=== PATIENT | female | born 1945 | race Caucasian/White ===

== ENCOUNTER → 2017-07-07 | Outpatient (CLI) | payer OTHER ==
[~2017-07-07] MED LIST: ALBU1AER9 INH; ASPEC81 PO; ATOR-24 PO; CALCTAB5 PO; CARB50TA3 PO; CHOL2000 PO; DEXL60CA4 PO; IBUP600T44 PO; IPRA0.037 NAE; MULT-506 PO; OMEG10007 PO; PROBCAP PO; PXL/40 PO
[2017-07-07 12:38] LABS: BASO % 0.4 %; BASO ABS # 0.04 K/uL (0-0.2); EOS % 3.6 %; EOS ABS # 0.35 K/uL (0-0.5); HEMATOCRIT 44.3 % (37-47); HEMOGLOBIN 14.4 g/dL (12.0-16.0); IG# 0.01 K/uL (0.00-0.02); LYMPH % 26.8 %; LYMPH ABS # 2.62 K/uL (1.2-3.4); MEAN CELL VOLUME 91.7 fL (80-100); MEAN CORPUSCULAR HEMOGLOBIN 29.8 pg (25-34); MEAN CORPUSCULAR HGB CONC 32.5 g/dl (32-36); MEAN PLATELET VOLUME 9.9 fL (7.4-10.4); MONO % 9.3 %; MONO ABS # 0.91 K/uL (0.11-0.59); NEUT % 59.8 %; NEUT ABS # 5.83 K/uL (1.4-6.5); PLATELET COUNT 273 K/uL (130-400); RED CELL DISTRIBUTION WIDTH CV 13.1 % (11.5-14.5); RED CELL DISTRIBUTION WIDTH SD 43.6 fL (36.4-46.3); WHITE BLOOD COUNT 9.76 K/uL (4.8-10.8)
[2017-07-07 13:21] LABS: ALBUMIN 3.6 gm/dl (3.4-5.0); ALKALINE PHOSPHATASE 100 U/L (45-117); ALT/SGPT 10 U/L (12-78); AST/SGOT 22 U/L (15-37); BLOOD UREA NITROGEN 17 mg/dl (7-18); CALCIUM 9.4 mg/dl (8.5-10.1); CARBON DIOXIDE 32 mmol/L (21-32); CHOLESTEROL 170 mg/dl (0-200); CREATININE 0.88 mg/dl (0.60-1.20); GLUCOSE 114 mg/dl (70-99); LDL CHOLESTEROL CALCULATED 71 mg/dl; POTASSIUM 4.6 mmol/L (3.5-5.1); SODIUM 140 mmol/L (136-145); TOTAL PROTEIN 8.2 gm/dl (6.4-8.2)
== END | disposition home or self-care (01) ==
LOC: C.LAB1850 11:18
PROVIDERS: ATTEND Internal Medicine Cardiovascular Disease
DX: I44.2 Atrioventricular block, complete (principal); E78.00 Pure hypercholesterolemia, unspecified; R60.0 Localized edema; K59.00 Constipation, unspecified; I25.10 Atherosclerotic heart disease of native coronary artery without angina pectoris

== ENCOUNTER 2020-04-08 14:47 | Inpatient (IN) ==
[2020-04-08] MEDS ORDERED: ONDANSETRON INJ 2 MG/ML 2 ML VIAL IV STA (15:05)
[2020-04-08] MEDS ORDERED: MoRPHine SULFATE 4 MG/ML 1 ML CARP\\VIAL IV STA (15:05)
--- NOTE | 2020-04-08 15:18 | Emergency Department Note ---
Impression & Plan Chest pain, Elevated troponin I level ED Provider Note NAME: LOKESH ROYAL AGE: 75 SEX: F : 1945 ARRIVES VIA: Ambulance INFORMANT: Patient, prehospital personnel ED PROVIDER(S): Abdiel Randhawa DO CHIEF COMPLAINT: Chest pain HPI: The patient is a 75-year-old female who presented to the emergency department for an evaluation of chest pain. The patient has a history of Parkinson's. She was treated with aspirin prior to arrival. She states that she started having chest pain over the last 24 hours. She describes it as a tightness and a pressure over her left anterior chest wall. She states this is worsened with exertion. She is not been seen by her primary care physician for the symptoms. She denies having any nausea or vomiting. She denies having any lower extremity swelling or pain more than usual. The patient states that she has been compliant with her outpatient medication regimen. She does have a pacemaker and a history of coronary artery disease. She states the pain is mild to moderate at this time. ROS: See above HPI for pertinent positives & negatives. A total of 10 systems reviewed and were otherwise negative. PAST MEDICAL HISTORY: See Below PAST SURGICAL HISTORY: See Below FAMILY HISTORY: See Below SOCIAL HISTORY: See Below HOME MEDICATIONS: See Below ALLERGIES: See Below VITALS: See Below PHYSICAL EXAMINATION: GENERAL: The patient is awake and alert. She is somewhat anxious appearing but overall comfortable. EYES: The conjunctivae are clear. The pupils are round and reactive. EARS, NOSE, MOUTH AND THROAT: The nose is without any evidence of any deformity. NECK: The neck is nontender and supple. RESPIRATORY: Normal respiratory effort is noted there is no evidence of wheezing rhonchi or rales CARDIOVASCULAR: Regular rate and rhythm noted there no murmurs rubs or gallops normal S1 normal S2. GASTROINTESTINAL: The abdomen is soft. Abdomen is nontender. MUSCULOSKELETAL/EXTREMITIES: There is no evidence of gross deformity full range of motion is noted in the hips and shoulders. SKIN: Skin is warm and dry. There was trace pedal edema bilaterally. NEUROLOGIC: Patient is awake alert and oriented to person place and situation. Strength was symmetric. MEDICAL DECISION MAKING: The patient is a 75-year-old female who presented to the emergency department for an evaluation of chest pain. The patient describes chest pressure which has been ongoing for the last 24 hours. The patient has a history of coronary artery disease although reviewing her previous cardiology notes the last catheterization I could find was reference from 2007 and did have diffuse luminal irregularities from 30 to 50%. The patient was treated with aspirin prior to arrival. She was given pain medication in the emergency department. She was reevaluated multiple times. The patient does have a pacemaker so interp retation for ischemia is difficult but there is no overt signs of ischemia on her EKG. I discussed the patient's laboratory and radiographic studies with her. She was found to have a mild elevation in her troponin which could be consistent with ischemia. For this reason I will discuss her case with the on- call [facility]. Triage Nursing notes reviewed. Prior medical records reviewed Vital Signs: reviewed and remarkable for elevated blood pressure. Differential diagnosis: Cardiac ischemia, aortic dissection, pulmonary embolism, pneumothorax, pneumonia, pericarditis, myocarditis, esophageal rupture, GERD, cholecystitis, pancreatitis, musculoskeletal, as well as other pathologies. ER treatment provided: See below Diagnostics interpreted by me: ECG: EKG was obtained in the emergency department. My interpretation is ventricular paced rhythm at 76 bpm. Atrial sensing was also noted. No [place] beats were noted. This was compared to a tracing from January 252019. No significant changes were noted. Cardiac Monitoring: An order was placed for continuous cardiac monitoring. The monitor shows a rate of 90 bpm with paced rhythm. Laboratory studies: As stated above and show below. Imaging studies: See below Consultation(s): I discussed this case with Dr. Matthews who is on-call for the [facility] group. Past Med/Surg History Medical History (Updated 04/08/20 @ 17:52 by Eduardo Dash MD) Anxiety Asthma rarely issue CAD (coronary artery disease) Depression GERD (gastroesophageal reflux disease) Hyperlipidemia Hypertension Morbid obesity with BMI of 60.0-69.9, adult Non-Hodgkin lymphoma Osteoarthritis Parkinson disease Sleep apnea mild, no device Surgical History H/O left cataract extraction 10/28/17- given 2mg IV versed without issues History of appendectomy History of bilateral tubal ligation History of carpal tunnel release BILATERAL History of cholecystectomy History of hysterectomy History of tonsillectomy History of total knee replacement BILATERAL Hx of cardiac pacemaker for BBB; 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 Follows up with Dr. 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 Required: No Beliefs That Will Affect Care: None Current Living Situation: Spouse Feels Safe at Home: Yes Assistive Devices: Cane, Glasses and Walker Allergies Allergies Allergy/AdvReac Type Severity Reaction Status Date / Time codeine AdvReac Intermediate ITCHY ALL Verified 04/08/20 16:34 OVER Home Meds Home Medications Medication Instructions Recorded Confirmed melatonin 10 mg PO HS PRN 10/07/17 04/08/20 albuterol sulfate [Ventolin HFA] 2 - 4 puff INHALATION QID PRN 11/10/17 04/08/20 aspirin [Aspirin Low Dose] 81 mg PO QPM 11/10/17 04/08/20 ipratropium bromide 42 mcg (0.06 2 sprays INTRANASAL TID #1 ml 11/05/18 04/08/20 %) nasal spray esomeprazole magnesium 20 mg 20 mg PO BID cap 03/01/19 04/08/20 capsule,delayed release duloxetine 30 mg capsule,delayed 30 mg PO DAILY 04/19/19 04/08/20 release acetaminophen [Tylenol Extra 500 - 1,000 mg PO DIRECTED PRN 03/18/20 04/08/20 Strength] MDD 3 GRAMS/24 HOURS cholecalciferol (vitamin D3) 125 mcg PO QPM 03/18/20 04/08/20 [Vitamin D3] meloxicam [Mobic] 15 mg PO DAILY 03/18/20 04/08/20 vit C,X-Vn-sisbg-lutein-zeaxan 1 tab PO BID 03/18/20 04/08/20 [PreserVision AREDS-2] Previous Rx's Medication Instructions Recorded atorvastatin 40 mg tablet 40 mg PO QPM #90 tab 12/14/18 spironolactone 25 1 tab PO QAM #90 tab 10/27/19 mg-hydrochlorothiazide 25 mg tablet carbidopa ER 50 mg-levodopa 200 mg 1 tab PO QID #360 tab 01/03/20 tablet,extended release amantadine HCl 100 mg capsule 100 mg PO BID 90 Days #180 cap 01/27/20 clonazepam 1 mg tablet 1 mg PO HS 90 Days #90 tab 02/09/20 rasagiline 1 mg tablet 1 mg PO DAILY 90 Days #90 tab 04/03/20 Results & Data (ED) Vital Signs Vital Signs - 24 hr 04/08/20 14:55 04/08/20 15:05 04/08/20 15:06 Temperature 36.4 C L Temperature Source Oral Pulse Rate 79 75 75 Pulse Rate from SpO2 Sensor 80 77 Respiratory Rate 22 20 21 Respiratory Effort / Characteristics Non-Labored Spontaneous Respiratory Depth Normal Respiratory Pattern Regular Blood Pressure 138/83 136/83 139/81 Blood Pressure Mean 101 100 100 Blood Pressure Position Lying Pulse Oximetry 95 98 97 Oxygen Delivery Method Room Air Sepsis Recent Fever Within 48 Hours No Sepsis New/Unexplained Change in Mental Status N/A Sepsis Action Taken by Nursing No Action Required 04/08/20 16:00 04/08/20 16:30 04/08/20 17:01 Temperature Temperature Source Pulse Rate 75 73 71 Pulse Rate from SpO2 Sensor 72 72 69 Respiratory Rate 12 13 Respiratory Effort / Characteristics Respiratory Depth Respiratory Pattern Blood Pressure 144/82 H 144/78 H 141/84 H Blood Pressure Mean 102 100 103 Blood Pressure Position Pulse Oximetry 91 91 96 Oxygen Delivery Method Sepsis Recent Fever Within 48 Hours Sepsis New/Unexplained Change in Mental Status Sepsis Action Taken by Retirement Medications Current Medication List: was personally reviewed by me Laboratory Data Attestation: I reviewed the patient's lab results. Result diagrams: 04/08/20 15:24 04/08/20 15:24 Lab Results 04/08/20 04/08/20 04/08/20 Range/Units 15:24 15:24 15:24 WBC 8.27 (4.8-10.8) K/uL RBC 4.73 (4.2-5.4) M/uL Hgb 14.4 (12.0-16.0) g/dL Hct 44.1 (37-47) % MCV 93.2 (80-100) fL MCH 30.4 (25-34) pg MCHC 32.7 (32-36) g/dL RDW Std Deviation 44.8 (36.4-46.3) fL RDW Coeff of Misti 13.1 (11.5-14.5) % Plt Count 235 (130-400) K/uL MPV 10.9 H (7.4-10.4) fL Immature Gran % (Auto) 0.2 % Neut % (Auto) 72.7 % Lymph % (Auto) 17.7 % [place] % (Auto) 7.5 % Eos % (Auto) 1.7 % Baso % (Auto) 0.2 % Neut # (Auto) 6.01 (1.4-6.5) K/uL Lymph # (Auto) 1.46 (1.2-3.4) K/uL [place] # (Auto) 0.62 H (0.11-0.59) K/uL Eos # (Auto) 0.14 (0-0.5) K/uL Baso # (Auto) 0.02 (0-0.2) K/uL Immature Gran # (Auto) 0.02 (0.00-0.02) K/uL PT 10.6 (9.0-12.0) Seconds INR 1.0 (0.9-1.1) APTT 22.3 (21.0-31.0) Seconds PTT Ratio 0.8 Sodium 141 (136-145) mmol/L Potassium 4.4 (3.5-5.1) mmol/L Chloride 108 H (98-107) mmol/L Carbon Dioxide 27 (21-32) mmol/L Anion Gap 6.0 (3-11) BUN 23 H (7-18) mg/dl Creatinine 1.09 (0.6-1.2) mg/dl Est Cr Clr Drug Dosing 54.3 ml/min Est GFR ( Amer) 56.7 Est GFR (Non-Af Amer) 48.9 BUN/Creatinine Ratio 20.7 H (10-20) Glucose 140 H (70-99) mg/dl Calcium 10.2 H (8.5-10.1) mg/dl Total Bilirubin 1.0 (0.2-1) mg/dl AST 10 L (15-37) U/L ALT 14 (12-78) U/L Alkaline Phosphatase 118 H (45-117) U/L Troponin I 0.114 H* (0-0.045) ng/ml Total Protein 8.0 (6.4-8.2) gm/dl Albumin 4.1 (3.4-5.0) gm/dl Globulin 3.9 (2.5-4.0) gm/dl Albumin/Globulin Ratio 1.1 (0.9-2) Lipase 207 (73-393) U/L COVID-19 Eval Order 04/08/20 Range/Units 17:25 WBC (4.8-10.8) K/uL RBC (4.2-5.4) M/uL Hgb (12.0-16.0) g/dL Hct (37-47) % MCV (80-100) fL MCH (25-34) pg MCHC (32-36) g/dL RDW Std Deviation (36.4-46.3) fL RDW Coeff of Misti (11.5-14.5) % Plt Count (130-400) K/uL MPV (7.4-10.4) fL Immature Gran % (Auto) % Neut % (Auto) % Lymph % (Auto) % [place] % (Auto) % Eos % (Auto) % Baso % (Auto) % Neut # (Auto) (1.4-6.5) K/uL Lymph # (Auto) (1.2-3.4) K/uL [place] # (Auto) (0.11-0.59) K/uL Eos # (Auto) (0-0.5) K/uL Baso # (Auto) (0-0.2) K/uL Immature Gran # (Auto) (0.00-0.02) K/uL PT (9.0-12.0) Seconds INR (0.9-1.1) APTT (21.0-31.0) Seconds PTT Ratio Sodium (136-145) mmol/L Potassium (3.5-5.1) mmol/L Chloride (98-107) mmol/L Carbon Dioxide (21-32) mmol/L Anion Gap (3-11) BUN (7-18) mg/dl Creatinine (0.6-1.2) mg/dl Est Cr Clr Drug Dosing ml/min Est GFR ( Amer) Est GFR (Non-Af Amer) BUN/Creatinine Ratio (10-20) Glucose (70-99) mg/dl Calcium (8.5-10.1) mg/dl Total Bilirubin (0.2-1) mg/dl AST (15-37) U/L ALT (12-78) U/L Alkaline Phosphatase (45-117) U/L Troponin I (0-0.045) ng/ml Total Protein (6.4-8.2) gm/dl Albumin (3.4-5.0) gm/dl Globulin (2.5-4.0) gm/dl Albumin/Globulin Ratio (0.9-2) Lipase (73-393) U/L COVID-19 Eval Order Covid19 [facility] Administered Medications Discontinued Medications Morphine Sulfate (Morphine Sulfate 4 Mg/Ml 1 Ml Carp\Vial) 4 mg IV NOW STA Stop: 04/08/20 15:06 Last Admin: 04/08/20 15:38 Dose: 4 mg Documented by: [id number] Ondansetron HCl (Ondansetron Inj 2 Mg/Ml 2 Ml Vial) 4 mg IV NOW STA Stop: 04/08/20 15:06 Last Admin: 04/08/20 15:37 Dose: 4 mg Documented by: [id number] Imaging Data Radiologist's Impression: Patient: LOKESH ROYAL Admit Date: 04/08/20 MR#: [id number] Address1: [address] [place] [address] Acct ID:[id number] Address2: Date: 1945 [place] Zip: [place] [address] Age: 75 Location: ED Sex: F Room/Bed: Att Phy: Diagnosis: CHEST PAIN Paige Phy: Abdiel Montero MD Service Date: 04/08/20 [facility] Phy: Interpreting Phy: Irving Antonio MD Admit Phy: Ordering Phy: Abdiel Randhawa DO cc: ~ XR chest 1V portable CLINICAL HISTORY: Chest Pain COMPARISON STUDY: Chest radiograph May 21, 2007. PET/CT December 26, 2014. FINDINGS: Dual lead left subclavian pacemaker is in place. Cardiomediastinal silhouette is stable. There is no pneumothorax or pleural effusion. Mild interstitial thickening is present. Apparent left basilar opacity is probably artifactual. IMPRESSION: 1. Mild cardiomegaly with pulmonary vascular congestion. 2. Apparent left basilar opacity which is probably artifactual. ACT 112: Negative or not required by law. Electronically signed by: Irving Antonio M.D. 04/08/2020 3:39 PM Dictated: 04/08/201536 Transcribed: 04/08/201536 Discharge Plan Visit Data Chief Complaint: Chest Pain ED Provider: Abdiel Randhawa Discharge Problem: Chest pain, Elevated troponin I level Patient Disposition: Being Evaluated by Hospitalist Condition: Good Forms Stand Alone Forms: My [facility] [place] Prescriptions Prescriptions: No Action atorvastatin 40 mg tablet 40 mg PO QPM Qty: 90 RF: 4 spironolacton-hydrochlorothiaz 25-25 mg tablet 1 tab PO QAM Qty: 90 RF: 3 carbidopa-levodopa 50-200 mg tablet extended release 1 tab PO QID Qty: 360 RF: 1 amantadine HCl 100 mg capsule 100 mg PO BID 90 Days Qty: 180 RF: 1 clonazepam 1 mg tablet 1 mg PO HS 90 Days Qty: 90 RF: 1 rasagiline 1 mg tablet 1 mg PO DAILY 90 Days Qty: 90 RF: 1 ipratropium bromide 42 mcg (0.06 %) spray,non-aerosol 2 sprays intranasal TID Qty: 1 RF: 0 duloxetine [Cymbalta] 30 mg capsule,delayed release(DR/EC) 30 mg PO DAILY RF: 0 esomeprazole magnesium [Nexium] 20 mg capsule,delayed release(DR/EC) 20 mg PO BID RF: 0 melatonin 10 mg Tablet 10 mg PO HS PRN (Reason: Sleep) RF: 0 aspirin [Aspirin Low Dose] 81 mg Tablet,Delayed Release (Dr/Ec) 81 mg PO QPM RF: 0 albuterol sulfate [Ventolin HFA] 90 mcg/actuation Hfa Aerosol Inhaler 2 - 4 puff INHALATION QID PRN (Reason: Shortness Of Breath Or Wheezing) RF: 0 meloxicam [Mobic] 15 mg Tablet 15 mg PO DAILY RF: 0 acetaminophen [Tylenol Extra Strength] 500 mg Tablet 500 - 1,000 mg PO DIRECTED MDD 3 GRAMS/24 HOURS PRN (Reason: Pain) RF: 0 cholecalciferol (vitamin D3) [Vitamin D3] 125 mcg (5,000 unit) Tablet 125 mcg PO QPM RF: 0 PreserVision AREDS-2 [id number]-[id number]-mg Capsule 1 tab PO BID RF: 0 Referrals Referrals: Abdiel Montero MD [Primary Care Provider] - Discharge Problem: Chest pain Qualifiers: Chest pain type: unspecified Qualified Code(s): R07.9 - Chest pain, unspecified
--- NOTE | 2020-04-08 15:40 | XRay Report ---
XR chest 1V portable CLINICAL HISTORY: Chest Pain COMPARISON STUDY: Chest radiograph May 21, 2007. PET/CT December 26, 2014. FINDINGS: Dual lead left subclavian pacemaker is in place. Cardiomediastinal silhouette is stable. Th ere is no pneumothorax or pleural effusion. Mild interstitial thickening is present. Apparent left ba silar opacity is probably artifactual. IMPRESSION: 1. Mild cardiomegaly with pulmonary vascular congestion. 2. Apparent left basilar opacity which is probably artifactual. ACT 112: Negative or not required by law. Electronically signed by: Irving Antonio M.D. 04/08/2020 3:39 PM
[2020-04-08 15:41] LABS: Basophils # (auto) 0.02 K/uL (0-0.2); Basophils % (auto) 0.2 %; Eosinophils # (auto) 0.14 K/uL (0-0.5); Eosinophils % (auto) 1.7 %; Hematocrit (blood only) 44.1 % (37-47); Hemoglobin 14.4 g/dL (12.0-16.0); Immature Granulocytes # (auto) 0.02 K/uL (0.00-0.02); Immature Granulocytes % (auto) 0.2 %; Lymphocytes # (auto) 1.46 K/uL (1.2-3.4); Lymphocytes % (auto) 17.7 %; Mean Corpuscular Hemoglobin 30.4 pg (25-34); Mean Corpuscular Hgb Conc 32.7 g/dL (32-36); Mean Corpuscular Volume 93.2 fL (80-100); Mean Platelet Volume 10.9 fL (7.4-10.4); Monocytes # (auto) 0.62 K/uL (0.11-0.59); Monocytes % (auto) 7.5 %; Neutrophils # (auto) 6.01 K/uL (1.4-6.5); Neutrophils % (auto) 72.7 %; Platelet Count 235 K/uL (130-400); RDW Coefficient of Variation 13.1 % (11.5-14.5); RDW Standard Deviation 44.8 fL (36.4-46.3); Red Blood Count 4.73 M/uL (4.2-5.4); White Blood Count 8.27 K/uL (4.8-10.8)
[2020-04-08 15:53] LABS: Partial Thromboplastin Ratio 0.8; Partial Thromboplastin Time 22.3 Seconds (21.0-31.0); Prothrombin Time 10.6 Seconds (9.0-12.0)
[2020-04-08 15:59] LABS: Albumin Level 4.1 gm/dl (3.4-5.0); BUN Creatinine Ratio 20.7 (10-20); Calcium 10.2 mg/dl (8.5-10.1); Creatinine Clr Calc Pharmacy 54.3 ml/min; Est GFR (African American) 56.7; Est GFR (Non-African American) 48.9; Potassium 4.4 mmol/L (3.5-5.1)
[2020-04-08 16:14] LABS: Albumin Globulin Ratio 1.1 (0.9-2); Globulin 3.9 gm/dl (2.5-4.0); Troponin I 0.114 ng/ml (0-0.045)
[2020-04-08] MEDS ORDERED: NITROGLYCERIN SL 0.4 MG/TAB TAB SL PRN (17:52)
[2020-04-08] MEDS ORDERED: ONDANSETRON INJ 2 MG/ML 2 ML VIAL IV PRN (17:52)
[2020-04-08] MEDS ORDERED: MoRPHine SULFATE 2 MG/ML CARP IV PRN (17:52)
--- NOTE | 2020-04-08 17:52 | History & Physical Report ---
Date of Service April 08, 2020 Assessment & Plan (1) Chest pain: 75-year-old female with a past medical history of morbid obesity, REM sleep behavior disorder, Parkinson's disease, status post pacemaker placement 9 years ago for bundle branch block, hypertension, hyperlipidemia, coronary artery disease who presented the emergency department for evaluation of chest pain. #Chest pain likely secondary to NSTEMI Patient presenting with a clinical history and symptoms concerning for ACS. Routine ACS work-up has been initiated. Troponins mildly positive, EKG without ischemic changes, other laboratory markers were within normal limits. At present no indication for heparin, will continue to trend troponins. Plan to temporarily place the patient on a heparin drip pending repeat troponins, if troponins downtrending please DC heparin -Trend troponins every 6 hours -DC heparin if troponins trending down -As needed morphine for pain -As needed O2 to keep saturations greater than 90 -EKG with chest pain then as needed nitro -Monitor on telemetry -Follow-up echo -Cardiology consult, will need outpatient follow-up -We will defer adding an SB or ARB to her regimen as she will likely need a cardiac catheterization. Will consider adding afterwards -IV metoprolol in 5 mg every 5 minutes as tolerated for a total of 15 mg then 30 minutes after last IV dose 25 mg p.o. metoprolol twice daily -Hold Mobic #Elevated troponin See above #Coronary artery disease Longstanding history of, previously had a cardiac cath with pacemaker placement secondary to bundle branch block approximately 9 years ago follows with Dr. Alcantara as an outpatient -Continue atorvastatin 40 mg p.o. every afternoon -Continue daily baby aspirin #History of bundle eugenia block with pacemaker placement Follows with Dr. Alcantara as an outpatient, pacemaker placed approximately 9 years ago, has had no issues with her pacemaker. EKG demonstrating paced rhythm. #Parkinson's disease Known history of, continue outpatient medications -Amantadine 100 mg twice daily -Carbidopa ER 50 mglevodopa 200 mg ER -Rasagiline 1 mg p.o. daily #Hypertension Longstanding history of continue home medications. -Spironolactone 25mghydrochlorothiazide 25 mg daily #Anxiety Continue outpatient medicines -Clonazepam 1 mg p.o. at bedtime -Duloxetine 30 mg p.o. daily FENa: Heart healthy Code Status: Full code DVT PPX: Heparin transition to Lovenox when able PT/OT: To be determined Dispo: Telemetry Eduardo Dash MD PGY 2, FCM This chart was completed utilizing [employer] voice recognition software. Grammatical errors, random word insertions, pronoun errors, and in complete sentences are an occasional consequence of the system. Any questions or concerns about the content, text, or information contained within the body of this dictation should be addressed directly to the physician for clarification. (2) Elevated troponin I level: (3) REM sleep behavior disorder: (4) Parkinson disease: (5) Pacemaker: (6) Complete heart block: (7) Hypertension: (8) Hyperlipidemia: (9) CAD (coronary artery disease): (10) Encounter for pre-operative examination: (11) Anxiety: (12) NSTEMI (non-ST elevated myocardial infarction): History of Present Illness 75-year-old female with a past medical history of morbid obesity, REM sleep behavior disorder, Parkinson's disease, status post pacemaker placement 9 years ago for bundle branch block, hypertension, hyperlipidemia, coronary artery disease who presented the emergency department for evaluation of chest pain. She has a history of prior cardiac catheterization with pacemaker placement, most recent notes available from 2007 demonstrating diffuse luminal irregularities from 30 to 50%. She states she has been having chest pain over the last 24 hours, describing it as tightness and pressure over the left anterior chest wall. She states her symptoms increased with exertion is improved with rest. At present she reports the pain is mild to moderate. She has not been evaluated by her primary care physician for these symptoms, she denies other constitutional symptoms including nausea/vomiting significantly increased shortness of breath, neurological deficits or sensory deficits or other concerning signs and symptoms. Prior to arrival she received aspirin in the field. Upon arrival to the emergency department routine labs were obtained notable for normal INR, CBC within normal limits, Chem-7 within normal limits, very mildly elevated troponin to 0.114 the remainder of labs were within normal limits. A chest x-ray was obtained demonstrating mild cardiomegaly with pulmonary vascular congestion and an apparent left basilar opacity which is probably artifactual. EKG was obtained, interpretation was limited secondary to pacer. However there were no overt ischemic changes observed when compared to tracing from 01/26/2020 no significant changes were noted. Given the patient's troponin elevation, history of coronary artery disease, and concerning symptoms the patient will be admitted to telemetry for further evaluation and management. Primary Care Provider: Abdiel Montero MD Allergies Allergy/AdvReac Type Severity Reaction Status Date / Time codeine AdvReac Intermediate ITCHY ALL Verified 04/08/20 16:34 OVER Home Medications Medication Instructions Recorded Confirmed Type melatonin 10 mg PO HS PRN 10/07/17 04/08/20 History albuterol sulfate [Ventolin HFA] 2 - 4 puff INHALATION QID PRN 11/10/17 04/08/20 History aspirin [Aspirin Low Dose] 81 mg PO QPM 11/10/17 04/08/20 History ipratropium bromide 42 mcg (0.06 2 sprays INTRANASAL TID #1 ml 11/05/18 04/08/20 History %) nasal spray atorvastatin 40 mg tablet 40 mg PO QPM #90 tab 12/14/18 04/08/20 Rx esomeprazole magnesium 20 mg 20 mg PO BID cap 03/01/19 04/08/20 History capsule,delayed release duloxetine 30 mg capsule,delayed 30 mg PO DAILY 04/19/19 04/08/20 History release spironolactone 25 1 tab PO QAM #90 tab 10/27/19 04/08/20 Rx mg-hydrochlorothiazide 25 mg tablet carbidopa ER 50 mg-levodopa 200 mg 1 tab PO QID #360 tab 01/03/20 04/08/20 Rx tablet,extended release amantadine HCl 100 mg capsule 100 mg PO BID 90 Days #180 cap 01/27/20 04/08/20 Rx clonazepam 1 mg tablet 1 mg PO HS 90 Days #90 tab 02/09/20 04/08/20 Rx acetaminophen [Tylenol Extra 500 - 1,000 mg PO DIRECTED PRN 03/18/20 04/08/20 History Strength] MDD 3 GRAMS/24 HOURS cholecalciferol (vitamin D3) 125 mcg PO QPM 03/18/20 04/08/20 History [Vitamin D3] meloxicam [Mobic] 15 mg PO DAILY 03/18/20 04/08/20 History vit C,C-Dj-xgizi-lutein-zeaxan 1 tab PO BID 03/18/20 04/08/20 History [PreserVision AREDS-2] rasagiline 1 mg tablet 1 mg PO DAILY 90 Days #90 tab 04/03/20 04/08/20 Rx Past Med/Surg History Medical History (Updated 04/08/20 @ 17:52 by Eduardo Dash MD) Anxiety Asthma rarely issue CAD (coronary artery disease) Depression GERD (gastroesophageal reflux disease) Hyperlipidemia Hypertension Morbid obesity with BMI of 60.0-69.9, adult Non-Hodgkin lymphoma Osteoarthritis Parkinson disease Sleep apnea mild, no device Surgical History H/O left cataract extraction 10/28/17- given 2mg IV versed without issues History of appendectomy History of bilateral tubal ligation History of carpal tunnel release BILATERAL History of cholecystectomy History of hysterectomy History of tonsillectomy History of total knee replacement BILATERAL Hx of cardiac pacemaker for BBB; 9+ years. Follows up with Dr. Askew Pacemaker BBB, 9+ YEARS AGO, F/U DR LAO Social History Smoking Status: Never smoker Second Hand Exposure: No; Hx Alcohol Use: No Hx Substance Use: No Preferred Language: Frisian Communication Ability: Effective [employer]ager[employer] Required: No Beliefs That Will Affect Care: None Current Living Situation: Spouse Feels Safe at Home: Yes Assistive Devices: Cane, Glasses and Walker Review of Systems Review of Systems: All systems reviewed & are unremarkable except as noted in HPI & below Physical Exam Physical Exam: General: Morbidly obese female lying in bed in no acute distress HEENT: Normocephalic atraumatic Neck: Normal visual inspection Cardiac: Regular rate and rhythm I did not appreciate significant murmurs rubs or gallops, normal S1, normal S2, negative pedal edema, negative calf tenderness Respiratory: Clear to auscultation bilaterally with symmetrical chest expansion I did not appreciate significant wheezes, rales, rhonchi GI: Soft, nontender, nondistended, bowel sounds present Neuro: Alert and oriented x4 Psych: Calm and cooperative with the interview Results & Data Results & Data ([facility]) Vital Signs (Past 12 Hours) Vital Signs Temp Pulse Resp BP Pulse Ox 04/08/20 16:00 75 12 144/82 H 91 04/08/20 15:06 75 21 139/81 97 04/08/20 15:05 36.4 C L 75 20 136/83 98 04/08/20 14:55 79 22 138/83 95 Laboratory Results 04/08/20 04/08/20 04/08/20 Range/Units 15:24 15:24 15:24 WBC 8.27 (4.8-10.8) K/uL RBC 4.73 (4.2-5.4) M/uL Hgb 14.4 (12.0-16.0) g/dL Hct 44.1 (37-47) % MCV 93.2 (80-100) fL MCH 30.4 (25-34) pg MCHC 32.7 (32-36) g/dL RDW Std Deviation 44.8 (36.4-46.3) fL RDW Coeff of Misti 13.1 (11.5-14.5) % Plt Count 235 (130-400) K/uL MPV 10.9 H (7.4-10.4) fL Immature Gran % (Auto) 0.2 % Neut % (Auto) 72.7 % Lymph % (Auto) 17.7 % Tate % (Auto) 7.5 % Eos % (Auto) 1.7 % Baso % (Auto) 0.2 % Neut # (Auto) 6.01 (1.4-6.5) K/uL Lymph # (Auto) 1.46 (1.2-3.4) K/uL Tate # (Auto) 0.62 H (0.11-0.59) K/uL Eos # (Auto) 0.14 (0-0.5) K/uL Baso # (Auto) 0.02 (0-0.2) K/uL Immature Gran # (Auto) 0.02 (0.00-0.02) K/uL PT 10.6 (9.0-12.0) Seconds INR 1.0 (0.9-1.1) APTT 22.3 (21.0-31.0) Seconds PTT Ratio 0.8 Sodium 141 (136-145) mmol/L Potassium 4.4 (3.5-5.1) mmol/L Chloride 108 H (98-107) mmol/L Carbon Dioxide 27 (21-32) mmol/L Anion Gap 6.0 (3-11) BUN 23 H (7-18) mg/dl Creatinine 1.09 (0.6-1.2) mg/dl Est Cr Clr Drug Dosing 54.3 ml/min Est GFR ( Amer) 56.7 Est GFR (Non-Af Amer) 48.9 BUN/Creatinine Ratio 20.7 H (10-20) Glucose 140 H (70-99) mg/dl Calcium 10.2 H (8.5-10.1) mg/dl Total Bilirubin 1.0 (0.2-1) mg/dl AST 10 L (15-37) U/L ALT 14 (12-78) U/L Alkaline Phosphatase 118 H (45-117) U/L Troponin I 0.114 H* (0-0.045) ng/ml Total Protein 8.0 (6.4-8.2) gm/dl Albumin 4.1 (3.4-5.0) gm/dl Globulin 3.9 (2.5-4.0) gm/dl Albumin/Globulin Ratio 1.1 (0.9-2) Lipase 207 (73-393) U/L Code Status & VTE Plan Code Status full code on heparin VTE Prophylaxis Plan VTE Prophylaxis will be ordered: Yes Supervising Physician Co-Signing Physician Notes I personally examined the patient and verified all hernandez points of history and exam, discussed case, and agree with decision making with Dr Dash. chest pain resolved. troponin noted. risks noted. mostly just wanted to pee and get some sleep vitals noted nad heent nc at mmm breathing unlabored cardio reg no r/m/g lungs clear no focal neuro deficits nstemi - med management, cardio consult. symptom free for now otherwise as above Resident Activity Tracking Resident Involvement: Resident Care Provided Care Provided: Adult Hospital Medicine (1) Chest pain Chest pain type: unspecified Qualified Code(s): R07.9 - Chest pain, unspecified
[2020-04-08] MEDS ORDERED: ALBUTEROL HFA 8 GM INHALER INH PRN (18:33)
[2020-04-08] MEDS ORDERED: ACETAMINOPHEN HOME PACK 500 MG TABLET PO PRN (18:33)
--- NOTE | 2020-04-08 18:53 | Billing Data ---
Date of Service April 08, 2020 Coding Level of Care Code 37532 Initial Inpt Care Lvl 3
[2020-04-08] MEDS ORDERED: HEPARIN SODIUM/DEXTROSE 25,000 UNITS/500 ML BAG IV SCH (19:00)
[2020-04-08] MEDS ORDERED: Heparin IV Adult Wt-Based Standard WITH Bolus Protocol IV SCH (19:03)
[2020-04-08] MEDS ORDERED: METOPROLOL TARTRATE 25 MG TAB PO SCH (19:30)
[2020-04-08] MEDS ORDERED: INFLUENZA ADMINISTRATION CHARGE ONE (19:44)
[2020-04-08] MEDS ORDERED: INFLUENZA VACCINE HIGH DOSE 65+ 0.7 ML SYR IM ONE (19:44)
[2020-04-08] MEDS ORDERED: Heparin IV Adult Wt-Based Standard WITH Bolus Protocol STA (19:50)
[2020-04-08 20:30] LABS: Troponin I 0.676 ng/ml (0-0.045)
[2020-04-08] MEDS ORDERED: HEPARIN IV BOLUS 6,000 UNITS in SYRINGE 0 ML IV ONE (20:45)
[2020-04-08] MEDS: HEPARIN SODIUM/DEXTROSE 25,000 UNITS/500 ML BAG IV SCH (21:21)
[2020-04-08] MEDS: IPRATROPIUM BROMIDE NASAL SPRAY 0.06% 15ML NAE SCH (21:22)
[2020-04-08] MEDS: ASPIRIN 81 MG ECTAB PO SCH (21:23)
[2020-04-08] MEDS: DULoxetine HCL 30 MG CAP PO SCH (21:23)
[2020-04-08] MEDS: CEROVITE ADV FORMULA TAB PO SCH (21:25)
[2020-04-08] MEDS: ATORVASTATIN 40 MG TAB PO SCH (21:25)
[2020-04-08] MEDS: POLYETHYLENE (MIRALAX) 17 GM PACK PO SCH (21:25)
[2020-04-08] MEDS: AMANTADINE HCL 100 MG CAPSULE PO SCH (21:26)
[2020-04-08] MEDS: PANTOprazole 40 MG TAB PO SCH (21:26)
[2020-04-08] MEDS: CARBIDOPA/LEVODOPA 50/200MG EXT REL TAB PO SCH (21:26)
[2020-04-08] MEDS: CHOLECALCIFEROL 1,000 UNITS 25 MCG TAB PO SCH (21:27)
[2020-04-08] MEDS: METOPROLOL TARTRATE 1 MG/ML VIAL IV SCH ×5 (21:28→21:39)
[2020-04-08] MEDS: LACTATED RINGER'S 1,000 ML IV SCH (21:31)
[2020-04-08] MEDS: clonazePAM 1 MG TAB PO SCH (21:31)
[2020-04-09] MEDS: METOPROLOL TARTRATE 1 MG/ML VIAL IV SCH (00:40)
[2020-04-09] MEDS: LACTATED RINGER'S 1,000 ML IV SCH (03:13)
[2020-04-09 04:02] LABS: Basophils # (auto) 0.04 K/uL (0-0.2); Basophils % (auto) 0.5 %; Eosinophils # (auto) 0.16 K/uL (0-0.5); Hematocrit (blood only) 39.3 % (37-47); Hemoglobin 12.5 g/dL (12.0-16.0); Immature Granulocytes # (auto) 0.01 K/uL (0.00-0.02); Immature Granulocytes % (auto) 0.1 %; Lymphocytes # (auto) 2.62 K/uL (1.2-3.4); Lymphocytes % (auto) 32.1 %; Mean Corpuscular Hemoglobin 30.5 pg (25-34); Mean Corpuscular Hgb Conc 31.8 g/dL (32-36); Mean Corpuscular Volume 95.9 fL (80-100); Mean Platelet Volume 11.2 fL (7.4-10.4); Monocytes % (auto) 9.8 %; Neutrophils # (auto) 4.52 K/uL (1.4-6.5); Neutrophils % (auto) 55.5 %; Platelet Count 230 K/uL (130-400); RDW Coefficient of Variation 13.5 % (11.5-14.5); RDW Standard Deviation 46.9 fL (36.4-46.3); White Blood Count 8.15 K/uL (4.8-10.8)
[2020-04-09 04:23] LABS: Albumin Level 3.3 gm/dl (3.4-5.0); BUN Creatinine Ratio 21.2 (10-20); Calcium 9.5 mg/dl (8.5-10.1); Creatinine Clr Calc Pharmacy 52.9 ml/min; Est GFR (African American) 55.5; Est GFR (Non-African American) 47.9; Potassium 4.2 mmol/L (3.5-5.1)
[2020-04-09 04:27] LABS: Albumin Globulin Ratio 1.1 (0.9-2); Bilirubin,Total 1.1 mg/dl (0.2-1); Total Protein 6.3 gm/dl (6.4-8.2)
[2020-04-09 04:29] LABS: Partial Thromboplastin Ratio 3.6
[2020-04-09 04:36] LABS: Partial Thromboplastin Time 95.7 Seconds (21.0-31.0)
[2020-04-09] MEDS: IPRATROPIUM BROMIDE NASAL SPRAY 0.06% 15ML NAE SCH ×3 (07:50→21:15)
[2020-04-09] MEDS: SPIRONOLACTONE/HCTZ 25-25 PO SCH (07:51)
[2020-04-09] MEDS: AMANTADINE HCL 100 MG CAPSULE PO SCH ×2 (07:51→22:23)
[2020-04-09] MEDS: PANTOprazole 40 MG TAB PO SCH ×2 (07:51→22:22)
[2020-04-09] MEDS: CEROVITE ADV FORMULA TAB PO SCH ×2 (07:51→22:21)
[2020-04-09] MEDS: DULoxetine HCL 30 MG CAP PO SCH (07:51)
[2020-04-09] MEDS: CARBIDOPA/LEVODOPA 50/200MG EXT REL TAB PO SCH ×4 (07:52→22:23)
[2020-04-09] MEDS: POLYETHYLENE (MIRALAX) 17 GM PACK PO SCH ×2 (07:53→22:23)
--- NOTE | 2020-04-09 08:02 | Hospitalist Progress Note ---
Date of Service April 09, 2020 Assessment & Plan (1) Chest pain: 75-year-old female with a past medical history of morbid obesity, REM sleep behavior disorder, Parkinson's disease, status post pacemaker placement 9 years ago for bundle branch block, hypertension, hyperlipidemia, coronary artery disease who presented the emergency department for evaluation of chest pain. #Chest pain likely secondary to NSTEMI Patient presenting with a clinical history and symptoms concerning for ACS. Routine ACS work-up has been initiated. Troponins mildly positive, EKG without ischemic changes, other laboratory markers were within normal limits. Clinical history and physical exam findings concerning for NSTEMI patient placed on heparin drip overnight. Troponins trended up and peaked at 0.842 now downtrending most recent 0.387. Cardiology is consulted and recommending cardiac catheterization on Friday. Patient will be made n.p.o. overnight in preparation for procedure. -Troponins peaked no need to trend further -0.114 -> 0.676 -> 0.842 -> 0.387 -As needed morphine for pain -As needed O2 to keep saturations greater than 90 -on room air -EKG with chest pain then as needed nitro -Monitor on telemetry -Follow-up echo -Cardiology consulted following recommendations -For cardiac catheterization tomorrow -N.p.o. after midnight -Continue heparin drip in the interim -We will defer adding an SB or ARB to her regimen as she will likely need a cardiac catheterization. Will consider adding afterwards -metoprolol 25 mg p.o. twice daily -Hold Mobic #Elevated troponin See above #Coronary artery disease Longstanding history of, previously had a cardiac cath with pacemaker placement secondary to bundle branch block approximately 9 years ago follows [address] Dr. Alcantara as an outpatient -Continue atorvastatin 40 mg p.o. every afternoon -Continue daily baby aspirin -For catheterization tomorrow #History of bundle eugenia block with pacemaker placement Follows with Dr. Alcantara as an outpatient, pacemaker placed approximately 9 years ago, has had no issues with her pacemaker. EKG demonstrating paced rhythm. #Parkinson's disease Known history of, continue outpatient medications -Amantadine 100 mg twice daily -Carbidopa ER 50 mglevodopa 200 mg ER -Rasagiline 1 mg p.o. daily #Hypertension Longstanding history of continue home medications. -Spironolactone 25mghydrochlorothiazide 25 mg daily #Anxiety Continue outpatient medicines -Clonazepam 1 mg p.o. at bedtime -Duloxetine 30 mg p.o. daily FENa: Heart healthy Code Status: Full code DVT PPX: Heparin PT/OT: To be determined Dispo: Telemetry Eduardo Dash MD PGY 2, FCM This chart was completed utilizing [employer] voice recognition software. Grammatical errors, random word insertions, pronoun errors, and in complete sentences are an occasional consequence of the system. Any questions or concerns about the content, text, or information contained within the body of this dictation should be addressed directly to the physician for clarification. Admission and Anticipated Discharge Date Admission Date: April 08, 2020 Supervising Physician Co-Signing Physician Notes I personally examined the patient and verified all hernandez points of history and exam, discussed case, and agree with decision making with Dr Dash. Feeling okay. No further chest pain. Understands plan. No questions. vitals noted nad heent nc at mmm breathing unlabored no accessory muscles good effort, skin shows no rashes no pallor or icterus, no focal neuro deficits nstemi - med management, anticipate cath tomorrow, currently symptom-free. otherwise as above Subjective Patient lying in bed this morning in no acute distress. Reporting no acute events overnight but did not sleep particularly well. Updated patient on various labs, and recommendations from cardiology, patient verbalized understanding. Patient's main hesitancy is regarding a stress test stating that she has had friends who have from it in the past and that she does not want. I explained fortunately for the patient cardiology is elected to proceed with a cardiac catheterization which would not necessitate a stress test. Patient is tolerating her diet, voiding, stooling, sleeping. All questions were answered, acute concerns related to upcoming cardiac catheterization. Physical Exam Physical Exam: General: Morbidly obese female lying in bed in no acute distress HEENT: Normocephalic atraumatic Neck: Normal visual inspection Cardiac: Regular rate and rhythm I did not appreciate significant murmurs rubs or gallops, normal S1, normal S2, negative pedal edema, negative calf tenderness Respiratory: Clear to auscultation bilaterally with symmetrical chest expansion I did not appreciate significant wheezes, rales, rhonchi GI: Soft, nontender, nondistended, bowel sounds present Neuro: Alert and oriented x4 Psych: Calm and cooperative with the interview Results & Data Results & Data ([facility]) Vital Signs (Past 12 Hours) Vital Signs Temp Pulse Resp BP Pulse Ox 04/09/20 03:04 36.9 C 61 18 91/52 L 90 04/08/20 22:43 36.6 C 64 19 112/58 L 93 Laboratory Results 04/09/20 04/09/20 04/09/20 Range/Units 06:44 03:05 03:05 WBC (4.8-10.8) K/uL RBC (4.2-5.4) M/uL Hgb (12.0-16.0) g/dL Hct (37-47) % MCV (80-100) fL MCH (25-34) pg MCHC (32-36) g/dL RDW Std Deviation (36.4-46.3) fL RDW Coeff of Misti (11.5-14.5) % Plt Count (130-400) K/uL MPV (7.4-10.4) fL Immature Gran % (Auto) % Neut % (Auto) % Lymph % (Auto) % [place] % (Auto) % Eos % (Auto) % Baso % (Auto) % Neut # (Auto) (1.4-6.5) K/uL Lymph # (Auto) (1.2-3.4) K/uL [place] # (Auto) (0.11-0.59) K/uL Eos # (Auto) (0-0.5) K/uL Baso # (Auto) (0-0.2) K/uL Immature Gran # (Auto) (0.00-0.02) K/uL PT (9.0-12.0) Seconds INR (0.9-1.1) APTT 95.7 H* (21.0-31.0) Seconds PTT Ratio 3.6 Sodium 144 (136-145) mmol/L Potassium 4.2 (3.5-5.1) mmol/L Chloride 111 H (98-107) mmol/L Carbon Dioxide 29 (21-32) mmol/L Anion Gap 4.0 (3-11) BUN 24 H (7-18) mg/dl Creatinine 1.11 (0.6-1.2) mg/dl Est Cr Clr Drug Dosing 52.9 ml/min Est GFR ( Amer) 55.5 Est GFR (Non-Af Amer) 47.9 BUN/Creatinine Ratio 21.2 H (10-20) Glucose 109 H (70-99) mg/dl Estimat Average Glucose Hemoglobin A1c Calcium 9.5 (8.5-10.1) mg/dl Total Bilirubin 1.1 H (0.2-1) mg/dl AST 41 H (15-37) U/L ALT 12 (12-78) U/L Alkaline Phosphatase 114 (45-117) U/L Troponin I 0.387 H* (0-0.045) ng/ml Total Protein 6.3 L D (6.4-8.2) gm/dl Albumin 3.3 L (3.4-5.0) gm/dl Globulin 3.0 (2.5-4.0) gm/dl Albumin/Globulin Ratio 1.1 (0.9-2) Triglycerides (0-150) mg/dl Cholesterol (0-200) mg/dl LDL Cholesterol, Calc mg/dl VLDL Cholesterol, Calc mg/dl HDL Cholesterol mg/dl Cholesterol/HDL Ratio Lipase (73-393) U/L COVID-19 Eval Order SARS-CoV-2, RNA, NAAT (NEGATIVE) 04/09/20 04/09/20 04/08/20 Range/Units 03:05 00:33 19:33 WBC 8.15 (4.8-10.8) K/uL RBC 4.10 L (4.2-5.4) M/uL Hgb 12.5 (12.0-16.0) g/dL Hct 39.3 (37-47) % MCV 95.9 (80-100) fL MCH 30.5 (25-34) pg MCHC 31.8 L (32-36) g/dL RDW Std Deviation 46.9 H (36.4-46.3) fL RDW Coeff of Misti 13.5 (11.5-14.5) % Plt Count 230 (130-400) K/uL MPV 11.2 H (7.4-10.4) fL Immature Gran % (Auto) 0.1 % Neut % (Auto) 55.5 % Lymph % (Auto) 32.1 % [place] % (Auto) 9.8 % Eos % (Auto) 2.0 % Baso % (Auto) 0.5 % Neut # (Auto) 4.52 (1.4-6.5) K/uL Lymph # (Auto) 2.62 (1.2-3.4) K/uL [place] # (Auto) 0.80 H (0.11-0.59) K/uL Eos # (Auto) 0.16 (0-0.5) K/uL Baso # (Auto) 0.04 (0-0.2) K/uL Immature Gran # (Auto) 0.01 (0.00-0.02) K/uL PT (9.0-12.0) Seconds INR (0.9-1.1) APTT (21.0-31.0) Seconds PTT Ratio Sodium (136-145) mmol/L Potassium (3.5-5.1) mmol/L Chloride (98-107) mmol/L Carbon Dioxide (21-32) mmol/L Anion Gap (3-11) BUN (7-18) mg/dl Creatinine (0.6-1.2) mg/dl Est Cr Clr Drug Dosing ml/min Est GFR ( Amer) Est GFR (Non-Af Amer) BUN/Creatinine Ratio (10-20) Glucose (70-99) mg/dl Estimat Average Glucose Hemoglobin A1c Calcium (8.5-10.1) mg/dl Total Bilirubin (0.2-1) mg/dl AST (15-37) U/L ALT (12-78) U/L Alkaline Phosphatase (45-117) U/L Troponin I 0.842 H* 0.676 H* (0-0.045) ng/ml Total Protein (6.4-8.2) gm/dl Albumin (3.4-5.0) gm/dl Globulin (2.5-4.0) gm/dl Albumin/Globulin Ratio (0.9-2) Triglycerides 94 (0-150) mg/dl Cholesterol 145 (0-200) mg/dl LDL Cholesterol, Calc 65 mg/dl VLDL Cholesterol, Calc 19 mg/dl HDL Cholesterol 61 mg/dl Cholesterol/HDL Ratio 2 Lipase (73-393) U/L COVID-19 Eval Order SARS-CoV-2, RNA, NAAT (NEGATIVE) 04/08/20 04/08/20 04/08/20 Range/Units 19:33 17:25 17:25 WBC (4.8-10.8) K/uL RBC (4.2-5.4) M/uL Hgb (12.0-16.0) g/dL Hct (37-47) % MCV (80-100) fL MCH (25-34) pg MCHC (32-36) g/dL RDW Std Deviation (36.4-46.3) fL RDW Coeff of Misti (11.5-14.5) % Plt Count (130-400) K/uL MPV (7.4-10.4) fL Immature Gran % (Auto) % Neut % (Auto) % Lymph % (Auto) % [place] % (Auto) % Eos % (Auto) % Baso % (Auto) % Neut # (Auto) (1.4-6.5) K/uL Lymph # (Auto) (1.2-3.4) K/uL [place] # (Auto) (0.11-0.59) K/uL Eos # (Auto) (0-0.5) K/uL Baso # (Auto) (0-0.2) K/uL Immature Gran # (Auto) (0.00-0.02) K/uL PT (9.0-12.0) Seconds INR (0.9-1.1) APTT (21.0-31.0) Seconds PTT Ratio Sodium (136-145) mmol/L Potassium (3.5-5.1) mmol/L Chloride (98-107) mmol/L Carbon Dioxide (21-32) mmol/L Anion Gap (3-11) BUN (7-18) mg/dl Creatinine (0.6-1.2) mg/dl Est Cr Clr Drug Dosing ml/min Est GFR ( Amer) Est GFR (Non-Af Amer) BUN/Creatinine Ratio (10-20) Glucose (70-99) mg/dl Estimat Average Glucose Pending Hemoglobin A1c Pending Calcium (8.5-10.1) mg/dl Total Bilirubin (0.2-1) mg/dl AST (15-37) U/L ALT (12-78) U/L Alkaline Phosphatase (45-117) U/L Troponin I (0-0.045) ng/ml Total Protein (6.4-8.2) gm/dl Albumin (3.4-5.0) gm/dl Globulin (2.5-4.0) gm/dl Albumin/Globulin Ratio (0.9-2) Triglycerides (0-150) mg/dl Cholesterol (0-200) mg/dl LDL Cholesterol, Calc mg/dl VLDL Cholesterol, Calc mg/dl HDL Cholesterol mg/dl Cholesterol/HDL Ratio Lipase (73-393) U/L COVID-19 Eval [facility] SARS-[facility]-2, RNA, NAAT NEGATIVE (NEGATIVE) 04/08/20 04/08/20 04/08/20 Range/Units 15:24 15:24 15:24 WBC 8.27 (4.8-10.8) K/uL RBC 4.73 (4.2-5.4) M/uL Hgb 14.4 (12.0-16.0) g/dL Hct 44.1 (37-47) % MCV 93.2 (80-100) fL MCH 30.4 (25-34) pg MCHC 32.7 (32-36) g/dL RDW Std Deviation 44.8 (36.4-46.3) fL RDW Coeff of Misti 13.1 (11.5-14.5) % Plt Count 235 (130-400) K/uL MPV 10.9 H (7.4-10.4) fL Immature Gran % (Auto) 0.2 % Neut % (Auto) 72.7 % Lymph % (Auto) 17.7 % [place] % (Auto) 7.5 % Eos % (Auto) 1.7 % Baso % (Auto) 0.2 % Neut # (Auto) 6.01 (1.4-6.5) K/uL Lymph # (Auto) 1.46 (1.2-3.4) K/uL [place] # (Auto) 0.62 H (0.11-0.59) K/uL Eos # (Auto) 0.14 (0-0.5) K/uL Baso # (Auto) 0.02 (0-0.2) K/uL Immature Gran # (Auto) 0.02 (0.00-0.02) K/uL PT 10.6 (9.0-12.0) Seconds INR 1.0 (0.9-1.1) APTT 22.3 (21.0-31.0) Seconds PTT Ratio 0.8 Sodium 141 (136-145) mmol/L Potassium 4.4 (3.5-5.1) mmol/L Chloride 108 H (98-107) mmol/L Carbon Dioxide 27 (21-32) mmol/L Anion Gap 6.0 (3-11) BUN 23 H (7-18) mg/dl Creatinine 1.09 (0.6-1.2) mg/dl Est Cr Clr Drug Dosing 54.3 ml/min Est GFR ( Amer) 56.7 Est GFR (Non-Af Amer) 48.9 BUN/Creatinine Ratio 20.7 H (10-20) Glucose 140 H (70-99) mg/dl Estimat Average Glucose Hemoglobin A1c Calcium 10.2 H (8.5-10.1) mg/dl Total Bilirubin 1.0 (0.2-1) mg/dl AST 10 L (15-37) U/L ALT 14 (12-78) U/L Alkaline Phosphatase 118 H (45-117) U/L Troponin I 0.114 H* (0-0.045) ng/ml Total Protein 8.0 (6.4-8.2) gm/dl Albumin 4.1 (3.4-5.0) gm/dl Globulin 3.9 (2.5-4.0) gm/dl Albumin/Globulin Ratio 1.1 (0.9-2) Triglycerides (0-150) mg/dl Cholesterol (0-200) mg/dl LDL Cholesterol, Calc mg/dl VLDL Cholesterol, Calc mg/dl HDL Cholesterol mg/dl Cholesterol/HDL Ratio Lipase 207 (73-393) U/L COVID-19 Eval Order SARS-CoV-2, RNA, NAAT (NEGATIVE) Medications Administered Current Inpatient Medications Acetaminophen (Acetaminophen 325 Mg Tab) 650 mg PO Q4H PRN PRN Reason: Pain or Fever Stop: 05/08/20 17:51 Albuterol (Albuterol Hfa 8 Gm Inhaler) 2 - 4 puffs INH QID PRN; Protocol PRN Reason: Shortness Of Breath Or Wheezing Stop: 05/08/20 18:32 Amantadine HCl (Amantadine Hcl 100 Mg Capsule) 100 mg PO BID KITA Stop: 05/08/20 20:59 Last Admin: 04/09/20 07:51 Dose: 100 mg Documented by: Aspirin (Aspirin 81 Mg Ectab) 81 mg PO QPM KITA Stop: 05/08/20 20:59 Last Admin: 04/08/20 21:23 Dose: 81 mg Documented by: Atorvastatin Calcium (Atorvastatin 40 Mg Tab) 40 mg PO QPM KITA Stop: 05/08/20 20:59 Last Admin: 04/08/20 21:25 Dose: 40 mg Documented by: Carbidopa/Levodopa (Carbidopa/Levodopa 50/200mg Ext Rel Tab) 1 tab PO QID KITA Stop: 05/08/20 20:59 Last Admin: 04/09/20 07:52 Dose: 1 tab Documented by: Clonazepam (Clonazepam 1 Mg Tab) 1 mg PO HS [facility] Stop: 05/08/20 20:59 Last Admin: 04/08/20 21:31 Dose: 1 mg Documented by: Duloxetine HCl (Duloxetine Hcl 30 Mg Cap) 30 mg PO DAILY [facility] Stop: 05/08/20 18:44 Last Admin: 04/09/20 07:51 Dose: 30 mg Documented by: HCTZ/Spironolactone (Spironolactone/Hctz 25-25) 1 tab PO QAM [facility] Stop: 05/09/20 08:59 Last Admin: 04/09/20 07:51 Dose: 1 tab Documented by: Lactated Ringer's (Lr) 1,000 mls @ 125 mls/hr IV .Q8H [facility] Stop: 04/09/20 10:44 Last Admin: 04/09/20 03:13 Dose: 125 mls/hr Documented by: Heparin Sodium/Dextrose (Heparin Sodium/Dextrose) 25,000 units in 500 mls @ 25 mls/hr IV .Q20H [facility]; Protocol Stop: 05/08/20 19:49 Last Titration: 04/09/20 05:40 Dose: 1,250 units/hr, 25 mls/hr Documented by: Ipratropium [place] (Ipratropium [place] Nasal [place] 0.06% 15ml) 2 sprays LOULOU TID [facility] Stop: 05/08/20 20:59 Last Admin: 04/09/20 07:50 Dose: 2 sprays Documented by: Melatonin (Melatonin 3 Mg Tab) 9 mg PO HS PRN PRN Reason: Sleep Stop: 05/08/20 20:00 Miscellaneous (Rasagiline: Order Awaiting Action) 1 ea N/A QS [facility] Stop: 05/09/20 00:00 Last Admin: 04/09/20 07:49 Dose: Not Given Documented by: Morphine Sulfate (Morphine Sulfate 2 Mg/Ml [place]) 2 mg IV Q2H PRN PRN Reason: Chest Pain Stop: 04/22/20 17:51 Multivitamins/Minerals (Cerovite Adv Formula Tab) 1 tab PO BID KITA Stop: 05/08/20 20:59 Last Admin: 04/09/20 07:51 Dose: 1 tab Documented by: Nitroglycerin (Nitroglycerin Sl 0.4 Mg/Tab Tab) 0.4 mg SL UD PRN PRN Reason: Chest Pain Stop: 05/08/20 17:51 Ondansetron HCl (Ondansetron Inj 2 Mg/Ml 2 Ml Vial) 4 mg IV Q6H PRN PRN Reason: Nausea Stop: 05/08/20 17:51 Pantoprazole Sodium (Pantoprazole 40 Mg Tab) 40 mg PO BID [facility]; Protocol Stop: 05/08/20 20:59 Last Admin: 04/09/20 07:51 Dose: 40 mg Documented by: Polyethylene Glycol (Polyethylene (Miralax) 17 Gm Pack) 17 gm PO BID [facility] Stop: 05/08/20 20:59 Last Admin: 04/09/20 07:53 Dose: Not Given Documented by: Vitamin D (Cholecalciferol 1,000 Units 25 Mcg Tab) 5,000 units PO QPM [facility] Stop: 05/08/20 20:59 Last Admin: 04/08/20 21:27 Dose: 5,000 units Documented by: Resident Activity Tracking Resident Involvement: Resident Care Provided Care Provided: Adult Hospital Medicine (1) Chest pain Chest pain type: unspecified Qualified Code(s): R07.9 - Chest pain, unspecified
--- NOTE | 2020-04-09 08:44 | Cardiology Consultation ---
Date of Consultation April 09, 2020 Assessment & Plan (1) NSTEMI (non-ST elevated myocardial infarction): She had symptoms and objective evidence of ischemia based on elevated biomarkers. This likely represents an acute coronary syndrome. She is known to have nonobstructive disease from a catheterization performed in 2007. She presented at that time with complete heart block and angiography revealed nonobstructive disease in the LAD and circumflex arteries. She is currently feeling well without recurrent symptoms of ischemia. She has been placed on heparin infusion. I did discuss options for evaluation and treatment. I recommended cardiac catheterization and possible percutaneous intervention. We did discuss the alternatives which would simply be medical therapy. She was appraised of the risks and benefits of cardiac catheterization and we will plan on proceeding tomorrow. (2) Complete heart block: Longstanding. Normally functioning dual-chamber permanent pacemaker. (3) Pacemaker: Medtronic (4) Hyperlipidemia: On high-dose atorvastatin. Attempts to intensify her antilipid regimen in the past resulted in significant muscle discomfort. History of Present Illness Reason for Consultation: Chest pain Requesting Physician: Isabella Attending Physician: Abraham Mason, History of Present Illness The patient is a 75-year-old woman with a remote history of nonobstructive coronary disease in complete heart block who experienced an episode of chest discomfort yesterday afternoon. The patient states that she was attempting to get out of bed when she developed severe right hip discomfort. Shortly thereafter she developed some substernal chest discomfort associated with nausea and vomiting. This discomfort then involved portion of the left arm. Her symptoms are fairly moderate in intensity. Her was not home at the time arrived and contacted EMS who transported her to the hospital. The patient reports some improvement in her symptoms in route after administration of aspirin. She cannot recall exactly when her symptoms resolved in the emergency room. Her symptoms have not recurred. She cannot recall similar symptoms in the past. Her symptoms likely lasted 30 minutes to an hour. She now appear to have associated dyspnea. Her activity is limited at home by her Parkinson's disease and gait instability. She has had several falls recently despite using assistive devices. She is scheduled to participate in physical therapy starting tomorrow. Currently feeling well. She tolerated her breakfast. No recurrent nausea or chest discomfort. Allergies Allergy/AdvReac Type Severity Reaction Status Date / Time codeine AdvReac Intermediate ITCHY ALL Verified 04/08/20 16:34 OVER Home Medications Medication Instructions Recorded Confirmed Type melatonin 10 mg PO HS PRN 10/07/17 04/08/20 History albuterol sulfate [Ventolin HFA] 2 - 4 puff INHALATION QID PRN 11/10/17 04/08/20 History aspirin [Aspirin Low Dose] 81 mg PO QPM 11/10/17 04/08/20 History ipratropium bromide 42 mcg (0.06 2 sprays INTRANASAL TID #1 ml 11/05/18 04/08/20 History %) nasal spray atorvastatin 40 mg tablet 40 mg PO QPM #90 tab 12/14/18 04/08/20 Rx esomeprazole magnesium 20 mg 20 mg PO BID cap 03/01/19 04/08/20 History capsule,delayed release duloxetine 30 mg capsule,delayed 30 mg PO DAILY 04/19/19 04/08/20 History release spironolactone 25 1 tab PO QAM #90 tab 10/27/19 04/08/20 Rx mg-hydrochlorothiazide 25 mg tablet carbidopa ER 50 mg-levodopa 200 mg 1 tab PO QID #360 tab 01/03/20 04/08/20 Rx tablet,extended release amantadine HCl 100 mg capsule 100 mg PO BID 90 Days #180 cap 01/27/20 04/08/20 Rx clonazepam 1 mg tablet 1 mg PO HS 90 Days #90 tab 02/09/20 04/08/20 Rx acetaminophen [Tylenol Extra 500 - 1,000 mg PO DIRECTED PRN 03/18/20 04/08/20 History Strength] MDD 3 GRAMS/24 HOURS cholecalciferol (vitamin D3) 125 mcg PO QPM 03/18/20 04/08/20 History [Vitamin D3] meloxicam [Mobic] 15 mg PO DAILY 03/18/20 04/08/20 History vit C,U-Dv-duolh-lutein-zeaxan 1 tab PO BID 03/18/20 04/08/20 History [PreserVision AREDS-2] rasagiline 1 mg tablet 1 mg PO DAILY 90 Days #90 tab 04/03/20 04/08/20 Rx Patient History Medical History Anxiety Asthma rarely issue CAD (coronary artery disease) Depression GERD (gastroesophageal reflux disease) Hyperlipidemia Hypertension Morbid obesity with BMI of 60.0-69.9, adult Non-Hodgkin lymphoma Osteoarthritis Parkinson disease Sleep apnea mild, no device Surgical History H/O left cataract extraction 10/28/17- given 2mg IV versed without issues History of appendectomy History of bilateral tubal ligation History of carpal tunnel release BILATERAL History of cholecystectomy History of hysterectomy History of tonsillectomy History of total knee replacement BILATERAL Hx of cardiac pacemaker for BBB; 9+ years. Follows up with Dr. Askew Pacemaker BBB, 9+ YEARS AGO, F/U DR LAO Social History Smoking Status: Never smoker Second Hand Exposure: No; Hx Alcohol Use: No Hx Substance Use: No Preferred Language: German Communication Ability: Effective Admissions Clerk Required: No Beliefs That Will Affect Care: None Current Living Situation: Spouse Current Living Situation Comment: lives with Feels Safe at Home: Yes Assistive Devices: Cane, Glasses and Walker Review of Systems Review of Systems: All systems reviewed & are unremarkable except as noted in HPI & below No recent constitutional symptoms such as fevers or chills. Difficulty with ambulation and injury to left toe recently. No sense of palpit ations. No dizziness or lightheadedness. No history of syncope. She does report some swelling in her legs if she does not ambulate frequently. Physical Exam Physical Exam: She is alert and oriented x3. Mood affect appear normal. She answered all questions appropriately. Obese HEENT: Sclerae are anicteric. Pupils are equal and reactive to light and accommodation. Extraocular movements were intact. Neuro: Cranial nerves intact Neck: Redundant neck tissue. Lungs: Lungs are clear to auscultation bilaterally. There are no rales wheezes or rhonchi. She has normal respiratory effort without use of accessory muscles. There is normal pulmonary excursion. Cardiac: The rhythm was regular. S1 and S2 were normal. There are no murmurs on examination. The PMI was not markedly displaced on palpation. Abdomen: The abdomen was soft and nontender. Chest: Well-healed device implant site left upper pectoral area. Extremities: Patient has bilateral radial pulses that are equal in intensity. There is no evidence cyanosis or clubbing. Mild lower extremity edema bilaterally. Skin: There are no rashes noted on examination today. Results & Data ([facility]) Vital Signs (Past 12 Hours) Vital Signs Temp Pulse Resp BP Pulse Ox 04/09/20 08:26 36.4 C L 62 20 115/67 94 04/09/20 03:04 36.9 C 61 18 91/52 L 90 04/08/20 22:43 36.6 C 64 19 112/58 L 93 Laboratory Results Abnormal Lab Results 04/08/20 04/08/20 04/08/20 15:24 15:24 15:24 WBC 8.27 RBC 4.73 Hgb 14.4 Hct 44.1 MCV 93.2 MCH 30.4 MCHC 32.7 RDW Std Deviation 44.8 RDW Coeff of Misti 13.1 Plt Count 235 MPV 10.9 H Immature Gran % (Auto) 0.2 Neut % (Auto) 72.7 Lymph % (Auto) 17.7 [place] % (Auto) 7.5 Eos % (Auto) 1.7 Baso % (Auto) 0.2 Neut # (Auto) 6.01 Lymph # (Auto) 1.46 [place] # (Auto) 0.62 H Eos # (Auto) 0.14 Baso # (Auto) 0.02 Immature Gran # (Auto) 0.02 PT 10.6 INR 1.0 APTT 22.3 PTT Ratio 0.8 Sodium 141 Potassium 4.4 Chloride 108 H Carbon Dioxide 27 Anion Gap 6.0 BUN 23 H Creatinine 1.09 Est Cr Clr Drug Dosing 54.3 Est GFR ( Amer) 56.7 Est GFR (Non-Af Amer) 48.9 BUN/Creatinine Ratio 20.7 H Glucose 140 H Calcium 10.2 H Total Bilirubin 1.0 AST 10 L ALT 14 Alkaline Phosphatase 118 H Troponin I 0.114 H* Total Protein 8.0 Albumin 4.1 Globulin 3.9 Albumin/Globulin Ratio 1.1 Triglycerides Cholesterol LDL Cholesterol, Calc VLDL Cholesterol, Calc HDL Cholesterol Cholesterol/HDL Ratio Lipase 207 COVID-19 Eval Order SARS-CoV-2, RNA, NAAT 04/08/20 04/08/20 04/08/20 17:25 17:25 19:33 WBC RBC Hgb Hct MCV MCH MCHC RDW Std Deviation RDW Coeff of Misti Plt Count MPV Immature Gran % (Auto) Neut % (Auto) Lymph % (Auto) [place] % (Auto) Eos % (Auto) Baso % (Auto) Neut # (Auto) Lymph # (Auto) [place] # (Auto) Eos # (Auto) Baso # (Auto) Immature Gran # (Auto) PT INR APTT PTT Ratio Sodium Potassium Chloride Carbon Dioxide Anion Gap BUN Creatinine Est Cr Clr Drug Dosing Est GFR ( Amer) Est GFR (Non-Af Amer) BUN/Creatinine Ratio Glucose Calcium Total Bilirubin AST ALT Alkaline Phosphatase Troponin I 0.676 H* Total Protein Albumin Globulin Albumin/Globulin Ratio Triglycerides 94 Cholesterol 145 LDL Cholesterol, Calc 65 VLDL Cholesterol, Calc 19 HDL Cholesterol 61 Cholesterol/HDL Ratio 2 Lipase COVID-19 Eval [facility] SARS-CoV-2, RNA, NAAT NEGATIVE 04/09/20 04/09/20 04/09/20 00:33 03:05 03:05 WBC 8.15 RBC 4.10 L Hgb 12.5 Hct 39.3 MCV 95.9 MCH 30.5 MCHC 31.8 L RDW Std Deviation 46.9 H RDW Coeff of Misti 13.5 Plt Count 230 MPV 11.2 H Immature Gran % (Auto) 0.1 Neut % (Auto) 55.5 Lymph % (Auto) 32.1 [place] % (Auto) 9.8 Eos % (Auto) 2.0 Baso % (Auto) 0.5 Neut # (Auto) 4.52 Lymph # (Auto) 2.62 [place] # (Auto) 0.80 H Eos # (Auto) 0.16 Baso # (Auto) 0.04 Immature Gran # (Auto) 0.01 PT INR APTT PTT Ratio Sodium 144 Potassium 4.2 Chloride 111 H Carbon Dioxide 29 Anion Gap 4.0 BUN 24 H Creatinine 1.11 Est Cr Clr Drug Dosing 52.9 Est GFR ( Amer) 55.5 Est GFR (Non-Af Amer) 47.9 BUN/Creatinine Ratio 21.2 H Glucose 109 H Calcium 9.5 Total Bilirubin 1.1 H AST 41 H ALT 12 Alkaline Phosphatase 114 Troponin I 0.842 H* Total Protein 6.3 L D Albumin 3.3 L Globulin 3.0 Albumin/Globulin Ratio 1.1 Triglycerides Cholesterol LDL Cholesterol, Calc VLDL Cholesterol, Calc HDL Cholesterol Cholesterol/HDL Ratio Lipase COVID-19 Eval Order SARS-CoV-2, RNA, NAAT 04/09/20 04/09/20 03:05 06:44 WBC RBC Hgb Hct MCV MCH MCHC RDW Std Deviation RDW Coeff of Misti Plt Count MPV Immature Gran % (Auto) Neut % (Auto) Lymph % (Auto) [place] % (Auto) Eos % (Auto) Baso % (Auto) Neut # (Auto) Lymph # (Auto) [place] # (Auto) Eos # (Auto) Baso # (Auto) Immature Gran # (Auto) PT INR APTT 95.7 H* PTT Ratio 3.6 Sodium Potassium Chloride Carbon Dioxide Anion Gap BUN Creatinine Est Cr Clr Drug Dosing Est GFR ( Amer) Est GFR (Non-Af Amer) BUN/Creatinine Ratio Glucose Calcium Total Bilirubin AST ALT Alkaline Phosphatase Troponin I 0.387 H* Total Protein Albumin Globulin Albumin/Globulin Ratio Triglycerides Cholesterol LDL Cholesterol, Calc VLDL Cholesterol, Calc HDL Cholesterol Cholesterol/HDL Ratio Lipase COVID-19 Eval Order SARS-CoV-2, RNA, NAAT Diagnostic Findings Cardiac catheterization 05/19/2007: 50% mid LAD, 30% distal LAD, 30% ostial circumflex, no disease in the right coronary artery. Echocardiogram performed today revealed mildly reduced LV systolic function with apical akinesis. At the time admission revealed mild cardiomegaly with pulmonary vascular congestion. PG Care Time/CCT Total # of Minutes Spent Total Time Spent with Patient: Total time spent is greater than 50% in coordination of care (as documented) at patient's floor/unit and/or counseling patient: Coding Level of Care Code 27249 Initial Inpt Care Lvl 3 Diagnoses NSTEMI (non-ST elevated myocardial infarction) I21.4 Complete heart block I44.2 Pacemaker Z95.0 Hyperlipidemia E78.5
[2020-04-09 11:31] LABS: Partial Thromboplastin Ratio 2.4
[2020-04-09 11:33] LABS: Partial Thromboplastin Time 62.4 Seconds (21.0-31.0)
--- NOTE | 2020-04-09 13:11 | Electrocardiogram Report ---
Test Reason : Blood Pressure : / mmHG Vent. Rate : 076 BPM Atrial Rate : 076 BPM P-R Int : 162 ms QRS Dur : 162 ms QT Int : 436 ms P-R-T Axes : 091 -82 088 degrees QTc Int : 490 ms Atrial-sensed ventricular-paced rhythm Abnormal ECG When compared with ECG of 26-JAN-2020 10:46, Vent. rate has increased BY 7 BPM Confirmed by Phong Ram ([id number]) on 04/09/2020 1:10:35 PM Referred By: Confirmed By:Frantz Ram
--- NOTE | 2020-04-09 13:31 | Electrocardiogram Report ---
Test Reason : Blood Pressure : / mmHG Vent. Rate : 060 BPM Atrial Rate : 060 BPM P-R Int : 188 ms QRS Dur : 158 ms QT Int : 466 ms P-R-T Axes : 000 -87 095 degrees QTc Int : 466 ms AV dual-paced rhythm Abnormal ECG When compared with ECG of 08-APR-2020 15:02, (unconfirmed) Vent. rate has decreased BY 16 BPM Confirmed by Phong Ram ([id number]) on 04/09/2020 1:30:50 PM Referred By: REFERRED SELF Confirmed By:Frantz Ram
--- NOTE | 2020-04-09 15:50 | XCELERA ---
[id number]
--- NOTE | 2020-04-09 16:08 | Billing Data ---
Date of Service April 09, 2020 Coding Level of Care Code 08222 Subseq Hosp Care Lvl 3
[2020-04-09] MEDS: HEPARIN SODIUM/DEXTROSE 25,000 UNITS/500 ML BAG IV SCH (19:23)
[2020-04-09] MEDS: CHOLECALCIFEROL 1,000 UNITS 25 MCG TAB PO SCH (21:16)
[2020-04-09] MEDS: ASPIRIN 81 MG ECTAB PO SCH (22:16)
[2020-04-09] MEDS: MELATONIN 3 MG TAB PO PRN (22:18)
[2020-04-09] MEDS: clonazePAM 1 MG TAB PO SCH (22:19)
[2020-04-09] MEDS: ATORVASTATIN 40 MG TAB PO SCH (22:20)
[2020-04-09] MEDS: ACETAMINOPHEN 325 MG TAB PO PRN (22:20)
[2020-04-10] MEDS: SODIUM CHLORIDE 0.9% 500 ML IV SCH ×3 (01:12→13:56)
[2020-04-10 05:55] LABS: Estimated Average Glucose 140 mg/dl; Hemoglobin A1C 6.5 % (4.5-5.6)
[2020-04-10 07:10] LABS: Basophils # (auto) 0.02 K/uL (0-0.2); Basophils % (auto) 0.3 %; Eosinophils # (auto) 0.31 K/uL (0-0.5); Eosinophils % (auto) 4.2 %; Hemoglobin 12.3 g/dL (12.0-16.0); Immature Granulocytes # (auto) 0.02 K/uL (0.00-0.02); Immature Granulocytes % (auto) 0.3 %; Lymphocytes # (auto) 2.08 K/uL (1.2-3.4); Lymphocytes % (auto) 28.1 %; Mean Corpuscular Hemoglobin 29.9 pg (25-34); Mean Corpuscular Hgb Conc 31.5 g/dL (32-36); Mean Corpuscular Volume 94.9 fL (80-100); Mean Platelet Volume 11.2 fL (7.4-10.4); Monocytes # (auto) 0.79 K/uL (0.11-0.59); Monocytes % (auto) 10.7 %; Neutrophils # (auto) 4.17 K/uL (1.4-6.5); Neutrophils % (auto) 56.4 %; Platelet Count 212 K/uL (130-400); RDW Coefficient of Variation 13.3 % (11.5-14.5); Red Blood Count 4.11 M/uL (4.2-5.4); White Blood Count 7.39 K/uL (4.8-10.8)
[2020-04-10 07:24] LABS: Partial Thromboplastin Ratio 2.4
[2020-04-10 07:36] LABS: BUN Creatinine Ratio 16.4 (10-20); Calcium 9.8 mg/dl (8.5-10.1); Creatinine Clr Calc Pharmacy 49.5 ml/min; Est GFR (African American) 50.5; Est GFR (Non-African American) 43.6; Potassium 4.6 mmol/L (3.5-5.1)
--- NOTE | 2020-04-10 08:26 | Electrocardiogram Report ---
Test Reason : Blood Pressure : / mmHG Vent. Rate : 064 BPM Atrial Rate : 064 BPM P-R Int : 170 ms QRS Dur : 160 ms QT Int : 506 ms P-R-T Axes : 080 -80 127 degrees QTc Int : 522 ms Atrial-sensed ventricular-paced rhythm Abnormal ECG When compared with ECG of 09-APR-2020 07:00, Vent. rate has increased BY 4 BPM Confirmed by Phogn Ram ([id number]) on 04/10/2020 8:26:27 AM Referred By: REFERRED SELF Confirmed By:Frantz Ram
[2020-04-10] MEDS: POLYETHYLENE (MIRALAX) 17 GM PACK PO SCH ×2 (08:58→19:41)
[2020-04-10] MEDS: PANTOprazole 40 MG TAB PO SCH ×2 (09:08→19:41)
[2020-04-10] MEDS: AMANTADINE HCL 100 MG CAPSULE PO SCH ×2 (09:08→19:41)
[2020-04-10] MEDS: CARBIDOPA/LEVODOPA 50/200MG EXT REL TAB PO SCH ×4 (09:08→19:39)
[2020-04-10] MEDS: CEROVITE ADV FORMULA TAB PO SCH ×2 (09:08→19:40)
[2020-04-10] MEDS: DULoxetine HCL 30 MG CAP PO SCH (09:09)
[2020-04-10] MEDS: IPRATROPIUM BROMIDE NASAL SPRAY 0.06% 15ML NAE SCH ×3 (09:09→19:39)
[2020-04-10] MEDS: SPIRONOLACTONE/HCTZ 25-25 PO SCH (09:09)
[2020-04-10] MEDS: ACETAMINOPHEN 325 MG TAB PO PRN ×2 (09:09→16:13)
--- NOTE | 2020-04-10 09:33 | Cardiology Progress Note ---
Date of Service April 10, 2020 Assessment & Plan (1) NSTEMI (non-ST elevated myocardial infarction): No recurrent symptoms of chest discomfort. Biomarkers trending downward. Echocardiogram notably abnormal with apical wall motion abnormalities. There is a possibility this represents a stress cardiomyopathy. Will plan for coronary angiography today. (2) Complete heart block: Longstanding. Normally functioning dual-chamber permanent pacemaker. (3) Pacemaker: Medtronic (4) Hyperlipidemia: On high-dose atorvastatin. Attempts to intensify her antilipid regimen in the past resulted in significant muscle discomfort. (5) Mitral regurgitation: Mild. Admission and Anticipated Discharge Date Admission Date: April 08, 2020 Subjective This morning patient claims of being tired. She has had difficulty sleeping in the hospital. She has not had recurrent chest, back or arm pain. No breathing difficulty. Review of Systems Review of Systems: Per HPI Physical Exam Physical Exam: She is alert and oriented x3. Mood affect appear normal. She answered all questions appropriately. Obese HEENT: Sclerae are anicteric. Pupils are equal and reactive to light and accommodation. Extraocular movements were intact. Neuro: Cranial nerves intact Neck: Redundant neck tissue. Lungs: Normal respiratory effort Cardiac: The rhythm was regular. Abdomen: Obese Extremities: Patient has bilateral radial pulses that are equal in intensity. There is no evidence cyanosis or clubbing. Mild lower extremity edema bilaterally. Skin: There are no rashes noted on examination today. Results & Data ([facility]) Vital Signs (Past 12 Hours) Vital Signs Temp Pulse Resp BP BP Pulse Ox 04/10/20 08:17 36.4 C L 63 20 128/76 97 04/10/20 03:03 37.0 C 60 16 135/79 95 04/09/20 23:12 37.1 C 67 18 129/77 96 Laboratory Results Abnormal Lab Results 04/08/20 04/09/20 04/10/20 19:33 10:56 06:28 WBC RBC Hgb Hct MCV MCH MCHC RDW Std Deviation RDW Coeff of Misti Plt Count MPV Immature Gran % (Auto) Neut % (Auto) Lymph % (Auto) [place] % (Auto) Eos % (Auto) Baso % (Auto) Neut # (Auto) Lymph # (Auto) [place] # (Auto) Eos # (Auto) Baso # (Auto) Immature Gran # (Auto) APTT 62.4 H* 62.0 H* PTT Ratio 2.4 2.4 Sodium Potassium Chloride Carbon Dioxide Anion Gap BUN Creatinine Est Cr Clr Drug Dosing Est GFR ( Amer) Est GFR (Non-Af Amer) BUN/Creatinine Ratio Glucose Estimat Average Glucose 140 Hemoglobin A1c 6.5 H Calcium 04/10/20 04/10/20 06:28 06:28 WBC 7.39 RBC 4.11 L Hgb 12.3 Hct 39.0 MCV 94.9 MCH 29.9 MCHC 31.5 L RDW Std Deviation 46.0 RDW Coeff of Misti 13.3 Plt Count 212 MPV 11.2 H Immature Gran % (Auto) 0.3 Neut % (Auto) 56.4 Lymph % (Auto) 28.1 [place] % (Auto) 10.7 Eos % (Auto) 4.2 Baso % (Auto) 0.3 Neut # (Auto) 4.17 Lymph # (Auto) 2.08 [place] # (Auto) 0.79 H Eos # (Auto) 0.31 Baso # (Auto) 0.02 Immature Gran # (Auto) 0.02 APTT PTT Ratio Sodium 142 Potassium 4.6 Chloride 106 Carbon Dioxide 31 Anion Gap 5.0 BUN 20 H Creatinine 1.20 Est Cr Clr Drug Dosing 49.5 Est GFR ( Amer) 50.5 Est GFR (Non-Af Amer) 43.6 BUN/Creatinine Ratio 16.4 Glucose 116 H Estimat Average Glucose Hemoglobin A1c Calcium 9.8 Diagnostic Findings Echocardiogram performed yesterday revealed mildly reduced LV systolic function, mild LVH, mild mitral regurgitation and apical akinesis. PG Care Time/CCT Total # of Minutes Spent Total Time Spent with Patient: Total time spent is greater than 50% in coordination of care (as documented) at patient's floor/unit and/or counseling patient: Coding Level of Care Code 92008 Subseq Obs Care Lvl 2 Diagnoses NSTEMI (non-ST elevated myocardial infarction) I21.4 Complete heart block I44.2 Pacemaker Z95.0 Hyperlipidemia E78.5 Mitral regurgitation I34.0
[2020-04-10 10:00] LABS: Appearance Urine Clear (Clear); Bilirubin Urine Negative (Negative); Blood Urine Negative (Negative); Color Urine Yellow; Glucose Urine UA Negative (Negative); Ketones Urine Negative (Negative); Leukocyte Esterase Urine Negative (Negative); Nitrite Urine Negative (Negative); Protein Urine Negative (Negative); Specific Gravity Urine 1.015 (1.000-1.030); Urobilinogen Urine Positive (Negative); pH Urine 7.5 (4.5-7.5)
[2020-04-10 10:19] LABS: Bacteria Urine Automated Negative (Negative); Cast Urine Automated 0 /lpf (0-5); RBC Urine Automated 0-4 /hpf (0-4)
--- NOTE | 2020-04-10 10:38 | Pre Anesthesia Assessment ---
Date of Service April 10, 2020 Pre Sedation Assessment Vital Signs Temp Pulse Pulse Resp BP BP Pulse Ox 04/10/20 08:17 36.4 C L 63 20 128/76 97 04/10/20 03:03 37.0 C 60 16 135/79 95 04/09/20 23:12 37.1 C 67 18 129/77 96 04/09/20 19:28 36.9 C 81 17 114/70 94 04/09/20 16:00 72 04/09/20 15:12 36.6 C 63 20 99/62 L 92 04/09/20 12:07 36.6 C 69 20 94/46 L 94 Cardiovascular + regular rate Respiratory + respiratory effort normal Pre-Sedation Airway Assessment Smoking Status: Never smoker Hx Sleep Apnea: No Hx Difficult Intubation: No Short, Thick Neck: No Thyromental Distance: > or= 3.5 Finger Breadths Oral Cavity: + WNL Mallampati Class: III ASA: ASA3 Procedure Planning Contraindications for Sedation: none Current Medications Reviewed: Yes Notes The planned sedation has been discussed with the patient. Informed Consent was obtained. I have identified the patient, determined the appropriateness of sedation and have assessed the patient immediately prior to the procedure. All medicine(s) and interventions are by my order.
[2020-04-10] MEDS ORDERED: niCARdipine HCL INJ 2.5 MG/ML 10 ML AMP ONE ×2 (12:09→12:26)
[2020-04-10] MEDS ORDERED: fentaNYL citrate 100 MCG/2 ML VIAL ONE (12:09)
[2020-04-10] MEDS ORDERED: HEPARIN (PORCINE) 1000 UNIT/ML 10 ML (CATH LAB USE ONLY) ONE ×2 (12:09→14:15)
[2020-04-10] MEDS ORDERED: MIDAZOLAM HCL 1 MG/ML 2ML VIAL ONE (12:09)
[2020-04-10] MEDS ORDERED: NITROGLYCERIN/D5W 100MCG/ML 20ML SYR ONE (12:09)
--- NOTE | 2020-04-10 12:49 | Cardiac Catheterization ---
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 Cardiac Status Clinical evaluation leading to the procedure CAD Presenation: Non STEMI Diagnostic Physicians Name: Phong Ram MD Closure Device Recommendations: Medical Therapy and/or Counseling Cardiac Cath Procedure Full Procedure Date April 10, 2020 Pre-Procedure Diagnosis Pre-Procedure Diagnosis: Non STEMI AUC Score AUC Score: 8 Post-Procedure Diagnosis Post-Procedure Diagnosis: Mild CAD Procedure(s) Performed Procedure(s) Performed: Coronary Angiography and Left Heart Cath Ancillary Specialist Phong Ram MD Health And Physical Education Professor(s) none Estimated Blood Loss Estimated Blood Loss: 7cc Medication(s) Medication(s): Fentanyl, Heparin, Lidocaine 1%, Nicardipine, Nitroglycerin and Versed Summary of Findings Procedure performed: Left heart catheterization, selective coronary angiography Staff administrative court justice: Phong Ram MD Indication: The patient is a 75-year-old woman who presented the hospital with symptoms of chest discomfort and elevated cardiac biomarkers. Based on her symptoms and objective findings she was felt to be a good candidate for coronary angiography. Procedure detail: The patient was informed of the risks benefits and alternatives to the intended procedure. She understood which proceed. She was taken to the cardiac catheterization suite in a fasting state. Conscious sedation was administered per protocol the patient was monitored electrocardiographically throughout today's procedure. The right radial area prepped and draped in usual sterile fashion. This area is anesthetized using subcutaneous menstruation lidocaine solution. Right radial artery was subsequently accessed using modified Anayeli miles technique and sheath was placed over guidewire at this site. The sheath was used facilitate passage of the cardiac catheters for selective coronary angiography and left heart catheterization. Images were obtained in multiple orthogonal views prior to removal of the catheter and sheath. Hemostasis was achieved at the access site using manual pressure. The patient tolerated procedure well. There were no immediate complications. Equipment used: Five English tiger 4 Coronary angiography Left main: Left main was relatively short it produced a normal size left anterior descending and left circumflex with a very diminutive ramus intermedius. Proximally 90% proximal stenosis in the ramus intermedius. Left anterior descending: Left anterior descending was normal in size and caliber. There is approximately 40-50% long segment of stenosis in its proximal portion prior to the takeoff of a small 1st diagonal branch. There were 2 additional large diagonal branches. No other discrete disease in this vessel Left circumflex: Left circumflex was a nondominant vessel. Produce to OM branches. No discrete stenosis in this distribution Right coronary: Right coronary was a dominant vessel. Proximally 20% stenosis in its proximal portion. No other discrete lesions. Impression: Right dominant coronary system Nonobstructive coronary disease No evidence of acute coronary syndrome No aortic stenosis Hemodynamics Rest Ao:: 109/59 mm Hg Final Ao: 132/65 mm of mercury LV: 119/4 mmHg left ventricular end-diastolic pressure of 10 mm Hg Recommendations Recommendations: Medical Therapy and/or Counseling Radiation Exposure (mGy) Four hundred twenty-eight Contrast (mls) Fifty I attest to the content of the Intraoperative Record and any orders documented therein. Any exceptions are noted below. [facility] Card Cath Procedure Codes Cardiac Catheterization Procedure 1: Cardiovascular Cath Procedures: 54377 Coronaries and LHC (+/-LV) Moderate Sedation Procedure 1: Sedation/Anesthesia: 81676 Mod Sedation by the same physician;Init15 Min Child Age 5 & Up PG Care Time/CCT Total # of Minutes Spent Total Time Spent with Patient: Total time spent is greater than 50% in coordination of care (as documented) at patient's floor/unit and/or counseling patient:
--- NOTE | 2020-04-10 12:50 | Post Anesthesia Assessment ---
Date of Service April 10, 2020 Post Sedation Assessment Vital Signs Temp Pulse Pulse Resp BP BP Pulse Ox 04/10/20 08:17 36.4 C L 63 20 128/76 97 04/10/20 03:03 37.0 C 60 16 135/79 95 04/09/20 23:12 37.1 C 67 18 129/77 96 04/09/20 19:28 36.9 C 81 17 114/70 94 04/09/20 16:00 72 04/09/20 15:12 36.6 C 63 20 99/62 L 92 Recovery Score Activity: Moves 4 extremities Respiration: Deep Breath/Cough Circulation: +/-20% PreAnes Value Consciousness: Fully Awake Oxygen Saturation: > 92% On Room Air Discharge Sedation Level of Care: Fast Track Phase II Post Sedation Plan On clinical assessment, the patient appears to have tolerated the sedation without complications. Patient is recovering as anticipated. Patient will continue to be monitored by nursing and may be discharged when sedation discharge criteria are met per below protocol. Upon Completions of procedure up to 15 minutes continue every 5 minute vital signs and the P.A.R. score; then discharge to a Phase I or Fast Track to Phase II per the following guidelines: * Discharge Patient to appropriate Phase II area if PAR is 8 or greater or return to pre- procedure baseline. The post - procedure orders will be as directed. * If PAR score is less than 8 or not return to pre-procedure baseline then patient will follow Phase I monitoring till PAR is reached for Phase II. The Phase I may be done in procedure room or may call to secure a Phase I area. * If naloxone or flumazenil are used for reversal, hold in Phase I for continued monitoring from when last reversal dose was given for a minimum of 60 minutes or longer pending the nurse and/or physician discretion of patient condition before discharge to Phase II. Please call the Sedation Physician to re-evaluate and complete post-note for discharge to Phase II area. Do NOT discharge from procedure sedation or Phase 1 until post- sedation evaluation note is complete by procedure /sedation MD Sedation Discharge Instructions to be given to the patient at discharge to home.
[2020-04-10] MEDS: HEPARIN SODIUM/DEXTROSE 25,000 UNITS/500 ML BAG IV SCH (14:25)
--- NOTE | 2020-04-10 17:43 | Hospitalist Progress Note ---
Date of Service April 10, 2020 Assessment & Plan (1) Chest pain: 75-year-old female with a past medical history of coronary artery disease who presented the emergency department for evaluation of chest pain. Chest pain - trops peaked at 0.84, now downtrending - EKG without ST segment changes - echo showed no wall motion abnormalities. EF of 45-50% - patient placed on heparin drip for 48 hours - Heart Cath today showing 20% stenosis of R coronary. 90% proximal stenosis of left main. 40-50% long segment of stenosis of LAD. No stents were deployed. Medical management recommended. - Continue Atorvastatin 40mg, daily, ASA 81mg daily, metoprolol 25 mg p.o. twice daily. will consider adding SB/ARB. Elevated troponin - peaked at 0.84, now downtrending Coronary artery disease - Continue atorvastatin 40 mg daily - Continue daily baby aspirin Type II diabetes Mellitus - new diagnosis - HbA1c 6.5. Goal for her age would be < 7.5 - recommend diabetes education session - patient is already on a high intensity statin + daily baby ASA. Recommend discontinuing HCTZ-Spironolactone and replacing with SB/ARB - carb consistent diet History of complete heart block with pacemaker placement - Follows with Dr. Giang as an outpatient - pacemaker placed approximately 9 years ago, has had no issues since placement Parkinson's disease - continue home regimen: - Amantadine 100 mg twice daily - Carbidopa ER 50 mglevodopa 200 mg ER - Rasagiline 1 mg p.o. daily Hypertension - home regimen consists of Spironolactone 25mghydrochlorothiazide 25 mg daily. - Consider replacing with SB/ARB given new diabetes mellitus diagnosis Anxiety - Continue outpatient medicines - Clonazepam 1 mg p.o. at bedtime - Duloxetine 30 mg p.o. daily Diet: Heart Healthy, Carb consistent DVT ppx: will start Lovenox tomorrow Dispo: PCU Code: Full Admission and Anticipated Discharge Date Admission Date: April 08, 2020 Supervising Physician Co-Signing Physician Notes Patient seen and examined with PGY-2 Dr. Lewis. Agree with history, exam findings, assessment and plan of care as outlined. In brief, Ms. Holland is a 75-year-old female with a past medical history of morbid obesity, REM sleep behavior disorder, Parkinson's disease, status post pacemaker placement 9 years ago for bundle branch block, hypertension, hyperlipidemia, coronary artery disease admitted with NSTEMI. Her chest pain has resolved. She had a previous cath many years ago that did not require intervention. VS and nursing notes reviewed. Comfortable appearing. Heart with regular rate and rhythm. No murmur. Lungs are clear to auscultation. Breathing comfortably on room air. 1. NSTEMI. Heparin gtt. Troponins peaked. Continue metoprolol 25mg BID. Cardiac cath today showed 40-50% long segment of stenosis in the LAD, right coronary with 20% stenosis in the proximal portion. Did not require stenting. Consider adding SB inhibitor and beta natasha to home regiment tomorrow. May need to decrease home HCTZ so we do not make her hypotensive. 2. Hx of CAD and complete heart block. Has a pacer. Continue home atorvastatin 4 0mg. 3. Parkinsons disease. Continue home amantadine 100mg BID, carbidopa ER 50mg- levodopa ER 200mg, and rasagiline 1mg daily. 4. HTN. Continue home spironolactone 25mg, hydrochlorothiazide 25mg. 5. Anxiety. Continue home duloxetine 30mg daily and klonopin 1mg qHS. Dispo: possible discharge home tomorrow. Subjective No acute events overnight. Chest pain has resolved. Patient is frustrated with "one thing after another," with her health Review of Systems Review of Systems: All systems reviewed & are unremarkable except as noted in HPI & below Physical Exam Constitutional: WD/WN, vitals as above cooperative; no acute distress Eyes: + anicteric sclerae ENMT: external ear and nose normal, oropharynx normal Neck: normal visual inspection and trachea midline Respiratory: normal respiratory effort, lungs clear to auscultation Cardiovascular: RRR, no murmur, no edema Heart Sounds: normal S1 and normal S2 Gastrointestinal (Abdomen): normal bowel sounds, soft, nontender, no hepatosplenomegaly Skin: no rashes, warm and dry Psychiatric: A+Ox3, euthymic affect Results & Data Results & Data ([facility]) Vital Signs (Past 12 Hours) Vital Signs Temp Pulse Pulse Resp BP BP Pulse Ox 04/10/20 17:05 65 16 118/64 96 04/10/20 16:05 36.6 C 63 16 127/81 97 04/10/20 15:03 36.4 C L 63 16 107/68 96 04/10/20 14:30 65 16 132/85 94 04/10/20 14:15 36.6 C 63 18 117/49 L 94 04/10/20 14:05 65 04/10/20 14:01 36.6 C 64 16 142/55 H 93 04/10/20 13:30 36.6 C 65 16 116/73 93 04/10/20 13:27 37.7 C H 63 18 128/70 97 04/10/20 13:10 61 16 116/80 94 04/10/20 12:55 64 18 117/70 95 04/10/20 08:17 36.4 C L 63 20 128/76 97 Resident Activity Tracking Resident Involvement: Resident Care Provided Care Provided: Adult Hospital Medicine (1) Chest pain Chest pain type: unspecified Qualified Code(s): R07.9 - Chest pain, unspecified
[2020-04-10] MEDS: clonazePAM 1 MG TAB PO SCH (19:39)
[2020-04-10] MEDS: ASPIRIN 81 MG ECTAB PO SCH (19:40)
[2020-04-10] MEDS: MELATONIN 3 MG TAB PO PRN (19:40)
[2020-04-10] MEDS: CHOLECALCIFEROL 1,000 UNITS 25 MCG TAB PO SCH (19:40)
[2020-04-10] MEDS: ATORVASTATIN 40 MG TAB PO SCH (19:41)
[2020-04-11] MEDS: SODIUM CHLORIDE 0.9% 500 ML IV SCH ×2 (01:49→01:51)
[2020-04-11 08:08] LABS: BUN Creatinine Ratio 15.8 (10-20); Creatinine Clr Calc Pharmacy 53.5 ml/min; Est GFR (African American) 55.5; Est GFR (Non-African American) 47.9; Potassium 4.1 mmol/L (3.5-5.1)
[2020-04-11] MEDS: POLYETHYLENE (MIRALAX) 17 GM PACK PO SCH (08:10)
[2020-04-11] MEDS: AMANTADINE HCL 100 MG CAPSULE PO SCH (08:10)
[2020-04-11] MEDS: CEROVITE ADV FORMULA TAB PO SCH (08:10)
[2020-04-11] MEDS: PANTOprazole 40 MG TAB PO SCH (08:10)
[2020-04-11] MEDS: IPRATROPIUM BROMIDE NASAL SPRAY 0.06% 15ML NAE SCH (08:10)
[2020-04-11] MEDS: CARBIDOPA/LEVODOPA 50/200MG EXT REL TAB PO SCH (08:11)
[2020-04-11] MEDS: SPIRONOLACTONE/HCTZ 25-25 PO SCH (08:11)
[2020-04-11] MEDS: DULoxetine HCL 30 MG CAP PO SCH (08:11)
[2020-04-11] MEDS ORDERED: RASAGILINE MESYLATE PO SCH (09:00)
[2020-04-11] MEDS ORDERED: METOPROLOL SUCC 25MG EXT REL TAB PO SCH (09:00)
--- NOTE | 2020-04-11 11:14 | Cardiology Progress Note ---
Date of Service April 11, 2020 Assessment & Plan (1) NSTEMI (non-ST elevated myocardial infarction): No recurrent symptoms. Catheterization revealed nonobstructive coronary disease. Elevated biomarkers likely related to a stress related event, possibly pain associated with her right hip. I added metoprolol succinate to her medical regimen. I think she can be discharged on lisinopril 5 mg daily as well. She will need a follow-up chemistry profile within a few days to check her renal function and electrolytes. I think she is otherwise safe for discharge and can follow up with her primary cell support operator Dr. Farfan in 2-4 weeks. She should follow standard precautions for regarding the right radial access site. No vigorous use of the right wrist for 7 days. (2) Complete heart block: Longstanding. Normally functioning dual-chamber permanent pacemaker. (3) Pacemaker: [employer]onic (4) Hyperlipidemia: On high-dose atorvastatin. She seems to be tolerating therapy well. (5) Mitral regurgitation: Mild. Admission and Anticipated Discharge Date Admission Date: April 08, 2020 Subjective This morning patient claims to be feeling well. She has not had any recurrent chest discomfort or back pain. She appears to be tolerating her diet well. No discomfort at the right radial access site. Review of Systems Review of Systems: Per HPI Physical Exam Physical Exam: She is alert and oriented x3. Mood affect appear normal. She answered all questions appropriately. Obese HEENT: Sclerae are anicteric. Pupils are equal and reactive to light and accommodation. Extraocular movements were intact. Neuro: Cranial nerves intact Neck: Redundant neck tissue. Lungs: Normal respiratory effort Cardiac: The rhythm was regular. Abdomen: Obese Extremities: Palpable right radial pulse at the site of her access yesterday. Good perfusion of the right hand. No hematoma. Skin: There are no rashes noted on examination today. Results & Data ([facility]) Vital Signs (Past 12 Hours) Vital Signs Temp Pulse Pulse Resp BP BP Pulse Ox 04/11/20 10:12 36.6 C 65 72 19 116/74 137/77 96 04/11/20 07:10 36.6 C 72 19 116/74 96 04/11/20 04:59 36.7 C 88 19 137/77 96 PG Care Time/CCT Total # of Minutes Spent Total Time Spent with Patient: Total time spent is greater than 50% in coordination of care (as documented) at patient's floor/unit and/or counseling patient: Coding Level of Care Code 65375 Subseq Hosp Care Lvl 2 Diagnoses NSTEMI (non-ST elevated myocardial infarction) I21.4 Complete heart block I44.2 Pacemaker Z95.0 Hyperlipidemia E78.5 Mitral regurgitation I34.0
--- NOTE | 2020-04-11 11:44 | Discharge Summary ---
Date of Service April 11, 2020 Admission HPI Per Admitting Provider 75-year-old female with a past medical history of morbid obesity, REM sleep behavior disorder, Parkinson's disease, status post pacemaker placement 9 years ago for bundle branch block, hypertension, hyperlipidemia, coronary artery disease who presented the emergency department for evaluation of chest pain. She has a history of prior cardiac catheterization with pacemaker placement, most recent notes available from 2007 demonstrating diffuse luminal irregularities from 30 to 50%. She states she has been having chest pain over the last 24 hours, describing it as tightness and pressure over the left anterior chest wall. She states her symptoms increased with exertion is improved with rest. At present she reports the pain is mild to moderate. She has not been evaluated by her primary care physician for these symptoms, she denies other constitutional symptoms including nausea/vomiting significantly increased shortness of breath, neurological deficits or sensory deficits or other concerning signs and symptoms. Prior to arrival she received aspirin in the field. Upon arrival to the emergency department routine labs were obtained notable for normal INR, CBC within normal limits, Chem-7 within normal limits, very mildly elevated troponin to 0.114 the remainder of labs were within normal limits. A chest x-ray was obtained demonstrating mild cardiomegaly with pulmonary vascular congestion and an apparent left basilar opacity which is probably artifactual. EKG was obtained, interpretation was limited secondary to pacer. However there were no overt ischemic changes observed when compared to tracing from 01/26/2020 no significant changes were noted. Given the patient's troponin elevation, history of coronary artery disease, and concerning symptoms the patient will be admitted to telemetry for further evaluation and management. Admission Exam Per Admitting Provider General: Morbidly obese female lying in bed in no acute distress HEENT: Normocephalic atraumatic Neck: Normal visual inspection Cardiac: Regular rate and rhythm I did not appreciate significant murmurs rubs or gallops, normal S1, normal S2, negative pedal edema, negative calf tenderness Respiratory: Clear to auscultation bilaterally with symmetrical chest expansion I did not appreciate significant wheezes, rales, rhonchi GI: Soft, nontender, nondistended, bowel sounds present Neuro: Alert and oriented x4 Psych: Calm and cooperative with the interview Principal Diagnosis NSTEMI Discharge Exam Constitutional WD/WN, vitals as above cooperative; no acute distress Eyes + anicteric sclerae ENMT external ear and nose normal, oropharynx normal Neck normal visual inspection and trachea midline Respiratory normal respiratory effort, lungs clear to auscultation Cardiovascular RRR, no murmur, no edema Heart Sounds: normal S1 and normal S2 Gastrointestinal (Abdomen) normal bowel sounds, soft, nontender, no hepatosplenomegaly Skin no rashes, warm and dry Psychiatric A+Ox3, euthymic affect Discharge Data Allergies Allergy/AdvReac Type Severity Reaction Status Date / Time codeine AdvReac Intermediate ITCHY ALL Verified 04/08/20 16:34 OVER Consultations 04/08/20 17:17 ED Decision to Admit Stat 04/08/20 17:52 Consult Cardiology Routine 04/08/20 17:56 Consult Case Management - Discharge Planning Routine Procedures Performed Operation Date: 04/10/20 13:00 Actual Procedures p Cath, Left with Cors and Vent - Angelo Ram MD s Cineradiography w/Routine Exam - Angelo Ram MD Ordered Studies 04/10/20 12:22 CL Cath Imgs for PACS use only Routine Hospital Course (1) Chest pain: 75-year-old female with a past medical history of coronary artery disease who presented the emergency department for evaluation of chest pain. NSTEMI - trops peaked at 0.84, downtrended by discharge - EKG without ST segment changes - echo showed no wall motion abnormalities. EF of 45-50% - patient placed on heparin drip for 48 hours - Heart Cath 04/10/20 showing 20% stenosis of R coronary. 90% proximal stenosis of left main. 40-50% long segment of stenosis of LAD. No stents were deployed. Medical management recommended. - Continue Atorvastatin 40mg, daily, ASA 81mg daily, metoprolol succinate 25 mg p.o. qam. Start Lisinopril 5mg, daily. Outpatient items to do: An order was placed for patient to have BMP in 3 days after starting lisinopril. Please review. Elevated troponin - peaked at 0.84, now downtrending - secondary to NSTEMI as above Coronary artery disease - Continue atorvastatin 40 mg daily - Continue daily baby aspirin Type II diabetes Mellitus - new diagnosis - HbA1c 6.5 on admission. Goal for her age would be < 7.5 - patient is already on a high intensity statin + daily baby ASA. - Lisinopril 5mg added for renoprotection - carb consistent diet Outpatient items to do: Consider CM referral for new onset diabetes education session. Consider discontinuing HCTZ-Spironolactone and control BP solely with lisinopril History of complete heart block with pacemaker placement - Follows with Dr. Giang as an outpatient - pacemaker placed approximately 9 years ago, has had no issues since placement Parkinson's disease - continue home regimen: - Amantadine 100 mg twice daily - Carbidopa ER 50 mglevodopa 200 mg ER - Rasagiline 1 mg p.o. daily Hypertension - home regimen consists of Spironolactone 25mghydrochlorothiazide 25 mg daily. - Consider replacing with SB/ARB given new diabetes mellitus diagnosis Anxiety - Continue outpatient medicines - Clonazepam 1 mg p.o. at bedtime - Duloxetine 30 mg p.o. daily Total Time Total Time Spent Total Time Spent (In Minutes): see attending attestation Discharge Plan Discharge Items Patient Disposition: Home - Self-Care Reason For Visit: NSTEMI Discharge Diagnosis: NSTEMI Condition on Discharge: Good Activity: Resume your previous activity Non-emergency contact: Primary Care Provider Call non-emergency contact if: your symptoms worsen Follow-up/Referrals: Abdiel Montero MD [Primary Care Provider] - 04/13/20 9:50 am (Please follow up with Dr. Montero on 04/13/20 at 9:50 am. Please arrive to the office at 9:35 am for your appointment. If you are unable to keep this appointment, please call the office to reschedule at [phone].) Diet: Carb Consistent or DM2 and Heart Healthy Ambulatory Orders: Basic Metabolic Panel (Routine) Timeframe: 3 Days Location: Determined by Patient Ordered By: Candace Berry Attending Provider Instructions: You were hospitalized at [facility] for evaluation of chest pain. Cardiology was consulted and recommend you have a catheterization procedure to assess for any blockages in the arteries nourishing the heart (which are known as coronary arteries). This was performed on 04/10/20 and while there was some narrowing of the coronaries arteries, none were totally obstructed. Thus, the licensed professional counselor did not see any reason to place any stents. However, we recommend you optimized your risk factors for future heart attacks and/or strokes. Your cholesterol is under good control - so please continue to take your atorvastatin on a daily basis. Blood pressure control is also very important - cardiology recommend you start a medication known as Metoprolol Succinate 25mg, each morning. They also recommend you start the blood pressure medication "lisinopril." Please take Lisinopril 5mg, daily. Since we are having you start two new blood pressure medications - you will likely no longer need your HCTZ-Spironolactone combination pill to control your blood pressure. Given that you are starting a new medication - we would like you to have your blood work rechecked in 3 days time to make sure your electrolytes are stable. An order was placed for this - you may have it drawn at any location that is convenient to you ([facility] or at your family doctors office). Also, while you were in the hospital, we checked your blood sugar and found that you have new-onset diabetes mellitus. Diabetes places you at higher risk for having future heart attacks and strokes. An appointment was made for you to see Dr. Montero, your family doctor, within the next week. Please follow up with your licensed professional counselor Dr. Farfan within 2-3 weeks. Pending Studies at Discharge: No Stand-Alone Forms: My [employer], Smoking Cessation Medications and DC Order Prescriptions: New metoprolol succinate 25 mg Tablet Extended Release 24 Hr 25 mg PO QAM 30 Days Qty: 30 RF: 0 lisinopril 5 mg tablet 5 mg PO DAILY Qty: 30 RF: 0 Continued atorvastatin 40 mg tablet 40 mg PO QPM Qty: 90 RF: 4 spironolacton-hydrochlorothiaz 25-25 mg tablet 1 tab PO QAM Qty: 90 RF: 3 carbidopa-levodopa 50-200 mg tablet extended release 1 tab PO QID Qty: 360 RF: 1 amantadine HCl 100 mg capsule 100 mg PO BID 90 Days Qty: 180 RF: 1 clonazepam 1 mg tablet 1 mg PO HS 90 Days Qty: 90 RF: 1 rasagiline 1 mg tablet 1 mg PO DAILY 90 Days Qty: 90 RF: 1 ipratropium bromide 42 mcg (0.06 %) spray,non-aerosol 2 sprays intranasal TID Qty: 1 RF: 0 duloxetine [Cymbalta] 30 mg capsule,delayed release(DR/EC) 30 mg PO DAILY RF: 0 esomeprazole magnesium [Nexium] 20 mg capsule,delayed release(DR/EC) 20 mg PO BID RF: 0 melatonin 10 mg Tablet 10 mg PO HS PRN (Reason: Sleep) RF: 0 aspirin [Aspirin Low Dose] 81 mg Tablet,Delayed Release (Dr/Ec) 81 mg PO QPM RF: 0 albuterol sulfate [Ventolin HFA] 90 mcg/actuation Hfa Aerosol Inhaler 2 - 4 puff INHALATION QID PRN (Reason: Shortness Of Breath Or Wheezing) RF: 0 meloxicam [Mobic] 15 mg Tablet 15 mg PO DAILY RF: 0 acetaminophen [Tylenol Extra Strength] 500 mg Tablet 500 - 1,000 mg PO DIRECTED MDD 3 GRAMS/24 HOURS PRN (Reason: Pain) RF: 0 cholecalciferol (vitamin D3) [Vitamin D3] 125 mcg (5,000 unit) Tablet 125 mcg PO QPM RF: 0 PreserVision AREDS-2 [id number] Capsule 1 tab PO BID RF: 0 Discharge Orders: Discharge Order (Routine); Ordered 04/11/20 Ordered By: Aftab Marroquin/Other Patient Handouts: 5 Steps for Eating Healthier, A1C Admission Data Admit Date/Time: 04/08/20 17:52 Attending Provider: Cassidy Ace Admit Provider: Eduardo Dash I. Primary Care Provider: Abdiel Montero Other Providers: Abraham Mason Kip M. ; Jamaal Bellamy ; Abdiel Hatch ; Elie Velazquez ; Ravindra Askew ; Alexander Farfan Jr ; Paco Sher ; Stefania Joseph ; Marnie Erickson ; Angelo Caballero ; Angelo Ram ; Kwasi Meadows ; Bob Muñoz ; Myrna Brown ; Tammi King ; Brad Martin ; Hardy Fong Other Interventions: Discharge Summary Assessment (RN) Last Done: 04/11/20 10:12 Supervising Physician Co-Signing Physician Notes Patient seen and examined with PGY-2 Dr. Lewis. Agree with history, exam findings, assessment and plan of care as outlined. In brief, Ms. Skyler is a 75-year-old female with a past medical history of morbid obesity, REM sleep behavior disorder, Parkinson's disease, status post pacemaker placement 9 years ago for bundle branch block, hypertension, hyperlipidemia, coronary artery disease admitted with NSTEMI. Her chest pain has resolved. VS and nursing notes reviewed. Comfortable appearing. Heart with regular rate and rhythm. No murmur. Lungs are clear to auscultation. Breathing comfortably on room air. 1. NSTEMI. Heparin gtt. Troponins peaked. Continue metoprolol 25mg BID. Cardiac cath today showed 40-50% long segment of stenosis in the LAD, right coronary with 20% stenosis in the proximal portion. Did not require stenting. Consider adding SB inhibitor and beta natasha to home regimen. 2. Hx of CAD and complete heart block. Has a pacer. Continue home atorvastatin 40mg. 3. Parkinsons disease. Continue home amantadine 100mg BID, carbidopa ER 50mg- levodopa ER 200mg, and rasagiline 1mg daily. 4. HTN. Continue home spironolactone 25mg, hydrochlorothiazide 25mg. 5. Anxiety. Continue home duloxetine 30mg daily and klonopin 1mg qHS. Dispo: Discharge home today. I personally spent 25 minutes discharge planning for this patient. Resident Activity Tracking Resident Involvement: Resident Care Provided Care Provided: Adult Hospital Medicine
== END 2020-04-11 11:53 | disposition home or self-care (01) | DRG 281 ==
LOC: ED 14:47 → 2S 17:52 → SUATTDRO 17:52 → 2S 18:59

== ENCOUNTER 2020-05-05 15:06 | Inpatient (IN) ==
[2020-05-05] MEDS ORDERED: ONDANSETRON INJ 2 MG/ML 2 ML VIAL IV STA (16:28)
[2020-05-05] MEDS ORDERED: MoRPHine SULFATE 4 MG/ML 1 ML CARP\\VIAL IV STA ×2 (16:29→18:25)
--- NOTE | 2020-05-05 16:36 | Emergency Department Note ---
History of Present Illness General Chief complaint: Back Injury/Pain Time Seen by Provider: 05/05/20 16:14 Source: patient Mode of arrival: ambulatory Limitations: no limitations History of Present Illness Maximum Pain Intensity: 8 This Patient comes in with low back pain. She was seen over the night and had a CAT scan of her pelvis and lumbar x-rays which did not show any definite fractures. EMS has been called out to her house 3 times in the last day. She did fall but has not fallen since she left here she just been unable to get around. She has no new numbness or weakness no change in bowel or bladder f unction. No fever or chills. She does wear have a pacemaker but is had no chest pain or shortness of breath or cough. No dysuria or hematuria. No history of similar Home Medications Medication Instructions Recorded Confirmed Type melatonin 10 mg PO HS PRN 10/07/17 05/05/20 History albuterol sulfate [Ventolin HFA] 2 - 4 puff INHALATION QID PRN 11/10/17 05/05/20 History aspirin [Aspirin Low Dose] 81 mg PO QPM 11/10/17 05/05/20 History ipratropium bromide 42 mcg (0.06 2 sprays INTRANASAL TID #1 ml 11/05/18 05/05/20 History %) nasal spray atorvastatin 40 mg tablet 40 mg PO QPM #90 tab 12/14/18 05/05/20 Rx esomeprazole magnesium 20 mg 20 mg PO BID cap 03/01/19 05/05/20 History capsule,delayed release duloxetine 30 mg capsule,delayed 30 mg PO DAILY 04/19/19 05/05/20 History release amantadine HCl 100 mg capsule 100 mg PO BID 90 Days #180 cap 01/27/20 05/05/20 Rx clonazepam 1 mg tablet 1 mg PO HS 90 Days #90 tab 02/09/20 05/05/20 Rx PreserVision AREDS-2 1 tab PO BID 03/18/20 05/05/20 History acetaminophen [Tylenol Extra 500 - 1,000 mg PO DIRECTED PRN 03/18/20 05/05/20 History Strength] MDD 3 GRAMS/24 HOURS cholecalciferol (vitamin D3) 125 mcg PO QPM 03/18/20 05/05/20 History [Vitamin D3] meloxicam [Mobic] 15 mg PO DAILY 03/18/20 05/05/20 History rasagiline 1 mg tablet 1 mg PO DAILY 90 Days #90 tab 04/03/20 05/05/20 Rx lisinopril 5 mg PO DAILY #30 tab 04/11/20 05/05/20 Rx metoprolol succinate 25 mg PO QAM 30 Days #30 tab 04/11/20 05/05/20 Rx carbidopa ER 50 mg-levodopa 200 mg 1 tab PO QID 90 Days #360 tab 04/21/20 05/05/20 Rx tablet,extended release Allergies Allergy/AdvReac Type Severity Reaction Status Date / Time codeine AdvReac Intermediate ITCHY ALL Verified 05/05/20 16:51 OVER Past Med/Surg History Medical History (Updated 05/05/20 @ 23:53 by Joe Wyman MD) Anxiety Asthma rarely issue CAD (coronary artery disease) Depression Diabetes GERD (gastroesophageal reflux disease) Hyperlipidemia Hypertension Morbid obesity with BMI of 60.0-69.9, adult Non-Hodgkin lymphoma Osteoarthritis Parkinson disease Raynaud phenomenon Sleep apnea mild, no device Surgical History H/O left cataract extraction 10/28/17- given 2mg IV versed without issues History of appendectomy History of bilateral tubal ligation History of carpal tunnel release BILATERAL History of cholecystectomy History of hysterectomy History of tonsillectomy History of total knee replacement BILATERAL Hx of cardiac pacemaker for BBB; 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 Follows up with Dr. Askew Pacemaker BBB, 9+ YEARS AGO, F/U DR LAO Social History Smoking Status: Never smoker Second Hand Exposure: No; Hx Alcohol Use: No Hx Substance Use: No Preferred Language: Slovenian Communication Ability: Effective Fisher Seal Required: No Beliefs That Will Affect Care: None Current Living Situation: Spouse Current Living Situation Comment: lives with Feels Safe at Home: Yes Assistive Devices: Walker Review of Systems A total of 10 systems reviewed and were otherwise negative Physical Exam Vital Signs Vital Signs - 24 hr 05/05/20 15:18 05/05/20 17:27 05/05/20 18:38 Temperature 36.5 C Temperature Source Oral Pulse Rate 67 Pulse Rate [Apical] 72 Pulse Rate from SpO2 Sensor Respiratory Rate 18 18 Blood Pressure 170/63 H Blood Pressure [Right Arm] 197/71 H Blood Pressure Mean 98 Blood Pressure Mean [Right Arm] 113 Pulse Oximetry 97 97 96 Oxygen Delivery Method Room Air Room Air Room Air Sepsis Recent Fever Within 48 Hours No Sepsis New/Unexplained Change in Mental Status N/A Sepsis Action Taken by Nursing No Action Required 05/05/20 19:32 Temperature Temperature Source Pulse Rate 72 Pulse Rate [Apical] Pulse Rate from SpO2 Sensor 73 Respiratory Rate 18 Blood Pressure 165/74 H Blood Pressure [Right Arm] Blood Pressure Mean 104 Blood Pressure Mean [Right Arm] Pulse Oximetry 96 Oxygen Delivery Method Room Air Sepsis Recent Fever Within 48 Hours Sepsis New/Unexplained Change in Mental Status Sepsis Action Taken by Nursing General: Well developed well nourished older female who complains of back pain in no acute distress, breathing comfortably on room air. Normal speech HEENT: Normal cephalic atraumatic. Pupils are equal round and reactive to light. Extraocular movements are intact. Oropharynx is pink with moist mucous membranes. No swelling of the mouth lips or tongue. Neck: Supple with a midline trachea. No meningeal signs or stiffness, no JVD or bruits. No Stridor. Chest: Clear to auscultation bilaterally. No wheezes or rhonchi. No increased work of breathing. Heart: Regular rate and rhythm without murmurs or gallops. Abdomen: Soft nontender, nondistended without rebound guarding or rigidity. Extremities: No cyanosis clubbing or edema. No calf tenderness or assymetry Spine/Back. Moerately tender to palpation in the lumbar spine towards the left hip. No CVA tenderness Skin: Good turgor without rashes. Neurologic exam: Cranial nerves two through 12 are intact. Motor and sensation are intact and symmetrical throughout. Course Administered Medications Acetaminophen (Acetaminophen 500 Mg Tab) 1,000 mg PO TID [facility] Stop: 06/04/20 21:06 Last Admin: 05/05/20 22:55 Dose: 1,000 mg Documented by: [id number] Amantadine HCl (Amantadine Hcl 100 Mg Capsule) 100 mg PO BID [facility] Stop: 06/04/20 21:06 Last Admin: 05/05/20 22:54 Dose: 100 mg Documented by: [id number] Aspirin (Aspirin 81 Mg Ectab) 81 mg PO QPM [facility] Stop: 06/04/20 21:06 Last Admin: 03/19/21 22:53 Dose: 81 mg Documented by: [id number] Atorvastatin Calcium (Atorvastatin 40 Mg Tab) 40 mg PO QPM [facility] Stop: 06/04/20 21:06 Last Admin: 05/05/20 22:54 Dose: 40 mg Documented by: [id number] Carbidopa/Levodopa (Carbidopa/Levodopa 50/200mg Ext Rel Tab) 1 tab PO QID [facility] Stop: 06/04/20 21:06 Last Admin: 05/05/20 22:54 Dose: 1 tab Documented by: [id number] Clonazepam (Clonazepam 1 Mg Tab) 1 mg PO HS [facility] Stop: 06/04/20 21:06 Last Admin: 05/05/20 22:56 Dose: 1 mg Documented by: [id number] Cyclobenzaprine HCl (Cyclobenzaprine Hcl 5 Mg Tab) 5 mg PO TID [facility] Stop: 06/04/20 21:06 Last Admin: 05/05/20 22:54 Dose: 5 mg Documented by: [id number] Duloxetine HCl (Duloxetine Hcl 30 Mg Cap) 30 mg PO DAILY [facility] Stop: 06/04/20 21:06 Last Admin: 05/05/20 22:53 Dose: 30 mg Documented by: [id number] Ipratropium Bent (Ipratropium Bent Nasal [place] 0.06% 15ml) 2 sprays NA TID [facility] Stop: 06/04/20 21:06 Last Admin: 05/05/20 22:59 Dose: 2 sprays Documented by: [id number] Lisinopril (Lisinopril 5 Mg Tab) 5 mg PO DAILY [facility] Stop: 06/04/20 21:06 Last Admin: 05/05/20 22:56 Dose: 5 mg Documented by: [id number] Morphine Sulfate (Morphine Sulfate 2 Mg/Ml Carp) 2 mg IV Q2H PRN PRN Reason: Pain Stop: 05/19/20 21:06 Last Admin: 05/05/20 21:32 Dose: 2 mg Documented by: [id number] Pantoprazole Sodium (Pantoprazole 40 Mg Tab) 40 mg PO BID [facility] Stop: 06/04/20 21:29 Last Admin: 05/05/20 22:56 Dose: 40 mg Documented by: [id number] Discontinued Medications Ketorolac Tromethamine (Ketorolac Tromethamine 15 Mg/Ml Vial) 15 mg IV NOW ONE Stop: 05/05/20 19:50 Last Admin: 05/05/20 20:19 Dose: 15 mg Documented by: [id number] Morphine Sulfate (Morphine Sulfate 4 Mg/Ml 1 Ml Carp\Vial) 4 mg IV NOW STA Stop: 05/05/20 16:30 Last Admin: 05/05/20 17:10 Dose: 4 mg Documented by: [id number] Morphine Sulfate (Morphine Sulfate 4 Mg/Ml 1 Ml Carp\Vial) 4 mg IV NOW STA Stop: 05/05/20 18:26 Last Admin: 05/05/20 18:38 Dose: 4 mg Documented by: [id number] Morphine Sulfate (Morphine Sulfate 2 Mg/Ml Carp) 2 mg IV NOW STA Stop: 05/05/20 19:50 Last Admin: 05/05/20 20:19 Dose: 2 mg Documented by: [id number] Ondansetron HCl (Ondansetron Inj 2 Mg/Ml 2 Ml Vial) 4 mg IV NOW STA Stop: 05/05/20 16:29 Last Admin: 05/05/20 17:10 Dose: 4 mg Documented by: [id number] Medical Decision Making Differential Diagnosis Fracture, sciatica, infection, sepsis, UTI, electrolyte or metabolic abnormality Medical Records Attestation: I reviewed the patient's medical records. Home Medications Current Medication List: was personally reviewed by me Laboratory Data Attestation: I reviewed the patient's lab results. Lab Results 05/05/20 05/05/20 05/05/20 Range/Units 17:24 17:24 18:15 Urine Color Yellow Urine Appearance Clear (Clear) Urine pH 5.0 (4.5-7.5) Ur Specific [place] 1.015 (1.000-1.030) Urine Protein Negative (Negative) Urine Glucose (UA) Negative (Negative) Urine Ketones Negative (Negative) Urine Blood Negative (Negative) Urine Nitrite Negative (Negative) Urine Bilirubin Negative (Negative) Urine Urobilinogen Negative (Negative) Ur Leukocyte Esterase Negative (Negative) COVID-19 Eval Order Covid19 IDNow [facility] SARS-CoV-2, RNA, NAAT NEGATIVE (NEGATIVE) Imaging Data Attestation: I personally reviewed and interpreted this imaging study as follows: Radiologist's Impression: CT SCAN OF THE ABDOMEN AND PELVIS WITHOUT CONTRAST CLINICAL HISTORY: back/pelvis pain COMPARISON STUDY: No previous studies for comparison. TECHNIQUE: CT scan of the abdomen and pelvis was performed from the lung bases to the proximal femurs. Images are reviewed in the axial, sagittal, and coronal planes. IV contrast was not administered for this examination. A dose lowering technique was utilized adhering to the principles of ALARA. CT DOSE: FINDINGS: Lower chest: There are mild basilar atelectatic changes. There is a small hiatal hernia. Liver: The unenhanced liver is normal in size, contour, and attenuation. There is no intrahepatic biliary ductal dilatation. Gallbladder: Surgically absent Spleen: Normal in size and attenuation. Pancreas: Unremarkable. Adrenal glands: There is mild left adrenal gland thickening/nodularity Kidneys: No renal, ureteral, or bladder calculi are visualized. Bowel: There are no transition zones indicate bowel obstruction. There is colonic diverticulosis. There is no evidence of acute diverticulitis. By history the appendix is surgically absent. 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 Peritoneum: There is no intraperitoneal free air or abdominal ascites. There is a fat-containing supraumbilical ventral hernia. There is a second super umbilical hernia which contains a portion of transverse colon. This is nonobstructing. Vasculature: The abdominal aorta is normal in course and caliber. Adenopathy: None. Pelvic viscera: The uterus is surgically absent. Skeletal structures: No acute fractures or destructive lesions are visualized. Degenerative changes are present within the spine. IMPRESSION: 1. No evidence of bowel structure. No evidence of free air 2. Colonic diverticulosis. No evidence of acute diverticulitis 3. 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 Small ventral hernias CT lumbar spine wo con CT DOSE: 1365.10 mGy.cm CLINICAL HISTORY: Back and hip pain TECHNIQUE: Helical images were acquired in transverse plane. Reformatted sagittal and coronal images were reviewed. A dose lowering technique was utilized adhering to the principles of ALARA. CONTRAST: No contrast was administered COMPARISON STUDY: None. FINDINGS: L1-2 level: There is a circumferential disc bulge and moderate spinal stenosis. There is mild bilateral foraminal narrowing L2-3 level: There is a circumferential disc bulge and mild to moderate spinal stenosis. There is moderate bilateral foraminal narrowing L3-4 level: There is a circumferential disc bulge and moderate to severe spinal stenosis. There is moderate bilateral foraminal narrowing L4-5 level: There is a circumferential disc bulge and mild spinal stenosis. There is moderate right-sided foraminal narrowing and mild left-sided foraminal narrowing L5-S1 level: There is a mild circumferential disc bulge. There is facet joint arthropathy. There is no significant spinal stenosis. There is mild bilateral foraminal narrowing. No acute fractures or traumatic subluxations are visualized. Degenerative changes are present within the SI joints. IMPRESSION: 1. No acute fractures or traumatic subluxations 2. Advanced multilevel spondylytic changes with multilevel spinal stenosis and multilevel foraminal narrowing MDM Narrative This patient comes in as described above she has low back pain. Is worse with movement. She had imaging. She has no neurologic deficits nothing she has cauda equina syndrome. IV access was established and she was given morphine 4 mg IV and Zofran 4 mg IV. I do a CAT scan the lumbar spine as well as pelvis. She did have blood work drawn within the last 24 hours and was unremarkable. CAT scan of the lumbar spine does not show any fractures nor does the pelvis or abdomen show any acute abnormality. she does have a lot of degenerative changes. She did have a lot of pain after moving for the CAT scan was given additional IV morphine. EMS has been out to her house 3 times in last 24 hours she has been here twice she has a lot of pain in her back going down her left hip. This may be sciatica. There is nothing to suggest infection she has no neurologic deficits. I do think she needs to be admitted for pain management and further evaluation. I have consulted Dr. Dash to see her in the ER for these measures. Continous cardiac monitoring: Order was placed in EMR for continuous cardiac monitoring the patient was found to be in normal sinus rhythm a pulse of 70. Impression & Plan Back pain, Hip pain, left, Intractable back pain, Ambulatory dysfunction, Lab test negative for COVID-19 virus Discharge Plan Visit Data Chief Complaint: Back Injury/Pain ED Provider: Joe Wyman Discharge Problem: Back pain, Hip pain, left, Intractable back pain, Ambulatory dysfunction, Lab test negative for COVID-19 virus Patient Disposition: Admitted As Inpatient Discharge Instructions Interventions: ED Discharge Assessment Last Done: 05/05/20 20:26 Discharge Problem: Back pain Qualifiers: Back pain location: low back pain Chronicity: acute Back pain laterality: left Sciatica presence: with sciatica Sciatica laterality: sciatica of left side Qualified Code(s): M54.42 - Lumbago with sciatica, left side
--- NOTE | 2020-05-05 18:06 | CT Scan Report ---
CT SCAN OF THE ABDOMEN AND PELVIS WITHOUT CONTRAST CLINICAL HISTORY: back/pelvis pain COMPARISON STUDY: No previous studies for comparison. TECHNIQUE: CT scan of the abdomen and pelvis was performed from the lung bases to the proximal femurs . Images are reviewed in the axial, sagittal, and coronal planes. IV contrast was not administered fo r this examination. A dose lowering technique was utilized adhering to the principles of ALARA. CT DOSE: FINDINGS: Lower chest: There are mild basilar atelectatic changes. There is a small hiatal hernia. Liver: The unenhanced liver is normal in size, contour, and attenuation. There is no intrahepatic nico iary ductal dilatation. Gallbladder: Surgically absent Spleen: Normal in size and attenuation. Pancreas: Unremarkable. Adrenal glands: There is mild left adrenal gland thickening/nodularity Kidneys: No renal, ureteral, or bladder calculi are visualized. Bowel: There are no transition zones indicate bowel obstruction. There is colonic diverticulosis. The re is no evidence of acute diverticulitis. By history the appendix is surgically absent. There is a 1 4 mm duodenal lipoma. Peritoneum: There is no intraperitoneal free air or abdominal ascites. There is a fat-containing supr aumbilical ventral hernia. There is a second super umbilical hernia which contains a portion of trans verse colon. This is nonobstructing. Vasculature: The abdominal aorta is normal in course and caliber. Adenopathy: None. Pelvic viscera: The uterus is surgically absent. Skeletal structures: No acute fractures or destructive lesions are visualized. Degenerative changes a re present within the spine. IMPRESSION: 1. No evidence of bowel structure. No evidence of free air 2. Colonic diverticulosis. No evidence of acute diverticulitis 3. 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 Small ventral hernias ACT 112: Negative or not required by law. Electronically signed by: Michael Forte M.D. 05/05/2020 6:05 PM
--- NOTE | 2020-05-05 18:10 | CT Scan Report ---
CT lumbar spine wo con CT DOSE: 1365.10 mGy.cm CLINICAL HISTORY: Back and hip pain TECHNIQUE: Helical images were acquired in transverse plane. Reformatted sagittal and coronal images were reviewed. A dose lowering technique was utilized adhering to the principles of ALARA. CONTRAST: No contrast was administered COMPARISON STUDY: None. FINDINGS: L1-2 level: There is a circumferential disc bulge and moderate spinal stenosis. There is mild bilater al foraminal narrowing L2-3 level: There is a circumferential disc bulge and mild to moderate spinal stenosis. There is mode rate bilateral foraminal narrowing L3-4 level: There is a circumferential disc bulge and moderate to severe spinal stenosis. There is mo derate bilateral foraminal narrowing L4-5 level: There is a circumferential disc bulge and mild spinal stenosis. There is moderate right-s ided foraminal narrowing and mild left-sided foraminal narrowing L5-S1 level: There is a mild circumferential disc bulge. There is facet joint arthropathy. There is n o significant spinal stenosis. There is mild bilateral foraminal narrowing. No acute fractures or traumatic subluxations are visualized. Degenerative changes are present within the SI joints. IMPRESSION: 1. No acute fractures or traumatic subluxations 2. Advanced multilevel spondylytic changes with multilevel spinal stenosis and multilevel foraminal n arrowing ACT 112: Negative or not required by law. Electronically signed by: Michael Forte M.D. 05/05/2020 6:08 PM
[2020-05-05 18:23] LABS: Appearance Urine Clear (Clear); Bilirubin Urine Negative (Negative); Blood Urine Negative (Negative); Color Urine Yellow; Glucose Urine UA Negative (Negative); Ketones Urine Negative (Negative); Leukocyte Esterase Urine Negative (Negative); Nitrite Urine Negative (Negative); Protein Urine Negative (Negative); Specific Gravity Urine 1.015 (1.000-1.030); Urobilinogen Urine Negative (Negative)
[2020-05-05] MEDS ORDERED: MoRPHine SULFATE 2 MG/ML CARP IV STA (19:49)
[2020-05-05] MEDS ORDERED: KETOROLAC TROMETHAMINE 15 MG/ML VIAL IV ONE (19:49)
--- NOTE | 2020-05-05 20:00 | History & Physical Report ---
Date of Service May 05, 2020 Assessment & Plan (1) Acute low back pain with radicular symptoms, duration less than 6 weeks: 75yo C female presenting after a fall at home. Ongoing low back pain with radicular symptoms and spasm. No fracture noted on CT. No changes in bowel or bladder control. -Admit to medical floor -Tylenol 1000mg po TID scheduled -Toradol 15mg IV q 6 hours PRN -Morphine 2mg IV q 2 hours PRN -Flexeril 5mg po TID -Lidoderm patch -Heating pad -Colace PRN Present on Admission?: Yes (2) Fall: Patient with history of Parkinson Disease with imbalance, frequent falls in the home. She ambulates with a cane and a walker. She recently started PT at home for gait and balance training - 1day/week with goal to increase to 3days/week. -PT/OT evaluation appreciated -Fall precautions Present on Admission?: Yes (3) Parkinson disease: Chronic -Continue Rasagiline -Continue Carbidopa/Levodopa -Continue Amantadine -Patient follows with Neurology Present on Admission?: Yes (4) Sleep apnea: Mild disease. Patient does not use a device at home. Some concern as she is receiving multiple sedating medications for acute pain -Continuous pulse oximetry -O2 as needed Present on Admission?: Yes (5) Hypertension: Chronic. BP mildly elevated at 166/59 currently in setting of acute pain -Continue Metoprolol 25mg po qAM -Continue Lisinopril -Continue to monitor Present on Admission?: Yes (6) Hyperlipidemia: Chronic -Continue Atorvastatin 40mg po qPM Present on Admission?: Yes (7) CAD (coronary artery disease): Patient admitted in March with NSTEMI. Echo performed at that time with no WMA, EF of 45-50%. She had a cardiac catheterization performed on 04/10/20 which showed 20% stenosis of the right coronary, 90% proximal stenosis of the left main and 40-50% stenosis of long segment of LAD. No stent as placed. Patient denies CP, SOB. Troponin negative -Continue ASA 81mg po daily -Continue Atorvastatin 40mg po daily -Continue Metoprolol -Continue Lisinopril 5mg po daily Present on Admission?: Yes (8) Diabetes: Patient with newly diagnosed DM at last hospital visit. QfqV6P=0.5. She is currenlty not on any medications -Continue ASA, Statin -Fingersticks with ISS coverage -CC diet Present on Admission?: Yes (9) GERD (gastroesophageal reflux disease): Chronic -Continue Nexium 20mg po BID Present on Admission?: Yes (10) Depression: Chronic -Continue Duloxetine 30mg po q daily F/E/N - Heplock. Monitor electrolytes. PO heart healthy/CC diet as tolerated Ppx - Lovenox 40 Code - Full Dispo - Admit to medical floor Insomnia - Continue Melatonin PRN qHS, Continue Clonazepam 1mg po qHS Present on Admission?: Yes History of Present Illness Chief Complaint: back pain and spasm Primary Care Provider: Abdiel Montero MD Carmen Holland is a 75yo C female presenting with back pain. Patient has a history of Parkinson Disease with poor balance and frequent falls. She states she has fallen approximately 3 times in the last month. Yesterday afternoon she was walking in her home when she lost her balance and fell near her bathroom. She fell forward onto her knees and arms. She denies head trauma, loss of consciousness, CP/pain/palpitations or syncope. EMS was called at the time of the fall and patient decided that she did not need to go to the hospital at that time. She took a nap and when she woke up her back pain was more severe and she couldn't walk. She called EMS and was brought to [facility]. X-rays of lumbar spine and pelvis with no acute pathology -severe multilevel degenerative disc disease and facet arthrosis of the lumbar spine. CT of the left hip was obtained which was negative for fracture or dislocation. Patient was given pain medication and discharged home in stable condition. She returns today via EMS with continued pain, inability to walk. Her pain is located across her lower back with radiation into her buttock and anterior thighs bilaterally. She has occasional shooting pain down posterior thighs into her feet bilaterally as well as the feeling of numbness. She reports muscle spasms as well. No additional complaints at this time. Specifically she denies fever/chills/cough/SOB/abdominal pain/nausea/vomiting/diarrhea/constipation. No changes in bowel or bladder. Patient has chronic constipation and occasional urinary incontinence. ER Course: Morphine 4mg IV x 2 doses, Morphine 2mg IV, Toradol 15mg, Zofran 4mg IV Allergies Allergy/AdvReac Type Severity Reaction Status Date / Time codeine AdvReac Intermediate ITCHY ALL Verified 05/05/20 16:51 OVER Home Medications Medication Instructions Recorded Confirmed Type melatonin 10 mg PO HS PRN 10/07/17 05/05/20 History albuterol sulfate [Ventolin HFA] 2 - 4 puff INHALATION QID PRN 11/10/17 05/05/20 History aspirin [Aspirin Low Dose] 81 mg PO QPM 11/10/17 05/05/20 History ipratropium bromide 42 mcg (0.06 2 sprays INTRANASAL TID #1 ml 11/05/18 05/05/20 History %) nasal spray atorvastatin 40 mg tablet 40 mg PO QPM #90 tab 12/14/18 05/05/20 Rx esomeprazole magnesium 20 mg 20 mg PO BID cap 03/01/19 05/05/20 History capsule,delayed release duloxetine 30 mg capsule,delayed 30 mg PO DAILY 04/19/19 05/05/20 History release amantadine HCl 100 mg capsule 100 mg PO BID 90 Days #180 cap 01/27/20 05/05/20 Rx clonazepam 1 mg tablet 1 mg PO HS 90 Days #90 tab 02/09/20 05/05/20 Rx PreserVision AREDS-2 1 tab PO BID 03/18/20 05/05/20 History acetaminophen [Tylenol Extra 500 - 1,000 mg PO DIRECTED PRN 03/18/20 05/05/20 History Strength] MDD 3 GRAMS/24 HOURS cholecalciferol (vitamin D3) 125 mcg PO QPM 03/18/20 05/05/20 History [Vitamin D3] meloxicam [Mobic] 15 mg PO DAILY 03/18/20 05/05/20 History rasagiline 1 mg tablet 1 mg PO DAILY 90 Days #90 tab 04/03/20 05/05/20 Rx lisinopril 5 mg PO DAILY #30 tab 04/11/20 05/05/20 Rx metoprolol succinate 25 mg PO QAM 30 Days #30 tab 04/11/20 05/05/20 Rx carbidopa ER 50 mg-levodopa 200 mg 1 tab PO QID 90 Days #360 tab 04/21/20 Rx tablet,extended release Past Med/Surg History Medical History (Updated 05/05/20 @ 20:55 by Alyce Dash DO) Anxiety Asthma rarely issue CAD (coronary artery disease) Depression Diabetes GERD (gastroesophageal reflux disease) Hyperlipidemia Hypertension Morbid obesity with BMI of 60.0-69.9, adult Non-Hodgkin lymphoma Osteoarthritis Parkinson disease Raynaud phenomenon Sleep apnea mild, no device Surgical History H/O left cataract extraction 10/28/17- given 2mg IV versed without issues History of appendectomy History of bilateral tubal ligation History of carpal tunnel release BILATERAL History of cholecystectomy History of hysterectomy History of tonsillectomy History of total knee replacement BILATERAL Hx of cardiac pacemaker for BBB; 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 Follows up with Dr. Askew Pacemaker BBB, 9+ YEARS AGO, F/U DR LAO Social History Smoking Status: Never smoker Second Hand Exposure: No; Hx Alcohol Use: No Hx Substance Use: No Preferred Language: Armenian Communication Ability: Effective Surgical Garment Fitter Required: No Beliefs That Will Affect Care: None Current Living Situation: Spouse Current Living Situation Comment: lives with Feels Safe at Home: Yes Assistive Devices: Walker Review of Systems Review of Systems: All systems reviewed & are unremarkable except as noted in HPI & below Physical Exam Physical Exam: General: obese female patient resting comfortably, NAD, non- toxic in appearance, AA&O x 4 Skin: warm, dry, intact, livedo reticularis mottling discoloration of skin of bilateral LE, L>R as well as bilateral UE, skin of fingers red and shiny HEENT: NC/AT, PERRL, EOMI, anicteric sclera, conjunctiva without injection, external ear normal to inspection and nontender, nares patent, dry mucus membranes, dentition intact, no oropharyngeal lesions, neck supple, trachea midline, no LAD, no thyromegaly, no JVD Heart: +S1/S2, regular, 2/6 JOSE MANUEL at [facility], pacemaker in place, nontender Lungs: equal air entry bilaterally, no rales/rhonchi/wheezes Abd: +BS, soft, NT/ND, no masses/organomegaly/ascites Ext: warm, 2+ pulses in UE/LE bilaterally, no clubbing/cyanosis or edema Neuro: nonfocal, patient AA&O x 4, speech intact, no facial droop, moving all extremities on command with equal strength 5/5 +Back spasm - tenderness with palpation of lower back. Results & Data Results & Data ([facility]) Vital Signs (Past 12 Hours) Vital Signs Temp Pulse Pulse Resp BP BP Pulse Ox 05/05/20 19:32 72 18 165/74 H 96 05/05/20 18:38 72 18 197/71 H 96 05/05/20 17:27 97 05/05/20 15:18 36.5 C 67 18 170/63 H 97 Laboratory Results Lab Results 05/05/20 05/05/20 05/05/20 Range/Units 17:24 17:24 18:15 Urine Color Yellow Urine Appearance Clear (Clear) Urine pH 5.0 (4.5-7.5) Ur Specific [place] 1.015 (1.000-1.030) Urine Protein Negative (Negative) Urine Glucose (UA) Negative (Negative) Urine Ketones Negative (Negative) Urine Blood Negative (Negative) Urine Nitrite Negative (Negative) Urine Bilirubin Negative (Negative) Urine Urobilinogen Negative (Negative) Ur Leukocyte Esterase Negative (Negative) COVID-19 Eval Order Covid19 IDNow atMTNC SARS-CoV-2, RNA, NAAT NEGATIVE (NEGATIVE) Diagnostic Findings CT lumbar spine wo con CT DOSE: 1365.10 mGy.cm CLINICAL HISTORY: Back and hip pain TECHNIQUE: Helical images were acquired in transverse plane. Reformatted sagittal and coronal images were reviewed. A dose lowering technique was utilized adhering to the principles of ALARA. CONTRAST: No contrast was administered COMPARISON STUDY: None. FINDINGS: L1-2 level: There is a circumferential disc bulge and moderate spinal stenosis. There is mild bilateral foraminal narrowing L2-3 level: There is a circumferential disc bulge and mild to moderate spinal stenosis. There is moderate bilateral foraminal narrowing L3-4 level: There is a circumferential disc bulge and moderate to severe spinal stenosis. There is moderate bilateral foraminal narrowing L4-5 level: There is a circumferential disc bulge and mild spinal stenosis. There is moderate right-sided foraminal narrowing and mild left-sided foraminal narrowing L5-S1 level: There is a mild circumferential disc bulge. There is facet joint arthropathy. There is no significant spinal stenosis. There is mild bilateral foraminal narrowing. No acute fractures or traumatic subluxations are visualized. Degenerative changes are present within the SI joints. IMPRESSION: 1. No acute fractures or traumatic subluxations 2. Advanced multilevel spondylytic changes with multilevel spinal stenosis and multilevel foraminal narrowing ACT 112: Negative or not required by law. Electronically signed by: Michael Forte M.D. 05/05/2020 6:08 PM Dictated: 05/05/201804Transcribed: 05/05/201804 CT SCAN OF THE ABDOMEN AND PELVIS WITHOUT CONTRAST CLINICAL HISTORY: back/pelvis pain COMPARISON STUDY: No previous studies for comparison. TECHNIQUE: CT scan of the abdomen and pelvis was performed from the lung bases to the proximal femurs. Images are reviewed in the axial, sagittal, and coronal planes. IV contrast was not administered for this examination. A dose lowering technique was utilized adhering to the principles of ALARA. CT DOSE: FINDINGS: Lower chest: There are mild basilar atelectatic changes. There is a small hiatal hernia. Liver: The unenhanced liver is normal in size, contour, and attenuation. There is no intrahepatic biliary ductal dilatation. Gallbladder: Surgically absent Spleen: Normal in size and attenuation. Pancreas: Unremarkable. Adrenal glands: There is mild left adrenal gland thickening/nodularity Kidneys: No renal, ureteral, or bladder calculi are visualized. Bowel: There are no transition zones indicate bowel obstruction. There is colonic diverticulosis. There is no evidence of acute diverticulitis. By history the appendix is surgically absent. 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 Peritoneum: There is no intraperitoneal free air or abdominal ascites. There is a fat-containing supraumbilical ventral hernia. There is a second super umbilical hernia which contains a portion of transverse colon. This is nonobstructing. Vasculature: The abdominal aorta is normal in course and caliber. Adenopathy: None. Pelvic viscera: The uterus is surgically absent. Skeletal structures: No acute fractures or destructive lesions are visualized. Degenerative changes are present within the spine. IMPRESSION: 1. No evidence of bowel structure. No evidence of free air 2. Colonic diverticulosis. No evidence of acute diverticulitis 3. 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 Small ventral hernias ACT 112: Negative or not required by law. Electronically signed by: Michael Forte M.D. 05/05/2020 6:05 PM PG Care Time/CCT Total # of Minutes Spent Total Time Spent with Patient: Total time spent is greater than 50% in coordination of care (as documented) at patient's floor/unit and/or counseling patient: Coding Level of Care Code 78760 Initial Inpt Care Lvl 3 Diagnoses Acute low back pain with radicular symptoms, duration less than 6 weeks M54.10 Fall W19.XXXA Encounter type: initial encounter Parkinson disease G20 Sleep apnea G47.30 Sleep apnea type: unspecified type Hypertension I10 Hypertension type: essential hypertension Hyperlipidemia E78.5 Hyperlipidemia type: unspecified CAD (coronary artery disease) I25.10 Coronary Disease-Associated Artery/Lesion type: [place] artery [place] vs. transplanted heart: [place] heart Associated angina: without angina Diabetes E11.9 Diabetes mellitus type: type 2 Diabetes mellitus shelter insulin use: without long filler cigar roller machine use Diabetes mellitus complication status: without complication GERD (gastroesophageal reflux disease) K21.9 Esophagitis presence: esophagitis presence not specified Depression F32.9 Depression Type: major depressive disorder Major depression recurrence: unspecified whether recurrent Active/Remission status: remission status unspecified (1) Fall Encounter type: initial encounter Qualified Code(s): W19.XXXA - Unspecified fall, initial encounter (2) Sleep apnea Sleep apnea type: unspecified type Qualified Code(s): G47.30 - Sleep apnea, unspecified (3) Hypertension Hypertension type: essential hypertension Qualified Code(s): I10 - Essential (primary) hypertension (4) Hyperlipidemia Hyperlipidemia type: unspecified Qualified Code(s): E78.5 - Hyperlipidemia, unspecified (5) CAD (coronary artery disease) Coronary Disease-Associated Artery/Lesion type: [place] artery [place] vs. transplanted heart: [place] heart Associated angina: without angina Qualified Code(s): I25.10 - Atherosclerotic heart disease of [place] coronary artery without angina pectoris (6) GERD (gastroesophageal reflux disease) Esophagitis presence: esophagitis presence not specified Qualified Code(s): K21.9 - Gastro-esophageal reflux disease without esophagitis (7) Depression Depression Type: major depressive disorder Major depression recurrence: unspecified whether recurrent Active/Remission status: remission status unspecified Qualified Code(s): F32.9 - Major depressive disorder, single episode, unspecified (8) Diabetes Diabetes mellitus type: type 2 Diabetes mellitus long filler cigar roller machine insulin use: without long filler cigar roller machine use Diabetes mellitus complication status: without complication Qualified Code(s): E11.9 - Type 2 diabetes mellitus without complications
[2020-05-05] MEDS ORDERED: GLUCAGON FOR INJ 1 MG VIAL SQ PRN (21:07)
[2020-05-05] MEDS ORDERED: CARBOHYDRATES FOR HYPOGLYCEMIA PO PRN (21:07)
[2020-05-05] MEDS ORDERED: GLUCOSE 10 TABS/TUBE PO PRN (21:07)
[2020-05-05] MEDS ORDERED: DOCUSATE SODIUM 100 MG CAP PO PRN (21:07)
[2020-05-05] MEDS ORDERED: ALBUTEROL HFA 8 GM INHALER INH PRN (21:07)
[2020-05-05] MEDS ORDERED: DEXTROSE 50% 50 ML SYRINGE IV PRN (21:07)
[2020-05-05] MEDS ORDERED: GLUCOSE 40% GEL 15 GM TUBE PO PRN (21:07)
[2020-05-05] MEDS: MoRPHine SULFATE 2 MG/ML CARP IV PRN (21:32)
[2020-05-05] MEDS: DULoxetine HCL 30 MG CAP PO SCH (22:53)
[2020-05-05] MEDS: ASPIRIN 81 MG ECTAB PO SCH (22:53)
[2020-05-05] MEDS: CYCLOBENZAPRINE HCL 5 MG TAB PO SCH (22:54)
[2020-05-05] MEDS: AMANTADINE HCL 100 MG CAPSULE PO SCH (22:54)
[2020-05-05] MEDS: ATORVASTATIN 40 MG TAB PO SCH (22:54)
[2020-05-05] MEDS: CARBIDOPA/LEVODOPA 50/200MG EXT REL TAB PO SCH (22:54)
[2020-05-05] MEDS: ACETAMINOPHEN 500 MG TAB PO SCH (22:55)
[2020-05-05] MEDS: lisinopril 5 MG TAB PO SCH (22:56)
[2020-05-05] MEDS: PANTOprazole 40 MG TAB PO SCH (22:56)
[2020-05-05] MEDS: clonazePAM 1 MG TAB PO SCH (22:56)
[2020-05-05] MEDS: IPRATROPIUM BROMIDE NASAL SPRAY 0.06% 15ML SCH (22:59)
[2020-05-05] MEDS ORDERED: Nursing to Pharmacy Communication SCH (23:45)
[2020-05-06] MEDS: LIDOCAINE 5% 1 PATCH TD SCH ×2 (00:23→08:05)
[2020-05-06] MEDS: MoRPHine SULFATE 2 MG/ML CARP IV PRN ×3 (00:24→11:11)
[2020-05-06] MEDS: INSULIN ASPART 100 UNITS/ML 3 ML PEN SC SCH ×5 (00:34→21:13)
[2020-05-06] MEDS: KETOROLAC TROMETHAMINE 15 MG/ML VIAL IV PRN ×2 (01:52→07:51)
[2020-05-06 06:57] LABS: Basophils # (auto) 0.03 K/uL (0-0.2); Basophils % (auto) 0.4 %; Eosinophils # (auto) 0.24 K/uL (0-0.5); Eosinophils % (auto) 3.2 %; Hematocrit (blood only) 43.1 % (37-47); Hemoglobin 13.5 g/dL (12.0-16.0); Immature Granulocytes # (auto) 0.02 K/uL (0.00-0.02); Immature Granulocytes % (auto) 0.3 %; Lymphocytes # (auto) 2.29 K/uL (1.2-3.4); Lymphocytes % (auto) 30.6 %; Mean Corpuscular Hemoglobin 29.9 pg (25-34); Mean Corpuscular Hgb Conc 31.3 g/dL (32-36); Mean Corpuscular Volume 95.4 fL (80-100); Mean Platelet Volume 10.6 fL (7.4-10.4); Monocytes # (auto) 0.71 K/uL (0.11-0.59); Monocytes % (auto) 9.5 %; Neutrophils # (auto) 4.19 K/uL (1.4-6.5); Platelet Count 218 K/uL (130-400); RDW Coefficient of Variation 13.3 % (11.5-14.5); RDW Standard Deviation 45.8 fL (36.4-46.3); Red Blood Count 4.52 M/uL (4.2-5.4); White Blood Count 7.48 K/uL (4.8-10.8)
[2020-05-06 07:33] LABS: Albumin Level 3.6 gm/dl (3.4-5.0); BUN Creatinine Ratio 21.8 (10-20); Bilirubin Direct 0.1 mg/dl (0-0.2); Calcium 10.1 mg/dl (8.5-10.1); Creatinine Clr Calc Pharmacy 60.8 ml/min; Est GFR (African American) 62.2; Est GFR (Non-African American) 53.7; Magnesium 1.7 mg/dl (1.8-2.4); Potassium 4.6 mmol/L (3.5-5.1)
[2020-05-06 07:36] LABS: Bilirubin,Total 0.9 mg/dl (0.2-1); Phosphorus 3.6 mg/dl (2.5-4.9); Total Protein 7.3 gm/dl (6.4-8.2)
[2020-05-06] MEDS: PANTOprazole 40 MG TAB PO SCH ×2 (07:55→21:12)
[2020-05-06] MEDS: lisinopril 5 MG TAB PO SCH (07:55)
[2020-05-06] MEDS: METOPROLOL SUCC 25MG EXT REL TAB PO SCH (07:55)
[2020-05-06] MEDS: IPRATROPIUM BROMIDE NASAL SPRAY 0.06% 15ML SCH ×3 (07:55→21:12)
[2020-05-06] MEDS: CARBIDOPA/LEVODOPA 50/200MG EXT REL TAB PO SCH ×4 (07:56→21:11)
[2020-05-06] MEDS: ACETAMINOPHEN 500 MG TAB PO SCH ×3 (07:56→21:12)
[2020-05-06] MEDS: AMANTADINE HCL 100 MG CAPSULE PO SCH ×2 (07:56→21:11)
[2020-05-06] MEDS: DULoxetine HCL 30 MG CAP PO SCH (07:57)
[2020-05-06] MEDS: CYCLOBENZAPRINE HCL 5 MG TAB PO SCH ×3 (07:57→21:12)
[2020-05-06] MEDS: ENOXAPARIN INJ 40 MG/0.4 ML SYR SQ SCH (07:58)
--- NOTE | 2020-05-06 11:17 | Hospitalist Progress Note ---
Date of Service May 06, 2020 Assessment & Plan (1) Acute low back pain with radicular symptoms, duration less than 6 weeks: 75yo female with PMH of Parkinson's presents with acute back pain without fracture after a fall. Acute back pain -stable, slowly improving -appears to have components of both lumbar radiculopathy as well as muscular/ligamentous strain/dysfunction; will treat from both angles and monitor progress -OMT for biomechanical dysfunction -dexamethasone 8mg IV one-time, will consider more doses pending response -c/w flexeril 5mg PO tid -c/w APAP 1000mg PO tid scheduled -c/w ketorolac 15mg IV q6h prn -c/w lidocaine patch -c/w morphine 2mg IV q2h prn -c/w diclofenac external qid scheduled -PT/OT -fall precautions Parkinson's disease -stable -c/w carbidopa/levodopa -c/w amantadine -c/w clonazepam 1mg PO qhs -[facility] not stock rasagiline; will discuss with pharmacy -patient follows with neurology T2DM -newly diagnosed at last admission last month, A1c 6.5%, not currently on oral meds at home -glucose relatively controlled -ISS -anticipate higher glucose levels and difficulty with control as steroids are trialed -T2DM (+heart healthy) diet HTN -chronic; well-controlled at present -c/w lisinopril 5mg PO qd -c/w metoprolol 25mg PO qAM CAD, HLD, pacemaker for complete heart block -admitted in March with NSTEMI; echo at that time with no WMA, EF of 45-50% -cardiac catheterization on 04/10/20: -20% stenosis of RCA -90% proximal stenosis of the left main -40-50% stenosis of long segment of LAD -no stent placed -no CP or SOB -troponin negative -c/w ASA 81mg qd -c/w atorvastatin 40mg PO qPM -continue to monitor FREDY -stable, patient does not use CPAP or other device at home -continuous pulse ox especially considering multiple sedating meds -supplemental oxygen as needed MDD, anxiety -stable, feels safe at [facility] -c/w duloxetine 30mg PO qd GERD -stable -c/w pantoprazole 40mg PO bid FENGI: T2DM + heart healthy diet DVT ppx: lovenox 40mg Isolation: none Consults: PT/OT Held home meds: rasagiline (not stocked), esomeprazole (using pantoprazole instead), meloxicam Code status: full code Dispo: inpatient for pain control and evaluation of functional status (2) Depression: (3) Diabetes: (4) GERD (gastroesophageal reflux disease): (5) Sleep apnea: (6) Hyperlipidemia: (7) Hypertension: (8) Pacemaker: (9) Parkinson disease: Admission and Anticipated Discharge Date Admission Date: May 05, 2020 Supervising Physician Co-Signing Physician Notes I personally examined the patient and verified all hernandez points of history and exam, discussed case, and agree with decision making with Dr Blackmon weak, ongoing back pain. radiates to anterior thighs and L buttock. hurts w movement. ~500ml on bladder scan but also feels like she has to void Vitals noted, in general she is awake and alert pleasant very fatigued appearing but no distress. HEENT normocephalic atraumatic mucous membranes moist. Somewhat hyper esthesia anterior thighs and about an L2 distribution, and left- sided buttock musculature in the region of piriformis high in tone, tender, decreased range of motionpost isometric relaxation done by 3 repetitions with a degree of improvement in range of motion, patient tolerated well Back painappears to be both a lumbar radiculopathy accounting for her L2 region radicular symptoms, as well as biomechanical predominantly with a piriformis dysfunction type of a pattern. Steroids for the radiculopathy, OMT for the biomechanical, and overall pain control/PT/OT/probable need for rehab for both. Somatic dysfunction pelvisOMT as above DVT prophylaxis Lovenox Subjective Patient seen at bedside this morning. Feels her pain has much improved but also feels very sleepy. Reports her ability to get up and out of bed is limited by severe pain although it is well-controlled at rest. Continues to endorse pain that occasionally shoots from her low back around her hips to the front of her thighs. Pain also worsens with movement of her legs or hips. Denies worsening bladder incontinence, denies bowel incontinence. No additional symptoms to report. Willing to work with PT today to work toward recovery. Bladder scan showed about 470mL - patient felt the urge to void; wants to see if she's able to move over to the portable commode before resorting to straight cath. Review of Systems Review of Systems: See HPI Physical Exam Constitutional: well developed, + obese and cooperative; no acute distress Respiratory: normal respiratory effort, lungs clear to auscultation Cardiovascular: RRR, no murmur, no edema Gastrointestinal (Abdomen): normal bowel sounds, soft, nontender, no hepatosplenomegaly Musculoskeletal: mild sensitivity/pain to light touch of the upper anterior thighs extending medially in an L2 distribution, tenderness of the left buttock area laterally, ROM limited by pain Neurologic: awake very fatigued but oriented and cooperative, low-amplitude tremor appreciated in a relatively global distribution Results & Data Results & Data ([facility]) Vital Signs (Past 12 Hours) Vital Signs Temp Pulse Resp BP Pulse Ox 05/06/20 07:24 36.6 C 71 16 147/80 H 98 Resident Activity Tracking Resident Involvement: Resident Care Provided Care Provided: Adult [facility] Medicine (1) Depression Depression Type: major depressive disorder Major depression recurrence: unspecified whether recurrent Active/Remission status: remission status unspecified Qualified Code(s): F32.9 - Major depressive disorder, single episode, unspecified (2) Diabetes Diabetes mellitus type: type 2 Diabetes mellitus ferry terminal agent insulin use: without correction use Diabetes mellitus complication status: without complication Qualified Code(s): E11.9 - Type 2 diabetes mellitus without complications (3) GERD (gastroesophageal reflux disease) Esophagitis presence: esophagitis presence not specified Qualified Code(s): K21.9 - Gastro-esophageal reflux disease without esophagitis (4) Sleep apnea Sleep apnea type: unspecified type Qualified Code(s): G47.30 - Sleep apnea, unspecified (5) Hyperlipidemia Hyperlipidemia type: unspecified Qualified Code(s): E78.5 - Hyperlipidemia, unspecified (6) Hypertension Hypertension type: essential hypertension Qualified Code(s): I10 - Essential (primary) hypertension
[2020-05-06] MEDS ORDERED: dexAMETHasone 8 MG in SYRINGE 0 ML IV ONE (15:45)
--- NOTE | 2020-05-06 16:09 | Billing Data ---
Date of Service May 06, 2020 Coding Level of Care Code 18680 Subseq Hosp Care Lvl 3
--- NOTE | 2020-05-06 16:10 | Hospitalist Progress Note ---
Date of Service May 06, 2020 Assessment & Plan Admission and Anticipated Discharge Date Admission Date: May 05, 2020 Results & Data Results & Data ([facility]) Vital Signs (Past 12 Hours) Vital Signs Temp Pulse Resp BP Pulse Ox 05/06/20 15:16 97.9 F 78 18 124/69 92 05/06/20 07:24 97.9 F 71 16 147/80 H 98 PG Care Time/CCT Total # of Minutes Spent Total Time Spent with Patient: Total time spent is greater than 50% in coordinat ion of care (as documented) at patient's floor/unit and/or counseling patient: Coding Level of Care Code None CPT Codes Musculoskeletal - Musculoskeletal: [address] 1-2 Body regions ([id number])
[2020-05-06] MEDS: DICLOFENAC SOD 1% GEL 100 GM TUBE EXT SCH ×2 (17:16→21:13)
[2020-05-06] MEDS: ATORVASTATIN 40 MG TAB PO SCH (21:10)
[2020-05-06] MEDS: clonazePAM 1 MG TAB PO SCH (21:10)
[2020-05-06] MEDS: ASPIRIN 81 MG ECTAB PO SCH (21:10)
[2020-05-07] MEDS: MoRPHine SULFATE 2 MG/ML CARP IV PRN ×3 (02:12→12:56)
[2020-05-07] MEDS: TRIAMCINOLONE ACET 0.1% OINT 15 GM TUBE EXT PRN ×2 (02:59→08:07)
[2020-05-07] MEDS: METOPROLOL SUCC 25MG EXT REL TAB PO SCH (08:03)
[2020-05-07] MEDS: ACETAMINOPHEN 500 MG TAB PO SCH ×3 (08:03→20:42)
[2020-05-07] MEDS: PANTOprazole 40 MG TAB PO SCH ×2 (08:04→20:44)
[2020-05-07] MEDS: AMANTADINE HCL 100 MG CAPSULE PO SCH ×2 (08:04→20:42)
[2020-05-07] MEDS: CARBIDOPA/LEVODOPA 50/200MG EXT REL TAB PO SCH ×4 (08:04→20:42)
[2020-05-07] MEDS: CYCLOBENZAPRINE HCL 5 MG TAB PO SCH ×3 (08:04→20:40)
[2020-05-07] MEDS: LIDOCAINE 5% 1 PATCH TD SCH (08:05)
[2020-05-07] MEDS: IPRATROPIUM BROMIDE NASAL SPRAY 0.06% 15ML SCH ×3 (08:05→20:43)
[2020-05-07] MEDS: DULoxetine HCL 30 MG CAP PO SCH (08:05)
[2020-05-07] MEDS: ENOXAPARIN INJ 40 MG/0.4 ML SYR SQ SCH (08:06)
[2020-05-07] MEDS: DICLOFENAC SOD 1% GEL 100 GM TUBE EXT SCH ×4 (08:06→20:44)
[2020-05-07] MEDS: lisinopril 5 MG TAB PO SCH (08:07)
[2020-05-07] MEDS: KETOROLAC TROMETHAMINE 15 MG/ML VIAL IV PRN ×2 (08:07→20:36)
[2020-05-07] MEDS: INSULIN ASPART 100 UNITS/ML 3 ML PEN SC SCH ×4 (08:08→21:58)
--- NOTE | 2020-05-07 08:28 | Hospitalist Progress Note ---
Date of Service May 07, 2020 Assessment & Plan (1) Acute low back pain with radicular symptoms, duration less than 6 weeks: 75yo female with PMH of Parkinson's presents with acute back pain without fracture after a fall. Acute back pain -stable, improving; much more interactive today, pain has improved, likely 2/2 steroid -pain etiology - likely multifactorial as patient has both signs and symptoms of lumbar radiculopathy as well as muscular/ligamentous strain/dysfunction; will treat from both angles and monitor progress -OMT for biomechanical dysfunction; good engagement today -dexamethasone 8mg IV daily, will consider more doses pending response -c/w flexeril 5mg PO tid -c/w APAP 1000mg PO tid scheduled -c/w ketorolac 15mg IV q6h prn -c/w lidocaine patch -c/w morphine 2mg IV q2h prn -c/w diclofenac external qid scheduled -PT/OT -fall precautions Parkinson's disease -stable -c/w carbidopa/levodopa -c/w amantadine -[facility] not stock rasagiline; patient brought in her own rasagiline and has been taking it -patient follows with neurology T2DM -newly diagnosed at last admission last month, A1c 6.5%, not currently on oral meds at home -glucose relatively controlled -ISS -anticipate higher glucose levels and difficulty with control as steroids are trialed -T2DM (+heart healthy) diet HTN -chronic; well-controlled at present -c/w lisinopril 5mg PO qd -c/w metoprolol 25mg PO qAM CAD, HLD, pacemaker for complete heart block -admitted in March with NSTEMI; echo at that time with no WMA, EF of 45-50% -cardiac catheterization on 04/10/20: -20% stenosis of RCA -90% proximal stenosis of the left main -40-50% stenosis of long segment of LAD -no stent placed -no CP or SOB -troponin negative -c/w ASA 81mg qd -c/w atorvastatin 40mg PO qPM -continue to monitor FREDY -stable, patient does not use CPAP or other device at home -continuous pulse ox especially considering multiple sedating meds -supplemental oxygen as needed MDD, anxiety -struggling with anxiety more than previously disclosed, per today's conversation -no acute intevention or med change indicated at this time -encouraged patient to follow up and openly discuss stressors and anxiety with PCP -c/w duloxetine 30mg PO qd -c/w clonazepam 1mg PO qhs GERD -stable -c/w pantoprazole 40mg PO bid FENGI: T2DM + heart healthy diet DVT ppx: lovenox 40mg Isolation: none Consults: PT/OT, case management Held home meds: esomeprazole (using pantoprazole instead), meloxicam Code status: full code Dispo: inpatient for pain control and evaluation of functional status (2) Depression: (3) Diabetes: (4) GERD (gastroesophageal reflux disease): (5) Sleep apnea: (6) Hyperlipidemia: (7) Hypertension: (8) Pacemaker: (9) Parkinson disease: Admission and Anticipated Discharge Date Admission Date: May 05, 2020 Supervising Physician Co-Signing Physician Notes I personally examined the patient and verified all hernandez points of history and exam, discussed case, and agree with decision making with Dr Blackmon Overall she notes that she probably feels about the same, but at the same time seems to have a little bit better pain control. Still radiating down the front of her thighs, and still in her buttock. Also has a little bit of odd tingling and itching in her feet. Vitals noted, in general she is awake and alert pleasant looks much brighter than yesterday, no distress. HEENT normocephalic atraumatic mucous membranes moist. Dyskinetic movements that she notes is a frequent finding with her. Somewhat hyperesthesia anterior thighs and about an L2 distribution, seems a l ittle bit similar to yesterday may be not quite as pronounced. No sensory deficits or hyperesthesia elsewhere on bilateral lower extremities. R1 did post isometric relaxation style of muscle energy. Back painappears to be both a lumbar radiculopathy accounting for her L2 region radicular symptoms, as well as biomechanical predominantly with a piriformis dysfunction type of a pattern. Continue steroids for the radiculopathy, continue OMT for the biomechanical, and overall pain control/PT/OT/probable need for rehab for both. Paresthesias more distally not entirely clearvigilance, serial exams, time Somatic dysfunction pelvisOMT ongoing DVT prophylaxis Lovenox Subjective Patient seen at bedside this morning/afternoon. She is feeling quite a bit better though still with significant pain. She is sitting up in bed, much more interactive than yesterday, sitting up and eating lunch. Sitting up in bed more than she was able to manage yesterday due to pain. Her pain is slightly improved but still includes occasional pain radiating around her hips bilaterally towards her upper anterior thighs, as well as pain primarily in the left buttock that is worsened with movement. Denies any worsening of bladder incontinence, denies bowel incontinence. Continues retaining some urine overnight, reached 700mL but was able to void 660mL. Has only urinated once since early this morning but per nurse, scan reflected 250mL in her bladder. No abdominal pain, bladder fullness, or other symptoms. Denies CP, SOB. No other complaints at this time. I patient about factors that led to her fall; she noted her walker being clunky and having gotten stuck in a doorway, as well as slip-on shoes that do not offer much support or stability. She notes recently trying to find out what type of medical assistance equipment she is eligible for, but that the medicare guidebook was too vague. She did think to ask for help and does not know who she would ask. Patient lives with her who helps patient with activities such as tidying up and helping patient put her socks on, though he has his own mobility issues as well as what sounds like an element of dementia. He provides certain aspects of care to patient, but in addition, patient is her 's primary caregiver as well, as her refuses to engage in his own healthcare ("he refuses to learn what meds he has to take; if I don't tell him what to take, he takes nothing"). Patient lives in a one-story home with a basement; while everything she and her need for ADLs is on the first floor, they have been using the basement as storage for dirty clothes that need to be laundered, as well as cardboard boxes that accumulate from food and misc goods purchased online. Neither of them can safely ambulate down stairs to the basement, so they have thus far relied on family members (not many of whom live nearby) to occasionally visit and help them with transporting laundry, etc back upstairs for patient to wash and sort. Patient reports a strong reluctance to ask for help from relatives that live in [place] because she feels like a burden. She is very overwhelmed by the accumulation of stuff in her basement and does not know what to do. She "is not opposed to" hiring help but does not know where to look. She wants a stair lift for her to be able to take care of all of this herself, but reports being unable to afford one, and is unsure about the idea of renting one. Stress is compounded by her recent [place] last month and her new diagnosis of T2DM requiring insulin administration. She voices a fear that the health of her or children will worsen. Patient is tearful when discussing this. Report not knowing where to turn. Throughout this conversation, I let her know that her PCP can help with many of these things, and that he has colleagues like case management and others who have an in-depth knowledge of things like medical assistance device coverage, medicare, and local resources that patient may benefit from. I tried to provide encouragement and optimism and emphasized that patient should not and does not have to do all of this by herself. She voiced appreciation and intent to talk to her PCP as well as relatives regarding feeling overwhelmed, her needs, and asking for support. Review of Systems Constitutional: no fever and no sweats Respiratory: no cough Cardiovascular: no chest pain Gastrointestinal: no abdominal pain, no nausea, no vomiting, no constipation and no diarrhea/loose stools Neurologic: + tremor(s) Physical Exam Constitutional: well developed, + obese and cooperative; no acute distress Respiratory: normal respiratory effort, lungs clear to auscultation Cardiovascular: RRR, no murmur, no edema Gastrointestinal (Abdomen): normal bowel sounds, soft, nontender, no hepatosplenomegaly Musculoskeletal: mild sensitivity/pain to light touch of the upper anterior thighs extending medially in an L2 distribution, tenderness of the left buttock area laterally, ROM limited by pain Neurologic: awake global low-amplitude tremor appreciated in addition to cogwheel rigidity with purposeful movement of upper limbs Results & Data Results & Data ([facility]) Vital Signs (Past 12 Hours) Vital Signs Temp Pulse Resp BP Pulse Ox 05/07/20 07:17 36.5 C 77 16 144/74 H 93 05/06/20 22:41 36.7 C 67 18 114/68 93 Resident Activity Tracking Resident Involvement: Resident Care Provided Care Provided: Adult Hospital Medicine (1) Sleep apnea Sleep apnea type: unspecified type Qualified Code(s): G47.30 - Sleep apnea, unspecified (2) Diabetes Diabetes mellitus complication status: without complication 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 insulin use: without correction use Diabetes mellitus type: type 2 Qualified Code(s): E11.9 - Type 2 diabetes mellitus without complications (3) Depression Active/Remission status: remission status unspecified Depression Type: major depressive disorder Major depression recurrence: unspecified whether recurrent Qualified Code(s): F32.9 - Major depressive disorder, single episode, unspecified (4) Hyperlipidemia Hyperlipidemia type: unspecified Qualified Code(s): E78.5 - Hyperlipidemia, unspecified (5) GERD (gastroesophageal reflux disease) Esophagitis presence: esophagitis presence not specified Qualified Code(s): K21.9 - Gastro-esophageal reflux disease without esophagitis (6) Hypertension Hypertension type: essential hypertension Qualified Code(s): I10 - Essential (primary) hypertension
[2020-05-07] MEDS: RASAGILINE 1 MG PO SCH (14:15)
--- NOTE | 2020-05-07 17:30 | Billing Data ---
Date of Service May 07, 2020 Coding Level of Care Code 15110 Subseq Hosp Care Lvl 3
[2020-05-07] MEDS: clonazePAM 1 MG TAB PO SCH (20:39)
[2020-05-07] MEDS: ATORVASTATIN 40 MG TAB PO SCH (20:42)
[2020-05-07] MEDS: ASPIRIN 81 MG ECTAB PO SCH (20:43)
[2020-05-07] MEDS: MELATONIN 3 MG TAB PO PRN (20:45)
[2020-05-08] MEDS: MoRPHine SULFATE 2 MG/ML CARP IV PRN (00:51)
--- NOTE | 2020-05-08 07:10 | Hospitalist Progress Note ---
Date of Service May 08, 2020 Assessment & Plan (1) Acute low back pain with radicular symptoms, duration less than 6 weeks: 75yo female with PMH of Parkinson's presents with acute back pain without fracture after a fall. Altered mental status - drowsy, decreased responsiveness since 1130 05/08. Last meds, including flexeril and Sinemet, were at 0900. - increased sedation 2/2 flexeril combined w/ Sinemet is possible - also considered psychogenic component given that on physical exam at 1720, patient was able to respond to commands such as opening eyes. Her arm was lifted and left to drop on its own and this response was observed. - cbc and cmp were nonremarkable. liver panel not elevated. head ct was negative for acute changes. plan: reevaluate at night. reevaluate in AM. if no improvement clinically, will consult neuro tomorrow. hold PO meds while mentation is altered. Acute back pain -stable, slightly improving; dexamethasone IV 8 mg x2 days followed by transition to prednisone taper (~1 week starting from 40 mg) -pain etiology - likely multifactorial as patient has both signs and symptoms of lumbar radiculopathy as well as muscular/ligamentous strain/dysfunction; will treat from both angles and monitor progress -OMT for biomechanical dysfunction performed 05/07 w/ good response - sedating and PO meds held as of 05/08 PM because of AMS above. Flexeril, toradol, morphine IV held. Parkinson's disease -stable -c/w carbidopa/levodopa. PO meds held 05/08 PM during AMS. will also hold rasagiline that patient has been taking from home T2DM -newly diagnosed at last admission last month, A1c 6.5%, not currently on oral meds at home -ISS -BSG mostly low-mid 100s, w/ 1 high of 193. unlikely to be cause of AMS HTN -chronic; well-controlled at present -c/w lisinopril 5mg PO qd. PO meds temporarily held 05/08 PM -c/w metoprolol 25mg PO qAM. PO meds temporarily held 05/08 PM CAD, HLD, pacemaker for complete heart block -admitted in March with NSTEMI; echo at that time with no WMA, EF of 45-50% -cardiac catheterization on 04/10/20: -20% stenosis of RCA -90% proximal stenosis of the left main -40-50% stenosis of long segment of LAD -no stent placed -no CP or SOB -troponin negative -c/w ASA 81mg qd -c/w atorvastatin 40mg PO qPM. PO meds temporarily held 05/08 PM -continue to monitor FREDY -stable, patient does not use CPAP or other device at home -continuous pulse ox especially considering multiple sedating meds -supplemental oxygen as needed MDD, anxiety -struggling with anxiety more than previously disclosed, per today's conversation -no acute intevention or med change indicated at this time -encouraged patient to follow up and openly discuss stressors and anxiety with PCP -c/w duloxetine 30mg PO qd. PO meds temporarily held 05/08 PM -c/w clonazepam 1mg PO qhs.PO meds temporarily held 05/08 PM GERD -stable -c/w pantoprazole 40mg PO bid. PO meds temporarily held 05/08 PM FENGI: T2DM + heart healthy diet DVT ppx: lovenox 40mg Code status: full code Dispo: inpatient for pain control and evaluation of functional status (2) Depression: (3) Diabetes: (4) GERD (gastroesophageal reflux disease): (5) Sleep apnea: (6) Hyperlipidemia: (7) Hypertension: (8) Pacemaker: (9) Parkinson disease: Admission and Anticipated Discharge Date Admission Date: May 05, 2020 Supervising Physician Co-Signing Physician Notes I also saw the patient with the resident physician and confirmed hernandez portions of the history and physical examination. Upon upon our joint examination just after lunch, the patient is rather sedated. She will open her eyes briefly to my voice, but would not interact. Blood pressure 132/78, 60, 20, 36.6, 90% on room air Her hands are somewhat cold, other they are pink with good capillary refill. Heart regular rate and rhythm. Auscultated rate 60. Lungs are clear with respiratory rate of 14. Abdomen is obese but nontender. Extremities obese with or without noted edema. Toes are slightly cold although feet are pink and warm. Data There is no blood work from this morning, although stat labs drawn at the time of her exam are reassuring. White blood cell count 9.55, hemoglobin 13.1. Sodium 135, BUN 41, creatinine 1.3. Glucose is 193. AST 12, ALT 7. Impression and plan Decreased mental status, acute Parkinson's disease Intractable back pain The etiology of her decreased mental status today is not clear. She is hemodynamically stable and a CBC and CMP drawn acutely are unremarkable. We may be seeing sedating effects of the medication, perhaps Flexeril combined with the carbidopa. That being said, recommend noncontrast CT scan of the head urgently. We will hold potentially sedating medications and reassess. Subjective This morning, patient was conversive. She had 8-9/10 low back pain, a little better than yesterday. She has pain going down thigh only upon standiong up. She denies dysuria, fever, chills, chest pain, shortness of breath, or abdominal pain. She has hx of [place] 4 months ago and diabetes. She follows Dr. Farfan (cardio) and Dr. Morley (neuro). Patient appeared drowsy and was much less responsive at bedside rounds at 1403. She appeared similarly at 1720 eval. Review of Systems Review of Systems: Constitutional: Denies fever, chills, weight change Eyes: Denies blurry vision, vision changes ENT: Denies sore throat, sinus pain Cardiovascular: Denies chest pain, palpitations Respiratory: Denies shortness of breath Gastrointestinal: Denies abdominal pain, nausea, vomiting, constipation, diarrhea Genitourinary: Denies urinary symptoms including dysuria Musculoskeletal: Denies weakness, muscle aches/pain, joint aches/pain Neurological: Denies headache. Chronic paresthesias at feet, not new. Physical Exam Physical Exam: General: Grossly A&O at ~0800AM. NAD. Cooperative. Weak/frail appearing. PM exam: drowsy, minimally arousable to verbal stimuli, but eventually follows commands and appears to be aware of surroundings. HEENT: Atraumatic, normocephalic. Pulm: CTAB. -wheezes, -rales, -rhonchi. No respiratory distress. Cardiac: RRR, -mrg. Puffy legs, no pitting edema. Slightly cool distal 4 extremities. Abdominal: Soft, nondistended. TTP at RLQ near piriformis. Integumentary: Mild reddish-blue skin discoloration noticed on PM exam at upper extremities. Similar at L foot. Results & Data Results & Data ([facility]) Vital Signs (Past 12 Hours) Vital Signs Temp Pulse Resp BP Pulse Ox 05/07/20 22:41 36.7 C 65 20 105/56 L 96 Resident Activity Tracking Resident Involvement: Resident Care Provided Care Provided: Adult Hospital Medicine (1) Sleep apnea Sleep apnea type: unspecified type Qualified Code(s): G47.30 - Sleep apnea, unspecified (2) Diabetes Diabetes mellitus complication status: without complication Diabetes mellitus senior living insulin use: without senior living use Diabetes mellitus type: type 2 Qu alified Code(s): E11.9 - Type 2 diabetes mellitus without complications (3) Depression Active/Remission status: remission status unspecified Depression Type: major depressive disorder Major depression recurrence: unspecified whether recurrent Qualified Code(s): F32.9 - Major depressive disorder, single episode, unspecified (4) Hyperlipidemia Hyperlipidemia type: unspecified Qualified Code(s): E78.5 - Hyperlipidemia, unspecified (5) GERD (gastroesophageal reflux disease) Esophagitis presence: esophagitis presence not specified Qualified Code(s): K21.9 - Gastro-esophageal reflux disease without esophagitis (6) Hypertension Hypertension type: essential hypertension Qualified Code(s): I10 - Essential (primary) hypertension
[2020-05-08] MEDS: dexAMETHasone 8 MG in SYRINGE 0 ML IV SCH (09:00)
[2020-05-08] MEDS: PANTOprazole 40 MG TAB PO SCH ×2 (09:00→20:42)
[2020-05-08] MEDS: CYCLOBENZAPRINE HCL 5 MG TAB PO SCH ×2 (09:00→13:16)
[2020-05-08] MEDS: LIDOCAINE 5% 1 PATCH TD SCH (09:00)
[2020-05-08] MEDS: DULoxetine HCL 30 MG CAP PO SCH (09:01)
[2020-05-08] MEDS: lisinopril 5 MG TAB PO SCH (09:01)
[2020-05-08] MEDS: AMANTADINE HCL 100 MG CAPSULE PO SCH ×2 (09:01→20:41)
[2020-05-08] MEDS: DICLOFENAC SOD 1% GEL 100 GM TUBE EXT SCH ×5 (09:02→20:39)
[2020-05-08] MEDS: METOPROLOL SUCC 25MG EXT REL TAB PO SCH (09:02)
[2020-05-08] MEDS: ACETAMINOPHEN 500 MG TAB PO SCH ×4 (09:02→20:38)
[2020-05-08] MEDS: CARBIDOPA/LEVODOPA 50/200MG EXT REL TAB PO SCH ×5 (09:02→20:45)
[2020-05-08] MEDS: ENOXAPARIN INJ 40 MG/0.4 ML SYR SQ SCH (09:03)
[2020-05-08] MEDS: IPRATROPIUM BROMIDE NASAL SPRAY 0.06% 15ML SCH ×3 (09:05→20:40)
[2020-05-08] MEDS: RASAGILINE 1 MG PO SCH (09:07)
[2020-05-08] MEDS: INSULIN ASPART 100 UNITS/ML 3 ML PEN SC SCH ×4 (09:29→20:37)
[2020-05-08 14:21] LABS: Basophils # (auto) 0.01 K/uL (0-0.2); Basophils % (auto) 0.1 %; Eosinophils # (auto) 0.02 K/uL (0-0.5); Eosinophils % (auto) 0.2 %; Hematocrit (blood only) 40.2 % (37-47); Hemoglobin 13.1 g/dL (12.0-16.0); Immature Granulocytes # (auto) 0.02 K/uL (0.00-0.02); Immature Granulocytes % (auto) 0.2 %; Lymphocytes # (auto) 0.93 K/uL (1.2-3.4); Lymphocytes % (auto) 9.7 %; Mean Corpuscular Hgb Conc 32.6 g/dL (32-36); Mean Platelet Volume 10.7 fL (7.4-10.4); Monocytes # (auto) 0.25 K/uL (0.11-0.59); Monocytes % (auto) 2.6 %; Neutrophils # (auto) 8.32 K/uL (1.4-6.5); Neutrophils % (auto) 87.2 %; Platelet Count 222 K/uL (130-400); RDW Coefficient of Variation 12.9 % (11.5-14.5); RDW Standard Deviation 43.5 fL (36.4-46.3); Red Blood Count 4.37 M/uL (4.2-5.4); White Blood Count 9.55 K/uL (4.8-10.8)
[2020-05-08 14:40] LABS: Albumin Level 3.5 gm/dl (3.4-5.0); BUN Creatinine Ratio 31.8 (10-20); Calcium 9.8 mg/dl (8.5-10.1); Creatinine Clr Calc Pharmacy 47.2 ml/min; Est GFR (African American) 45.8; Est GFR (Non-African American) 39.5; Potassium 4.9 mmol/L (3.5-5.1)
[2020-05-08 14:43] LABS: Bilirubin,Total 0.8 mg/dl (0.2-1); Globulin 3.6 gm/dl (2.5-4.0); Total Protein 7.1 gm/dl (6.4-8.2)
--- NOTE | 2020-05-08 15:26 | CT Scan Report ---
CT head/brain wo con CLINICAL HISTORY: Acute change in mental status COMPARISON STUDY: 01/26/2020 TECHNIQUE: Axial CT of the brain is performed from the vertex to the skull base. IV contrast was not administered for this examination. A dose lowering technique was utilized adhering to the principles of ALARA. CT DOSE: 1768.17 mGy.cm FINDINGS: No intra or extra-axial mass lesions are visualized. There is no CT evidence of acute cortical infarc tion. There is no evidence of midline shift. There is no acute hemorrhage. No calvarial fractures ar e visualized. There are patchy white matter hypodensities likely on a small vessel basis. There is no evidence of pathologic ventricular dilatation. There is no evidence of acute sinusitis IMPRESSION: No acute intracranial findings ACT 112: Negative or not required by law. Electronically signed by: Michael Forte M.D. 05/08/2020 3:25 PM
[2020-05-08] MEDS: ATORVASTATIN 40 MG TAB PO SCH (20:41)
[2020-05-08] MEDS: ASPIRIN 81 MG ECTAB PO SCH (20:41)
[2020-05-09 06:43] LABS: Hematocrit (blood only) 41.4 % (37-47); Hemoglobin 13.8 g/dL (12.0-16.0); Immature Granulocytes # (auto) 0.02 K/uL (0.00-0.02); Immature Granulocytes % (auto) 0.2 %; Lymphocytes # (auto) 1.16 K/uL (1.2-3.4); Lymphocytes % (auto) 13.9 %; Mean Corpuscular Hemoglobin 30.2 pg (25-34); Mean Corpuscular Hgb Conc 33.3 g/dL (32-36); Mean Corpuscular Volume 90.6 fL (80-100); Mean Platelet Volume 10.9 fL (7.4-10.4); Monocytes % (auto) 7.2 %; Neutrophils # (auto) 6.59 K/uL (1.4-6.5); Neutrophils % (auto) 78.7 %; Platelet Count 256 K/uL (130-400); RDW Coefficient of Variation 12.9 % (11.5-14.5); RDW Standard Deviation 42.6 fL (36.4-46.3); Red Blood Count 4.57 M/uL (4.2-5.4); White Blood Count 8.37 K/uL (4.8-10.8)
--- NOTE | 2020-05-09 06:49 | Hospitalist Progress Note ---
Date of Service May 09, 2020 Assessment & Plan (1) Acute low back pain with radicular symptoms, duration less than 6 weeks: 75yo female with PMH of Parkinson's presents with acute back pain without fracture after a fall. Altered mental status on 05/08/20, resolved on 05/09/20 - drowsy, decreased responsiveness since 1130 05/08. Last meds, including flexeril and Sinemet, were at 0900. - increased sedation 2/2 flexeril combined w/ Sinemet or rasagiline is possible - also considered psychogenic component given that on physical exam at 1720, patient was able to respond to commands such as opening eyes. Her arm was lifted and left to drop on its own and this response was observed. - cbc and cmp were nonremarkable. liver panel not elevated. head ct was negative for acute changes. - Since 05/08 night, patient has returned to baseline. She does not remember the episode of AMS and states this has not happened before - plan: hold flexeril. Restarted home carbidopa/levodopa. Will restart home rasagaline (patient brings in her own supply; not on formulary). D/c'd morphine sulfate IV PRN. Restarted PRN toradol Acute back pain -stable, slightly improving; dexamethasone IV 8 mg x3 days followed by transition to prednisone taper (~1 week starting from 40 mg) on 05/10 -pain etiology - likely multifactorial as patient has both signs and symptoms of lumbar radiculopathy as well as muscular/ligamentous strain/dysfunction; will treat from both angles and monitor progress -OMT for biomechanical dysfunction performed 05/07 w/ good response - sedating and PO meds held as of 05/08 PM because of AMS above. Flexeril, toradol, morphine IV held. Parkinson's disease -stable -c/w carbidopa/levodopa. will restart home rasagiline T2DM -newly diagnosed at last admission last month, A1c 6.5%, not currently on oral meds at home -ISS -BSG mostly low-mid 100s, w/ 1 high of 193. unlikely to be cause of AMS on 05/08 HTN -chronic; well-controlled at present -c/w lisinopril 5mg PO qd. -c/w metoprolol 25mg PO qAM. CAD, HLD, pacemaker for complete heart block -admitted in March with NSTEMI; echo at that time with no WMA, EF of 45-50% -cardiac catheterization on 04/10/20: -20% stenosis of RCA -90% proximal stenosis of the left main -40-50% stenosis of long segment of LAD -no stent placed -troponin negative -c/w ASA 81mg qd and atorvastatin 40mg PO qPM. FREDY -stable, patient does not use CPAP or other device at home -continuous pulse ox d/c'd MDD, anxiety -struggling with anxiety more than previously disclosed, per today's conversation -no acute intevention or med change indicated at this time -encouraged patient to follow up and openly discuss stressors and anxiety with PCP -c/w duloxetine 30mg PO qd and clonazepam 1mg PO qhs. GERD -stable. c/w pantoprazole 40mg PO bid. FENGI: DM2 + heart healthy diet DVT ppx: lovenox 40mg Code status: full code Dispo: med/surg. dispo awaiting placement (2) Depression: (3) Diabetes: (4) GERD (gastroesophageal reflux disease): (5) Sleep apnea: (6) Hyperlipidemia: (7) Hypertension: (8) Pacemaker: (9) Parkinson disease: Admission and Anticipated Discharge Date Admission Date: May 05, 2020 Supervising Physician Co-Signing Physician Notes Attending Attestation I also saw the patient confirmed hernandez portions of the history and physical examination. Agree with the impression and plan as noted the resident documentation. Fortunately, the patient is much more awake as compared to yesterday. She does not have much recall of yesterday's events although she does recall being tired. Exact etiology is not clear -she has remained hemodynamically stable, lab work was unremarkable, and a noncontrast CT scan of the head was negative. The patient's Flexeril (which was scheduled 3 times daily) was discontinued yesterday; the Flexeril, combined with the patient's alert, may have been responsible for her sedation yesterday. Exam 137/80, 67, 18, 36.5, 92% room air Alert and oriented. Nontoxic, no acute distress Cardiovascular regular, lungs clear Laboratory White blood cell count 8.37, hemoglobin 13.8 BUN 34, creatinine 0.96. Imaging A noncontrast CT of the brain completed yesterday showed no acute intracranial findings. A CT scan of the lumbar spine on 05/05/2020 demonstrated multi level arthritic changes and spinal stenosis, L1-S1. Impression and plan Mental status change, resolved, suspect secondary to medication side effect Parkinson's disease Intractable back pain secondary to multilevel spinal stenosis Case management is working on placement. There have been two possibilities identified. Occupational therapy and physical therapy to reassess patient today and provide update for facilities. I would avoid use of Flexeril in the future due to its sedative effect, especially in this patient, in combination with her other medications. Subjective Since yesterday night, patient's mentation has returned to baseline. Patient's pain is better than yesterday, currently a 6/10 intensity. It hers at her bilateral hips, even w/ sitting. She does not recall the drowsy episode from yesterday afternoon, but feels mentally at baseline currently. She is tolerating PO intake without issues. No other complaints. No headache, dizziness, near- syncope, blurry vision. Regarding the faint red-bluish discoloration on her arms, she states that she has had them in the past and that current presentation is mild. Review of Systems Review of Systems: Constitutional: Denies fever, chills Eyes: Denies blurry vision Cardiovascular: Denies chest pain, palpitations Respiratory: Denies shortness of breath Gastrointestinal: Denies abdominal pain, nausea, vomiting, constipation, diarrhea Genitourinary: Denies complaints w/ pure wick Musculoskeletal: See HPI. + low back pain Neurological: Denies headache. + chronic paresthesias of feet. Physical Exam Physical Exam: General: A&Ox4 to person, place, time, and situation. NAD. Cooperative. HEENT: Atraumatic, normocephalic. Pulm: CTAB anteriorly. No respiratory distress. Cardiac: RRR, -mrg. Distal extremities warm. Abdominal: Nontender, nondistended, soft. Integ: Faint red-bluisih discoloration at arms. Results & Data Results & Data ([facility]) Vital Signs (Past 12 Hours) Vital Signs Temp Pulse Resp BP BP Pulse Ox 05/09/20 00:17 155/68 H 05/08/20 23:48 36.8 C 63 20 184/80 H 97 Resident Activity Tracking Resident Involvement: Resident Care Provided Care Provided: Adult [facility] Medicine (1) Sleep apnea Sleep apnea type: unspecified type Qualified Code(s): G47.30 - Sleep apnea, unspecified (2) Diabetes Diabetes mellitus complication status: without complication Diabetes mellitus intermodal dispatcher insulin use: without prison use Diabetes mellitus type: type 2 Qualified Code(s): E11.9 - Type 2 diabetes mellitus without complications (3) Depression Active/Remission status: remission status unspecified Depression Type: major depressive disorder Major depression recurrence: unspecified whether recurrent Qualified Code(s): F32.9 - Major depressive disorder, single episode, unspecified (4) Hyperlipidemia Hyperlipidemia type: unspecified Qualified Code(s): E78.5 - Hyperlipidemia, unspecified (5) GERD (gastroesophageal reflux disease) Esophagitis presence: esophagitis presence not specified Qualified Code(s): K21.9 - Gastro-esophageal reflux disease without esophagitis (6) Hypertension Hypertension type: essential hypertension Qualified Code(s): I10 - Essential (primary) hypertension
[2020-05-09 07:23] LABS: BUN Creatinine Ratio 35.5 (10-20); Calcium 9.8 mg/dl (8.5-10.1); Creatinine Clr Calc Pharmacy 63.9 ml/min; Est GFR (African American) 66.1; Potassium 4.5 mmol/L (3.5-5.1)
[2020-05-09] MEDS: lisinopril 5 MG TAB PO SCH (07:54)
[2020-05-09] MEDS: CARBIDOPA/LEVODOPA 50/200MG EXT REL TAB PO SCH ×4 (07:54→20:47)
[2020-05-09] MEDS: dexAMETHasone 8 MG in SYRINGE 0 ML IV SCH (07:54)
[2020-05-09] MEDS: ACETAMINOPHEN 500 MG TAB PO SCH ×3 (07:55→20:46)
[2020-05-09] MEDS: ENOXAPARIN INJ 40 MG/0.4 ML SYR SQ SCH (07:56)
[2020-05-09] MEDS: AMANTADINE HCL 100 MG CAPSULE PO SCH ×2 (07:56→20:47)
[2020-05-09] MEDS: METOPROLOL SUCC 25MG EXT REL TAB PO SCH ×2 (07:56→08:34)
[2020-05-09] MEDS: PANTOprazole 40 MG TAB PO SCH ×2 (07:56→20:47)
[2020-05-09] MEDS: DICLOFENAC SOD 1% GEL 100 GM TUBE EXT SCH ×4 (07:57→20:48)
[2020-05-09] MEDS: IPRATROPIUM BROMIDE NASAL SPRAY 0.06% 15ML SCH ×3 (07:57→20:46)
[2020-05-09] MEDS: LIDOCAINE 5% 1 PATCH TD SCH (07:57)
[2020-05-09] MEDS: INSULIN ASPART 100 UNITS/ML 3 ML PEN SC SCH ×4 (08:46→20:53)
[2020-05-09] MEDS: ASPIRIN 81 MG ECTAB PO SCH (20:48)
[2020-05-09] MEDS: ATORVASTATIN 40 MG TAB PO SCH (20:48)
[2020-05-09] MEDS: KETOROLAC TROMETHAMINE 15 MG/ML VIAL IV PRN (21:27)
[2020-05-10 06:29] LABS: Hematocrit (blood only) 37.8 % (37-47); Immature Granulocytes # (auto) 0.02 K/uL (0.00-0.02); Immature Granulocytes % (auto) 0.2 %; Lymphocytes # (auto) 1.09 K/uL (1.2-3.4); Lymphocytes % (auto) 11.6 %; Mean Corpuscular Hemoglobin 30.7 pg (25-34); Mean Corpuscular Hgb Conc 34.4 g/dL (32-36); Mean Corpuscular Volume 89.2 fL (80-100); Mean Platelet Volume 11.3 fL (7.4-10.4); Monocytes # (auto) 0.82 K/uL (0.11-0.59); Monocytes % (auto) 8.8 %; Neutrophils # (auto) 7.43 K/uL (1.4-6.5); Neutrophils % (auto) 79.4 %; Platelet Count 273 K/uL (130-400); RDW Standard Deviation 42.5 fL (36.4-46.3); Red Blood Count 4.24 M/uL (4.2-5.4); White Blood Count 9.36 K/uL (4.8-10.8)
[2020-05-10 06:58] LABS: BUN Creatinine Ratio 34.4 (10-20); Calcium 9.4 mg/dl (8.5-10.1); Creatinine Clr Calc Pharmacy 46.8 ml/min; Est GFR (African American) 45.4; Est GFR (Non-African American) 39.2; Potassium 4.3 mmol/L (3.5-5.1)
--- NOTE | 2020-05-10 07:15 | Hospitalist Progress Note ---
Date of Service May 10, 2020 Assessment & Plan (1) Acute low back pain with radicular symptoms, duration less than 6 weeks: 75yo female with PMH of Parkinson's presents with acute back pain without fracture after a fall. Stable. Awaiting dispo for 05/11/20. Altered mental status on 05/08/20, resolved on 05/09/20 - drowsy, decreased responsiveness since 1130 05/08. Last meds, including flexeril and Sinemet, were at 0900. - increased sedation 2/2 flexeril combined w/ Sinemet or rasagiline is possible - also considered psychogenic component given that on physical exam at 1720, patient was able to respond to commands such as opening eyes. Her arm was lifted and left to drop on its own and this response was observed. - cbc and cmp were nonremarkable. liver panel not elevated. head ct was negative for acute changes. - Since 05/08 night, patient has returned to baseline. She does not remember the episode of AMS and states this has not happened before 05/09 plan: hold flexeril. Restarted home carbidopa/levodopa. Will restart home rasagaline (patient brings in her own supply; not on formulary). D/c'd morphine sulfate IV PRN. Restarted PRN toradol 05/10: no changes to medication regimen. Patient is still at mental baseline. afebrile. Acute back pain -stable, slightly improving; dexamethasone IV 8 mg x3 days followed by transition to prednisone taper (~1 week starting from 40 mg) on 05/10 -pain etiology - likely multifactorial as patient has both signs and symptoms of lumbar radiculopathy as well as muscular/ligamentous strain/dysfunction; will treat from both angles and monitor progress -OMT for biomechanical dysfunction performed 05/07 w/ good response - Tylenol 1000 mg PO TID scheduled and IV toradolprn . Flexeril and IV morphine since discontinued. Parkinson's disease -stable -c/w carbidopa/levodopa. continue home rasagiline. T2DM -newly diagnosed at last admission last month, A1c 6.5%, not currently on oral meds at home -ISS -BSG mostly low-mid 100s, w/ 1 high of 193. unlikely to be cause of AMS on 05/08 HTN -chronic; well-controlled at present -c/w lisinopril 5mg PO qd. -c/w metoprolol 25mg PO qAM. CAD, HLD, pacemaker for complete heart block -admitted in March 2020 with NSTEMI; echo at that time with no WMA, EF of 45- 50% -cardiac catheterization on 04/10/20: -20% stenosis of RCA -90% proximal stenosis of the left main -40-50% stenosis of long segment of LAD -no stent placed -troponin negative -c/w ASA 81mg qd and atorvastatin 40mg PO qPM. FREDY -stable, patient does not use CPAP or other device at home -continuous pulse ox d/c'd MDD, anxiety -struggling with anxiety more than previously disclosed, per today's conversation -no acute intevention or med change indicated at this time -encouraged patient to follow up and openly discuss stressors and anxiety with PCP -c/w duloxetine 30mg PO qd and clonazepam 1mg PO qhs. GERD -stable. c/w pantoprazole 40mg PO bid. FENGI: DM2 + heart healthy diet DVT ppx: lovenox 40mg Code status: full code Dispo: med/surg. dispo awaiting placement, tentatively on 05/11 (2) Depression: (3) Diabetes: (4) GERD (gastroesophageal reflux disease): (5) Sleep apnea: (6) Hyperlipidemia: (7) Hypertension: (8) Pacemaker: (9) Parkinson disease: Admission and Anticipated Discharge Date Admission Date: May 05, 2020 Supervising Physician Co-Signing Physician Notes Attending Attestation I also saw the patient confirmed hernandez portions of the history and physical examination. I agree with the impression and plan as noted the resident documentation. This morning upon exam, the patient is out of bed and seated in the bedside chair. She is quite pleasant. She is as conversational as she has been the entire hospitalization. She does note lumbar back pain with standing; she tells me that she is looking forward to working with physical therapy. She would like to look at facilities in [place] as this is closer to her home and will be easier for her to visit. Exam 151/66, 67, 16, 36.4, 90% on room air Alert and oriented. Nontoxic, no acute distress Cardiovascular regular, lungs clear Laboratory White blood cell count 9.36, hemoglobin 13. BUN 45, creatinine 1.[address] of the brain completed 05/08 showed no acute intracranial findings. A CT scan of the lumbar spine on 05/05/2020 demonstrated multi level arthritic changes and spinal stenosis, L1-S1. Impression and Plan Possible toxic encephalopathy, resolved, suspect secondary to medication side effect Parkinson's disease Intractable back pain secondary to multilevel spinal stenosis Case management is working on placement. As noted above, the patient would prefer a facility in [place] as opposed to [facility]. I would avoid use of Flexeril in the future due to its sedative effect, especially in this patient, in combination with her other medications. Subjective Patient's back spasms are 7/10 in intensity. She does not remember when her last BM was. She would like to get out of bed more. L leg feels chronically weak. Review of Systems Review of Systems: Constitutional: Denies fever, chills Eyes: Denies blurry vision, vision changes Cardiovascular: Denies chest pain, palpitations Respiratory: Denies shortness of breath Gastrointestinal: Denies abdominal pain, nausea, vomiting, constipation, diarrhea Genitourinary: Uses purewick Musculoskeletal: See HPI Neurological: Denies headache. + paresthesias at toes. Physical Exam Physical Exam: General: Grossly A&O. NAD. Cooperative. Conversational. HEENT: Atraumatic, normocephalic. Pulm: CTAB. -wheezes, -rales, -rhonchi. No respiratory distress. Cardiac: RRR, -mrg. Puffy lower legs, not pitting appreciated. Abdominal: Nontender, nondistended, soft. Neuro: L foot drop (x several weeks per patient). No pain w/ leg flexion to 15 degrees while supine. L leg has decreased motor strength compared to R leg. Results & Data Results & Data ([facility]) Vital Signs (Past 12 Hours) Vital Signs Temp Pulse Resp BP Pulse Ox 05/10/20 00:15 36.8 C 73 18 153/69 H 94 Resident Activity Tracking Resident Involvement: Resident Care Provided Care Provided: Adult Hospital Medicine (1) Sleep apnea Sleep apnea type: unspecified type Qualified Code(s): G47.30 - Sleep apnea, unspecified (2) Diabetes Diabetes mellitus complication status: without complication Diabetes mellitus nursing home insulin use: without nursing home use Diabetes mellitus type: type 2 Qualified Code(s): E11.9 - Type 2 diabetes mellitus without complications (3) Depression Active/Remission status: remission status unspecified Depression Type: major depressive disorder Major depression recurrence: unspecified whether recurrent Qualified Code(s): F32.9 - Major depressive disorder, single episode, unspecified (4) Hyperlipidemia Hyperlipidemia type: unspecified Qualified Code(s): E78.5 - Hyperlipidemia, unspecified (5) GERD (gastroesophageal reflux disease) Esophagitis presence: esophagitis presence not specified Qualified Code(s): K21.9 - Gastro-esophageal reflux disease without esophagitis (6) Hypertension Hypertension type: essential hypertension Qualified Code(s): I10 - Essential (primary) hypertension
[2020-05-10] MEDS: lisinopril 5 MG TAB PO SCH (08:21)
[2020-05-10] MEDS: DICLOFENAC SOD 1% GEL 100 GM TUBE EXT SCH ×4 (08:21→20:33)
[2020-05-10] MEDS: IPRATROPIUM BROMIDE NASAL SPRAY 0.06% 15ML SCH ×3 (08:21→20:31)
[2020-05-10] MEDS: PANTOprazole 40 MG TAB PO SCH ×2 (08:21→20:31)
[2020-05-10] MEDS: CARBIDOPA/LEVODOPA 50/200MG EXT REL TAB PO SCH ×4 (08:22→20:32)
[2020-05-10] MEDS: ACETAMINOPHEN 500 MG TAB PO SCH ×3 (08:22→20:32)
[2020-05-10] MEDS: ENOXAPARIN INJ 40 MG/0.4 ML SYR SQ SCH (08:22)
[2020-05-10] MEDS: METOPROLOL SUCC 25MG EXT REL TAB PO SCH (08:22)
[2020-05-10] MEDS: AMANTADINE HCL 100 MG CAPSULE PO SCH ×2 (08:22→20:32)
[2020-05-10] MEDS: LIDOCAINE 5% 1 PATCH TD SCH (08:23)
[2020-05-10] MEDS: INSULIN ASPART 100 UNITS/ML 3 ML PEN SC SCH ×4 (08:24→20:22)
[2020-05-10] MEDS: predniSONE 20 MG TAB PO SCH (09:08)
[2020-05-10] MEDS: DULoxetine HCL 30 MG CAP PO SCH (09:08)
[2020-05-10] MEDS: KETOROLAC TROMETHAMINE 15 MG/ML VIAL IV PRN (20:28)
[2020-05-10] MEDS: ATORVASTATIN 40 MG TAB PO SCH (20:31)
[2020-05-10] MEDS: ASPIRIN 81 MG ECTAB PO SCH (20:31)
[2020-05-11] MEDS: traMADol HCL 50 MG TABLET PO PRN (06:08)
--- NOTE | 2020-05-11 06:53 | Hospitalist Progress Note ---
Date of Service May 11, 2020 Assessment & Plan (1) Acute low back pain with radicular symptoms, duration less than 6 weeks: 75yo female with PMH of Parkinson's presents with acute back pain without fracture after a fall. Stable. Likely dispo on 05/12/20 to [facility], auth pending. constipation - moderate stool burden on 05/05 ct abd per my read - no BM x 8 days - nausea, vomiting (w/ some stool-colored emesis), and abdominal discomfort shortly after drinking prune juice on 05/11 AM - considered enema, ordered KUB, but patient was able to pass large BM w/o edema - symptoms resolved in PM, patient feels much better after the BM. however, patient may still have significant stool burden; follow clinically - KUB did not suggest obstruction but had dilated colonic loops, not to severity suggestive of Oglivie's acute kidney injury - Cr uptrended this admission - baseline ~1.0-1.1. 05/09-05/11 0.96->1.31->1.77 - most likely prerenal given BUN/Cr ratio of 31. considered postrenal because had some concerns of retention at admission - FeNa and urine osm labs ordered - started mIVF LR 100 mL/hr on 05/11 altered mental status on 05/08/20, resolved on 05/09/20 - drowsy, decreased responsiveness since 1130 05/08. Last meds, including flexeril and Sinemet, were at 0900. - increased sedation 2/2 flexeril combined w/ Sinemet or rasagiline is possible - also considered psychogenic component given that on physical exam at 1720, patient was able to respond to commands such as opening eyes. Her arm was lifted and left to drop on its own and this response was observed. - cbc and cmp were nonremarkable. liver panel not elevated. head ct was negative for acute changes. - Since 05/08 night, patient has returned to baseline. She does not remember the episode of AMS and states this has not happened before 05/09 plan: hold flexeril. Restarted home carbidopa/levodopa. D/c'd morphine sulfate IV PRN. Restarted PRN toradol 05/10, 05/11: no changes to medication regimen. Patient is still at mental baseline. afebrile. Home rasagaline that patient brought from outside still held. acute back pain -stable, slightly improving; dexamethasone IV 8 mg x3 days followed by transition to prednisone taper (~1 week starting from 40 mg) on 05/10 -pain etiology - likely multifactorial as patient has both signs and symptoms of lumbar radiculopathy as well as muscular/ligamentous strain/dysfunction; will treat from both angles and monitor progress -OMT for biomechanical dysfunction performed 05/07 w/ good response - Tylenol 1000 mg PO TID scheduled and IV toradol prn . Flexeril and IV morphine since discontinued. Parkinson's disease -stable -c/w carbidopa/levodopa. home rasagaline held because of concern of reaction interaction from same drug class; oversedation episode on 05/08 that may be from interaction w/ Flexeril T2DM -newly diagnosed at last admission last month, A1c 6.5%, not currently on oral meds at home -ISS -BSG mostly low-mid 100s, w/ 1 high of 193. unlikely to be cause of AMS on 05/08 HTN -chronic; well-controlled at present -c/w lisinopril 5mg PO qd. -c/w metoprolol 25mg PO qAM. CAD, HLD, pacemaker for complete heart block -admitted in March 2020 with NSTEMI; echo at that time with no WMA, EF of 45- 50% -cardiac catheterization on 04/10/20: -20% stenosis of RCA -90% proximal stenosis of the left main -40-50% stenosis of long segment of LAD -no stent placed -troponin negative -c/w ASA 81mg qd and atorvastatin 40mg PO qPM. FREDY -stable, patient does not use CPAP or other device at home -continuous pulse ox d/c'd MDD, anxiety -struggling with anxiety more than previously disclosed, per today's conver sation -no acute intevention or med change indicated at this time -encouraged patient to follow up and openly discuss stressors and anxiety with PCP -c/w duloxetine 30mg PO qd and clonazepam 1mg PO qhs. GERD -stable. c/w pantoprazole 40mg PO bid. FENGI: DM2 + heart healthy diet. LR 100/hr DVT ppx: lovenox 40mg Code status: full code Dispo: med/surg. dispo awaiting placement, tentatively on 05/12 (2) Depression: (3) Diabetes: (4) GERD (gastroesophageal reflux disease): (5) Sleep apnea: (6) Hyperlipidemia: (7) Hypertension: (8) Pacemaker: (9) Parkinson disease: (10) Constipation: (11) Acute kidney injury: Admission and Anticipated Discharge Date Admission Date: May 05, 2020 Supervising Physician Co-Signing Physician Notes Attending Attestation I also saw the patient confirmed hernandez portions of the history and physical examination. I agree with the impression and plan as noted the resident documentation. Unfortunate this morning, just after completing breakfast, the patient became acutely nauseous and had a bout of emesis. Per nursing it was brown, perhaps fecal-like. When I saw the patient, she looked uncomfortable; nauseous, some retching but no further emesis. She was subsequently medicated with IV Zofran with some relief. Later, after our exam, she had a large bowel movement and per nursing improvement in her symptoms. Exam 125/65, 64, 16, 36.3, 95% on room air Alert and oriented. Nauseous. Cardiovascular regular, lungs clear Laboratory White blood cell count 10.69, hemoglobin 14.3 Sodium 135, potassium 4.4, BUN 56, creatinine 1.77. Imaging A KUB this morning showed gaseous distention of the colon with a nonobstructive bowel gas pattern. Impression and Plan Intractable back pain secondary to multilevel spinal stenosis JOSE, prerenal Nausea and vomiting Constipation Parkinson's disease Placement has been arranged for physical therapy. Unfortunately with her symptoms this morning this had to be postponed. Fortunately she is feeling somewhat better after a large bowel movement. We will start gentle IV fluids with respect to her elevated creatinine. Subjective Tramadol provided overnight for pain w/ good relief. Patient hadn't had BM for [address] abd from 05/05 showed moderate stool per my read. Patient states that her back hurts less when she is up in the chair compared to lying in bed. Late morning, I was messaged by nursing informing that patient had nausea, vomiting (brown colored material), and abdominal discomfort after eating breakfast and drinking prune juice (did not have on previous days). Shortly after, patient passed a large BM w/ some relief. Review of Systems Review of Systems: Constitutional: Denies fever, chills Cardiovascular: Denies chest pain, palpitations Respiratory: Denies shortness of breath Gastrointestinal:+ abdominal pain, nausea, vomiting. Symptoms resolved in PM after passing large BM. Genitourinary: Denies urinary symptoms including dysuria Musculoskeletal: + low back pain and bilateral thigh stiffness, chronic Neurological: Denies headache Physical Exam Physical Exam: General: Grossly A&O. NAD. Cooperative. HEENT: Atraumatic, normocephalic. Pulm: CTAB. No respiratory distress. Cardiac: RRR, -mrg. Puffy lower extremities, no pitting edema. Abdominal: Mild diffuse ttp. No ttp on reexamination. Results & Data Results & Data ([facility]) Vital Signs (Past 12 Hours) Vital Signs Temp Pulse Resp BP Pulse Ox 05/11/20 00:18 36.4 C L 59 L 18 118/56 L 94 Resident Activity Tracking Resident Involvement: Resident Care Provided Care Provided: Adult [facility] Medicine (1) Sleep apnea Sleep apnea type: unspecified type Qualified Code(s): G47.30 - Sleep apnea, unspecified (2) Diabetes Diabetes mellitus complication status: without complication Diabetes mellitus usp insulin use: without usp use Diabetes mellitus type: type 2 Qualified Code(s): E11.9 - Type 2 diabetes mellitus without complications (3) Depression Active/Remission status: remission status unspecified Depression Type: major depressive disorder Major depression recurrence: unspecified whether recurrent Qualified Code(s): F32.9 - Major depressive disorder, single episode, unspecified (4) Hyperlipidemia Hyperlipidemia type: unspecified Qualified Code(s): E78.5 - Hyperlipidemia, unspecified (5) GERD (gastroesophageal reflux disease) Esophagitis presence: esophagitis presence not specified Qualified Code(s): K21.9 - Gastro-esophageal reflux disease without esophagitis (6) Hypertension Hypertension type: essential hypertension Qualified Code(s): I10 - Essential (primary) hypertension
[2020-05-11] MEDS: predniSONE 20 MG TAB PO SCH (07:56)
[2020-05-11] MEDS: PANTOprazole 40 MG TAB PO SCH ×2 (07:56→20:40)
[2020-05-11] MEDS: AMANTADINE HCL 100 MG CAPSULE PO SCH (07:57)
[2020-05-11] MEDS: METOPROLOL SUCC 25MG EXT REL TAB PO SCH (07:57)
[2020-05-11] MEDS: ACETAMINOPHEN 500 MG TAB PO SCH ×3 (07:58→20:39)
[2020-05-11] MEDS: CARBIDOPA/LEVODOPA 50/200MG EXT REL TAB PO SCH ×4 (07:58→20:40)
[2020-05-11] MEDS: lisinopril 5 MG TAB PO SCH (07:58)
[2020-05-11] MEDS: ENOXAPARIN INJ 40 MG/0.4 ML SYR SQ SCH (07:59)
[2020-05-11] MEDS: INSULIN ASPART 100 UNITS/ML 3 ML PEN SC SCH ×4 (07:59→20:41)
[2020-05-11] MEDS: IPRATROPIUM BROMIDE NASAL SPRAY 0.06% 15ML SCH ×3 (07:59→20:41)
[2020-05-11] MEDS: DICLOFENAC SOD 1% GEL 100 GM TUBE EXT SCH ×4 (07:59→20:42)
[2020-05-11] MEDS: DULoxetine HCL 30 MG CAP PO SCH (07:59)
[2020-05-11 08:20] LABS: Basophils # (auto) 0.01 K/uL (0-0.2); Basophils % (auto) 0.1 %; Eosinophils # (auto) 0.03 K/uL (0-0.5); Eosinophils % (auto) 0.3 %; Hematocrit (blood only) 43.4 % (37-47); Hemoglobin 14.3 g/dL (12.0-16.0); Immature Granulocytes # (auto) 0.05 K/uL (0.00-0.02); Immature Granulocytes % (auto) 0.5 %; Lymphocytes # (auto) 3.08 K/uL (1.2-3.4); Lymphocytes % (auto) 28.8 %; Mean Corpuscular Hgb Conc 32.9 g/dL (32-36); Mean Platelet Volume 11.3 fL (7.4-10.4); Monocytes # (auto) 1.28 K/uL (0.11-0.59); Neutrophils # (auto) 6.24 K/uL (1.4-6.5); Neutrophils % (auto) 58.3 %; Platelet Count 271 K/uL (130-400); RDW Standard Deviation 43.3 fL (36.4-46.3); Red Blood Count 4.77 M/uL (4.2-5.4); White Blood Count 10.69 K/uL (4.8-10.8)
[2020-05-11 08:51] LABS: BUN Creatinine Ratio 31.7 (10-20); Calcium 9.9 mg/dl (8.5-10.1); Creatinine Clr Calc Pharmacy 34.7 ml/min; Est GFR (African American) 31.6; Est GFR (Non-African American) 27.2; Potassium 4.4 mmol/L (3.5-5.1)
[2020-05-11] MEDS: LIDOCAINE 5% 1 PATCH TD SCH (09:38)
[2020-05-11] MEDS ORDERED: ONDANSETRON INJ 2 MG/ML 2 ML VIAL IV PRN (10:34)
[2020-05-11] MEDS ORDERED: ONDANSETRON INJ 2 MG/ML 2 ML VIAL ONE (10:39)
[2020-05-11] MEDS: POLYETHYLENE (MIRALAX) 17 GM PACK PO SCH ×2 (11:15→17:15)
[2020-05-11] MEDS ORDERED: KETOROLAC TROMETHAMINE 15 MG/ML VIAL IV PRN (12:31)
[2020-05-11] MEDS ORDERED: FAMOTIDINE 20 MG in SYRINGE 3 ML IV ONE (13:00)
[2020-05-11] MEDS ORDERED: FAMOTIDINE 10 MG in SYRINGE 4 ML IV ONE (13:00)
--- NOTE | 2020-05-11 13:20 | XRay Report ---
KUB HISTORY: Acute generalized abdominal pain r/o obstruction COMPARISON: CT abdomen and pelvis 05/05/2020 FINDINGS: Cardiomegaly with partially imaged pacer leads. Cholecystectomy. Right lateral and lower ab domen is excluded from the [id number]. There is mild to moderate gaseous distention of the large b owel. Nonobstructive bowel gas pattern. Pelvic basin phlebolith. No renal calculi. No ureteral calcu li. No pneumoperitoneum or pneumatosis. Multilevel degenerative changes of the spine. No fracture. IMPRESSION: Gaseous distention of the colon with nonobstructive bowel gas pattern. ACT 112: Negative or not required by law. The above report was generated using voice recognition software. It may contain grammatical, syntax o r spelling errors. Electronically signed by: Luis Enrique Macdonald M.D. 05/11/2020 1:18 PM
[2020-05-11] MEDS: LACTATED RINGER'S 1,000 ML IV SCH (17:49)
[2020-05-11] MEDS: ASPIRIN 81 MG ECTAB PO SCH (20:38)
[2020-05-11] MEDS: ATORVASTATIN 40 MG TAB PO SCH (20:39)
[2020-05-12] MEDS: POLYETHYLENE (MIRALAX) 17 GM PACK PO SCH ×3 (00:54→16:27)
--- NOTE | 2020-05-12 07:19 | Hospitalist Progress Note ---
Date of Service May 12, 2020 Assessment & Plan (1) Acute low back pain with radicular symptoms, duration less than 6 weeks: 75yo female with PMH of Parkinson's presents with acute back pain without fracture after a fall. Stable. Plan is dispo to [facility], but currently managing JOSE. constipation - moderate stool burden on 05/05 ct abd per my read. constipation thought to be contributing to patient's overall discomfort and nausea/vomiting symptoms - + hx of straining. 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 denies hx of IBD - no BM x 8 days - nausea, vomiting (w/ some stool-colored emesis), and abdominal discomfort shortly after drinking prune juice on 05/11 AM - considered enema, ordered KUB, but patient was able to pass large BM w/o edema - symptoms resolved in PM, patient feels much better after the BM. however, patient may still have significant stool burden; follow clinically - KUB did not suggest obstruction but had dilated colonic loops, not to severity suggestive of Oglivie's - 05/12 some loose stools. miralax held. patient had emesis after breakfast. monitor clinically. acute kidney injury - Cr uptrended this admission - baseline ~1.0-1.1. 05/09-05/11 0.96->1.31->1.77->2.33. - most likely prerenal given BUN/Cr ratio of 31. considered postrenal because had some concerns of retention at admission - FeNa 0.9%. Urine osm 524. consistent w/ prerenal JOSE. - started mIVF LR 100 mL/hr x 1 bag on 05/11. 05/12: bolused the remaining ~800 mL bag of LR. Will add 500 mL bolus in PM. - if prerenal etiology, previous amount of IVF was likely insufficient. - 05/12 d/c'd PRN toradol leukocytosis - 9.55->8.37->9.36->10.69->14.01 - less likely from steroids since she has been on it for 5 days now - will continue to follow daily cbcs and clinically - less likely urinary source given lack of symptoms. only change on UA is + trace leuk esterase and slight increase in epithelial cells, but could be from sampling vaginal bleeding - 05/12. Per nursing, gross blood was mixed w/ stool. Upon reexamination by nurse, appeared to not be from stool, but rather from vaginal region - plan is for speculum exam on 05/13 AM. altered mental status on 05/08/20, resolved on 05/09/20 - drowsy, decreased responsiveness since 1130 05/08. Last meds, including flexeril and Sinemet, were at 0900. - increased sedation 2/2 flexeril combined w/ Sinemet or rasagiline is possible - also considered psychogenic component given that on physical exam at 1720, patient was able to respond to commands such as opening eyes. Her arm was lifted and left to drop on its own and this response was observed. - cbc and cmp were nonremarkable. liver panel not elevated. head ct was negative for acute changes. - Since 05/08 night, patient has returned to baseline. She does not remember the episode of AMS and states this has not happened before 05/09 plan: hold flexeril. Restarted home carbidopa/levodopa. D/c'd morphine sulfate IV PRN. Restarted PRN toradol 05/10, 05/11: no changes to medication regimen. Patient is still at mental baseline. afebrile. Home rasagaline that patient brought from outside still held. acute on chronic back pain -stable, slightly improving; dexamethasone IV 8 mg x3 days followed by transition to prednisone taper (~1 week starting from 40 mg) on 05/10 - 05/12 decreased to 30 mg. will do quick taper, decreasing by 10 mg/day. Patient's symptoms are questionably not radicular, so steroids may not be of much benefit. -pain etiology - likely multifactorial as patient has both signs and symptoms of lumbar radiculopathy as well as muscular/ligamentous strain/dysfunction; will treat from both angles and monitor progress -OMT for biomechanical dysfunction performed 05/07 w/ good response - Tylenol 1000 mg PO TID scheduled. prn toradol d/c'd . Flexeril and IV morphine since discontinued. Parkinson's disease -stable -c/w carbidopa/levodopa. home rasagaline held because of concern of reaction interaction from same drug class; oversedation episode on 05/08 that may be from interaction w/ Flexeril -05/12 per pharmacy will renally dose amantadine T2DM -newly diagnosed at last admission last month, A1c 6.5%, not currently on oral meds at home -ISS -BSG mostly low-mid 100s, w/ 1 high of 193. unlikely to be cause of AMS on 05/08 HTN -chronic; well-controlled at present -c/w lisinopril 5mg PO qd. -c/w metoprolol 25mg PO qAM. CAD, HLD, pacemaker for complete heart block -admitted in March 2020 with NSTEMI; echo at that time with no WMA, EF of 45- 50% -cardiac catheterization on 04/10/20: -20% stenosis of RCA -90% proximal stenosis of the left main -40-50% stenosis of long segment of LAD -no stent placed -troponin negative -c/w ASA 81mg qd and atorvastatin 40mg PO qPM. FREDY -stable, patient does not use CPAP or other device at home -continuous pulse ox d/c'd MDD, anxiety -struggling with anxiety more than previously disclosed, per today's conversation -no acute intevention or med change indicated at this time -encouraged patient to follow up and openly discuss stressors and anxiety with PCP -c/w duloxetine 30mg PO qd and clonazepam 1mg PO qhs. GERD -stable. c/w pantoprazole 40mg PO bid. FENGI: DM2 + heart healthy diet. no mIVF. Intermittent boluses of LR. DVT ppx: lovenox 40mg Code status: full code Dispo: med/surg (2) Depression: (3) Diabetes: (4) GERD (gastroesophageal reflux disease): (5) Sleep apnea: (6) Hyperlipidemia: (7) Hypertension: (8) Pacemaker: (9) Parkinson disease: (10) Constipation: (11) Acute kidney injury: (12) Leukocytosis: Admission and Anticipated Discharge Date Admission Date: May 05, 2020 Supervising Physician Co-Signing Physician Notes Patient seen and examined with PGY-1 Dr Colon. Agree with history, exam findings, assessment and plan of care as outlined. In brief, Carmen is a 75 year old female admitted after a fall at home. Continues to have some pain. Does want to work with PT. Nursing did mention there was some blood on the purewick catheter and was concerned about vaginal bleeding. Patient has not noticed any bleeding. She is s/p hysterectomy. Did have vomiting this morning, but was able to eat breakfast and lunch without further nausea or vomiting. Vital signs and nursing notes reviewed. Non-toxic appearing. Resting tremor Heart with regular rate and rhythm. Lungs are clear to auscultation. Abdomen is soft, nontender. 1. JOSE. Pre-renal. Received 1 L IV fluids prior to labs being drawn this morning. Cr increasing. Will give another 1.5L this afternoon. Stopped toradol. 2. Leukocytosis. New. No signs or symptoms of infection. 3. ?Vaginal bleeding. Hgb is stable. Planning for pelvic exam in the AM after we are able to get speculum and other supplies for appropriate exam. 4. Radicular back pain. s/p dex x 3 days now transitioning to pred taper. Tylenol, tramadol. Stopped toradol as above. 5. Fall. PT/OT 6. Parkinsons disease. Stable. Continue home carbidopa/levodopa, held rasagiline. 7. HTN. Controlled. Continue Lisinopril 5mg, metoprolol 25mg. 8. CAD/HLD with pacer for hx of complete heart block. Continue ASA and atorvastatin 40mg. 9. DM. Sliding scale. 10.Depression, anxiety. Continue home duloxetine 30mg and clonazepam 1mg. Dispo: pending clinical improvement. Subjective At 0800AM: She is feeling a lot better today. Muscle pulling sensation at hips. Back pain is not too bad today, currently 4/10 intensity. Patient is having good BMs. + flatus. Patient is hungry Eating breakfast comfortably. No chest pain, sob, low, f/c, diarrhea, Denies dysuria. No groin numbness. Later in morning, patient had some emesis. She tolerated lunch without nausea or vomiting. Review of Systems Review of Systems: Constitutional: Denies fever, chills Eyes: Denies blurry vision Cardiovascular: Denies chest pain, palpitations Respiratory: Denies shortness of breath Gastrointestinal: See HPI Genitourinary: Denies dysuria Musculoskeletal: No new weakness. Aching at thighs. Neurological: Denies headache Physical Exam Physical Exam: General: Grossly A&O. NAD. Cooperative. HEENT: Atraumatic, normocephalic. Pulm: CTAB. -wheezes, -rales, -rhonchi. No respiratory distress. Cardiac: RRR, -mrg. Puffy LE. No pitting. Abdominal: Nontender, nondistended, soft. Integumentary: Feet cool to touch. Results & Data Results & Data ([facility]) Vital Signs (Past 12 Hours) Vital Signs Temp Pulse Resp BP Pulse Ox 05/12/20 00:10 36.8 C 60 18 108/63 92 Resident Activity Tracking Resident Involvement: Resident Care Provided Care Provided: Adult Hospital Medicine (1) Sleep apnea Sleep apnea type: unspecified type Qualified Code(s): G47.30 - Sleep apnea, unspecified (2) Diabetes Diabetes mellitus complication status: without complication Diabetes mellitus chcf insulin use: without technician terminal and repeater use Diabetes mellitus type: type 2 Qualified Code(s): E11.9 - Type 2 diabetes mellitus without complications (3) Depression Active/Remission status: remission status unspecified Depression Type: major depressive disorder Major depression recurrence: unspecified whether recurrent Qualified Code(s): F32.9 - Major depressive disorder, single episode, unspec ified (4) Hyperlipidemia Hyperlipidemia type: unspecified Qualified Code(s): E78.5 - Hyperlipidemia, unspecified (5) GERD (gastroesophageal reflux disease) Esophagitis presence: esophagitis presence not specified Qualified Code(s): K21.9 - Gastro-esophageal reflux disease without esophagitis (6) Hypertension Hypertension type: essential hypertension Qualified Code(s): I10 - Essential (primary) hypertension
[2020-05-12 07:27] LABS: Appearance Urine Clear (Clear); Blood Urine Negative (Negative); Color Urine Dark Yellow; Epithelial Cell Urine Auto >30 /lpf (0-5); Glucose Urine UA Negative (Negative); Ketones Urine Trace (Negative); Leukocyte Esterase Urine Trace (Negative); Nitrite Urine Negative (Negative); Protein Urine Negative (Negative); Specific Gravity Urine 1.022 (1.000-1.030); Urobilinogen Urine Negative (Negative)
[2020-05-12 07:29] LABS: Bilirubin Urine 1+ (Negative)
[2020-05-12 07:36] LABS: Bacteria Urine Automated 1+ (Negative); RBC Urine Automated 0-4 /hpf (0-4)
[2020-05-12 07:54] LABS: Creatinine Urine Random 87.9 mg/dl
[2020-05-12 07:58] LABS: Basophils # (auto) 0.01 K/uL (0-0.2); Basophils % (auto) 0.1 %; Eosinophils # (auto) 0.02 K/uL (0-0.5); Eosinophils % (auto) 0.1 %; Hematocrit (blood only) 42.9 % (37-47); Hemoglobin 14.3 g/dL (12.0-16.0); Immature Granulocytes # (auto) 0.04 K/uL (0.00-0.02); Immature Granulocytes % (auto) 0.3 %; Lymphocytes # (auto) 2.01 K/uL (1.2-3.4); Lymphocytes % (auto) 14.3 %; Mean Corpuscular Hemoglobin 30.2 pg (25-34); Mean Corpuscular Hgb Conc 33.3 g/dL (32-36); Mean Corpuscular Volume 90.7 fL (80-100); Mean Platelet Volume 11.7 fL (7.4-10.4); Monocytes # (auto) 2.25 K/uL (0.11-0.59); Monocytes % (auto) 16.1 %; Neutrophils # (auto) 9.68 K/uL (1.4-6.5); Neutrophils % (auto) 69.1 %; Platelet Count 269 K/uL (130-400); RDW Coefficient of Variation 13.2 % (11.5-14.5); Red Blood Count 4.73 M/uL (4.2-5.4); White Blood Count 14.01 K/uL (4.8-10.8)
[2020-05-12 08:25] LABS: BUN Creatinine Ratio 31.1 (10-20); Creatinine Clr Calc Pharmacy 26.3 ml/min; Est GFR (African American) 22.6; Est GFR (Non-African American) 19.5; Potassium 4.5 mmol/L (3.5-5.1)
[2020-05-12] MEDS: LACTATED RINGER'S 1,000 ML IV SCH (08:52)
[2020-05-12] MEDS: IPRATROPIUM BROMIDE NASAL SPRAY 0.06% 15ML SCH ×3 (08:52→20:43)
[2020-05-12] MEDS: INSULIN ASPART 100 UNITS/ML 3 ML PEN SC SCH ×4 (08:59→20:47)
[2020-05-12] MEDS ORDERED: AMANTADINE HCL 100 MG CAPSULE PO SCH (09:00)
[2020-05-12] MEDS: LIDOCAINE 5% 1 PATCH TD SCH (09:01)
[2020-05-12] MEDS: DICLOFENAC SOD 1% GEL 100 GM TUBE EXT SCH ×4 (09:01→20:47)
[2020-05-12] MEDS: ENOXAPARIN INJ 40 MG/0.4 ML SYR SQ SCH (09:01)
[2020-05-12] MEDS: predniSONE 20 MG TAB PO SCH (09:02)
[2020-05-12] MEDS: PANTOprazole 40 MG TAB PO SCH ×2 (09:02→20:46)
[2020-05-12] MEDS: METOPROLOL SUCC 25MG EXT REL TAB PO SCH (09:03)
[2020-05-12] MEDS: ACETAMINOPHEN 500 MG TAB PO SCH ×3 (09:09→20:45)
[2020-05-12] MEDS: CARBIDOPA/LEVODOPA 50/200MG EXT REL TAB PO SCH ×4 (09:10→20:46)
[2020-05-12] MEDS: lisinopril 5 MG TAB PO SCH (09:10)
[2020-05-12] MEDS: DULoxetine HCL 30 MG CAP PO SCH (09:10)
[2020-05-12] MEDS: traMADol HCL 50 MG TABLET PO PRN ×3 (12:00→20:45)
[2020-05-12] MEDS ORDERED: LACTATED RINGER'S 500 ML IV ONE (20:17)
[2020-05-12] MEDS: ASPIRIN 81 MG ECTAB PO SCH (20:45)
[2020-05-12] MEDS: ATORVASTATIN 40 MG TAB PO SCH (20:47)
[2020-05-13] MEDS: POLYETHYLENE (MIRALAX) 17 GM PACK PO SCH ×3 (00:42→20:03)
[2020-05-13] MEDS: traMADol HCL 50 MG TABLET PO PRN ×5 (05:11→22:02)
--- NOTE | 2020-05-13 07:08 | Hospitalist Progress Note ---
Date of Service May 13, 2020 Assessment & Plan (1) Acute low back pain with radicular symptoms, duration less than 6 weeks: 75yo female with PMH of Parkinson's presents with acute back pain without fracture after a fall. Stable. Plan is dispo to [facility], but currently managing JOSE. acute kidney injury - Cr uptrended this admission - baseline ~1.0-1.1. 05/09-05/11 0.96->1.31->1.77->2.33->1.85 - most likely prerenal given BUN/Cr ratio of 31. considered postrenal because had some concerns of retention at admission - FeNa 0.9%. Urine osm 524. consistent w/ prerenal JOSE. - started mIVF LR 100 mL/hr x 1 bag on 05/11. 05/12: bolused the remaining ~800 mL bag of LR. Will add 500 mL bolus in PM. - if prerenal etiology, previous amount of IVF was likely insufficient. - 05/12 d/c'd PRN toradol - 05/13 will give 1L bolus of LR this PM acute on chronic back pain -stable, slightly improving; dexamethasone IV 8 mg x3 days followed by transition to prednisone taper (~1 week starting from 40 mg) on 05/10 - 05/12 decreased to 30 mg. will do quick taper, decreasing by 10 mg/day. Patient's symptoms are questionably not radicular, so steroids may not be of much benefit. -pain etiology - likely multifactorial as patient has both signs and symptoms of lumbar radiculopathy as well as muscular/ligamentous strain/dysfunction; will treat from both angles and monitor progress -OMT for biomechanical dysfunction performed 05/07 w/ good response -Tylenol 1000 mg PO TID scheduled. prn toradol d/c'd . Flexeril and IV morphine since discontinued. -05/13 sxs seem more radicular. will increase home dose cymbalta constipation - moderate stool burden on 05/05 ct abd per my read. constipation thought to be contributing to patient's overall discomfort and nausea/vomiting symptoms - + hx of straining. 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 denies hx of IBD - no BM x 8 days - nausea, vomiting (w/ some stool-colored emesis), and abdominal discomfort shortly after drinking prune juice on 05/11 AM - considered enema, ordered KUB, but patient was able to pass large BM w/o edema - symptoms resolved in PM, patient feels much better after the BM. however, patient may still have significant stool burden; follow clinically - KUB did not suggest obstruction but had dilated colonic loops, not to severity suggestive of Oglivie's - 05/12 some loose stools. miralax held. patient had emesis after breakfast. monitor clinically. leukocytosis - 9.55->8.37->9.36->10.69->14.01 - less likely from steroids since she has been on it for 5 days now - will continue to follow daily cbcs and clinically - less likely urinary source given lack of symptoms. only change on UA is + trace leuk esterase and slight increase in epithelial cells, but could be from sampling vaginal bleeding - 05/12. Per nursing, gross blood was mixed w/ stool. Upon reexamination by nurse, appeared to not be from stool, but rather from vaginal region - plan is for speculum exam on 05/13 AM. altered mental status on 05/08/20, resolved on 05/09/20 - drowsy, decreased responsiveness since 1130 05/08. Last meds, including flexeril and Sinemet, were at 0900. - increased sedation 2/2 flexeril combined w/ Sinemet or rasagiline is possible - also considered psychogenic component given that on physical exam at 1720, patient was able to respond to commands such as opening eyes. Her arm was lifted and left to drop on its own and this response was observed. - cbc and cmp were nonremarkable. liver panel not elevated. head ct was negative for acute changes. - Since 05/08 night, patient has returned to baseline. She does not remember the episode of AMS and states this has not happened before 05/09 plan: hold flexeril. Restarted home carbidopa/levodopa. D/c'd morphine sulfate IV PRN. Restarted PRN toradol 05/10, 05/11: no changes to medication regimen. Patient is still at mental baseline. afebrile. Home rasagiline that patient brought from outside still held. will restart on 05/13 Parkinson's disease -stable -c/w carbidopa/levodopa. home rasagaline held because of concern of reaction interaction from same drug class; oversedation episode on 05/08 that may be from interaction w/ Flexeril -05/12 per pharmacy will renally dose amantadine -05/13 restarting home rasagiline T2DM -newly diagnosed at last admission last month, A1c 6.5%, not currently on oral meds at home -ISS -BSG mostly low-mid 100s, w/ high of 193. unlikely to be cause of AMS on 05/08 - 05/13 BSGs and SSI requirements reviewed. No changes today. HTN -chronic; well-controlled at present -c/w lisinopril 5mg PO qd. -c/w metoprolol 25mg PO qAM. CAD, HLD, pacemaker for complete heart block -admitted in March 2020 with NSTEMI; echo at that time with no WMA, EF of 45- 50% -cardiac catheterization on 04/10/20: -20% stenosis of RCA -90% proximal stenosis of the left main -40-50% stenosis of long segment of LAD -no stent placed -troponin negative -c/w ASA 81mg qd and atorvastatin 40mg PO qPM. FREDY -stable, patient does not use CPAP or other device at home -continuous pulse ox d/c'd MDD, anxiety -struggling with anxiety more than previously disclosed, per today's conversation -no acute intevention or med change indicated at this time -encouraged patient to follow up and openly discuss stressors and anxiety with PCP -c/w duloxetine 30mg PO qd and clonazepam 1mg PO qhs. GERD -stable. c/w pantoprazole 40mg PO bid. FENGI: DM2 + heart healthy diet. no mIVF. Intermittent boluses of LR. DVT ppx: lovenox 40mg Code status: full code Dispo: med/surg. tentaively on 05/15 (2) Depression: (3) Diabetes: (4) GERD (gastroesophageal reflux disease): (5) Sleep apnea: (6) Hyperlipidemia: (7) Hypertension: (8) Pacemaker: (9) Parkinson disease: (10) Constipation: (11) Acute kidney injury: (12) Leukocytosis: Admission and Anticipated Discharge Date Admission Date: May 05, 2020 Supervising Physician Co-Signing Physician Notes Patient seen and examined independently of PGY-1 Dr Colon. Agree with history, exam findings, assessment and plan of care as outlined. In brief, Carmen is a 75 year old female admitted after a fall at home, pain in the legs secondary to spinal stenosis. She has bilateral thigh pain that radiates from the lower back. Denies new weakness in the legs or paresthesia. She has not had any new bleeding with stooling or urinating. Feels that the heating pad does help. She is drinking water throughout the day. Vital signs and nursing notes reviewed. Non-toxic appearing. Resting tremor Heart with regular rate and rhythm. Lungs are clear to auscultation. Abdomen is soft, nontender. 1. JOSE. Pre-renal. Improving with intermittent fluid boluses. Continue with PO hydration and will do 1L bolus today. 2. Leukocytosis. New. No signs or symptoms of infection. 3. ?Vaginal bleeding. Resolved Hgb is stable. If this recurs, spec on the floor and will do gyne exam. 4. Radicular back pain. s/p dex x 3 days now transitioning to pred taper. Tylenol, tramadol. Stopped toradol due renal function. Increased duloxetine to 60mg. 5. Fall. PT/OT 6. Parkinsons disease. Stable. Continue home carbidopa/levodopa, restart rasagiline. 7. HTN. Controlled. Continue Lisinopril 5mg, metoprolol 25mg. 8. CAD/HLD with pacer for hx of complete heart block. Continue ASA and atorvastatin 40mg. 9. DM. Sliding scale. 10. Depression, anxiety. Increased home duloxetine to 60mg, holding clonazepam 1mg. Dispo: If renal function continues to improve, potentially discharge tomorrow or Friday to SNF. Subjective Patient pain was 9/10 intensity this morning. The tramadol helped, but she was near due for another dose. Her pain is a shooting pain that goes down her bilateral lateral thighs. No numbness/tingling. She skipped breakfast this AM because she did not have appetite. No nausea or vomiting. Denies complaints regarding bowel movements. No nursing reports of bloody stool or any bleeding o vernight. Review of Systems Review of Systems: Constitutional: Denies fever, chills Cardiovascular: Denies chest pain Respiratory: Denies shortness of breath Gastrointestinal: Denies abdominal pain, nausea, vomiting Genitourinary: Has purewick. No complaints. Musculoskeletal: See HPI Neurological: Denies headache, focal weakness Physical Exam Physical Exam: General: Grossly A&O. NAD. Cooperative. HEENT: Atraumatic, normocephalic. Pulm: CTAB anteriorly. No respiratory distress. Cardiac: RRR, -mrg. Puffy LE, no pitting appreciated. Abdominal: Nontender, nondistended, soft. Musculoskeletal: No tenderness to palpation at hips. Results & Data Results & Data ([facility]) Vital Signs (Past 12 Hours) Vital Signs Temp Pulse Resp BP Pulse Ox 05/12/20 23:40 36.5 C 63 16 100/60 93 Resident Activity Tracking Resident Involvement: Resident Care Provided Care Provided: Adult Hospital Medicine (1) Sleep apnea Sleep apnea type: unspecified type Qualified Code(s): G47.30 - Sleep apnea, unspecified (2) Diabetes Diabetes mellitus complication status: without complication Diabetes mellitus long term care phlebotomist insulin use: without long term care phlebotomist use Diabetes mellitus type: type 2 Qualified Code(s): E11.9 - Type 2 diabetes mellitus without complications (3) Depression Active/Remission status: remission status unspecified Depression Type: major depressive disorder Major depression recurrence: unspecified whether recurrent Qualified Code(s): F32.9 - Major depressive disorder, single episode, unspecified (4) Hyperlipidemia Hyperlipidemia type: unspecified Qualified Code(s): E78.5 - Hyperlipidemia, unspecified (5) GERD (gastroesophageal reflux disease) Esophagitis presence: esophagitis presence not specified Qualified Code(s): K21.9 - Gastro-esophageal reflux disease without esophagitis (6) Hypertension Hypertension type: essential hypertension Qualified Code(s): I10 - Essential (primary) hypertension
[2020-05-13 08:24] LABS: Eosinophils # (auto) 0.01 K/uL (0-0.5); Eosinophils % (auto) 0.1 %; Hemoglobin 13.2 g/dL (12.0-16.0); Immature Granulocytes # (auto) 0.03 K/uL (0.00-0.02); Immature Granulocytes % (auto) 0.2 %; Lymphocytes # (auto) 1.55 K/uL (1.2-3.4); Lymphocytes % (auto) 9.3 %; Mean Corpuscular Hemoglobin 29.8 pg (25-34); Mean Corpuscular Volume 90.3 fL (80-100); Mean Platelet Volume 11.6 fL (7.4-10.4); Monocytes # (auto) 1.61 K/uL (0.11-0.59); Monocytes % (auto) 9.7 %; Neutrophils # (auto) 13.46 K/uL (1.4-6.5); Neutrophils % (auto) 80.7 %; Platelet Count 239 K/uL (130-400); RDW Standard Deviation 42.7 fL (36.4-46.3); Red Blood Count 4.43 M/uL (4.2-5.4); White Blood Count 16.66 K/uL (4.8-10.8)
[2020-05-13] MEDS: INSULIN ASPART 100 UNITS/ML 3 ML PEN SC SCH ×4 (08:27→22:13)
[2020-05-13] MEDS: IPRATROPIUM BROMIDE NASAL SPRAY 0.06% 15ML SCH ×3 (08:28→20:07)
[2020-05-13] MEDS: LIDOCAINE 5% 1 PATCH TD SCH (08:29)
[2020-05-13] MEDS: DULoxetine HCL 30 MG CAP PO SCH (08:29)
[2020-05-13] MEDS: ENOXAPARIN INJ 40 MG/0.4 ML SYR SQ SCH (08:30)
[2020-05-13] MEDS: PANTOprazole 40 MG TAB PO SCH ×2 (08:31→20:03)
[2020-05-13] MEDS: predniSONE 10 MG TABLET PO SCH (08:31)
[2020-05-13] MEDS: CARBIDOPA/LEVODOPA 50/200MG EXT REL TAB PO SCH ×4 (08:32→20:03)
[2020-05-13] MEDS: METOPROLOL SUCC 25MG EXT REL TAB PO SCH (08:32)
[2020-05-13] MEDS: ACETAMINOPHEN 500 MG TAB PO SCH ×3 (08:33→20:03)
[2020-05-13] MEDS: lisinopril 5 MG TAB PO SCH (08:35)
[2020-05-13] MEDS: DICLOFENAC SOD 1% GEL 100 GM TUBE EXT SCH ×4 (08:35→20:07)
[2020-05-13 08:52] LABS: BUN Creatinine Ratio 30.6 (10-20); Calcium 9.6 mg/dl (8.5-10.1); Creatinine Clr Calc Pharmacy 33.2 ml/min; Est GFR (African American) 29.9; Est GFR (Non-African American) 25.8; Potassium 4.7 mmol/L (3.5-5.1)
[2020-05-13] MEDS: RASAGILINE 1 MG PO SCH (16:54)
[2020-05-13] MEDS ORDERED: AMANTADINE HCL 100 MG CAPSULE PO SCH (18:00)
[2020-05-13] MEDS ORDERED: KETOROLAC TROMETHAMINE 15 MG/ML VIAL IV ONE (19:25)
[2020-05-13] MEDS ORDERED: LACTATED RINGER'S 1,000 ML IV ONE (19:26)
[2020-05-13] MEDS ORDERED: KETOROLAC TROMETHAMINE 15 MG/ML VIAL ONE (19:28)
[2020-05-13] MEDS: ASPIRIN 81 MG ECTAB PO SCH (20:03)
[2020-05-13] MEDS: ATORVASTATIN 40 MG TAB PO SCH (20:03)
[2020-05-13] MEDS ORDERED: LIDOCAINE 5% 1 PATCH TD SCH (21:00)
[2020-05-13] MEDS: MELATONIN 3 MG TAB PO PRN (21:46)
[2020-05-14] MEDS: POLYETHYLENE (MIRALAX) 17 GM PACK PO SCH ×2 (02:28→08:49)
[2020-05-14] MEDS: traMADol HCL 50 MG TABLET PO PRN (05:30)
--- NOTE | 2020-05-14 06:10 | Hospitalist Progress Note ---
Date of Service May 14, 2020 Assessment & Plan Admission and Anticipated Discharge Date Admission Date: May 05, 2020 Subjective Patient was crying and screaming this morning. She states there are demons at the computer monitor and that there is someone standing outside the window. She asked me to break the window. She states that her sharp hip and back pain is off the charts and is requesting pain medication. Review of Systems Review of Systems: Constitutional: Denies fever, chills Gastrointestinal: Denies abdominal pain Genitourinary: Denies urinary symptoms including dysuria Musculoskeletal: See HPI ROS limited by patient's mentation/distress. She grossly denies other complaints other than those mentioned. Physical Exam Physical Exam: General: Grossly A&Ox2 Patient initially answered that she was in [place]. She knew her name and the year. NAD. Cooperative. HEENT: Atraumatic, normocephalic. Pulm: CTAB anteriorly. No respiratory distress. Cardiac: RRR, -mrg. PUffy LE, no pitting. Abdominal: Nontender, nondistended, soft. Results & Data Results & Data ([facility]) Vital Signs (Past 12 Hours) Vital Signs Temp Pulse Resp BP Pulse Ox 05/13/20 23:25 36.6 C 62 18 136/74 90 Resident Activity Tracking Resident Involvement: Resident Care Provided Care Provided: Adult Hospital Medicine
[2020-05-14 07:15] LABS: Basophils # (auto) 0.01 K/uL (0-0.2); Basophils % (auto) 0.1 %; Eosinophils # (auto) 0.05 K/uL (0-0.5); Eosinophils % (auto) 0.3 %; Hematocrit (blood only) 41.3 % (37-47); Hemoglobin 13.9 g/dL (12.0-16.0); Immature Granulocytes # (auto) 0.12 K/uL (0.00-0.02); Immature Granulocytes % (auto) 0.8 %; Lymphocytes # (auto) 2.92 K/uL (1.2-3.4); Lymphocytes % (auto) 18.6 %; Mean Corpuscular Hemoglobin 30.6 pg (25-34); Mean Corpuscular Hgb Conc 33.7 g/dL (32-36); Mean Platelet Volume 11.5 fL (7.4-10.4); Monocytes # (auto) 1.79 K/uL (0.11-0.59); Monocytes % (auto) 11.4 %; Neutrophils # (auto) 10.85 K/uL (1.4-6.5); Neutrophils % (auto) 68.8 %; Platelet Count 278 K/uL (130-400); RDW Coefficient of Variation 13.3 % (11.5-14.5); RDW Standard Deviation 44.1 fL (36.4-46.3); Red Blood Count 4.54 M/uL (4.2-5.4); White Blood Count 15.74 K/uL (4.8-10.8)
[2020-05-14 07:48] LABS: BUN Creatinine Ratio 30.3 (10-20); Creatinine Clr Calc Pharmacy 37.4 ml/min; Est GFR (African American) 34.6; Est GFR (Non-African American) 29.9
[2020-05-14] MEDS: ACETAMINOPHEN 500 MG TAB PO SCH ×2 (08:41→14:13)
[2020-05-14] MEDS: CARBIDOPA/LEVODOPA 50/200MG EXT REL TAB PO SCH ×2 (08:42→12:09)
[2020-05-14] MEDS: ENOXAPARIN INJ 40 MG/0.4 ML SYR SQ SCH (08:42)
[2020-05-14] MEDS: PANTOprazole 40 MG TAB PO SCH (08:43)
[2020-05-14] MEDS: METOPROLOL SUCC 25MG EXT REL TAB PO SCH (08:44)
[2020-05-14] MEDS: lisinopril 5 MG TAB PO SCH (08:45)
[2020-05-14] MEDS: predniSONE 10 MG TABLET PO SCH (08:45)
[2020-05-14] MEDS: IPRATROPIUM BROMIDE NASAL SPRAY 0.06% 15ML SCH ×2 (08:46→14:12)
[2020-05-14] MEDS: RASAGILINE 1 MG PO SCH (08:47)
[2020-05-14] MEDS: DICLOFENAC SOD 1% GEL 100 GM TUBE EXT SCH ×2 (08:48→12:09)
[2020-05-14] MEDS: INSULIN ASPART 100 UNITS/ML 3 ML PEN SC SCH ×2 (08:52→12:13)
[2020-05-14] MEDS ORDERED: DULoxetine HCL 60 MG CAP PO SCH (09:00)
[2020-05-14] MEDS ORDERED: AMANTADINE HCL 100 MG CAPSULE PO SCH (09:00)
--- NOTE | 2020-05-14 19:18 | Discharge Summary ---
Date of Service May 14, 2020 Admission HPI Per Admitting Provider Carmen Holland is a 75yo C female presenting with back pain. Patient has a history of Parkinson Disease with poor balance and frequent falls. She states she has fallen approximately 3 times in the last month. Yesterday afternoon she was walking in her home when she lost her balance and fell near her bathroom. She fell forward onto her knees and arms. She denies head trauma, loss of consciousness, CP/pain/palpitations or syncope. EMS was called at the time of the fall and patient decided that she did not need to go to the hospital at that time. She took a nap and when she woke up her back pain was more severe and she couldn't walk. She called EMS and was brought to [facility]. X-rays of lumbar spine and pelvis with no acute pathology -severe multilevel degenerative disc disease and facet arthrosis of the lumbar spine. CT of the left hip was obtained which was negative for fracture or dislocation. Patient was given pain medication and discharged home in stable condition. She returns today via EMS with continued pain, inability to walk. Her pain is located across her lower back with radiation into her buttock and anterior thighs bilaterally. She has occasional shooting pain down posterior thighs into her feet bilaterally as well as the feeling of numbness. She reports muscle spasms as well. No additional complaints at this time. Specifically she denies fever/chills/cough/SOB/abdominal pain/nausea/vomiting/diarrhea/constipation. No changes in bowel or bladder. Patient has chronic constipation and occasional urinary incontinence. ER Course: Morphine 4mg IV x 2 doses, Morphine 2mg IV, Toradol 15mg, Zofran 4mg IV Admission Exam Per Admitting Provider General: obese female patient resting comfortably, NAD, non-toxic in appearance, AA&O x 4 Skin: warm, dry, intact, livedo reticularis mottling discoloration of skin of bilateral LE, L>R as well as bilateral UE, skin of fingers red and shiny HEENT: NC/AT, PERRL, EOMI, anicteric sclera, conjunctiva without injection, external ear normal to inspection and nontender, nares patent, dry mucus membranes, dentition intact, no oropharyngeal lesions, neck supple, trachea midline, no LAD, no thyromegaly, no JVD Heart: +S1/S2, regular, 2/6 JOSE MANUEL at LSP, pacemaker in place, nontender Lungs: equal air entry bilaterally, no rales/rhonchi/wheezes Abd: +BS, soft, NT/ND, no masses/organomegaly/ascites Ext: warm, 2+ pulses in UE/LE bilaterally, no clubbing/cyanosis or edema Neuro: nonfocal, patient AA&O x 4, speech intact, no facial droop, moving all ex tremities on command with equal strength 5/5 +Back spasm - tenderness with palpation of lower back. Principal Diagnosis low back pain, spinal stenosis Discharge Exam General: A&Ox2 Patient initially answered that she was in [place]. She knew her name and the year. NAD. Cooperative. This was during AM when patient had hallucinations. During PM, she was grossly A&O and at mental baseline w/o confusion. HEENT: Atraumatic, normocephalic. Pulm: CTAB anteriorly. No respiratory distress. Cardiac: RRR, -mrg. Puffy LE, no pitting. Abdominal: Nontender, nondistended, soft. Neuro: Please see attending exam. Discharge Data Allergies Allergy/AdvReac Type Severity Reaction Status Date / Time codeine AdvReac Intermediate ITCHY ALL Verified 05/05/20 16:51 OVER Consultations 05/05/20 19:10 ED Decision to Admit Stat Ordered Studies 05/05/20 16:25 CT abd pelvis wo con Stat CT lumbar spine wo con Stat 05/08/20 14:25 CT head/brain wo con Urgent Hospital Course (1) Acute low back pain with radicular symptoms, duration less than 6 weeks: Carmen Holland is a 75yo female with hx of Parkinson's who was admitted to [facility] with acute on chronic low back pain without fracture after a fall. Dispo: [facility]. - f/u w/ PCP w/in 1 week - AVOID flexeril and muscle relaxants - avoid morphine (caused confusion in past per patient) - needs outpatient MRI of lumbar spine - avoid NSAIDs - recheck BMP in 1 week acute on chronic back pain - dexamethasone IV 8 mg x3 days followed by transitioned to oral PO taper, starting at 40mg oral prednisone decreased to 30mg at time of discharge. Plan is 2 more days of 20 mg and 2 more days of 10 mg -pain etiology - likely multifactorial as patient has both signs and symptoms of lumbar radiculopathy as well as muscular/ligamentous strain/dysfunction -OMT for biomechanical dysfunction performed 05/07 w/ good response -Tylenol 1000 mg PO TID scheduled. prn toradol d/c'd . Flexeril and IV morphine since discontinued. -05/13 sxs seem more radicular. increased home cymbalta from 30 mg PO daily to 60 mg PO daily 05/[address] L1-2 level: There is a circumferential disc bulge and moderate spinal stenosis. There is mild bilateral foraminal narrowing L2-3 level: There is a circumferential disc bulge and mild to moderate spinal stenosis. There is moderate bilateral foraminal narrowing L3-4 level: There is a circumferential disc bulge and moderate to severe spinal stenosis. There is moderate bilateral foraminal narrowing L4-5 level: There is a circumferential disc bulge and mild spinal stenosis. There is moderate right-sided foraminal narrowing and mild left-sided foraminal narrowing L5-S1 level: There is a mild circumferential disc bulge. There is facet joint arthropathy. There is no significant spinal stenosis. There is mild bilateral foraminal narrowing. 05/13: patient has new lower leg numbness/tingling and worsened pain and increased weakness. Recommended MRI. acute kidney injury, improving - Cr uptrended this admission - baseline ~1.0-1.1. 05/09-05/11 0.96->1.31->1.77->2.33->1.85->1.64 - most likely prerenal given BUN/Cr ratio of 31. considered postrenal because had some concerns of retention at admission - FeNa 0.9%. Urine osm 524. consistent w/ prerenal JOSE. - 05/12 d/c'd PRN toradol - provided intermittent fluid boluses, w/ improvement in creatitine constipation - no BM x 8 days, but eventually passed large BM and symptoms (N/V/abd discomfort) resolved - 05/05 CT and 05/11 KUB did not show obstruction - miralax PRN leukocytosis - 9.55->8.37->9.36->10.69->14.01->16.66->15.75 - could be from steroids. less likely urinary source because no symptoms vaginal bleeding, resolved - 05/12. Per nursing, gross blood was mixed w/ stool. Upon reexamination by nurse, appeared to not be from stool, but rather from vaginal region - plan is for speculum exam on 05/13 AM, but did not perform because patient's symptoms resolved altered mental status on 05/08/20, resolved on 05/09/20 - drowsy, decreased responsiveness since 1130 05/08. Last meds, including flexeril and Sinemet, were at 0900. - increased sedation / flexeril combined w/ Sinemet or rasagiline is possible - cbc and cmp were nonremarkable. liver panel not elevated. head ct was negative for acute changes. - Since 05/08 night, patient has returned to baseline. She does not remember the episode of AMS and states this has not happened before Parkinson's disease -stable - continued home meds. temporarily held homd rasagaline but restarted. - patient had episode of transient hallucinations AM of 05/13. Symptoms resolved. She states she has had nightmares in past that were attributed to her Parkinson's T2DM -newly diagnosed at last admission last month, A1c 6.5%, not currently on oral meds at home -SSI this admission. No meds at discharge. HTN -chronic; continue home meds CAD, HLD, pacemaker for complete heart block -admitted in March 2020 with NSTEMI; echo at that time with no WMA, EF of 45- 50% -cardiac catheterization on 04/10/20: -20% stenosis of RCA -90% proximal stenosis of the left main -40-50% stenosis of long segment of LAD -no stent placed -troponin negative -c/w ASA 81mg qd and atorvastatin 40mg PO qPM. FREDY -stable, patient does not use CPAP or other device at home MDD, anxiety -c/w duloxetine 30mg PO qd and clonazepam 1mg PO qhs. GERD -stable. c/w pantoprazole 40mg PO bid. Code status: full code (2) Depression: (3) Diabetes: (4) GERD (gastroesophageal reflux disease): (5) Sleep apnea: (6) Hyperlipidemia: (7) Hypertension: (8) Pacemaker: (9) Parkinson disease: (10) Constipation: (11) Acute kidney injury: (12) Leukocytosis: Total Time Total Time Spent Total Time Spent (In Minutes): Please see attending documentation Discharge Plan Discharge Items Patient Disposition: Transfer [facility] Reason For Visit: Intractable back pain Discharge Diagnosis: back pain Activity: Per Instructions section Non-emergency contact: Primary Care Provider Call non-emergency contact if: you have any medication questions and your pain is not controlled Follow-up/Referrals: Abdiel Montero MD [Primary Care Provider] - Diet: Carb Consistent or DM2 Addtl Attending Provider Instructions: Carmen Holland is a 75yo female with hx of Parkinson's who was admitted to [facility] with acute on chronic low back pain without fracture after a fall. - f/u w/ PCP w/in 1 week - AVOID flexeril and muscle relaxants - avoid morphine (caused confusion in past per patient) - needs outpatient MRI of lumbar spine - avoid NSAIDs - recheck BMP in 1 week acute on chronic back pain - dexamethasone IV 8 mg x3 days followed by transitioned to oral PO taper, starting at 40mg oral prednisone decreased to 30mg at time of discharge. Plan is 2 more days of 20 mg and 2 more days of 10 mg -pain etiology - likely multifactorial as patient has both signs and symptoms of lumbar radiculopathy as well as muscular/ligamentous strain/dysfunction -OMT for biomechanical dysfunction performed 05/07 w/ good response -Tylenol 1000 mg PO TID scheduled. prn toradol d/c'd . Flexeril and IV morphine since discontinued. -05/13 sxs seem more radicular. increased home cymbalta from 30 mg PO daily to 60 mg PO daily 05/[address] L1-2 level: There is a circumferential disc bulge and moderate spinal stenosis. There is mild bilateral foraminal narrowing L2-3 level: There is a circumferential disc bulge and mild to moderate spinal stenosis. There is moderate bilateral foraminal narrowing L3-4 level: There is a circumferential disc bulge and moderate to severe spinal stenosis. There is moderate bilateral foraminal narrowing L4-5 level: There is a circumferential disc bulge and mild spinal stenosis. There is moderate right-sided foraminal narrowing and mild left-sided foraminal narrowing L5-S1 level: There is a mild circumferential disc bulge. There is facet joint arthropathy. There is no significant spinal stenosis. There is mild bilateral foraminal narrowing. 05/13: patient has new lower leg numbness/tingling and worsened pain and increased weakness. Recommended MRI. acute kidney injury, improving - Cr uptrended this admission - baseline ~1.0-1.1. 05/09-05/11 0.96->1.31->1.77->2.33->1.85->1.64 - most likely prerenal given BUN/Cr ratio of 31. considered postrenal because had some concerns of retention at admission - FeNa 0.9%. Urine osm 524. consistent w/ prerenal JOSE. - 05/12 d/c'd PRN toradol - provided intermittent fluid boluses, w/ improvement in creatitine constipation - no BM x 8 days, but eventually passed large BM and symptoms (N/V/abd discomfort) resolved - 05/05 CT and 05/11 KUB did not show obstruction - miralax PRN leukocytosis - 9.55->8.37->9.36->10.69->14.01->16.66->15.75 - could be from steroids. less likely urinary source because no symptoms vaginal bleeding, resolved - 05/12. Per nursing, gross blood was mixed w/ stool. Upon reexamination by nurse, appeared to not be from stool, but rather from vaginal region - plan is for speculum exam on 05/13 AM, but did not perform because patient's symptoms resolved altered mental status on 05/08/20, resolved on 05/09/20 - drowsy, decreased responsiveness since 1130 05/08. Last meds, including flexer il and Sinemet, were at 0900. - increased sedation 2/2 flexeril combined w/ Sinemet or rasagiline is possible - cbc and cmp were nonremarkable. liver panel not elevated. head ct was negative for acute changes. - Since 05/08 night, patient has returned to baseline. She does not remember the episode of AMS and states this has not happened before Parkinson's disease -stable - continued home meds. temporarily held homd rasagaline but restarted. - patient had episode of transient hallucinations AM of 05/13. Symptoms resolved. She states she has had nightmares in past that were attributed to her Park inson's T2DM -newly diagnosed at last admission last month, A1c 6.5%, not currently on oral meds at home -SSI this admission. No meds at discharge. HTN -chronic; continue home meds CAD, HLD, pacemaker for complete heart block -admitted in March 2020 with NSTEMI; echo at that time with no WMA, EF of 45- 50% -cardiac catheterization on 04/10/20: -20% stenosis of RCA -90% proximal stenosis of the left main -40-50% stenosis of long segment of LAD -no stent placed -troponin negative -c/w ASA 81mg qd and atorvastatin 40mg PO qPM. FREDY -stable, patient does not use CPAP or other device at home MDD, anxiety -c/w duloxetine 30mg PO qd and clonazepam 1mg PO qhs. GERD -stable. c/w pantoprazole 40mg PO bid. Code status: full code Pending Studies at Discharge: No Studies:: She will need a lumbar spine MRI as an outpatient. Stand-Alone Forms: [facility] [employer] Skilled Items Patient informed of condition?: Yes DNR: No Discharge Level of Care: Skilled Communicable Disease: No Discharge Prognosis: Stable Lines: None Urinary Catheter: No Medications and DC Order Prescriptions: New acetaminophen 500 mg Tablet 1,000 mg PO TID 30 Days Qty: 180 RF: 0 tramadol 50 mg tablet 50 mg PO Q6H Qty: 14 RF: 0 prednisone 10 mg tablet See Rx Instructions .ROUTE .COMPLEX Qty: 6 RF: 0 Continued atorvastatin 40 mg tablet 40 mg PO QPM Qty: 90 RF: 4 amantadine HCl 100 mg capsule 100 mg PO BID 90 Days Qty: 180 RF: 1 clonazepam 1 mg tablet 1 mg PO HS 90 Days Qty: 90 RF: 1 rasagiline 1 mg tablet 1 mg PO DAILY 90 Days Qty: 90 RF: 1 carbidopa-levodopa 50-200 mg tablet extended release 1 tab PO QID 90 Days Qty: 360 RF: 1 ipratropium bromide 42 mcg (0.06 %) spray,non-aerosol 2 sprays intranasal TID Qty: 1 RF: 0 duloxetine [Cymbalta] 30 mg capsule,delayed release(DR/EC) 30 mg PO DAILY RF: 0 esomeprazole magnesium [Nexium] 20 mg capsule,delayed release(DR/EC) 20 mg PO BID RF: 0 metoprolol succinate 25 mg Tablet Extended Release 24 Hr 25 mg PO QAM 30 Days Qty: 30 RF: 0 lisinopril 5 mg tablet 5 mg PO DAILY Qty: 30 RF: 0 melatonin 10 mg Tablet 10 mg PO HS PRN (Reason: Sleep) RF: 0 aspirin [Aspirin Low Dose] 81 mg Tablet,Delayed Release (Dr/Ec) 81 mg PO QPM RF: 0 albuterol sulfate [Ventolin HFA] 90 mcg/actuation Hfa Aerosol Inhaler 2 - 4 puff INHALATION QID PRN (Reason: Shortness Of Breath Or Wheezing) RF: 0 meloxicam [Mobic] 15 mg Tablet 15 mg PO DAILY RF: 0 acetaminophen [Tylenol Extra Strength] 500 mg Tablet 500 - 1,000 mg PO DIRECTED MDD 3 GRAMS/24 HOURS PRN (Reason: Pain) RF: 0 cholecalciferol (vitamin D3) [Vitamin D3] 125 mcg (5,000 unit) Tablet 125 mcg PO QPM RF: 0 PreserVision AREDS-2 [id number]-mg Capsule 1 tab PO BID RF: 0 Discharge Orders: Discharge Order (Routine); Ordered 05/14/20 Ordered By: Mauro Colon Admission Data Admit Date/Time: 05/05/20 19:58 Attending Provider: Cassidy Ace Admit Provider: Alyce Dash Primary Care Provider: Abdiel Montero Other Providers: Alyce Dash ; [place] Other Interventions: Discharge Summary Assessment (RN) Last Done: 05/14/20 14:50 Supervising Physician Co-Signing Physician Notes Patient seen and examined independently of PGY-1 Dr Colon. Agree with history, exam findings, assessment and plan of care as outlined. In brief, Carmen is a 75 year old female admitted after a fall at home, pain in the legs secondary to spinal stenosis. Overnight, she became concerned that the nurses and aides were talk about her behind her back. She became very anxious and called her son and . She tells me that she was screaming in pain and no one would give her pain medication. Also reports that the fire department was here last night. Reports that she is not able to move her left leg or bear weight on it. Feels that the leg gives out. Also notes paresthesias in the bilateral feet. Denies saddle anesthesia, new bowel incontinence. Has a purewick in place. Vital signs and nursing notes reviewed. Tearful. Resting tremor Left lower extremity: unable to plantar flex, unable to flex knee on the bed. Unable to keep leg raised against gravity. Decreased light touch throughout the calf and foot. In tact light touch in the thigh. Right lower extremity: plantar flexion is 4-, knee flexion 3/5. Unable to keep leg raised against gravity. Decreased light touch throughout the calf and foot. In tact light touch in the thigh. Multiple times during our conversation, she expressed concern about nurses and CNAs walking past the room and wondering why they were looking in the room "like I am a specimen". 1. Left leg weakness. Discussed with patient that I am concerned about this new weakness and recommend stat MRI of the lumbar spine to further evaluate spinal stenosis and impingement on nerve roots. She is adamant that she does not want to stay in the hospital as she does not feel safe here. We discussed that there is concern for permanent nerve damage and she may not recover her lower extremity function if intervention that is necessary is prolonged. She re- iterated multiple times that she did not want to stay in the hospital. Her was at the bedside for this conversation and he is ok with his 's decision to leave the hospital without this imaging study. She does need an MRI as an outpatient to further evaluate this weakness. 2. Radicular back pain. s/p dex x 3 days now transitioning to pred taper. Tylenol, tramadol. Stopped toradol due renal function. Increased duloxetine to 60mg. 3. JOSE. Pre-renal. Improved with intermittent fluid boluses. 4. Leukocytosis. New. No signs or symptoms of infection. 5. Parkinsons disease. Stable. Continue home carbidopa/levodopa, restart rasagiline. 6. HTN. Controlled. Continue Lisinopril 5mg, metoprolol 25mg. 7. CAD/HLD with pacer for hx of complete heart block. Continue ASA and atorvastatin 40mg. 8. DM. Sliding scale. 9. Depression, anxiety. Increased home duloxetine to 60mg, holding clonazepam 1mg. Dispo: discharge to SNF today (see above discussion regarding leg weakness and need for MRI imaging). I personally spent 45 minutes discharge planning for this patient today. Resident Activity Tracking Resident Involvement: Resident Care Provided Care Provided: Adult Hospital Medicine
== END 2020-05-14 15:55 | DRG 551 ==
LOC: ED 15:06 → SUATTDRO 19:58 → 2W 19:58

== ENCOUNTER 2023-01-29 11:44 | Inpatient (IN) ==
[2023-01-29] MEDS ORDERED: SODIUM CHLORIDE 0.9% 500 ML IV ONE (12:08)
[2023-01-29] MEDS ORDERED: ONDANSETRON INJ 2 MG/ML 2 ML VIAL IV STA (12:08)
--- NOTE | 2023-01-29 12:08 | ED Triage Note ---
Date of Service January 29, 2023 Provider in Triage Author: Giovani Finney History of Present Illness This patient was briefly evaluated while in triage. An abbreviated physical exam was performed. This patient is a 78-year-old Female who presents to the ED for evaluation of nausea and diarrhea x3 days. Pt. was unable to get in with PCP so was referred to the ED. Pt. has had chills, but no fever. Has been coughing. No recent antibiotics. Does have hx c. diff. when in a prison about 1.5 years ago with similar symptoms. Physical Exam VITALS: Vitals are noted on the nurse's note and reviewed by myself. GENERAL: This is an 78 year old female, in no acute distress, nondiaphoretic, well-developed well-nourished. SKIN: No obvious rashes, edema, erythema HEAD: Normocephalic atraumatic. EYES: Conjunctivae without injection, sclerae without icterus. NECK: No JVD. LUNGS: No retractions or accessory muscle use. MUSCULOSKELETAL: Normal gait. NEURO: Patient was alert and oriented to person place and time. No focal gabe rological deficits. Initial orders for labs and / or imaging were placed and patient was placed in the waiting area until a bed is available. Please see further documentation for the full ED course.
--- NOTE | 2023-01-29 12:14 | Emergency Department Note ---
Impression & Plan COVID-19, Dehydration, Parkinson disease, Hypomagnesemia, Acute UTI ED Provider Note NAME: LOKESH ROYAL AGE: 78 SEX: F : 1945 ARRIVES VIA: Ambulance INFORMANT: Patient, ED PROVIDER(S): Giovani Finney MD CHIEF COMPLAINT: Weakness, diarrhea MEDICAL DECISION MAKING: Patient presents due to concern for associated weakness and diarrheal illness. IV was established and blood was obtained along with IV fluids bio fire and chest x-ray as the patient has reported a dry nonproductive cough. The patient's blood work shows a normal white count H&H and platelet count. The patient's kidney function is unremarkable. Patient does have slightly low magnesium at 1.6. Given the patient's associated weakness nothing the patient go home. Of note the patient's chest x-ray does show a right upper extremity anterior shoulder dislocation. This is likely chronic. The patient has not had a recent fall. Would not reduce this at this time given the unknown duration of this. I did speak with the on-call hospital service Dr. Matthews and the patient was admitted to the medicine service. Discussion w/ other healthcare providers: None Prior /Outside records reviewed: I reviewed a neurology visit from Dr. Morley from 10/16/2022. Patient does have a known history of Parkinson's as well as polyneuropathy and radiculopathy Differential diagnosis: Infection, dehydration, metabolic abnormality, hypo/hyperglycemia, electrolyte imbalance, anemia, UTI, pneumonia, thyroid dysfunction among others were considered. Diagnostics, as interpreted by me: ECG: AV dual paced rhythm, rate of 61, left axis deviation left bundle branch block pattern with PVC noted. Cardiac monitoring: An order was placed for continuous cardiac monitoring. The monitor shows a rate of 65 with pain rhythm. Patient was placed on pulse oximetry Medical decision rules: None Imaging studies: I informally interpreted the patient's Chest x-ray which does not show obvious pneumothorax. Possible right shoulder dislocation noted with formal report to follow. HPI: Patient presents due to concern for diarrhea which she describes as "constant." Is been ongoing the last 3 days. Patient denies any known sick contacts or recent travel. Patient also has had associated dry cough which she states kept her up most of last evening. Patient denies any recent travel. [place] She denies that he has had any symptoms. No changes in diet no known recent antibiotics or untreated stream or well water. The home of the living does have a water but they have never had any issues within the past. Patient states that she did develop C. difficile while in a detention and was discharged from the ER last November. Patient states that this does feel similar. The patient did call her primary care office and she was referred here as they were unable to see her in clinic. Patient states that she as well as the clinic were concerned that she may be dehydrated. The patient also relates that she does have a history of Parkinson's and does follow with Dr. Morley PAST MEDICAL HISTORY: See Below PAST SURGICAL HISTORY: See Below SOCIAL HISTORY: See Below HOME MEDICATIONS: See Below ALLERGIES: See Below VITALS: See Below PHYSICAL EXAMINATION: GENERAL: NAD, non-toxic. Morbidly obese. In portions of the lower extremities covered in stool EYE EXAM: Normal conjunctiva. PERRL, no anisocoria and EOM's grossly intact w/o pain. OROPHARYNX: Dry mucus membranes, edentulous NECK: Supple, no nuchal rigidity, no adenopathy, non-tender. No signs of meningismus. FROM of the neck with good chin to chest and neck extension. No stridor. LUNGS: Clear to auscultation. Normal chest wall mechanics. HEART: NSR, no MRG. ABDOMEN: Abdomen soft, non-tender, no masses, no rebound or guarding. BACK: No CVA TTP. SKIN: No rashes and no bruising. UPPER EXTREMITIES: Upper extremities are grossly normal. LOWER EXTREMITIES: Grossly normal, no edema. NEURO EXAM: A&O x3, cranial nerves II-XII grossly intact, normal speech, moves all 4 extremities. Past Med/Surg History Medical History Acute kidney injury Acute dehydration Diabetes Raynaud phenomenon NSTEMI (non-ST elevated myocardial infarction) Anxiety Elevated troponin I level REM sleep behavior disorder Complete heart block CAD (coronary artery disease) Morbid obesity with BMI of 60.0-69.9, adult Osteoarthritis GERD (gastroesophageal reflux disease) Non-Hodgkin lymphoma Depression Anxiety Parkinson disease Hypertension Hyperlipidemia Sleep apnea mild, no device Asthma rarely issue Surgical History H/O left cataract extraction 10/28/17- given 2mg IV versed without issues Hx of cardiac pacemaker for BBB; 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 Follows up with Dr. Askew History of hysterectomy History of bilateral tubal ligation History of total knee replacement BILATERAL History of carpal tunnel release BILATERAL History of cholecystectomy History of appendectomy History of tonsillectomy Pacemaker BBB, 9+ YEARS AGO, F/U DR LAO Social History Smoking Status: Never smoker Second Hand Exposure: No; Do You Dip or Chew Tobacco: No; Hx Alcohol Use: No Hx Substance Use: No Preferred Language: Wolof Communication Ability: Effective [employer] Licensee Required: No Beliefs That Will Affect Care: None marital status: Current Living Situation: Spouse Current Living Situation Comment: lives with Other Information That Helps Us Care for You: No Feels Safe at Home: Yes Safety Concerns: Feels Safe At This Time Assistive Devices: Denture - Upper, Denture - Lower, Walker and Wheelchair Allergies Allergies Allergy/AdvReac Type Severity Reaction Status Date / Time cyclobenzaprine Allergy Unknown Verified 01/29/23 16:08 [From Flexeril] flurbiprofen [From Ansaid] Allergy Unknown Verified 01/29/23 16:08 ibuprofen Allergy Unknown Verified 01/29/23 16:08 morphine AdvReac Severe Unknown Verified 01/29/23 16:08 codeine AdvReac Intermediate ITCHY ALL Verified 01/29/23 16:08 OVER atorvastatin AdvReac Mild Myalgias Verified 01/29/23 16:08 Home Meds Home Medications Medication Instructions Recorded Confirmed aspirin 81 mg tablet,delayed 81 mg PO DAILY 11/10/17 01/29/23 release (Yoel Low Dose Aspirin) vit C 250 mg-vit E 90 mg-zinc 40 2 tab PO DAILY 03/06/21 01/29/23 mg-copper 1 [id number] capsule (PreserVision AREDS-2) esomeprazole magnesium 20 mg 20 mg PO BID 05/21/21 01/29/23 capsule,delayed release duloxetine 40 mg capsule,delayed 80 mg PO DAILY 04/11/22 01/29/23 release ipratropium bromide 42 mcg (0.06 3 spray intranasal TID PRN Nasal 04/11/22 01/29/23 %) nasal spray Congestion melatonin 10 mg tablet 10 mg PO HS 04/11/22 01/29/23 meloxicam 15 mg tablet 15 mg PO QAM 04/11/22 01/29/23 Previous Rx's Medication Instructions Recorded carbidopa 25 mg-levodopa 100 mg 1 tab PO QID 90 days #360 tabs 07/16/22 tablet (Sinemet) carbidopa ER 50 mg-levodopa 200 mg 1 tab PO QAM 90 days #90 tabs 07/16/22 tablet,extended release gabapentin 100 mg capsule 100 mg PO TID 90 days #270 caps 07/16/22 zonisamide 100 mg capsule 100 mg PO HS 90 days #90 caps 07/16/22 clonazepam 1 mg tablet 1 mg PO HS 90 days #90 tabs 01/13/23 tramadol 50 mg tablet 25 mg (1/2 x 50 mg) PO TID 90 days 01/13/23 #135 tabs Results & Data (ED) Vital Signs Vital Signs - 24 hr 01/29/23 12:07 Temperature 36.6 C Temperature Source Skin Pulse Rate 78 Respiratory Rate 18 Blood Pressure 148/70 H Blood Pressure Mean 96 Pulse Oximetry 98 Oxygen Delivery Method Room Air Sepsis Recent Fever Within 48 Hours No Sepsis New/Unexplained Change in Mental Status No Sepsis Action Taken by Nursing No Action Required Home Medications Current Medication List: was personally reviewed by me Laboratory Data Attestation: I reviewed the patient's lab results. 01/30/23 05:17 01/30/23 05:17 Lab Results 01/29/23 Range/Units 12:43 WBC 5.71 (4.8-10.8) K/ul RBC 4.69 (4.20-5.40) M/uL Hgb 13.3 (12.0-16.0) g/dl Hct 41.5 (37.0-47.0) % MCV 88.5 (80.0-100.0) fL MCH 28.4 (25.0-34.0) pg MCHC 32.0 (32.0-36.0) g/dL RDW Std Deviation 44.3 (36.4-46.3) fL RDW Coeff of Misti 13.8 (11.5-14.5) % Plt Count 253 (130-400) K/uL MPV 10.5 (9.4-12.4) fL Immature Gran % (Auto) 0.4 % Neut % (Auto) 67.3 % Lymph % (Auto) 22.8 % [place] % (Auto) 6.0 % Eos % (Auto) 2.8 % Baso % (Auto) 0.7 % Neut # (Auto) 3.85 (1.40-6.50) K/uL Lymph # (Auto) 1.30 (1.20-3.40) K/uL [place] # (Auto) 0.34 (0.11-0.59) K/uL Eos # (Auto) 0.16 (0.00-0.50) K/uL Baso # (Auto) 0.04 (0.00-0.20) K/uL Immature Gran # (Auto) 0.02 (0.01-0.20) K/uL ESR 38 H (0-30) mm/hr Sodium 142 (136-145) mmol/L Potassium 3.8 (3.5-5.1) mmol/L Chloride 108 H (98-107) mmol/L Carbon Dioxide 28 (21-32) mmol/L Anion Gap 6 (3-11) BUN 11 (6-23) mg/dl Creatinine 0.83 (0.6-1.2) mg/dl Est Cr Clr Drug Dosing Not Reportable Est GFR ( Amer) 77.2 ml/min Est GFR (Non-Af Amer) 66.6 ml/min BUN/Creatinine Ratio 13.3 (10-20) Glucose 113 H (70-99(Fasting)) mg/dl Calcium 9.4 (8.6-10.3) mg/dl Phosphorus 2.9 (2.5-4.9) mg/dl Magnesium 1.6 L (1.7-2.4) mg/dl Ferritin 32.2 (8-388) ng/ml Total Bilirubin 0.8 (0.2-1.0) mg/dl AST 12 L (13-39) U/L ALT < 3 L (7-52) U/L Alkaline Phosphatase 86 (34-104) U/L C-Reactive Protein < 0.50 (0-0.5) mg/dl Total Protein 6.9 (6.0-8.3) gm/dl Albumin 3.7 (3.4-5.0) gm/dl Globulin 3.2 (2.5-4.0) gm/dl Albumin/Globulin Ratio 1.2 (0.9-2) Lipase 28 (11-82) U/L Administered Medications Albuterol (Albut/Ipratrop 3mg/0.5mg Neb 3 Ml Vial) 3 ml NEB QIDR [facility]; Protocol Stop: 02/28/23 18:59 Last Admin: 01/30/23 15:23 Dose: 3 ml Documented By: Admin: 01/30/23 11:50 Dose: 3 ml Documented By: Admin: 01/30/23 08:04 Dose: 3 ml Documented By: Admin: 01/29/23 21:12 Dose: 3 ml Documented By: FRANCESCA Aspirin (Aspirin 81 Mg Ectab) 81 mg PO DAILY [facility] Stop: 03/01/23 08:59 Last Admin: 01/30/23 09:32 Dose: 81 mg Documented By: OCTAVIANO Carbidopa/Levodopa (Carbidopa/Levodopa 50/200mg Ext Rel Tab) 1 tab PO QAM [facility] Stop: 03/01/23 08:59 Last Admin: 01/30/23 09:33 Dose: 1 tab Documented By: OCTAVIANO Carbidopa/Levodopa (Carbidopa/Levodopa 25/100mg Tab) 1 tab PO QID [facility] Stop: 02/28/23 18:44 Last Admin: 01/30/23 13:45 Dose: 1 tab Documented By: Admin: 01/30/23 09:32 Dose: 1 tab Documented By: Admin: 01/29/23 22:52 Dose: 1 tab Documented By: Admin: 01/29/23 18:47 Dose: Not Given Documented By: FRANCESCA Clonazepam (Clonazepam 1 Mg Tab) 1 mg PO HS [facility] Stop: 02/28/23 20:59 Last Admin: 01/29/23 23:23 Dose: 1 mg Documented By: FRANCESCA Duloxetine HCl (Duloxetine Hcl 20 Mg Cap) 80 mg PO DAILY [facility] Stop: 03/01/23 08:59 Last Admin: 01/30/23 09:33 Dose: 80 mg Documented By: OCTAVIANO Enoxaparin Sodium (Enoxaparin Inj 40 Mg/0.4 Ml Syr) 40 mg SQ Q24H [facility] Stop: 02/28/23 18:59 Last Admin: 01/29/23 19:16 Dose: 40 mg Documented By: FRANCESCA Gabapentin (Gabapentin 100 Mg Cap) 100 mg PO TID [facility] Stop: 02/28/23 20:59 Last Admin: 01/30/23 13:45 Dose: 100 mg Documented By: Admin: 01/30/23 09:32 Dose: 100 mg Documented By: Admin: 01/29/23 22:52 Dose: 100 mg Documented By: FRANCESCA Insulin Aspart (Insulin Aspart Per Unit Charge) 0 units SC ACHS [facility] Stop: 02/28/23 20:59 Last Admin: 01/30/23 13:00 Dose: Not Given Documented By: Admin: 01/30/23 09:31 Dose: Not Given Documented By: Admin: 01/29/23 21:17 Dose: Not Given Documented By: FRANCESCA Co-signed By: FRANCES Pantoprazole Sodium (Pantoprazole 40 Mg Tab) 40 mg PO BID [facility] Stop: 02/28/23 20:59 Last Admin: 01/30/23 09:32 Dose: 40 mg Documented By: Admin: 01/29/23 22:52 Dose: 40 mg Documented By: FRANCESCA Tramadol HCl (Tramadol Hcl 50 Mg Tablet) 25 mg PO TID [facility] Stop: 02/28/23 20:59 Last Admin: 01/30/23 13:44 Dose: 25 mg Documented By: Admin: 01/30/23 09:51 Dose: 25 mg Documented By: Admin: 01/29/23 23:23 Dose: 25 mg Documented By: FRANCESCA Zonisamide (Zonisamide 100 Mg Capsule) 100 mg PO HS [facility] Stop: 02/28/23 20:59 Last Admin: 01/29/23 22:51 Dose: 100 mg Documented By: FRANCESCA Discontinued Medications Albuterol (Albut/Ipratrop 3mg/0.5mg Neb 3 Ml Vial) 3 ml NEB NOW STA; Protocol Stop: 01/29/23 16:42 Last Admin: 01/29/23 17:40 Dose: 3 ml Documented By: FRANCESCA Carbidopa/Levodopa (Carbidopa/Levodopa 25/100mg Tab) 1 tab PO NOW STA Stop: 01/29/23 16:42 Last Admin: 01/29/23 17:27 Dose: 1 tab Documented By: FRANCESCA Furosemide (Furosemide Inj 20 Mg/2 Ml Vial) 20 mg IV ONE ONE Stop: 01/29/23 16:47 Last Admin: 01/29/23 17:28 Dose: 20 mg Documented By: FRANCESCA Sodium Chloride (Nss) 500 mls @ 999 mls/hr IV .Q31M ONE Stop: 01/29/23 12:38 Last Infusion: 01/29/23 14:55 Dose: Infused Documented By: Admin: 01/29/23 14:08 Dose: 999 mls/hr Documented By: MARBELLA Sodium Chloride (Nss) 1,000 mls @ 999 mls/hr IV .Q1H1M [facility] Stop: 01/29/23 13:45 Last Infusion: 01/29/23 14:11 Dose: Infused Documented By: Admin: 01/29/23 12:43 Dose: 999 mls/hr Documented By: JM Magnesium Sulfate/Dextrose (Magnesium Sulfate / D5w) 1 gm in 100 mls @ 100 mls/hr IV NOW STA Stop: 01/29/23 16:18 Last Infusion: 01/29/23 16:27 Dose: Infused Documented By: Admin: 01/29/23 15:27 Dose: 100 mls/hr Documented By: FRANCESCA Ceftriaxone Sodium 2,000 mg/ (Dextrose) 50 mls @ 100 mls/hr IV NOW STA; Protocol Stop: 01/29/23 17:10 Last Infusion: 01/29/23 18:04 Dose: Infused Documented By: Admin: 01/29/23 17:32 Dose: 100 mls/hr Documented By: FRANCESCA Magnesium Sulfate/Dextrose (Magnesium Sulfate / D5w) 1 gm in 100 mls @ 100 mls/hr IV Q1H [facility] Stop: 01/29/23 18:41 Last Infusion: 01/29/23 20:17 Dose: Infused Documented By: Admin: 01/29/23 19:16 Dose: 100 mls/hr Documented By: Infusion: 01/29/23 19:06 Dose: Infused Documented By: Admin: 01/29/23 18:05 Dose: 100 mls/hr Documented By: FRANCESCA Ondansetron HCl (Ondansetron Inj 2 Mg/Ml 2 Ml Vial) 4 mg IV NOW STA Stop: 01/29/23 12:09 Last Admin: 01/29/23 14:08 Dose: Not Given Documented By: MARBELLA Potassium Chloride (Potassium Chloride Crtab 20 Meq Tabcr) 40 meq PO NOW STA Stop: 01/30/23 08:54 Last Admin: 01/30/23 09:52 Dose: 40 meq Documented By: OCTAVIANO Discharge Plan Visit Data Chief Complaint: Illness ED Provider: Giovani Finney Discharge Problem: COVID-19, Dehydration, Parkinson disease, Hypomagnesemia, Acute UTI Patient Disposition: Admitted As Inpatient Discharge Instructions Interventions: ED Discharge Assessment Last Done: 01/29/23 18:40 Discharge Problem: Parkinson disease Qualifiers: Dyskinesia presence: unspecified whether dyskinesia Fluctuating manifestations: unspecified whether manifestations fluctuate Qualified Code(s): G20.A1 - Parkinson's disease without dyskinesia, without mention of fluctuations
[2023-01-29] MEDS ORDERED: SODIUM CHLORIDE 0.9% 1,000 ML IV SCH (12:45)
--- NOTE | 2023-01-29 13:10 | XRay Report ---
XR chest 1V portable CLINICAL HISTORY: weakness COMPARISON STUDY: Chest radiograph April 08, 2020. FINDINGS: Left subclavian biventricular pacer is in place. Note is made of cardiomegaly. There is pul monary vascular congestion without evidence for pulmonary edema. There is no pneumothorax or pleural effusion. Anterior right shoulder dislocation is present. This is new since chest radiograph of 2020. This is age indeterminate given apparent glenoid deformity. Severe left shoulder osteoa rthritis is present. IMPRESSION: 1. Cardiomegaly with pulmonary vascular congestion. 2. Age indeterminate right shoulder anterior dislocation. This is new since chest radiograph of 2020 although may be chronic given adjacent bony deformity. ACT 112: Negative or not required by law. Electronically signed by: Irving Antonio M.D. 01/29/2023 1:08 PM
[2023-01-29 13:13] LABS: Basophils # (auto) 0.04 K/uL (0.00-0.20); Basophils % (auto) 0.7 %; Eosinophils # (auto) 0.16 K/uL (0.00-0.50); Eosinophils % (auto) 2.8 %; Hematocrit (blood only) 41.5 % (37.0-47.0); Hemoglobin 13.3 g/dl (12.0-16.0); Immature Granulocytes # (auto) 0.02 K/uL (0.01-0.20); Immature Granulocytes % (auto) 0.4 %; Lymphocytes % (auto) 22.8 %; Mean Corpuscular Hemoglobin 28.4 pg (25.0-34.0); Mean Corpuscular Volume 88.5 fL (80.0-100.0); Mean Platelet Volume 10.5 fL (9.4-12.4); Monocytes # (auto) 0.34 K/uL (0.11-0.59); Neutrophils # (auto) 3.85 K/uL (1.40-6.50); Neutrophils % (auto) 67.3 %; Platelet Count 253 K/uL (130-400); RDW Coefficient of Variation 13.8 % (11.5-14.5); RDW Standard Deviation 44.3 fL (36.4-46.3); Red Blood Count 4.69 M/uL (4.20-5.40); White Blood Count 5.71 K/ul (4.8-10.8)
[2023-01-29 13:26] LABS: Anion Gap 6 (3-11); BUN Creatinine Ratio 13.3 (10-20); Blood Urea Nitrogen 11 mg/dl (6-23); Calcium 9.4 mg/dl (8.6-10.3); Carbon Dioxide 28 mmol/L (21-32); Chloride 108 mmol/L (98-107); Est GFR (African American) 77.2 ml/min; Est GFR (Non-African American) 66.6 ml/min; Glucose 113 mg/dl (70-99(Fasting)); Potassium 3.8 mmol/L (3.5-5.1); Sodium 142 mmol/L (136-145)
[2023-01-29 13:27] LABS: Alanine Aminotransferase < 3 U/L (7-52); Albumin Globulin Ratio 1.2 (0.9-2); Albumin Level 3.7 gm/dl (3.4-5.0); Alkaline Phosphatase 86 U/L (34-104); Aspartate Aminotransferase 12 U/L (13-39); Bilirubin,Total 0.8 mg/dl (0.2-1.0); Globulin 3.2 gm/dl (2.5-4.0); Lipase 28 U/L (11-82); Magnesium 1.6 mg/dl (1.7-2.4); Phosphorus 2.9 mg/dl (2.5-4.9); Total Protein 6.9 gm/dl (6.0-8.3)
[2023-01-29 14:30] LABS: Adenovirus PCR Not Detected (NotDetected); Bordetella parapertussis PCR Not Detected (NotDetected); Bordetella pertussis PCR Not Detected (NotDetected); Chlamydia pneumoniae PCR Not Detected (NotDetected); Coronavirus 229E PCR Not Detected (NotDetected); Coronavirus HKU1 PCR Not Detected (NotDetected); Coronavirus NL63 PCR Not Detected (NotDetected); Coronavirus OC43PCR Not Detected (NotDetected); Human Metapneumovirus PCR Not Detected (NotDetected); Influenza A PCR Not Detected (NotDetected); Influenza B PCR Not Detected (NotDetected); Mycoplasma pneumoniae PCR Not Detected (NotDetected); Parainfluenza Virus 1 PCR Not Detected (NotDetected); Parainfluenza Virus 2 PCR Not Detected (NotDetected); Parainfluenza Virus 3 PCR Not Detected (NotDetected); Parainfluenza Virus 4 PCR Not Detected (NotDetected); Respiratory Syncytial VirusPCR Not Detected (NotDetected); Rhinovirus/Enterovirus PCR Not Detected (NotDetected)
[2023-01-29 14:32] LABS: Coronavirus CoV-2 (COVID19)PCR DETECTED (NotDetected)
[2023-01-29] MEDS ORDERED: MAGNESIUM SULFATE / D5W 1 GM/100 ML BAG IV STA (15:19)
[2023-01-29 15:44] LABS: Appearance Urine Cloudy (Clear); Bacteria Urine Automated 4+ (Negative); Bilirubin Urine Negative (Negative); Blood Urine Negative (Negative); Color Urine Yellow; Epithelial Cell Urine Auto >30 /lpf (0-5); Glucose Urine UA Negative (Negative); Ketones Urine Trace (Negative); Leukocyte Esterase Urine 2+ (Negative); Nitrite Urine Positive (Negative); Protein Urine Negative (Negative); RBC Urine Automated 0-4 /hpf (0-4); Specific Gravity Urine 1.016 (1.000-1.030); Urobilinogen Urine Negative (Negative)
[2023-01-29 15:57] LABS: Calcium Oxalate Crystals Urine Present (None Prsent)
--- NOTE | 2023-01-29 16:19 | History & Physical Report ---
Date of Service January 29, 2023 Assessment & Plan (1) COVID-19: Plan: -Admit to med/tele on pulse oximetry -Currently stable on RA and relatively asymptomatic -Was noted to be positive on PCR testing in the ED -CXR shows cardiomegaly with pulmonary vascular congestion but without signs of pneumonia -For now will start supportive care with prn tylenol, incentive spirometry, flutter therapy, prn DuoNebs, and prn O2 -Will hold systemic steroids and antivirals at this time as she is not hypoxic -Will obtain ERS and ferritin -Fall precuations -SQ lovenox for DVT PPX -HH/DMII diet -AM CBC, BMP, mag (2) Diarrhea: Plan: -Patient having multiple (5 or more) episodes of non-bloody diarrhea over the past 72 hours -Denies recent abx use, WBC is WNL -She does have a hx of C. diff in the past but will hold abx for now as she is without abdominal pain or leukocytosis -Follow stool studies ordered in the ED -Would wait for stool studies to result prior to ordering antidiarrheal -S/P 1.5L NSS in the ED, will hold additional IV fluids with interstitial pulmonary edema on CXR and patient able to tolerate PO Intake (3) Pulmonary vascular congestion: Plan: -Patient noted to have cardiomegaly and interstitial edema on CXR today -Patient denies hx of CHF but last echo in 2020 shows borderline reduce LVEF -Was hospitalized in 2020 at [facility] for CHF exacerbation per our records -Currently stable on RA but did receive 1.5L NSS in the ED -She has been hemodynamically stable and is not significantly dehydrated on exam -Will give her 20 mg IV lasix on admission has renal function is stable -Will obtain BNP, if elevated will order repeat TTE for tomorrow -Monitor volume status with diuresis as needed (4) UTI (urinary tract infection): Plan: -UA today concerning for possible UTI -Patient confirms she has been experiencing dysuria with recent diarrhea -No previous hx of resistant organisms in our system -Will start Ceftriaxone for now -Follow urine cultures and tailor abx to sensitivities (5) Hypomagnesemia: Plan: -1.6 today -Likely due to diarrhea -Given 1gm IV mag sulfate in the ED -Will give 1gm x 2 bags on admission -Monitor am mag level -Monitor on tele (6) Parkinson disease: Plan: -Continue home Sinemet, gabapentin, Zonisamide, and tramadol -Will give afternoon doses on admission (7) Generalized weakness: Plan: -Likely due to her acute covid 19 infection and diarrhea -Has Parkinson's disease and is nearly bedbound at baseline -Lost her home health nurse approximately one month ago when they quit, currently without home health -PT/OR consults and CM consults placed -Fall precuations (8) Diabetes: Plan: -Has been trying to control with diet -Last A1C in our system is 6.5 on 04/08/20 -Glucose 113 on arrival -Will monitor BSG ACHS, goal is 110-140 -Will start CF 50 ACHS for now, hold basal insulin -Will obtain AM A1c -HH/DMII diet -Adjust regimen as needed (9) Hypertension: Plan: -Stable -Not currently on antihypertensives -Monitor BP with IV diuresis (10) CAD (coronary artery disease): Plan: -Denies chest discomfort -Conitnue daily aspirin Plan The patient was discussed with Dr. Matthews at the time of the admission History of Present Illness Chief Complaint: Nausea, diarrhea, weakness Primary Care Provider: Hien Rodarte DO Carmen is an 78 year old female with a PMH significant for Parkinson's disease, atrioventricular block S/P pacemaker placement, DM, FREDY, HTN, and CAD who presented to the [facility] ED via EMS on 01/29 with complaints of nausea, diarrhea, and generalized weakness. She remained stable while in the ED. Labs were significant for a magnesium of 1.6, UA with cloudy urine, nitrite positive, 2+ leukocyte esterase, 5-10 WBC, 4+ bacteria, and >30 epithelial cells, and full respiratory biofire positive for Covid 19. Chest xray was read as "1. Cardiomegaly with pulmonary vascular congestion. 2. Age indeterminate right shoulder anterior dislocation. This is new since chest radiograph of April 08, 2020 although may be chronic given adjacent bony deformity.". Prior to admission the patient was given 1.5L NSS, 1gm IV mag-sulfate, and 4 mg IV Zofran. At the time of the exam the patient was lying in bed in no acute distress. She states that she started to develop a non-productive cough and multiple episodes of non-bloody diarrhea approximately 3 days ago. Along with these symptoms she has also been experiencing generalized weakness. She denies recent fever, chills, chest pain, hemoptysis, pleuritic chest pain, nausea, vomiting, abd pain, LE swelling, and recent falls/trauma. She has still been able to take her home meds as prescribed. Unfortunately, her last home health nurse quit and her home health agency has been unable to find a replacement at this time. She is almost bed bound at this time and lives with her who is likely has covid 19 as well. She denies recent antibiotic use. She states that she has been having 5 or more episodes of non-bloody diarrhea over the past 3 days. She has been experiencing dysuria since her diarrhea started as she has been having difficulty keeping herself clean. We discussed code status, she explains that she has a living will and is a DNR/DNI. Her Son, Terrell, is her POA and would make medical decisions for her if she cannot make them herself. regarding the chest xray findings of age indeterminate right shoulder anterior dislocation, the patient states that she was unaware of this finding. She states that she falls frequently and has injured both shoulders in the past but never had them evaluated. She states that her right shoulder is without pain and is the arm she uses more often. Her left shoulder causes more pain/discomfort. Please refer to Dr. Matthews's attestation for any changes to the treatment plan Allergies Allergy/AdvReac Type Severity Reaction Status Date / Time cyclobenzaprine Allergy Unknown Verified 01/29/23 16:08 [From Flexeril] flurbiprofen [From Ansaid] Allergy Unknown Verified 01/29/23 16:08 ibuprofen Allergy Unknown Verified 01/29/23 16:08 morphine AdvReac Severe Unknown Verified 01/29/23 16:08 codeine AdvReac Intermediate ITCHY ALL Verified 01/29/23 16:08 OVER atorvastatin AdvReac Mild Myalgias Verified 01/29/23 16:08 Home Medications Medication Instructions Recorded Confirmed Type aspirin 81 mg tablet,delayed 81 mg PO DAILY 11/10/17 01/29/23 History release (Yoel Low Dose Aspirin) vit C 250 mg-vit E 90 mg-zinc 40 2 tab PO DAILY 03/06/21 01/29/23 History mg-copper 1 [id number] capsule (PreserVision AREDS-2) esomeprazole magnesium 20 mg 20 mg PO BID 05/21/21 01/29/23 History capsule,delayed release duloxetine 40 mg capsule,delayed 80 mg PO DAILY 04/11/22 01/29/23 History release ipratropium bromide 42 mcg (0.06 3 spray intranasal TID PRN Nasal 04/11/22 01/29/23 History %) nasal spray Congestion melatonin 10 mg tablet 10 mg PO HS 04/11/22 01/29/23 History meloxicam 15 mg tablet 15 mg PO QAM 04/11/22 01/29/23 History carbidopa 25 mg-levodopa 100 mg 1 tab PO QID 90 days #360 tabs 07/16/22 01/29/23 Rx tablet (Sinemet) carbidopa ER 50 mg-levodopa 200 mg 1 tab PO QAM 90 days #90 tabs 07/16/22 01/29/23 Rx tablet,extended release gabapentin 100 mg capsule 100 mg PO TID 90 days #270 caps 07/16/22 01/29/23 Rx zonisamide 100 mg capsule 100 mg PO HS 90 days #90 caps 07/16/22 01/29/23 Rx clonazepam 1 mg tablet 1 mg PO HS 90 days #90 tabs 01/13/23 01/29/23 Rx tramadol 50 mg tablet 25 mg (1/2 x 50 mg) PO TID 90 days 01/13/23 01/29/23 Rx #135 tabs Past Med/Surg History Medical History Acute dehydration Acute kidney injury Anxiety Anxiety Asthma CAD (coronary artery disease) Complete heart block Depression Diabetes Elevated troponin I level GERD (gastroesophageal reflux disease) Hyperlipidemia Hypertension Morbid obesity with BMI of 60.0-69.9, adult Non-Hodgkin lymphoma NSTEMI (non-ST elevated myocardial infarction) Osteoarthritis Parkinson disease Raynaud phenomenon REM sleep behavior disorder Sleep apnea Surgical History H/O left cataract extraction History of appendectomy History of bilateral tubal ligation History of carpal tunnel release History of cholecystectomy History of hysterectomy History of tonsillectomy History of total knee replacement Hx of cardiac pacemaker Pacemaker Social History Smoking Status: Never smoker Second Hand Exposure: No; Do You Dip or Chew Tobacco: No; Hx Alcohol Use: No Hx Substance Use: No Preferred Language: Wolof Communication Ability: Effective Environmental Services Coordinator Required: No Beliefs That Will Affect Care: None marital status: Current Living Situation: Spouse Current Living Situation Comment: lives with Other Information That Helps Us Care for You: No Feels Safe at Home: Yes Safety Concerns: Feels Safe At This Time Assistive Devices: Denture - Upper, Denture - Lower, Walker and Wheelchair Physical Exam Physical Exam: Physical Exam: General: In no acute distress, stated age, chronically ill-appearing but non- toxic HEENT: Normocephalic, atraumatic, no scleral icterus, pupils around round, symmetrical, and reactive to light, moist mucus membranes, trachea midline, no thyromegaly Chest/Pulm: No respiratory distress, symmetrical chest expansion, decreased breath sounds in the BL lower lung briones, crackles and expiratory wheezing noted in all other lung briones Cardiac: RRR, no murmurs noted Abdomen: Negative for ascites and bruising, normoactive bowel sounds, soft, non-tender to palpation throughout Musculoskeletal: Patient with full ROM of the BL upper extremities. No pain with active ROM of the right shoulder, pain with active ROM of the left shoulder but without limitation of ROM, symmetrical strength in the BL upper extremities Extremities: Radial, dorsalis pedis, and posterior tibial pulses are intact and symmetrical, no edema noted in the BL LE's Skin: Warm, dry, no rashes , lesions, or scars noted Neuro: Alert and oriented to person, place, month, year, and president, no focal defects, baseline tremor noted Psych: No acute distress, calm and cooperative during the exam Results & Data Results & Data Vital Signs (Past 12 Hours) Vital Signs Temp Pulse Pulse Resp BP BP Pulse Ox 01/29/23 15:48 95 01/29/23 15:29 66 18 139/65 95 01/29/23 13:13 60 01/29/23 12:07 36.6 C 78 18 148/70 H 98 O2 Del Method 01/29/23 15:48 Room Air 01/29/23 15:29 Room Air 01/29/23 13:13 01/29/23 12:07 Room Air Laboratory Results Abnormal lab results 01/29/23 01/29/23 Range/Units 12:43 Unknown Chloride 108 H (98-107) mmol/L Glucose 113 H (70-99(Fasting)) mg/dl Magnesium 1.6 L (1.7-2.4) mg/dl AST 12 L (13-39) U/L ALT < 3 L (7-52) U/L Urine Appearance Cloudy A (Clear) Urine Ketones Trace H (Negative) Urine Nitrite Positive A (Negative) Ur Leukocyte Esterase 2+ H (Negative) Urine WBC (Auto) 5-10 H (0-5) /hpf U Epithel Cells (Auto) >30 H (0-5) /lpf Urine Bacteria (Auto) 4+ H (Negative) Calcium Oxalate Crystal Present A (None Prsent) SARS-CoV-2 (PCR) DETECTED A* (NotDetected) Diagnostic Findings Chest X-Ray 01/29/23 12:37 XR chest 1V portable CLINICAL HISTORY: weakness COMPARISON STUDY: Chest radiograph April 08, 2020. FINDINGS: Left subclavian biventricular pacer is in place. Note is made of cardiomegaly. There is pulmonary vascular congestion without evidence for pulmonary edema. There is no pneumothorax or pleural effusion. Anterior right shoulder dislocation is present. This is new since chest radiograph of April 08, 2020. This is age indeterminate given apparent glenoid deformity. Severe left shoulder osteoarthritis is present. IMPRESSION: 1. Cardiomegaly with pulmonary vascular congestion. 2. Age indeterminate right shoulder anterior dislocation. This is new since chest radiograph of April 08, 2020 although may be chronic given adjacent bony deformity. ACT 112: Negative or not required by law. Electronically signed by: Irving Antonio M.D. 01/29/2023 1:08 PM ECG Additional Comments: AV dual-paced rhythm with occasional Premature ventricular complexes Abnormal ECG When compared with ECG of 10-APR-2020 06:48, Premature ventricular complexes are now Present Vent. rate has decreased BY 3 BPM Code Status & VTE Plan Code Status DNR/DNI VTE Prophylaxis Plan VTE Prophylaxis will be ordered: Yes Supervising Physician Co-Signing Physician Notes I personally saw and examined the patient. I verified all hernandez points and agree with Raoul Bey PA-C with the following exceptions and/or additions: 78 year old female presents to the ER with 3 days of cough, diarrhea and generalized weakness. She has been getting physical therapy at home but recent home health nurse quit. No specific urinary complaints. Prior history of c. diff. O/E A&Ox3, b/l resting tremor present, no one sided weakness, normal speech, HS RRR, no murmurs, Chest CTAB, Abdo SNT, no CVA tenderness A/P COVID-19 - symptomatic treatment only, isolation precautions, defer antivirals as 3 days into illness and she reports improving from COVID standpoint other than the generalized weakness, PT/OT Diarrhea - pt reports improving, ?secondary to COVID-19. Stool, c. diff PCR pending Otherwise as above PG Care Time/CCT Total # of Minutes Spent Total Time Spent with Patient: Total time spent is greater than 50% in coordination of care (as documented) at patient's floor/unit and/or counseling patient: C[place] [id number] INT INP/OBS CARE 2/55MIN Patient Type Established Medical Decision Making Moderate Complexity Diagnoses COVID-19 U07.1 Diarrhea A09 Diarrhea type: infectious Pulmonary vascular congestion R09.89 UTI (urinary tract infection) N39.0 Hypomagnesemia E83.42 Parkinson disease G20 Generalized weakness R53.1 Type 2 diabetes mellitus without complication, without long-term current use of insulin E11.9 Diabetes mellitus complication status: without complication Diabetes mellitus ocean transportation intermediary insulin use: without assisted use Diabetes mellitus type: type 2 Primary hypertension I10 Hypertension type: primary hypertension Coronary artery disease involving [place] coronary artery of [place] heart without angina pectoris I25.10 Associated angina: without angina Coronary Disease-Associated Artery/Lesion type: [place] artery [place] vs. transplanted heart: [place] heart (2) Diarrhea Diarrhea type: infectious Qualified Code(s): A09 - Infectious gastroenteritis and colitis, unspecified (8) Diabetes Diabetes mellitus complication status: without complication Diabetes mellitus ocean transportation intermediary insulin use: without ocean transportation intermediary use Diabetes mellitus type: type 2 Qualified Code(s): E11.9 - Type 2 diabetes mellitus without complications (9) Hypertension Hypertension type: primary hypertension Qualified Code(s): I10 - Essential (primary) hypertension (10) CAD (coronary artery disease) Associated angina: without angina Coronary Disease-Associated Artery/Lesion type: [place] artery [place] vs. transplanted heart: [place] heart Qualified Code(s): I25.10 - Atherosclerotic heart disease of [place] coronary artery without angina pectoris
[2023-01-29] MEDS ORDERED: ALBUT/IPRATROP 3MG/0.5MG NEB 3 ML VIAL NEB STA (16:41)
[2023-01-29] MEDS ORDERED: CARBIDOPA/LEVODOPA 25/100MG TAB PO STA (16:41)
[2023-01-29] MEDS ORDERED: cefTRIAXone SODIUM 2,000 MG in DEXTROSE 5 % MINI-B 50 ML IV STA (16:41)
[2023-01-29] MEDS ORDERED: guaiFENesin SUGAR FREE 200 MG/10 ML UDC PO PRN (16:44)
[2023-01-29] MEDS ORDERED: COUGH DROP (SUGAR FREE) LOZ 24 LOZ/1 BOX BUCCAL PRN (16:44)
[2023-01-29] MEDS ORDERED: FUROSEMIDE INJ 20 MG/2 ML VIAL IV ONE (16:46)
[2023-01-29] MEDS ORDERED: CARBOHYDRATES FOR HYPOGLYCEMIA PO PRN (17:00)
[2023-01-29] MEDS ORDERED: DEXTROSE 50% 50 ML SYRINGE IV PRN (17:00)
[2023-01-29] MEDS ORDERED: GLUCOSE 10 TAB/TUBE PO PRN (17:00)
[2023-01-29] MEDS ORDERED: GLUCAGON FOR INJ 1 MG VIAL SQ PRN (17:00)
[2023-01-29] MEDS ORDERED: GLUCOSE 40% GEL 15 GM TUBE PO PRN (17:00)
[2023-01-29 17:12] LABS: C Reactive Protein < 0.50 mg/dl (0-0.5)
[2023-01-29] MEDS ORDERED: ACETAMINOPHEN 325 MG TAB PO PRN (17:15)
[2023-01-29 17:25] LABS: Ferritin 32.2 ng/ml (8-388)
[2023-01-29] MEDS: MAGNESIUM SULFATE / D5W 1 GM/100 ML BAG IV SCH ×2 (18:05→19:16)
[2023-01-29] MEDS: CARBIDOPA/LEVODOPA 25/100MG TAB PO SCH ×2 (18:47→22:52)
[2023-01-29] MEDS: ENOXAPARIN INJ 40 MG/0.4 ML SYR SQ SCH (19:16)
[2023-01-29] MEDS: ALBUT/IPRATROP 3MG/0.5MG NEB 3 ML VIAL NEB SCH (21:12)
[2023-01-29] MEDS: INSULIN ASPART PER UNIT CHARGE SC SCH (21:17)
--- OUTSIDE RECORDS SUMMARY | 2023-01-29 21:50 | External Medical Summary | Continuity of Care Document ---
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 Role Phone Anita Leach Viv Primary Care Physician [phone] Encounter [facility] [id number] Date(s): 09/23/22 - 09/23/[address] [phone] Discharge Disposition: Home or Self Care Attending Physician: MERI Andrade Sheena M Referring Physician: MERI Andrade Sheena M Allergies, Adverse Reactions, Alerts Substance Reaction Severity Status codeine Itching Active Immunizations Given and Recorded Vaccine Date Status Refusal Reason influenza virus vaccine, inactivated 12/29/18 Give n influenza virus vaccine, inactivated 12/09/17 Give n influenza virus vaccine, inactivated 02/03/17 Give n pneumococcal 13-valent vaccine 12/09/17 Given tetanus/diphtheria/pertuss, acel (Tdap) 12/28/12 R ecorded pneumococcal 23-valent vaccine 11/25/08 Recorded Medications Aspirin Low Dose 81 mg oral enteric coated tablet Start: 07/24/10 10:57:00, 1 tab, PO, Daily, tab Start Date: 07/24/10 Status: Ordered carbidopa-levodopa 25 mg-100 mg oral tablet Start: 11/27/21 11:59:00 EDT, 1 tab, PO, qid, Disp# 360 tab, Refills: 3, [facility] Start Date: 11/27/21 Status: Ordered clonazePAM 1 mg oral tablet Start: 05/24/22 16:59:00 EDT, 1 tab, PO, qhs, Disp# 30 tab, Refills: 0, Pharmacy: [facility] Start Date: 05/24/22 Stop Date: 06/23/22 Status: Ordered DULoxetine 40 mg oral delayed release capsule Start: 11/27/21 11:59:00 EDT, 2 cap, PO, Daily, Disp# 180 cap, Refills: 3, Pharmacy: [facility] Start Date: 11/27/21 Stop Date: 11/22/22 Status: Ordered furosemide 40 mg oral tablet Start: 11/27/21 12:00:00 EDT, 1.5 tab, PO, Daily, Disp# 135 tab, Refills: 3, Pharmacy: [facility] Start Date: 11/27/21 Stop Date: 11/22/22 Status: Ordered gabapentin 100 mg oral capsule Start: 11/27/21 12:03:00 EDT, 1 cap, PO, tid, Disp# 270 cap, Refills: 3, Pharmacy: [facility] Start Date: 11/27/21 Stop Date: 11/22/22 Status: Ordered ibuprofen Start: 07/02/22 8:58:00 EDT, 200 mg 4 times daily since she is out of tramadol Start Date: 07/02/22 Status: Ordered ipratropium 42 mcg/inh (0.06%) nasal spray Start: 03/08/22 11:47:00 EST, See Instructions, Disp# 105 mL, Refills: 1, USE 2 SPRAYS IN EACH NOSTRIL 3 TIMES DAILY NEEDED FOR COLD SYMPTOMS, Pharmacy: [facility] Start Date: 03/08/22 Status: Ordered melatonin Start: 06/10/19 13:00:00 EDT, See Instructions, 20mg Start Date: 06/10/19 Status: Ordered meloxicam 15 mg oral tablet Start: 03/18/22 12:00:00 EST, See Instructions, Disp# 90 tab, Refills: 0, TAKE 1 TABLET DAILY, Pharmacy: [facility] Start Date: 03/18/22 Status: Ordered pantoprazole 20 mg oral delayed release tablet Start: 08/05/22 16:58:00 EDT, 1 tab, PO, bid, Disp# 180 tab, Note to Pharmacy: Replacing Nexium, Pharmacy: [facility] Start Date: 08/05/22 Stop Date: 11/03/22 Status: Ordered PreserVision oral tablet Start: 12/09/17 14:47:00 EDT, 1 tab, PO, Daily Start Date: 12/09/17 Status: Ordered Sinemet CR 50 mg-200 mg oral tablet, extended release Start: 11/27/21 11:59:00 EDT, 1 tab, PO, Daily, Disp# 90 tab, X 90 day, Refills: 3, Stop: 11/22/22 11:59:00 EDT, Pharmacy: [facility] Start Date: 11/27/21 Stop Date: 11/22/22 Status: Ordered traMADol 50 mg oral tablet Start: 07/11/22 20:39:00 EDT, 0.5 tab, PO, tid, Disp# 45 tab, Refills: 0, PRN: as needed for pain, Pharmacy: [id number] Start Date: 07/11/22 Status: Ordered traMADol 50 mg oral tablet Start: 07/11/22 20:39:00 EDT, 0.5 tab, PO, tid, Disp# 135 tab, Refills: 3, PRN: as needed for pain,Pharmacy: [facility] Start Date: 07/11/22 Status: Ordered Vitamin B Complex Start: 07/02/22 8:59:00 EDT Start Date: 07/02/22 Status: Ordered Vitamin D3 2000 intl units oral tablet Start: 07/24/10 11:04:00, 1 tab, PO, Daily, tab Start Date: 07/24/10 Status: Ordered zonisamide 100 mg oral capsule Start: 11/27/21 12:05:00 EDT, 1 cap, PO, Daily, Disp# 90 cap, Refills: 3, Pharmacy: [facility] Start Date: 11/27/21 Stop Date: 11/22/22 Status: Ordered Problem List Condition Confirmation Course Effective Dates Status H ealth Status Informant Gait abnormality Confirmed Active Anxiety Confirmed Active ASTHMA, UNSPECIFIED TYPE, WITH STATUS ASTHMATICUS Confirmed Active CAD Confirmed Active Atrioventricular block, complete Confirmed Active Complete heart block Confirmed Active DEPRESSION Confirmed Active Lower extremity edema Confirmed Active Foot callus Confirmed Active GERD Confirmed Active Lumbar spondylosis Confirmed Active Lower extremity weakness Confirmed Active Non Hodgkin's lymphoma Confirmed Active PARKINSON'S DISEASE Confirmed Active Weight disorder Confirmed Active Diagnosis Diagnosis Type Effective Dates Health Status Clinical Service Informant Gait difficulty 09/23/22 Non-Specified Lumbar spondylosis 09/23/22 Non-Specifi ed Paresthesia of foot 09/23/22 Non-Specified Procedures Procedure Date Related Diagnosis Body Site Status CT of head / brain 1 05/05/20 Comp leted Cardiac catheterization procedure 2 04/10/20 Completed Cardiac catheterization 3 04/08/20 Completed Chest x-ray 4 04/08/20 Completed Endoscopy upper GIi 06/22/15 Compl eted Upper GI endoscopy 5, 6 06/22/15 C ompleted Mammogram 12/13/14 Completed Colonoscopy 7 04/22/08 Completed 1Impression: No acute intracranial findings. 2[facility] Impression: 1.Some narrowing of the coronary arteries. None obstructed 3Coronary angiography and left heart cath. 4[facility] Impression: 1. Mild cardiomegaly with pulmonary vascular congestion and an apparent left basilar opacity wich is probably artifactual 5Pathology: Stomach, polyps, biopsy: single fragment of inflamed fundic gland type polyp. 6A medium-sized hiatus hernia was present. Multiple 3 to 9 mm sessile polups with no stigmata of recent bleeding were found in the gastric fundus. Biopsies were taken with a cold forceps for histology. The examined duodenum was normal. Await pathology results. 7Repeat in 10 years for screening purposes Diverticulosis in the sigmoid colon Examination was otherwise normal to cecum Results Radiology Reports * Exam Date Time Procedure Performing Provider Status 09/23/22 10:04 AM MRI Spine Lumbar w/o Contrast Sharad Ernst ttrafa J; Final Notes: (MRI Spine Lumbar w/o Contrast) Reason For Exam: Abnormal T12- L1; neg for infection. MRI Spine Lumbar w/o Contrast EXAMINATION: MR OF THE LUMBAR SPINE WITHOUT CONTRAST CLINICAL HISTORY: Unspecified abnormalities of gait and mobility COMPARISON: Priors including MRI thoracic spine 12/21/2021 TECHNIQUE: Multiplanar, multisequence MR of the lumbar spine was performed without intravenous contrast. FINDINGS: Alignment: Retrolisthesis of T12 on L1 and L5 on S1 by approximately 4 mm. Vertebrae: At T12-L1, again seen is type III endplate degenerative changes with adjacent area of STIR hyperintensity in the anterior T12 vertebral body. Type II endplate degenerative changes at L3-L4. Conus/cauda equina roots: Myelomalacia in the distal conus medullaris at T12. Tip of the conus medullaris is at superior plate of L1. First nonrib-bearing vertebra is counted as L1. Pre-, Para-, posterior vertebral tissues: Unremarkable Axial interbody analysis: T12-L1: Circumferential disc bulge with retrolisthesis and facet arthropathy resulting in severe right and moderate to severe left neural foraminal stenosis. Posterior disc bulge with Thickening of ligamentum flavum with facet hypertrophy resulting in moderate to severe central canal stenosis at this level. L1-L2: Disc bulge with facet arthropathy resulting in moderate bilateral neural foraminal stenosis and mild central canal stenosis. L2-L3: Posterior disc bulge with facet arthropathy resulting in moderate bilateral neural foraminalstenosis and mild to moderate central canal stenosis. L3-L4: Disc bulge with facet arthropathy resulting in moderate bilateral left moderate neural foraminal stenosis and moderate thecal sac stenosis. L4-L5: Disc bulge with facet arthropathy setting mild to moderate bilateral foraminal stenosis and mild central canal stenosis. L5-S1: Left asymmetric disc bulge and facet arthropathy resulting in moderate bilateral neural foraminal stenosis and mild central canal stenosis. IMPRESSION: 1. Degenerative changes in the lumbar spine most conspicuous at T12-L1 with moderate to severe central canal stenosis stable since 12/21/2021. 2. Myelomalacia in the distal conus medullaris at T12 unchanged. Workstation ID: [id number] Final Dictated by:MD Gonzalez T Thomas Dictated DT/TM:09/25/2022 4:08 Signed by:MD Gonzalez T Thomas Signed (Electronic Signature):09/25/2022 4:07 p * Exam Date Time Procedure Performing Provider Status 09/23/22 8:51 AM XR Chest 2 Views Ana Fletcher Notes: (XR Chest 2 Views) Reason For Exam: confirm lead placement, and no abandoned hardware before MRI XR Chest 2 Views EXAMINATION: XR Chest 2 Views CLINICAL HISTORY: confirm lead placement, and no abandoned hardware before MRI COMPARISON: Chest radiographs 12/21/2021 and 10/16/2021. FINDINGS: Upright PA and lateral views the chest. Left subclavian approach pacemaker with lead tips in the right atrium and right ventricle, unchanged position. No lead discontinuity or abandoned lead. Normal cardiopericardial silhouette. Normal pulmonary vasculature. No focal parenchymal opacity. No pleuraleffusion. No pneumothorax. No acute osseous abnormality. Chronic right shoulder dislocation. Severedegenerative changes in the left shoulder. Multilevel degenerative changes in the spine. IMPRESSION: Intact pacemaker with appropriately positioned leads. Workstation ID: [id number] Final Dictated by:DO Morgan Matthew D Dictated DT/TM:09/23/2022 9:45 Signed by:DO Morgan Matthew D Signed (Electronic Signature):09/23/2022 9:44 a Vital Signs Most recent to oldest [Reference Range]: 1 2 3 Heart Rate 80 bpm (09/23/22 10:06 AM) 76 bpm (09/23/22 9:50 AM) 80 bpm (09/23/22 9:40 AM) Social History Social History Type Response Smoking Status Never smoked cigaret alexander Sex Female Implantable Device List Procedure Provider Procedure Date Device Type Site Unknown Unknown 06/20/15 Non Biological Chest Device Identifier Serial Number Lot or Batch Number Manufacturing Date Expiration Date Distinct Identification Code MRI Safety Implantable Status Assigning Authority Unknown 1 [id number] Unknown Unknown Unknown Unknown MR Unsafe Active Unknown 1Leads:RA - [employer] - #4592/53 - CapSure SP [employer] - SN:[id number] - 05/20/2007RV - [employer] - #4092/58 - CapSure SP [employer] - SN:[id number] - 06/20/2015 Radiology * Event Display: Cardiac Device Check Authored Date: Please click on link to see image. * Event Display: Cardiac Device Check Authored Date: Please click on link to see image. XR Chest 2 Views * DO Morgan Matthew D: VERIFY, VERIFY DO Morgan Matthew D: VERIFY Contributor_system, [id number]: PERFORM Event Display: Report Authored Date: [id number] EXAMINATION: XR Chest 2 Views CLINICAL HISTORY: confirm lead placement, and no abandoned hardware before MRI COMPARISON: Chest radiographs 12/21/2021 and 10/16/2021. FINDINGS: Upright PA and lateral views the chest. Left subclavian approach pacemaker with lead tips in the right atrium and right ventricle, unchanged position. No lead discontinuity or abandoned lead. Normal cardiopericardial silhouette. Normal pulmonary vasculature. No focal parenchymal opacity. No pleuraleffusion. No pneumothorax. No acute osseous abnormality. Chronic right shoulder dislocation. Severedegenerative changes in the left shoulder. Multilevel degenerative changes in the spine. IMPRESSION: Intact pacemaker with appropriately positioned leads. Workstation ID: [id number] Final Dictated by:DO Morgan Matthew D Dictated DT/TM:09/23/2022 9:45 Signed by:DO Morgan Matthew D Signed (Electronic Signature):09/23/2022 9:44 a MR Lumbar spine WO contrast * MD Gonzalez T Thomas: VERIFY, VERIFY MD Gonzalez T Thomas: VERIFY Contributor_system, [id number]: PERFORM Event Display: Report Authored Date: EXAMINATION: MR OF THE LUMBAR SPINE WITHOUT CONTRAST CLINICAL HISTORY: Unspecified abnormalities of gait and mobility COMPARISON: Priors including MRI thoracic spine 12/21/2021 TECHNIQUE: Multiplanar, multisequence MR of the lumbar spine was performed without intravenous contrast. FINDINGS: Alignment: Retrolisthesis of T12 on L1 and L5 on S1 by approximately 4 mm. Vertebrae: At T12-L1, again seen is type III endplate degenerative changes with adjacent area of STIR hyperintensity in the anterior T12 vertebral body. Type II endplate degenerative changes at L3-L4. Conus/cauda equina roots: Myelomalacia in the distal conus medullaris at T12. Tip of the conus medullaris is at superior plate of L1. First nonrib-bearing vertebra is counted as L1. Pre-, Para-, posterior vertebral tissues: Unremarkable Axial interbody analysis: T12-L1: Circumferential disc bulge with retrolisthesis and facet arthropathy resulting in severe right and moderate to severe left neural foraminal stenosis. Posterior disc bulge with Thickening of ligamentum flavum with facet hypertrophy resulting in moderate to severe central canal stenosis at this level. L1-L2: Disc bulge with facet arthropathy resulting in moderate bilateral neural foraminal stenosis and mild central canal stenosis. L2-L3: Posterior disc bulge with facet arthropathy resulting in moderate bilateral neural foraminalstenosis and mild to moderate central canal stenosis. L3-L4: Disc bulge with facet arthropathy resulting in moderate bilateral left moderate neural foraminal stenosis and moderate thecal sac stenosis. L4-L5: Disc bulge with facet arthropathy setting mild to moderate bilateral foraminal stenosis and mild central canal stenosis. L5-S1: Left asymmetric disc bulge and facet arthropathy resulting in moderate bilateral neural foraminal stenosis and mild central canal stenosis. IMPRESSION: 1. Degenerative changes in the lumbar spine most conspicuous at T12-L1 with moderate to severe central canal stenosis stable since 12/21/2021. 2. Myelomalacia in the distal conus medullaris at T12 unchanged. Workstation ID: [id number] Final Dictated by:MD Gonzalez T Thomas Dictated DT/TM:09/25/2022 4:08 Signed by:MD Gonzalez T Thomas Signed (Electronic Signature):09/25/2022 4:07 p Patient Care team information Care Team Personnel Name: MD Hany, Anita Nam Position: Physician Member Role: Primary Care Provider Address: Address: [address] [place] [address] Care Team Related Persons Name: ADA ROYAL Address: home [address] [place] [address] [phone] Name: ADA ROYAL Address: home [address] [place] [address] [phone] Name: ADA ROYAL E Address: [facility] Address: home [address] [place] [address] [phone]
--- OUTSIDE RECORDS SUMMARY | 2023-01-29 21:50 | External Medical Summary | Continuity of Care Document ---
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 Name Role Phone Anita Leach Primary Care Physician [phone] Encounter [facility] [id number] Date(s): 11/06/22 - 11/06/[address], [address] [address] [place] [phone] Encounter Diagnosis Lumbar spondylosis(Discharge Diagnosis) - 11/06/22 Anxiety(Discharge Diagnosis) - 11/06/22 Gait abnormality(Discharge Diagnosis) - 11/06/22 DEPRESSION(Discharge Diagnosis) - 11/06/22 CAD(Discharge Diagnosis) - 11/06/22 Asthma(Discharge Diagnosis) - 11/06/22 Complete heart block(Discharge Diagnosis) - 11/06/22 Non Hodgkin's lymphoma(Discharge Diagnosis) - 11/06/22 Atrioventricular block, complete(Discharge Diagnosis) - 11/06/22 Lower extremity edema(Discharge Diagnosis) - 11/06/22 PARKINSON'S DISEASE(Discharge Diagnosis) - 11/06/22 Discharge Disposition: Home or Self Care Attending Physician: Afshan Rodarte DO, Mariana Annette Referring Physician: Afshan Rodarte DO, Mariana Annette Allergies, Adverse Reactions, Alerts Substance Reaction Severity Status codeine Itching Active Assessment and Plan Extracted from: Title:TeleHealth Visit Note Author:Afshan stanford DO, Mariana Annette Date:11/06/22 1.PARKINSON'S DISEASE STATUS:Chronic stable. DATA:notes reviewed. GOAL:Maintain stability. PLAN:managed by neurology 2.Lumbar spondylosis 3.Gait abnormality STATUS:Chronic stable. DATA:notes reviewed. GOAL:Maintain stability. PLAN:currently undergoing workup with neurosurgery. Will add home PT for more gait training to prevent falls. 4.Anxiety 5.DEPRESSION STATUS:Chronic uncontrolled DATA:notes reviewed. GOAL:symptom improvement. PLAN:restart cymbalta at 20mg 6.Asthma STATUS:Chronic stable. DATA:notes reviewed. GOAL:Maintain stability. PLAN:well controlled, avoid triggers 7.CAD STATUS:Chronic stable. DATA:notes reviewed. GOAL:Maintain stability. PLAN:continue monitoring, f/u with cardiology 8.Complete heart block 9.Atrioventricular block, complete STATUS:Chronic stable. DATA:notes reviewed. GOAL:Maintain stability. PLAN:continue monitoring, f/u with cardiology 10.Non Hodgkin's lymphoma STATUS:Chronic stable. DATA:notes reviewed. GOAL:Maintain stability. PLAN:continue monitoring 11.Lower extremity edema STATUS:Chronic stable. DATA:notes reviewed. GOAL:Maintain stability. PLAN:stop lasix as not helping, compression and elevation as able. f/u in 3 months Immunizations Given and Recorded Vaccine Date Status [...] qid, Disp# 360 tab, Refills: 3, Pharmacy: [facility] Start Date: 11/27/21 Status: Ordered carbidopa-levodopa 25 mg-100 mg oral tablet Start: 11/06/22 15:06:00 EDT, 1 tab, PO, qid Start Date: 11/06/22 Status: Ordered clonazePAM 1 mg oral tablet Start: 05/24/22 16:59:00 EDT, 1 tab, PO, qhs, Disp# 30 tab, Refills: 0, Pharmacy: [facility] Start Date: 05/24/22 Stop Date: 06/23/22 Status: Ordered Cymbalta 20 mg oral delayed release capsule Start: 11/06/22 15:26:00 EDT, 1 cap, PO, Daily, Disp# 90 cap, Refills: 3, Pharmacy: [facility] Start Date: 11/06/22 Status: Ordered gabapentin 100 mg oral capsule Start: 11/27/21 12:03:00 EDT, 1 cap, PO, tid, Disp# 270 cap, Refills: 3, Pharmacy: [facility] Start Date: 11/27/21 Stop Date: 11/22/22 Status: Ordered ipratropium 42 mcg/inh (0.06%) nasal spray Start: 03/08/22 11:47:00 EST, See Instructions, Disp# 105 mL, Refills: 1, USE 2 SPRAYS IN EACH NOSTRIL 3 TIMES DAILY NEEDED FOR COLD SYMPTOMS, Pharmacy: [facility] Start Date: 03/08/22 Status: Ordered melatonin Start: 06/10/19 13:00:00 EDT, See Instructions, 20mg Start Date: 06/10/19 Status: Ordered meloxicam 15 mg oral tablet Start: 03/18/22 12:00:00 EST, See Instructions, Disp# 90 tab, Refills: 0, TAKE 1 TABLET DAILY, Pharmacy: [facility] Start Date: 03/18/22 Status: Ordered PreserVision oral tablet Start: 12/09/17 14:47:00 EDT, 1 tab, PO, Daily Start Date: 12/09/17 Status: Ordered Sinemet CR 50 mg-200 mg oral tablet, extended release Start: 11/27/21 11:59:00 EDT, 1 tab, PO, Daily, Disp# 90 tab, X 90 day, Refills: 3, Stop: 11/22/22 11:59:00 EDT, Pharmacy: [facility] Start Date: 11/27/21 Stop Date: 11/22/22 Status: Ordered traMADol 50 mg oral tablet Start: 07/11/22 20:39:00 EDT, 0.5 tab, PO, tid, Disp# 45 tab, Refills: 0, PRN: as needed for pain, Pharmacy: [facility]/pharmacy #[id number] Start Date: 07/11/22 Status: Ordered Vitamin B Complex Start: 07/02/22 8:59:00 EDT Start Date: 07/02/22 Status: Ordered Vitamin D3 2000 intl units oral tablet Start: 07/24/10 11:04:00, 1 tab, PO, Daily, tab Start Date: 07/24/10 Status: Ordered zonisamide 100 mg oral capsule Start: 11/27/21 12:05:00 EDT, 1 cap, PO, Daily, Disp# 90 cap, Refills: 3, Pharmacy: [facility] Start Date: 11/27/21 Stop Date: 11/22/22 Status: Ordered Problem List Condition Confirmation Course Effective Dates Status H ealth Status Informant Gait abnormality Confirmed Active Anxiety Confirmed Active Asthma Confirmed Active CAD Confirmed Active Atrioventricular block, complete Confirmed Active Complete heart block Confirmed Active DEPRESSION Confirmed Active Lower extremity edema Confirmed Active GERD Confirmed Active Lumbar spondylosis Confirmed Active Lower extremity weakness Confirmed Active Non Hodgkin's lymphoma Confirmed Active PARKINSON'S DISEASE Confirmed Active Weight disorder Confirmed Active Diagnosis Diagnosis Type Effective Dates Health Status Clinical Service Informant Anxiety Discharge Diagnosis 11/06/22 Atrioventricular block, complete Discharge Diagnosis 11/06/22 Asthma Discharge Diagnosis 11/06/22 CAD Discharge Diagnosis 11/06/22 Complete heart block Discharge Diagnosis 11/06/22 DEPRESSION Discharge Diagnosis 11/06/22 Gait abnormality Discharge Diagnosis 11/06/22 Lumbar spondylosis Discharge Diagnosis 11/06/22 Non Hodgkin's lymphoma Discharge Diagnosis 11/06/22 PARKINSON'S DISEASE Discharge Diagnosis 11/06/22 Lower extremity edema Discharge Diagnosis 11/06/22 Procedures Procedure Date Related Diagnosis Body Site Status CT of head / brain 1 05/05/20 Comp leted Cardiac catheterization procedure 2 04/10/20 Completed Cardiac catheterization 3 04/08/20 Completed Chest x-ray 4 04/08/20 Completed Endoscopy upper GIi 06/22/15 Compl eted Upper GI endoscopy , 6 06/22/15 C ompleted Mammogram 12/13/14 Completed Colonoscopy 7 04/22/08 Completed 1Impression: No acute intracranial findings. 2[facility] Impression: 1.Some narrowing of the coronary arteries. None obstructed 3Coronary angiography and left heart cath. 4[facility] Impression: 1. Mild cardiomegaly with pulmonary vascular [...] colon Examination was otherwise normal to cecum Social History Social History Type Response Smoking Status Never smoked cigaret alexander Sex Female Implantable Device List Procedure Provider Procedure Date Device Type Site Unknown Unknown 06/20/15 Non Biological Chest Device Identifier Serial Number Lot or Batch Number Manufacturing Date Expiration Date Distinct Identification Code MRI Safety Implantable Status Assigning Authority Unknown 1 [id number] Unknown Unknown Unknown Unknown MR Unsafe Active Unknown 1Leads:RA - [employer] - #4592/53 - CapSure SP Novus - SN:[id number] - 05/20/2007RV - [employer] - #4092/58 - CapSure SP Novus - SN:[id number] - 06/20/2015 [facility]CM Outpt Note * Afshan Rodarte DO, Mariana Annette: PERFORM Event Display: FCM Outpt Note Authored Date: [id number] TeleHealth Visit Note I have confirmed the patients name and date of . The patient has consented to this service,and I have advised the patient that this is a billable visit for which they may be subject to a copay. [X ] The patient has initiated this visit after he/she was informed of the availability of telehealth for this medically necessary visit. [ _ ] The provider initiated this visit after explaining the need for this visit to the patient, who has consented to this virtual visit. I am located at my: [X ] Office [ _ ] Home [ _ ] Other: _ The patient is located at: [X ] Home [ _ ] Other: _ This visit was conducted via live audio/video technology: [X ] [facility] [ _ ] Zoom This visit was conducted via [ _ ] Telephone, and was not related to a visit or procedure that occurred within the past 7 days. Telephone Only Visit: Reason for audio only visit was [ _ ] no internet connection available [ _ ] Other: _. Total time spent communicating with the patient:27 minutes Chief Complaint medication review History of Present Illness 77 yoF with PMH of heart block, hx of non hodgkin's lymphoma, anxiety, depression, asthma, CAD, Parkinson's disease, hx of falls. Presents for chronic condition management. On tramadol for chronic back pain. At last visit advised to add tylenol and ibuprofen but statesthis did not help and was restarted on tramadol by neurology. Has been following with neurosurgery at [facility], has spinal stenosis and was also noted to have a mass in her upperback. Has a CT scan coming up next month. PD - follows with neurology (Dr. Morley), on sinemet, zonisamideand clonazepam Lumbar spondylosis - follows with neurosurgery, on tramadol and gabapentin Gait abnormality - has had falls, none recent but states hashad a number of falls since being [facility]. No longer getting PT, unable to get out of the house without maximal effort as she is mostly in a wheelchair.Currently has caregiver 4 hrs a day, her agency dropped herso she is paying out of pocket. She spoke to a corrections caseworker and they stated they would look into other agencies for her. Anxiety/Depression - still struggling with this, states cymbalta was stopped at [facility] but unsure of reason. Asthma - well controlled, triggered by GERD CAD- on asa Heart block - has pacemaker, follows with cardiology Has been on lasix for swelling in her feet. Doesn't seem to help. Physical Exam General: _Alert and oriented, No acute distress Respiratory: _Respirations are non-labored Psych: Mood-affect congruence. Reports no SI/HI. Speech is of normal pace and content Assessment/Plan 1.PARKINSON'S DISEASE STATUS:Chronic stable. DATA:notes reviewed. GOAL:Maintain stability. PLAN:managed by neurology 2.Lumbar spondylosis 3.Gait abnormality STATUS:Chronic stable. DATA:notes reviewed. GOAL:Maintain stability. PLAN:currently undergoing workup with neurosurgery. Will add home PT for more gait training to prevent falls. 4.Anxiety 5.DEPRESSION STATUS:Chronic uncontrolled DATA:notes reviewed. GOAL:symptom improvement. PLAN:restart cymbalta at 20mg 6.Asthma STATUS:Chronic stable. DATA:notes reviewed. GOAL:Maintain stability. PLAN:well controlled, avoid triggers 7.CAD STATUS:Chronic stable. DATA:notes reviewed. GOAL:Maintain stability. PLAN:continue monitoring, f/u with cardiology 8.Complete heart block 9.Atrioventricular block, complete STATUS:Chronic stable. DATA:notes reviewed. GOAL:Maintain stability. PLAN:continue monitoring, f/u with cardiology 10.Non Hodgkin's lymphoma STATUS:Chronic stable. DATA:notes reviewed. GOAL:Maintain stability. PLAN:continue monitoring 11.Lower extremity edema STATUS:Chronic stable. DATA:notes reviewed. GOAL:Maintain stability. PLAN:stop lasix as not helping, compression and elevation as able. f/u in 3 months Attestation Time spent: Pre-visit plannin Zack-hz-kizc visit: 27 Post-visit (orders/documentation/coordination of care):5 Total visit time: 42 Problem List/Past Medical History Ongoing Anxiety Asthma Atrioventricular block, complete CAD Complete heart block DEPRESSION Gait abnormality GERD Lower extremity edema Lower extremity weakness Lumbar spondylosis Non Hodgkin's lymphoma PARKINSON'S DISEASE Weight disorder Historical Has a tremor Left ankle pain Lymphoma Parkinsons disease Procedure/Surgical History CT of head / brain (05/05/2020)Cardiac catheterization procedure (04/10/2020)Chest x-ray (04/08/2020)Cardiac catheterization (04/08/2020)Endoscopy upper GIi (06/22/2015)Upper GI endoscopy (06/22/2015)Mammogram (12/13/2014)Colonoscopy (04/22/2008) Medications aspirin(Aspirin Low Dose 81 mg oral enteric coated tablet), 1 tab, PO, Daily carbidopa-levodopa(Sinemet CR 50 mg-200 mg oral tablet, extended release), 1 tab, PO, Daily, 3 refills carbidopa-levodopa(carbidopa-levodopa 25 mg-100 mg oral tablet), 1 tab, PO, qid, 3 refills carbidopa-levodopa(carbidopa-levodopa 25 mg-100 mg oral tablet), 1 tab, PO, qid cholecalciferol(Vitamin D3 2000 intl units oral tablet), 2000 Int_Unit= 1 tab, PO, Daily clonazePAM(clonazePAM 1 mg oral tablet), 1 mg= 1 tab, PO, qhs DULoxetine(Cymbalta 20 mg oral delayed release capsule), 20 mg= 1 cap, PO, Daily, 3 refills gabapentin(gabapentin 100 mg oral capsule), 100 mg= 1 cap, PO, tid, 3 refills ipratropium nasal(ipratropium 42 mcg/inh (0.06%) nasal spray), See Instructions melatonin, See Instructions meloxicam(meloxicam 15 mg oral tablet), See Instructions multivitamin(Vitamin B Complex) multivitamin with minerals(PreserVision oral tablet), 1 tab, PO, Daily traMADol(traMADol 50 mg oral tablet), 25 mg= 0.5 tab, PO, tid, PRN zonisamide(zonisamide 100 mg oral capsule), 100 mg= 1 cap, PO, Daily, 3 refills Allergies codeineItching Social History Smoking Status Never smoked cigarettes Tobacco - Denies Tobacco Use Use:Never smoker Type:Cigarettes Family History Family history is negative Immunizations Vaccine Date Status influenza virus vaccine, inactivated 12/29/2018 Given influenza virus vaccine, inactivated 12/09/2017 Given pneumococcal 13-valent vaccine - Not Given Comments : Expectation Not Necessary influenza virus vaccine, inactivated - Not Given Comments : Already received vaccine pneumococcal 13-valent vaccine 12/09/2017 Given influenza virus vaccine, inactivated 02/03/2017 Given tetanus/diphtheria/pertuss, acel (Tdap) 12/28/2012 Recorded pneumococcal 23-valent vaccine 11/25/2008 Recorded Recommendations Health Maintenance Pending(in the next year) OverDue Body Mass Index due10/08/18and every 1year Adult Influenza Vaccine due08/17/22and every 1year Due Adult COVID-19 Vaccination due11/06/22Unknown Frequency Falls Plan of Care due11/06/22Unknown Frequency Hepatitis C Screening due11/06/22One-time only Medicare Annual Wellness Visit due11/06/22and every 1year Osteoporosis Screening due11/06/22One-time only Shingles Vaccine due11/06/22One-time only Satisfied(in the past 1 year) There are no satisfied recommendations within the defined date range Electronic Signature on File Electronically Reviewed/Signed by: Hien Rodarte DO Author Signature Dt/Tm:11/06/2022 03:48 PM Department of Family Medicine [facility] Patient Care team information Care Team Personnel Name: MD Hany, Anita Nam Position: Physician Member Role: Primary Care Provider Address: Address: [address] [place] [address], [place] [address] Care Team Related Persons Name: GENNYADA Address: home [address] [place] [address] [place] [phone] Name: GENNY ADA Address: home [address] [place] [address] [place] [phone] Name: ADA ROYAL E Address: [place] Address: home [address] [place] [address] [place] [phone]
--- OUTSIDE RECORDS SUMMARY | 2023-01-29 21:50 | External Medical Summary | Continuity of Care Document ---
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 Name Role Phone Anita Leach Primary Care Physician [phone] Encounter [facility] [id number] Date(s): 08/27/22 - 08/27/22 [facility] [address] [facility] [address] [place] [address], [address] [phone] Encounter Diagnosis Pacemaker(Discharge Diagnosis) - 08/27/22 Discharge Disposition: Home or Self Care Attending Physician: EPHRAIM Hobbs Melvin J Referring Physician: MD Leach Ravishankar E Allergies, Adverse Reactions, Alerts Substance Reaction Severity [...] qid, Disp# 360 tab, Refills: 3, Pharmacy: [facility] Start Date: 11/27/21 Status: Ordered clonazePAM 1 mg oral tablet Start: 04/07/23 16:59:00 EDT, 1 tab, PO, qhs, Disp# 30 tab, Refills: 0, Pharmacy: [facility] Start Date: 05/24/22 Stop Date: 06/23/22 Status: Ordered DULoxetine 40 mg oral delayed release capsule Start: 11/27/21 11:59:00 EDT, 2 cap, PO, Daily, Disp# 180 cap, Refills: 3, Pharmacy: [facility] Start Date: 11/27/21 Stop Date: 11/22/22 Status: Ordered furosemide 40 mg oral tablet Start: 11/27/21 12:00:00 EDT, 1.5 tab, PO, Daily, Disp# 135 tab, Refills: 3, Pharmacy: [facility] Start Date: 11/27/21 Stop Date: 11/22/22 Status: Ordered gabapentin 100 mg oral capsule Start: 11/27/21 12:03:00 EDT, 1 cap, PO, tid, Disp# 270 cap, Refills: 3, Pharmacy: [facility] Start Date: 11/27/21 Stop Date: 11/22/22 Status: Ordered ibuprofen Start: 07/02/22 8:58:00 EDT, 200 mg 4 times daily since she is out of tramadol Start Date: 07/02/22 Status: Ordered ipratropium 42 mcg/inh (0.06%) nasal spray Start: 03/08/22 11:47:00 EST, See Instructions, Disp# 105 mL, Refills: 1, USE 2 SPRAYS IN EACH NOSTRIL 3 TIMES DAILY NEEDED FOR COLD SYMPTOMS, Pharmacy: [facility] Start Date: 03/08/22 Status: Ordered melatonin Start: 06/10/19 13:00:00 EDT, See Instructions, 20mg Start Date: 06/10/19 Status: Ordered meloxicam 15 mg oral tablet Start: 03/18/22 12:00:00 EST, See Instructions, Disp# 90 tab, Refills: 0, TAKE 1 TABLET DAILY, Pharmacy: [facility] Start Date: 03/18/22 Status: Ordered pantoprazole 20 mg oral delayed release tablet Start: 08/05/22 16:58:00 EDT, 1 tab, PO, bid, Disp# 180 tab, Note to Pharmacy: Replacing Nexium, Pharmacy: [facility] Start Date: 08/05/22 Stop Date: 11/03/22 Status: Ordered PreserVision oral tablet Start: 12/09/17 14:47:00 EDT, 1 tab, PO, Daily Start Date: 12/09/17 Status: Ordered Sinemet CR 50 mg-200 mg oral tablet, extended release Start: 11/27/21 11:59:00 EDT, 1 tab, PO, Daily, Disp# 90 tab, X 90 day, Refills: 3, Stop: 11/22/22 11:59:00 EDT, Pharmacy: [facility] Start Date: 11/27/21 Stop Date: 11/22/22 Status: Ordered traMADol 50 mg oral tablet Start: 07/11/22 20:39:00 EDT, 0.5 tab, PO, tid, Disp# 45 tab, Refills: 0, PRN: as needed for pain, Pharmacy: [facility]/pharmacy #[id number] Start Date: 07/11/22 Status: Ordered traMADol 50 mg oral tablet Start: 07/11/22 20:39:00 EDT, 0.5 tab, PO, tid, Disp# 135 tab, Refills: 3, PRN: as needed for pain,Pharmacy: [facility] Start Date: 07/11/22 Status: Ordered Vitamin B Complex Start: 07/02/22 8:59:00 EDT Start Date: 07/02/22 Status: Ordered Vitamin D3 2000 intl units oral tablet Start: 07/24/10 11:04:00, 1 tab, PO, Daily, tab Start Date: 07/24/10 Status: Ordered zonisamide 100 mg oral capsule Start: 11/27/21 12:05:00 EDT, 1 cap, PO, Daily, Disp# 90 cap, Refills: 3, Pharmacy: [facility] Start Date: 11/27/21 Stop Date: 11/22/22 Status: Ordered Mental Status 08/27/22 Barriers to Learning one year None evide nt Mandatory Health Literacy Documentation Yes Health Literacy Communication Barriers N ever Primary Language Cymro Problem List Condition Confirmation Course Effective Dates [...] Diagnosis Diagnosis Type Effective Dates Health Status Clini madie Service Informant Pacemaker Discharge Diagnosis 08/27/22 Non-Specified Procedures Procedure Date Related Diagnosis Body Site Status CT of head / brain 1 05/05/20 Comp leted Cardiac catheterization procedure 2 04/10/20 Completed Cardiac catheterization 3 04/08/20 Completed Chest x-ray 4 04/08/20 Completed Endoscopy upper GIi 06/22/15 Compl eted Upper GI endoscopy , 6 06/22/15 C ompleted Mammogram 12/13/14 Completed Colonoscopy 7 04/22/08 Completed 1Impression: No acute intracranial findings. 2[facility] Impression: 1.Some narrowing of the coronary arteries. None obstructed 3Coronary angiography and left heart cath. 4[facility] Impression: 1. Mild cardiomegaly with pulmonary vascular [...] Safety Implantable Status Assigning Authority Unknown 1 [id number] Unknown Unknown Unknown Unknown MR Unsafe Active Unknown 1Leads:RA - [employer] - #4592/53 - CapSure SP Novus - SN:[id number] - 05/20/2007RV - [employer] - #4092/58 - CapSure SP [employer] - SN:[id number] - 06/20/2015 Patient Care team information Care Team Personnel Name: MD Leach Ravishankar E Position: Physician Member Role: Primary Care Provider Address: Address: [address] Care Team Related Persons Name: ADA ROYAL Address: home [address] [place] [phone] Name: ADA ROYAL Address: home [address] [place] [phone] Name: ADA ROYAL Address: [facility] Address: home [address] [place] [phone]
[2023-01-29] MEDS: ZONISAMIDE 100 MG CAPSULE PO SCH (22:51)
[2023-01-29] MEDS: PANTOprazole 40 MG TAB PO SCH (22:52)
[2023-01-29] MEDS: GABAPENTIN 100 MG CAP PO SCH (22:52)
[2023-01-29] MEDS: traMADol HCL 50 MG TABLET PO SCH (23:23)
[2023-01-29] MEDS: clonazePAM 1 MG TAB PO SCH (23:23)
[2023-01-30 06:28] LABS: Basophils # (auto) 0.04 K/uL (0.00-0.20); Basophils % (auto) 0.6 %; Eosinophils # (auto) 0.11 K/uL (0.00-0.50); Eosinophils % (auto) 1.7 %; Hematocrit (blood only) 36.9 % (37.0-47.0); Immature Granulocytes # (auto) 0.03 K/uL (0.01-0.20); Immature Granulocytes % (auto) 0.5 %; Lymphocytes # (auto) 1.48 K/uL (1.20-3.40); Lymphocytes % (auto) 22.3 %; Mean Corpuscular Hemoglobin 28.4 pg (25.0-34.0); Mean Corpuscular Hgb Conc 32.5 g/dL (32.0-36.0); Mean Corpuscular Volume 87.4 fL (80.0-100.0); Mean Platelet Volume 11.1 fL (9.4-12.4); Neutrophils # (auto) 4.37 K/uL (1.40-6.50); Neutrophils % (auto) 65.9 %; Platelet Count 221 K/uL (130-400); RDW Coefficient of Variation 13.9 % (11.5-14.5); RDW Standard Deviation 44.3 fL (36.4-46.3); Red Blood Count 4.22 M/uL (4.20-5.40); White Blood Count 6.63 K/ul (4.8-10.8)
[2023-01-30 06:44] LABS: BUN Creatinine Ratio 12.3 (10-20); Calcium 9.1 mg/dl (8.6-10.3); Creatinine Clr Calc Pharmacy 69.7 ml/min; Est GFR (African American) 79.5 ml/min; Est GFR (Non-African American) 68.6 ml/min; Potassium 3.1 mmol/L (3.5-5.1)
[2023-01-30 07:50] LABS: Estimated Average Glucose 114 mg/dl; Hemoglobin A1C 5.6 % (4.5-5.6)
[2023-01-30] MEDS: ALBUT/IPRATROP 3MG/0.5MG NEB 3 ML VIAL NEB SCH ×4 (08:04→19:49)
[2023-01-30] MEDS ORDERED: POTASSIUM CHLORIDE CRTAB 20 MEQ TABCR PO STA (08:53)
--- NOTE | 2023-01-30 08:56 | Electrocardiogram Report ---
Test Reason : Blood Pressure : / mmHG Vent. Rate : 061 BPM Atrial Rate : 061 BPM P-R Int : 142 ms QRS Dur : 208 ms QT Int : 516 ms P-R-T Axes : 095 -85 092 degrees QTc Int : 519 ms AV dual-paced rhythm with occasional Premature ventricular complexes Abnormal ECG When compared with ECG of 10-APR-2020 06:48, Premature ventricular complexes are now Present Vent. rate has decreased BY 3 BPM Confirmed by Jamaal Bellamy ([id number]) on 01/30/2023 8:56:15 AM Referred By: Confirmed By:Jamaal Bellamy
[2023-01-30] MEDS: INSULIN ASPART PER UNIT CHARGE SC SCH ×4 (09:31→20:01)
[2023-01-30] MEDS: PANTOprazole 40 MG TAB PO SCH ×2 (09:32→21:00)
[2023-01-30] MEDS: GABAPENTIN 100 MG CAP PO SCH ×3 (09:32→20:59)
[2023-01-30] MEDS: ASPIRIN 81 MG ECTAB PO SCH (09:32)
[2023-01-30] MEDS: CARBIDOPA/LEVODOPA 25/100MG TAB PO SCH ×4 (09:32→20:59)
[2023-01-30] MEDS: CARBIDOPA/LEVODOPA 50/200MG EXT REL TAB PO SCH (09:33)
[2023-01-30] MEDS: DULoxetine HCL 20 MG CAP PO SCH (09:33)
[2023-01-30] MEDS: traMADol HCL 50 MG TABLET PO SCH ×3 (09:51→21:04)
[2023-01-30] MEDS: cefTRIAXone SODIUM 2,000 MG in DEXTROSE 5 % MINI-B 50 ML IV SCH (17:31)
--- NOTE | 2023-01-30 17:41 | Hospitalist Progress Note ---
Date of Service January 30, 2023 Assessment & Plan (1) COVID-19: Plan: -Currently stable on RA and no pulmonary symptoms, had diarrhea which appears to be resolving, is weaker than baseline physically -Was noted to be positive on PCR testing in the ED -CXR shows cardiomegaly with pulmonary vascular congestion but without signs of pneumonia -For now will start supportive care with prn tylenol, incentive spirometry, flutter therapy, prn DuoNebs, and prn O2 -Will hold systemic steroids and antivirals at this time as she is not hypoxic (2) Diarrhea: Plan: Seems to have been resolved and was related to COVID-19 (3) Pulmonary vascular congestion: Plan: -Patient noted to have cardiomegaly and interstitial edema on CXR -Patient denies hx of CHF but last echo in 2020 shows borderline reduce LVEF -Was hospitalized in [address] [facility] for CHF exacerbation per our records -1.5L NSS in the ED, then 20 mg IV Lasix given negative admission -Appears euvolemic today, hold off on further diuresis (4) UTI (urinary tract infection): Plan: -UA today concerning for possible UTI -Patient confirms she has been experiencing dysuria with recent diarrhea -No previous hx of resistant organisms in our system -Continue ceftriaxone -Follow urine cultures and tailor abx to sensitivities (5) Hypomagnesemia: Plan: Related to diarrhea, replaced IV on admission, magnesium normal at 2.0 (6) Parkinson disease: Plan: -Continue home Sinemet, gabapentin, Zonisamide, and tramadol -Stable, not stiff or rigid currently (7) Generalized weakness: Plan: -Likely due to her acute covid 19 infection and diarrhea -Has Parkinson's disease and is nearly bedbound at baseline -Lost her home health nurse approximately one month ago when they quit, currently without home health -PT/OR consults and CM consults placed -Fall precuations -Adamantly refused nursing facility (8) Diabetes: Plan: -Has been trying to control with diet -Last A1C in our system is 6.5 on 04/08/20 -Glucose 113 on arrival -Will monitor BSG ACHS, goal is 110-140 -Will start CF 50 ACHS for now, hold basal insulin -Will obtain AM A1c -HH/DMII diet -Adjust regimen as needed -Blood glucose 12/14 reviewed has been [address], at goal (9) Hypertension: Plan: -Stable -Not currently on antihypertensives (10) CAD (coronary artery disease): Plan: -Denies chest discomfort -Conitnue daily aspirin Plan Replaced hypokalemia potassium 3.1 related to diarrhea and diuretics with 40 mEq p.o., BMP in a.m. DVT prophylaxis: Enoxaparin 40 subcu Dispo: I discussed with Carmen she adamantly refuses nursing facility, she would be willing to consider inpatient rehab, PT and OT eval's were reviewed and they states she is below her baseline not safe for discharge home with her at this point would require skilled therapies if discharged today Admission and Anticipated Discharge Date Admission Date: January 29, 2023 Subjective Carmen is feeling better but physically weaker than her baseline. She lives at home with her who is her caregiver there on 1 level. She had acute diarrhea that no more diarrhea since this morning. Denies any abdominal pain. She endorses dysuria with a burning feeling when she voids. No cough shortness of breath or fever. Her also has COVID symptoms but having a mild cold syndrome not very ill. Physical Exam 2 Physical Exam: PHYSICAL EXAMINATION Last 24h vital signs reviewed, see documentation in flowsheet General: comfortable appearing, no distress, reclining in bed HEENT: Normocephalic, atraumatic, pupils round and equal, sclerae anicteric, no conjunctival injection, moist mucus membranes Lungs: Normal respiratory effort. Clear except slightly coarse in both bases. No RRW. Not coughing Heart: Regular rate and rhythm, no murmurs. No JVD Abdomen: Soft, nontender, nondistended. Bowel sounds present. Extremities: Warm, dry, well-perfused. 1+ lower extremity edema. Neuro: Alert and oriented x 4, face symmetric, moves 4 extremities well Psych: Normal affect and behavior Results & Data Results & Data Vital Signs (Past 12 Hours) Vital Signs Temp Pulse Pulse Resp BP Pulse Ox O2 Del Method 01/30/23 15:24 70 18 95 Room Air 01/30/23 12:30 36.7 C 74 18 129/60 95 Room Air 01/30/23 11:59 36.8 C 74 20 122/77 95 Room Air 01/30/23 11:51 63 16 96 Room Air 01/30/23 09:40 Room Air 01/30/23 08:43 36.8 C 60 18 125/62 96 Room Air 01/30/23 08:04 60 16 96 Room Air 01/30/23 08:00 62 Laboratory Results 01/30/23 05:17 01/30/23 05:17 PG Care Time/CCT Total # of Minutes Spent Total Time Spent with Patient: Total time spent is greater than 50% in coordination of care (as documented) at patient's floor/unit and/or counseling patient: Coding Level of Care Code 67174 SUB INP/OBS CARE 2/35MIN Diagnoses COVID-19 U07.1 Diarrhea A09 Diarrhea type: infectious Pulmonary vascular congestion R09.89 UTI (urinary tract infection) N39.0 Hypomagnesemia E83.42 Parkinson disease G20.A1 Dyskinesia presence: unspecified whether dyskinesia Fluctuating manifestations: unspecified whether manifestations fluctuate Generalized weakness R53.1 Type 2 diabetes mellitus without complication, without long-term current use of insulin E11.9 Diabetes mellitus type: type 2 Diabetes mellitus retirement insulin use: without retirement use Diabetes mellitus complication status: without complication Primary hypertension I10 Hypertension type: primary hypertension Coronary artery disease involving [place] coronary artery of [place] heart without angina pectoris I25.10 Coronary Disease-Associated Artery/Lesion type: [place] artery [place] vs. transplanted heart: [place] heart Associated angina: without angina (2) Diarrhea Diarrhea type: infectious Qualified Code(s): A09 - Infectious gastroenteritis and colitis, unspecified (6) Parkinson disease Dyskinesia presence: unspecified whether dyskinesia Fluctuating manifestations: unspecified whether manifestations fluctuate Qualified Code(s): G20.A1 - Parkinson's disease without dyskinesia, without mention of fluctuations (8) Diabetes Diabetes mellitus type: type 2 Diabetes mellitus retirement insulin use: w [employer] use Diabetes mellitus complication status: without complication Qualified Code(s): E11.9 - Type 2 diabetes mellitus without complications (9) Hypertension Hypertension type: primary hypertension Qualified Code(s): I10 - Essential (primary) hypertension (10) CAD (coronary artery disease) Coronary Disease-Associated Artery/Lesion type: [place] artery [place] vs. transplanted heart: [place] heart Associated angina: without angina Qualified Code(s): I25.10 - Atherosclerotic heart disease of [place] coronary artery without angina pectoris
[2023-01-30] MEDS: ENOXAPARIN INJ 40 MG/0.4 ML SYR SQ SCH (18:15)
[2023-01-30] MEDS: clonazePAM 1 MG TAB PO SCH (21:00)
[2023-01-30] MEDS: ZONISAMIDE 100 MG CAPSULE PO SCH (21:01)
[2023-01-31 06:24] LABS: Basophils # (auto) 0.04 K/uL (0.00-0.20); Basophils % (auto) 0.6 %; Eosinophils # (auto) 0.27 K/uL (0.00-0.50); Eosinophils % (auto) 3.7 %; Hematocrit (blood only) 37.9 % (37.0-47.0); Hemoglobin 11.9 g/dl (12.0-16.0); Immature Granulocytes # (auto) 0.04 K/uL (0.01-0.20); Immature Granulocytes % (auto) 0.6 %; Lymphocytes # (auto) 1.18 K/uL (1.20-3.40); Lymphocytes % (auto) 16.3 %; Mean Corpuscular Hemoglobin 28.2 pg (25.0-34.0); Mean Corpuscular Hgb Conc 31.4 g/dL (32.0-36.0); Mean Corpuscular Volume 89.8 fL (80.0-100.0); Mean Platelet Volume 10.8 fL (9.4-12.4); Monocytes # (auto) 0.58 K/uL (0.11-0.59); Neutrophils # (auto) 5.13 K/uL (1.40-6.50); Neutrophils % (auto) 70.8 %; Platelet Count 220 K/uL (130-400); RDW Standard Deviation 45.3 fL (36.4-46.3); Red Blood Count 4.22 M/uL (4.20-5.40); White Blood Count 7.24 K/ul (4.8-10.8)
[2023-01-31 06:45] LABS: BUN Creatinine Ratio 14.4 (10-20); Calcium 9.2 mg/dl (8.6-10.3); Creatinine Clr Calc Pharmacy 54.1 ml/min; Est GFR (African American) 58.8 ml/min; Est GFR (Non-African American) 50.7 ml/min; Magnesium 1.8 mg/dl (1.7-2.4); Potassium 3.7 mmol/L (3.5-5.1)
[2023-01-31] MEDS: ALBUT/IPRATROP 3MG/0.5MG NEB 3 ML VIAL NEB SCH ×4 (07:32→19:39)
[2023-01-31] MEDS: traMADol HCL 50 MG TABLET PO SCH ×3 (09:29→20:47)
[2023-01-31] MEDS: GABAPENTIN 100 MG CAP PO SCH ×3 (09:30→20:49)
[2023-01-31] MEDS: PANTOprazole 40 MG TAB PO SCH ×2 (09:30→20:50)
[2023-01-31] MEDS: DULoxetine HCL 20 MG CAP PO SCH (09:30)
[2023-01-31] MEDS: CARBIDOPA/LEVODOPA 25/100MG TAB PO SCH ×4 (09:30→20:49)
[2023-01-31] MEDS: ASPIRIN 81 MG ECTAB PO SCH (09:31)
[2023-01-31] MEDS: INSULIN ASPART PER UNIT CHARGE SC SCH ×4 (09:31→20:50)
[2023-01-31] MEDS: CARBIDOPA/LEVODOPA 50/200MG EXT REL TAB PO SCH (09:33)
[2023-01-31] MEDS ORDERED: ALBUTEROL 0.083% NEBU SOLN 3 ML VIAL NEB STA (13:03)
[2023-01-31] MEDS ORDERED: ALBUTEROL 0.083% NEBU SOLN 3 ML VIAL NEB PRN (13:04)
[2023-01-31] MEDS: cefTRIAXone SODIUM 2,000 MG in DEXTROSE 5 % MINI-B 50 ML IV SCH (17:42)
--- NOTE | 2023-01-31 18:08 | Hospitalist Progress Note ---
Date of Service January 31, 2023 Assessment & Plan (1) COVID-19: Plan: -Currently stable on RA and no pulmonary symptoms, had diarrhea which has resolved, is weaker than baseline physically -CXR shows cardiomegaly with pulmonary vascular congestion but without signs of pneumonia -continue supportive care with prn tylenol, incentive spirometry, flutter therapy, scheduled DuoNebs, and prn O2. added prn albuterol neb for wheezing -Will hold systemic steroids and antivirals at this time as she is not hypoxic (2) Diarrhea: Plan: Seems to have been resolved and was related to COVID-19 (3) Pulmonary vascular congestion: Plan: -Patient noted to have cardiomegaly and interstitial edema on CXR -Patient denies hx of CHF but last echo in 2020 shows borderline reduce LVEF -Was hospitalized in 2020 at [facility] for CHF exacerbation per our records -1.5L NSS in the ED, then 20 mg IV Lasix given negative admission -Appears euvolemic today, hold off on further diuresis -repeat lasix tomorrow if still wheezing (4) UTI (urinary tract infection): Plan: -E. coli UTI symptomatic of dysuria and SP pain -No previous hx of resistant organisms in our system -Continue ceftriaxone - organism is sensitive. change to po when symptomatically improved. resistant to a lot of oral options however. (5) Hypomagnesemia: Plan: Related to diarrhea, replaced IV on admission, magnesium normal at 2.0 (6) Parkinson disease: Plan: -Continue home Sinemet, gabapentin, Zonisamide, and tramadol -Stable, not stiff or rigid currently (7) Generalized weakness: Plan: -Likely due to her acute covid 19 infection and diarrhea -Has Parkinson's disease and is nearly bedbound at baseline -Lost her home health nurse approximately one month ago when they quit, currently without home health -PT/OR consults and CM consults placed -Fall precuations -Adamantly refused nursing facility (8) Diabetes: Plan: -Has been trying to control with diet -Last A1C in our system is 6.5 on 04/08/20 -Glucose 113 on arrival -Will monitor BSG ACHS, goal is 110-140 -Will start CF 50 ACHS for now, hold basal insulin -Will obtain AM A1c -HH/DMII diet -Adjust regimen as needed -Blood glucose 01/31 reviewed has been at goal (9) Hypertension: Plan: -Stable -Not currently on antihypertensives (10) CAD (coronary artery disease): Plan: -Denies chest discomfort -Conitnue daily aspirin Plan Replaced hypokalemia potassium 3.1 related to diarrhea and diuretics with 40 mEq p.o., normalized today DVT prophylaxis: Enoxaparin 40 subcu Dispo: I discussed with Carmen she adamantly refuses nursing facility, she would be willing to consider inpatient rehab, PT and OT eval's were reviewed and they states she is below her baseline not safe for discharge home with her at this point would require skilled therapies if discharged today Admission and Anticipated Discharge Date Admission Date: January 29, 2023 Subjective feels more short of breath with some wheezing right now and asks for neb. has cough. has no more diarrhea. has some suprapubic pain and dysuria. remains weak. Physical Exam 2 Physical Exam: PHYSICAL EXAMINATION Last 24h vital signs reviewed, see documentation in flowsheet General: comfortable appearing, no distress, reclining in bed HEENT: Normocephalic, atraumatic, pupils round and equal, sclerae anicteric, no conjunctival injection, moist mucus membranes Lungs: Normal respiratory effort. Clear except slight exp wheeze and some cough. No RRW. Heart: Regular rate and rhythm, no murmurs. No JVD Abdomen: Soft, nontender excapt mildly in SP area, no rrg, nondistended. Bowel sounds present. Extremities: Warm, dry, well-perfused. 1+ lower extremity edema unchanged. Neuro: Alert and oriented x 4, face symmetric, moves 4 extremities well, very mild nico UE cogwheeling Psych: Normal affect and behavior Results & Data Results & Data Vital Signs (Past 12 Hours) Vital Signs Temp Pulse Pulse Pulse Resp BP Pulse Ox 01/31/23 17:54 76 01/31/23 15:00 36.6 C 75 17 144/72 H 94 01/31/23 13:28 77 18 93 01/31/23 11:21 69 14 95 01/31/23 08:44 36.7 C 71 16 130/69 94 01/31/23 08:00 64 01/31/23 07:33 71 18 94 O2 Del Method FiO2 01/31/23 17:54 01/31/23 15:00 Room Air 01/31/23 13:28 Room Air 01/31/23 11:21 Room Air 21 01/31/23 08:44 Room Air 01/31/23 08:00 01/31/23 07:33 Room Air Laboratory Results 01/31/23 04:52 01/31/23 04:52 PG Care Time/CCT Total # of Minutes Spent Total Time Spent with Patient: Total time spent is greater than 50% in coordination of care (as documented) at patient's floor/unit and/or counseling patient: Coding Level of Care Code 75827 SUB INP/OBS CARE 235MIN Diagnoses COVID-19 U07.1 Diarrhea A09 Diarrhea type: infectious Pulmonary vascular congestion R09.89 UTI (urinary tract infection) N39.0 Hypomagnesemia E83.42 Parkinson disease G20.A1 Dyskinesia presence: unspecified whether dyskinesia Fluctuating manifestations: unspecified whether manifestations fluctuate Generalized weakness R53.1 Type 2 diabetes mellitus without complication, without long-term current use of insulin E11.9 Diabetes mellitus type: type 2 Diabetes mellitus long term acute care registered nurse insulin use: without long term acute care registered nurse use Diabetes mellitus complication status: without complication Primary hypertension I10 Hypertension type: primary hypertension Coronary artery disease involving [place] coronary artery of [place] heart without angina pectoris I25.10 Coronary Disease-Associated Artery/Lesion type: [place] artery [place] vs. transplanted heart: [place] heart Associated angina: without angina (2) Diarrhea Diarrhea type: infectious Qualified Code(s): A09 - Infectious gastroenteritis and colitis, unspecified (6) Parkinson disease Dyskinesia presence: unspecified whether dyskinesia Fluctuating manifestations: unspecified whether manifestations fluctuate Qualified Code(s): G20.A1 - Parkinson's disease without dyskinesia, without mention of fluctuations (8) Diabetes Diabetes mellitus type: type 2 Diabetes mellitus jail insulin use: w ithout long term acute care registered nurse use Diabetes mellitus complication status: without complication Qualified Code(s): E11.9 - Type 2 diabetes mellitus without complications (9) Hypertension Hypertension type: primary hypertension Qualified Code(s): I10 - Essential (primary) hypertension (10) CAD (coronary artery disease) Coronary Disease-Associated Artery/Lesion type: [place] artery [place] vs. transplanted heart: [place] heart Associated angina: without angina Qualified Code(s): I25.10 - Atherosclerotic heart disease of [place] coronary artery without angina pectoris
[2023-01-31] MEDS: ENOXAPARIN INJ 40 MG/0.4 ML SYR SQ SCH (20:46)
[2023-01-31] MEDS: clonazePAM 1 MG TAB PO SCH (20:47)
[2023-01-31] MEDS: ZONISAMIDE 100 MG CAPSULE PO SCH (20:47)
[2023-02-01 05:33] LABS: Basophils # (auto) 0.05 K/uL (0.00-0.20); Basophils % (auto) 0.7 %; Eosinophils # (auto) 0.41 K/uL (0.00-0.50); Eosinophils % (auto) 6.1 %; Hematocrit (blood only) 38.6 % (37.0-47.0); Hemoglobin 11.9 g/dl (12.0-16.0); Immature Granulocytes # (auto) 0.02 K/uL (0.01-0.20); Immature Granulocytes % (auto) 0.3 %; Lymphocytes # (auto) 1.19 K/uL (1.20-3.40); Lymphocytes % (auto) 17.8 %; Mean Corpuscular Hgb Conc 30.8 g/dL (32.0-36.0); Mean Corpuscular Volume 90.8 fL (80.0-100.0); Mean Platelet Volume 10.8 fL (9.4-12.4); Monocytes # (auto) 0.63 K/uL (0.11-0.59); Monocytes % (auto) 9.4 %; Neutrophils # (auto) 4.38 K/uL (1.40-6.50); Neutrophils % (auto) 65.7 %; Platelet Count 210 K/uL (130-400); RDW Coefficient of Variation 13.8 % (11.5-14.5); RDW Standard Deviation 45.8 fL (36.4-46.3); Red Blood Count 4.25 M/uL (4.20-5.40); White Blood Count 6.68 K/ul (4.8-10.8)
[2023-02-01 05:51] LABS: BUN Creatinine Ratio 15.1 (10-20); Calcium 9.4 mg/dl (8.6-10.3); Creatinine Clr Calc Pharmacy 65.4 ml/min; Est GFR (African American) 73.9 ml/min; Est GFR (Non-African American) 63.8 ml/min; Magnesium 1.7 mg/dl (1.7-2.4); Potassium 3.7 mmol/L (3.5-5.1)
[2023-02-01] MEDS: ALBUT/IPRATROP 3MG/0.5MG NEB 3 ML VIAL NEB SCH ×4 (07:39→19:30)
[2023-02-01] MEDS: GABAPENTIN 100 MG CAP PO SCH ×3 (09:09→20:24)
[2023-02-01] MEDS: ASPIRIN 81 MG ECTAB PO SCH (09:09)
[2023-02-01] MEDS: CARBIDOPA/LEVODOPA 50/200MG EXT REL TAB PO SCH (09:09)
[2023-02-01] MEDS: DULoxetine HCL 20 MG CAP PO SCH (09:09)
[2023-02-01] MEDS: PANTOprazole 40 MG TAB PO SCH ×2 (09:09→20:24)
[2023-02-01] MEDS: INSULIN ASPART PER UNIT CHARGE SC SCH ×2 (09:09→13:20)
[2023-02-01] MEDS: CARBIDOPA/LEVODOPA 25/100MG TAB PO SCH ×4 (09:10→20:24)
[2023-02-01] MEDS: traMADol HCL 50 MG TABLET PO SCH ×3 (09:17→20:23)
[2023-02-01] MEDS ORDERED: MICONAZOLE NITRATE POWDER 85 GM EXT PRN (09:27)
--- NOTE | 2023-02-01 15:54 | Hospitalist Progress Note ---
Date of Service February 01, 2023 Assessment & Plan (1) COVID-19: Plan: -Currently stable on RA and no pulmonary symptoms, had COVID-associated diarrhea on admission which has resolved, is weaker than baseline physically but now improving -CXR shows cardiomegaly with pulmonary vascular congestion but without signs of pneumonia -continue supportive care with prn tylenol, incentive spirometry, flutter therapy, scheduled DuoNebs, and prn O2. added prn albuterol neb for wheezing - exam better 02/01 -Will hold systemic steroids and antivirals at this time as she is not hypoxic (2) Diarrhea: Plan: Seems to have been resolved and was related to COVID-19 (3) Pulmonary vascular congestion: Plan: -Patient noted to have cardiomegaly and interstitial edema on CXR -Patient denies hx of CHF but last echo in 2020 shows borderline reduce LVEF -Was hospitalized in 2020 at [facility] for CHF exacerbation per our records -1.5L NSS in the ED, then 20 mg IV Lasix given negative admission -Appears euvolemic today, hold off on further diuresis - same plan 02/01 (4) UTI (urinary tract infection): Plan: -E. coli UTI symptomatic of dysuria and SP pain -No previous hx of resistant organisms in our system -Continue ceftriaxone - organism is sensitive. change to po when symptomatically improved. resistant to a lot of oral options however. (5) Hypomagnesemia: Plan: Related to diarrhea, replaced IV on admission, magnesium normal at 2.0 (6) Parkinson disease: Plan: -Continue home Sinemet, gabapentin, Zonisamide, and tramadol -Stable, not stiff or rigid currently (7) Generalized weakness: Plan: -Likely due to her acute covid 19 infection and diarrhea -Has Parkinson's disease and is nearly bedbound at baseline -Lost her home health nurse approximately one month ago when they quit, currently without home health -PT/OR consults and CM consults placed -Fall precuations -Adamantly refused nursing facility (8) Diabetes: Plan: -Has been trying to control with diet -A1c 5.6 - pre-diabetic range -Glucose checks have been at goal, no insulins given, stopped checks (9) Hypertension: Plan: -Stable -Not currently on antihypertensives (10) CAD (coronary artery disease): Plan: -Denies chest discomfort -Conitnue daily aspirin Plan Replaced hypokalemia potassium 3.1 related to diarrhea and diuretics with 40 mEq p.o., normalized DVT prophylaxis: Enoxaparin 40 subcu Dispo: I discussed with Carmen she adamantly refuses nursing facility, she would be willing to consider inpatient rehab, PT and OT eval's were reviewed and they states she is below her baseline not safe for discharge home with her at this point, awaiting re-eval since she is looking stronger Admission and Anticipated Discharge Date Admission Date: January 29, 2023 Subjective feels stronger today. Up sitting in chair 3h. Breathing is good today, no more wheezing and not coughing. No diarrhea or abdominal pain. Physical Exam Physical Exam: PHYSICAL EXAMINATION Last 24h vital signs reviewed, see documentation in flowsheet General: comfortable appearing, no distress, sitting in chair! HEENT: Normocephalic, atraumatic, pupils round and equal, sclerae anicteric, no conjunctival injection, moist mucus membranes Lungs: Normal respiratory effort. CTAB no RRW Heart: Regular rate and rhythm, no murmurs. No JVD Abdomen: Soft, nontender [place], Bowel sounds present. Extremities: Warm, dry, well-perfused. 1+ lower extremity edema unchanged. Neuro: Alert and oriented x 4, face symmetric, moves 4 extremities well Psych: Normal affect and behavior Results & Data Results & Data Vital Signs (Past 12 Hours) Vital Signs Temp Pulse Pulse Pulse Resp BP Pulse Ox 02/01/23 15:15 67 18 94 02/01/23 11:50 36.5 C 75 16 115/65 93 02/01/23 11:28 75 16 93 02/01/23 08:27 36.4 C L 75 16 129/88 94 02/01/23 07:40 79 18 96 02/01/23 07:30 67 O2 Del Method 02/01/23 15:15 Room Air 02/01/23 11:50 Room Air 02/01/23 11:28 Room Air 02/01/23 08:27 Room Air 02/01/23 07:40 Room Air 02/01/23 07:30 PG Care Time/CCT Total # of Minutes Spent Total Time Spent with Patient: Total time spent is greater than 50% in coordination of care (as documented) at patient's floor/unit and/or counseling patient: Coding Level of Care Code 09042 SUB INP/OBS CARE 03/13MIN Diagnoses COVID-19 U07.1 Diarrhea A09 Diarrhea type: infectious Pulmonary vascular congestion R09.89 UTI (urinary tract infection) N39.0 Hypomagnesemia E83.42 Parkinson disease G20.A1 Dyskinesia presence: unspecified whether dyskinesia Fluctuating manifestations: unspecified whether manifestations fluctuate Generalized weakness R53.1 Type 2 diabetes mellitus without complication, without long-term current use of insulin E11.9 Diabetes mellitus type: type 2 Diabetes mellitus chemical waste management technician insulin use: without jail use Diabetes mellitus complication status: without complication Primary hypertension I10 Hypertension type: primary hypertension Coronary artery disease involving [place] coronary artery of [place] heart without angina pectoris I25.10 Coronary Disease-Associated Artery/Lesion type: [place] artery [place] vs. transplanted heart: [place] heart Associated angina: without angina (2) Diarrhea Diarrhea type: infectious Qualified Code(s): A09 - Infectious gastroenteritis and colitis, unspecified (6) Parkinson disease Dyskinesia presence: unspecified whether dyskinesia Fluctuating manifestations: unspecified whether manifestations fluctuate Qualified Code(s): G20.A1 - Parkinson's disease without dyskinesia, without mention of fluctuations (8) Diabetes Diabetes mellitus type: type 2 Diabetes mellitus chemical waste management technician insulin use: without chemical waste management technician use Diabetes mellitus complication status: without complication Qualified Code(s): E11.9 - Type 2 diabetes mellitus without complications (9) Hypertension Hypertension type: primary hypertension Qualified Code(s): I10 - Essential (primary) hypertension (10) CAD (coronary artery disease) Coronary Disease-Associated Artery/Lesion type: [place] artery [place] vs. transplanted heart: [place] heart Associated angina: without angina Qualified Code(s): I25.10 - Atherosclerotic heart disease of [place] coronary artery without angina pectoris
[2023-02-01] MEDS: cefTRIAXone SODIUM 2,000 MG in DEXTROSE 5 % MINI-B 50 ML IV SCH (17:10)
[2023-02-01] MEDS: ENOXAPARIN INJ 40 MG/0.4 ML SYR SQ SCH (20:23)
[2023-02-01] MEDS: clonazePAM 1 MG TAB PO SCH (20:24)
[2023-02-01] MEDS: ZONISAMIDE 100 MG CAPSULE PO SCH (20:24)
[2023-02-02] MEDS: ALBUT/IPRATROP 3MG/0.5MG NEB 3 ML VIAL NEB SCH ×4 (08:04→19:46)
[2023-02-02] MEDS: PANTOprazole 40 MG TAB PO SCH ×2 (10:13→20:10)
[2023-02-02] MEDS: traMADol HCL 50 MG TABLET PO SCH ×3 (10:13→20:10)
[2023-02-02] MEDS: GABAPENTIN 100 MG CAP PO SCH ×3 (10:14→20:10)
[2023-02-02] MEDS: CARBIDOPA/LEVODOPA 50/200MG EXT REL TAB PO SCH (10:14)
[2023-02-02] MEDS: CARBIDOPA/LEVODOPA 25/100MG TAB PO SCH ×4 (10:14→20:09)
[2023-02-02] MEDS: DULoxetine HCL 20 MG CAP PO SCH (10:14)
[2023-02-02] MEDS: ASPIRIN 81 MG ECTAB PO SCH (10:14)
--- NOTE | 2023-02-02 14:38 | Hospitalist Progress Note ---
Date of Service February 02, 2023 Assessment & Plan (1) COVID-19: Plan: -Currently stable on RA and no pulmonary symptoms, had COVID-associated diarrhea on admission which has resolved, was weaker than baseline physically but now significantly improved and ready to go home with her . he is her longtime caregiver she typically ambulates very little, really just across the room and is mostly wheelchair bed and chair bound. She adamantly refuses rehab placement. Functional status has improved significantly since admission and she appears ready to go home. I discussed with her patient care secretary today, she spoke with Carmen's and he is ready for her to come home tomorrow. We are arranging transportation and home health -CXR shows cardiomegaly with pulmonary vascular congestion but without signs of pneumonia -continue supportive care with prn tylenol, incentive spirometry, flutter therapy, scheduled DuoNebs, and prn O2. added prn albuterol neb for wheezing - exam better 02/01-, clear -steroids and antivirals were not indicated (2) Diarrhea: Plan: resolved and was related to COVID-19 (3) Pulmonary vascular congestion: Plan: -Patient noted to have cardiomegaly and interstitial edema on CXR -Patient denies hx of CHF but last echo in 2020 shows borderline reduce LVEF -Was hospitalized in 2020 at [facility] for CHF exacerbation per our records -1.5L NSS in the ED, then 20 mg IV Lasix given negative admission - euvolemic, hold off on further diuresis - same plan 02/02 (4) UTI (urinary tract infection): Plan: -E. coli UTI symptomatic of dysuria and SP pain (resolved) -No previous hx of resistant organisms in our system -Continue ceftriaxone - organism is sensitive. change to po on discharge, will use cefuroxime reviewed sensitivity panel (5) Hypomagnesemia: Plan: Related to diarrhea, replaced IV on admission, magnesium normal at 2.0 (6) Parkinson disease: Plan: -Continue home Sinemet, gabapentin, Zonisamide, and tramadol -Stable, not stiff or rigid currently (7) Generalized weakness: Plan: -Likely due to her acute covid 19 infection and diarrhea -Has Parkinson's disease and is nearly bedbound at baseline -PT/OR consults and CM consults appreciated -Fall precuations -Adamantly refused nursing facility (8) Diabetes: Plan: -Has been trying to control with diet -A1c 5.6 - pre-diabetic range -Glucose checks have been at goal, no insulins given, stopped checks (9) Hypertension: Plan: -Stable -Not currently on antihypertensives (10) CAD (coronary artery disease): Plan: -Denies chest discomfort -Conitnue daily aspirin Plan Replaced hypokalemia potassium 3.1 related to diarrhea and diuretics with 40 mEq p.o., normalized DVT prophylaxis: Enoxaparin 40 subcu Dispo: home tomorrow with her and home health, discussed with patient care secretary who has assisted with arranging this and arranging transport Admission and Anticipated Discharge Date Admission Date: January 29, 2023 Wendy Morales is doing well and wants to go home. Frustrating PT and OT has not come since 3 days ago she feels like her strength is much better than then and that she is able to walk to the bathroom with standby assistance and can make do at home. She has no shortness of breath no chest pain no abdominal pain no further diarrhea. suprapubic pain has resolved though she still has some mild dysuria Physical Exam Physical Exam: PHYSICAL EXAMINATION Last 24h vital signs reviewed, see documentation in flowsheet exam is unchanged 02/02 General: comfortable appearing, no distress, sitting in chair again HEENT: Normocephalic, atraumatic, pupils round and equal, sclerae anicteric, no conjunctival injection, moist mucus membranes Lungs: Normal respiratory effort. CTAB no RRW Heart: Regular rate and rhythm, no murmurs. No JVD Abdomen: Soft, nontender ND, Bowel sounds present. suprapubic area is no longer tender Extremities: Warm, dry, well-perfused. 1+ lower extremity edema unchanged. Neuro: Alert and oriented x 4, face symmetric, moves 4 extremities well Psych: Normal affect and behavior Results & Data Results & Data Vital Signs (Past 12 Hours) Vital Signs Temp Pulse Pulse Pulse Resp BP Pulse Ox 02/02/23 11:15 36.4 C L 71 20 158/77 H 94 02/02/23 11:08 74 16 95 02/02/23 08:45 36.4 C L 70 18 139/69 95 02/02/23 08:05 67 16 97 02/02/23 08:00 61 02/02/23 03:55 36.9 C 65 17 137/76 100 O2 Del Method 02/02/23 11:15 Room Air 02/02/23 11:08 Room Air 02/02/23 08:45 Room Air 02/02/23 08:05 Room Air 02/02/23 08:00 02/02/23 03:55 Room Air PG Care Time/CCT Total # of Minutes Spent Total Time Spent with Patient: Total time spent is greater than 50% in coordination of care (as documented) at patient's floor/unit and/or counseling patient: Coding Level of Care Code 66483 SUB INP/OBS CARE 235MIN Diagnoses COVID-19 U07.1 Diarrhea A09 Diarrhea type: infectious Pulmonary vascular congestion R09.89 UTI (urinary tract infection) N39.0 Hypomagnesemia E83.42 Parkinson disease G20.A1 Dyskinesia presence: unspecified whether dyskinesia Fluctuating manifestations: unspecified whether manifestations fluctuate Generalized weakness R53.1 Type 2 diabetes mellitus without complication, without long-term current use of insulin E11.9 Diabetes mellitus type: type 2 Diabetes mellitus medical terminologist insulin use: without medical terminologist use Diabetes mellitus complication status: without complication Primary hypertension I10 Hypertension type: primary hypertension Coronary artery disease involving sycuan coronary artery of sycuan heart without angina pectoris I25.10 Coronary Disease-Associated Artery/Lesion type: sycuan artery [place] vs. transplanted heart: sycuan heart Associated angina: without angina (2) Diarrhea Diarrhea type: infectious Qualified Code(s): A09 - Infectious gastroenteritis and colitis, unspecified (6) Parkinson disease Dyskinesia presence: unspecified whether dyskinesia Fluctuating manifestations: unspecified whether manifestations fluctuate Qualified Code(s): G20.A1 - Parkinson's disease without dyskinesia, without mention of fluctuations (8) Diabetes Diabetes mellitus type: type 2 Diabetes mellitus medical terminologist insulin use: without long-term use Diabetes mellitus complication status: without complication Qualified Code(s): E11.9 - Type 2 diabetes mellitus without complications (9) Hypertension Hypertension type: primary hypertension Qualified Code(s): I10 - Essential (primary) hypertension (10) CAD (coronary artery disease) Coronary Disease-Associated Artery/Lesion type: sycuan artery [place] vs. transplanted heart: sycuan heart Associated angina: without angina Qualified Code(s): I25.10 - Atherosclerotic heart disease of sycuan coronary artery without angina pectoris
--- NOTE | 2023-02-02 16:12 | Discharge Summary ---
Date of Service February 03, 2023 Admission HPI Per Admitting Provider Carmen is an 78 year old female with a PMH significant for Parkinson's disease, atrioventricular block S/P pacemaker placement, DM, FREDY, HTN, and CAD who presented to the [facility] ED via EMS on 01/29 with complaints of nausea, diarrhea, and generalized weakness. She remained stable while in the ED. Labs were significant for a magnesium of 1.6, UA with cloudy urine, nitrite positive, 2+ leukocyte esterase, 5-10 WBC, 4+ bacteria, and >30 epithelial cells, and full respiratory biofire positive for Covid 19. Chest xray was read as "1. Cardiomegaly with pulmonary vascular congestion. 2. Age indeterminate right shoulder anterior dislocation. This is new since chest radiograph of April 08, 2020 although may be chronic given adjacent bony deformity.". Prior to admission the patient was given 1.5L NSS, 1gm IV mag-sulfate, and 4 mg IV Zofran. At the time of the exam the patient was lying in bed in no acute distress. She states that she started to develop a non-productive cough and multiple episodes of non-bloody diarrhea approximately 3 days ago. Along with these symptoms she has also been experiencing generalized weakness. She denies recent fever, chills, chest pain, hemoptysis, pleuritic chest pain, nausea, vomiting, abd pain, LE swelling, and recent falls/trauma. She has still been able to take her home meds as prescribed. Unfortunately, her last home health nurse quit and her home health agency has been unable to find a replacement at this time. She is almost bed bound at this time and lives with her who is likely has covid 19 as well. She denies recent antibiotic use. She states that she has been having 5 or more episodes of non-bloody diarrhea over the past 3 days. She has been experiencing dysuria since her diarrhea started as she has been having difficulty keeping herself clean. We discussed code status, she explains that she has a living will and is a DNR/DNI. Her Son, Terrell, is her POA and would make medical decisions for her if she cannot make them herself. Principal Diagnosis COVID 19, acute diarrhea due to COVID-19, urinary tract infection, generalized weakness Discharge Exam PHYSICAL EXAMINATION Last 24h vital signs reviewed, see documentation in flowsheet General: comfortable appearing, no distress, sitting in the chair by the window HEENT: Normocephalic, atraumatic, pupils round and equal, sclerae anicteric, no conjunctival injection, moist mucus membranes Lungs: Normal respiratory effort. not coughing clear to auscultation bilaterally no wheezing Heart: Regular rate and rhythm, no murmurs. No JVD Abdomen: Soft, nontender ND, Bowel sounds present. suprapubic area is no longer tender Extremities: Warm, dry, well-perfused. 1+ lower extremity edema unchanged. left shoulder deformity unchanged can raise left arm to 90 degrees, unchanged Neuro: Alert and oriented x 4, face symmetric, moves 4 extremities well Psych: Normal affect and behavior Discharge Data Allergies Allergy/AdvReac Type Severity Reaction Status Date / Time cyclobenzaprine Allergy Unknown Verified 01/29/23 16:08 [From Flexeril] flurbiprofen [From Ansaid] Allergy Unknown Verified 01/29/23 16:08 ibuprofen Allergy Unknown Verified 01/29/23 16:08 morphine AdvReac Severe Unknown Verified 01/29/23 16:08 codeine AdvReac Intermediate ITCHY ALL Verified 01/29/23 16:08 OVER atorvastatin AdvReac Mild Myalgias Verified 01/29/23 16:08 Consultations 01/29/23 15:14 ED Decision to Admit Stat Hospital Course (1) COVID-19: -Currently stable on RA and no pulmonary symptoms, had COVID-associated diarrhea on admission which has resolved, was weaker than baseline physically but now significantly improved and ready to go home with her . he is her l ongtime caregiver she typically ambulates very little, really just across the room and is mostly wheelchair bed and chair bound. She adamantly refuses rehab placement. Functional status has improved significantly since admission and she appears ready to go home. Her is her caregiver. We are arranging transportation and home health -CXR showed cardiomegaly with pulmonary vascular congestion but without signs of pneumonia -treated with supportive care. Minimal pulmonary symptoms resolved. Diarrhea resolved -steroids and antivirals were not indicated (2) Pulmonary vascular congestion: -Patient noted to have cardiomegaly and interstitial edema on CXR -Patient denies hx of CHF but last echo in 2020 shows borderline reduce LVEF -Was hospitalized in 2020 at [facility] for CHF exacerbation per our records -1.5L NSS in the ED, then 20 mg IV Lasix given at admission - euvolemic, hold off on further diuresis - did not have signs and symptoms of heart failure this admission (3) UTI (urinary tract infection): -E. coli UTI symptomatic of dysuria and SP pain (resolved) -No previous hx of resistant organisms in our system -completed treatment with 5 days IV ceftriaxone on 02/03 (4) Hypomagnesemia: Related to diarrhea, replaced IV on admission, magnesium normalized (5) Parkinson disease: -Continue home Sinemet, gabapentin, Zonisamide, and tramadol -Stable, not stiff or rigid currently (6) Generalized weakness: -Likely due to her acute covid 19 infection and diarrhea -Has Parkinson's disease and can only ambulate a little at baseline. Primarily bed / chair / wheelchair. Uses walker for short distances -PT/OR consults and CM consults appreciated -Adamantly refused nursing facility -home health ordered for PT OT (7) Diabetes: -Has been trying to control with diet -A1c 5.6 - pre-diabetic range -Glucose checks have been at goal, no insulins given, stopped checks (8) Hypertension: -Stable -Not currently on antihypertensives (9) CAD (coronary artery disease): -Denies chest discomfort -Conitnue daily aspirin (10) Anterior shoulder dislocation: Incidental finding on chest x-ray. I discussed this with her 02/03. This is a longstanding and known issue, she has followed up with orthopedics at [facility] several times for this, they have considered surgery but she says it is unclear whether it would really benefit her and sounds like she does not plan to undergo surgery for this. She says she can use her arm fine and she is not convinced that Surgery would help her pain. Plan Replaced hypokalemia potassium 3.1 related to diarrhea and diuretics with 40 mEq p.o., normalized Total Time Total Time Spent Total Time Spent (In Minutes): 35 minutes spent on coordinating care for discharge including reviewing vital signs, chart notes, discussion with aged or disabled carer, examination and counseling of patient, documentation, Discharge Plan Discharge Items Patient Disposition: Home - Home Health Services Reason For Visit: COVID 19, DIARRHEA, GENERALIZED WEAKNESS Discharge Diagnosis: COVID-19, diarrhea due to COVID-19, UTI, generalized weakness Condition on Discharge: Fair Activity: Resume your previous activity Non-emergency contact: Primary Care Provider Call non-emergency contact if: you have any medication questions and your symptoms worsen Follow-up/Referrals: Hien Lowe DO [Primary Care Provider] - (PLEASE CALL YOUR PRIMARY CARE PROVIDER TO SCHEDULE A HOSPITAL DISCHARGE FOLLOW-UP APPOINTMENT WITHIN 7-10 DAYS) Diet: Carb Consistent or DM2 Addtl Attending Provider Instructions: You had weakness related to COVID-19, which caused diarrhea and only mild lung symptoms, as well as UTI You completed antibiotics for UTI while in the hospital (5 days of IV antibiotic) Home health was ordered for PT and OT to help improve your strength at home A chest x-ray was taken at admission and shows that your right shoulder is dislocated. This appears to be chronic since there are bony changes visible on the x-ray and you are not having any pain. Based on old x-rays it happened sometime since March 2020. I made an outpatient referral to orthopedics. You can continue using your arm like you usually do, as long as it is not acutely painful. Pending Studies at Discharge: No Stand-Alone Forms: My [facility] [employer], Smoking Cessation Medications and DC Order Prescriptions: Continued clonazepam 1 mg tablet 1 mg PO HS 90 Days Qty: 90 0RF tramadol 50 mg tablet 25 mg PO TID 90 Days Qty: 135 0RF carbidopa-levodopa [Sinemet] 25-100 mg tablet 1 tab PO QID 90 Days Qty: 360 1RF carbidopa-levodopa 50-200 mg tablet extended release 1 tab PO QAM 90 Days Qty: 90 1RF gabapentin 100 mg capsule 100 mg PO TID 90 Days Qty: 270 1RF zonisamide 100 mg capsule 100 mg PO HS 90 Days Qty: 90 1RF esomeprazole magnesium 20 mg capsule,delayed release(DR/EC) 20 mg PO BID aspirin [Yoel Low Dose Aspirin] 81 mg Tablet,Delayed Release (Dr/Ec) 81 mg PO DAILY PreserVision AREDS-2 250-90-40-1 mg capsule 2 tab PO DAILY meloxicam 15 mg tablet 15 mg PO QAM ipratropium bromide 42 mcg (0.06 %) spray,non-aerosol 3 spray INTRANASAL TID PRN (Reason: Nasal Congestion) duloxetine 40 mg capsule,delayed release(DR/EC) 80 mg PO DAILY melatonin 10 mg Tablet 10 mg PO HS Discharge Orders: Discharge Order (Routine); Ordered 02/03/23 Ordered By: Jazzmine Marroquin/Other Patient Handouts: 2019 Novel Coronavirus Admission Data Admit Date/Time: 01/29/23 16:19 Attending Provider: Jazzmine Ellis Admit Provider: Jesus Matthews Primary Care Provider: Hien Lowe Other Providers: Jesus Matthews; [facility] Other Interventions: Discharge Summary Assessment (RN) Last Done: 02/03/23 09:40 Coding Level of Care Code 74111 INP/OBS DISCH >30 MIN Diagnoses COVID-19 U07.1 Pulmonary vascular congestion R09.89 UTI (urinary tract infection) N39.0 Hypomagnesemia E83.42 Parkinson disease G20.A1 Dyskinesia presence: unspecified whether dyskinesia Fluctuating manifestations: unspecified whether manifestations fluctuate Generalized weakness R53.1 Type 2 diabetes mellitus without complication, without long-term current use of insulin E11.9 Diabetes mellitus complication status: without complication Diabetes mellitus mcc insulin use: without mcc use Diabetes mellitus type: type 2 Primary hypertension I10 Hypertension type: primary hypertension Coronary artery disease involving robinson coronary artery of robinson heart without angina pectoris I25.10 Associated angina: without angina Coronary Disease-Associated Artery/Lesion type: robinson artery [place] vs. transplanted heart: robinson heart Anterior shoulder dislocation S43.016A
[2023-02-02] MEDS: cefTRIAXone SODIUM 2,000 MG in DEXTROSE 5 % MINI-B 50 ML IV SCH (17:09)
[2023-02-02] MEDS: ENOXAPARIN INJ 40 MG/0.4 ML SYR SQ SCH (19:16)
[2023-02-02] MEDS: ZONISAMIDE 100 MG CAPSULE PO SCH (20:10)
[2023-02-02] MEDS: clonazePAM 1 MG TAB PO SCH (20:10)
[2023-02-03] MEDS: ALBUT/IPRATROP 3MG/0.5MG NEB 3 ML VIAL NEB SCH ×2 (07:17→11:02)
[2023-02-03] MEDS ORDERED: cefTRIAXone SODIUM 2,000 MG in DEXTROSE 5 % MINI-B 50 ML IV SCH (09:00)
[2023-02-03] MEDS ORDERED: cefTRIAXone SODIUM 1,000 MG in DEXTROSE 5 % MINI-B 50 ML IV SCH (09:00)
[2023-02-03] MEDS: PANTOprazole 40 MG TAB PO SCH (09:10)
[2023-02-03] MEDS: CARBIDOPA/LEVODOPA 25/100MG TAB PO SCH ×2 (09:10→12:43)
[2023-02-03] MEDS: GABAPENTIN 100 MG CAP PO SCH ×2 (09:10→12:44)
[2023-02-03] MEDS: ASPIRIN 81 MG ECTAB PO SCH (09:11)
[2023-02-03] MEDS: DULoxetine HCL 20 MG CAP PO SCH (09:11)
[2023-02-03] MEDS: CARBIDOPA/LEVODOPA 50/200MG EXT REL TAB PO SCH (09:11)
[2023-02-03] MEDS: traMADol HCL 50 MG TABLET PO SCH ×2 (09:24→12:44)
== END 2023-02-03 13:10 | disposition home health service (06) | DRG 178 ==
LOC: ED 11:44 → SUATTDRO 16:19 → EDINP 16:19 → 2W 18:40